=== PATIENT | male | born 1960 | race Caucasian/White ===

== ENCOUNTER 2018-07-30 19:05 | Inpatient (IN) | payer MEDICAID ==
[2018-07-30] MEDS ORDERED: Sodium Chloride 0.9% 1,000 ML IV ONE ×3 (19:24→22:32)
[2018-07-30 19:49] LABS: URINE SOURCE CATH
[2018-07-30 19:51] LABS: URINE BILIRUBIN NEGATIVE (NEGATIVE); URINE BLOOD LARGE (NEGATIVE); URINE GLUCOSE (UA) NEGATIVE (NEGATIVE); URINE KETONE NEGATIVE (NEGATIVE); URINE LEUKOCYTE ESTERASE LARGE (NEGATIVE); URINE MICROSCOPIC INDICATED? YES; URINE NITRATE POSITIVE (NEGATIVE); URINE PROTEIN 30 mg/dL (NEGATIVE); URINE UROBILINOGEN 0.2 E.U./dL (0.2 - 1.0)
--- NOTE | 2018-07-30 19:55 | ED Physician Chart ---
ED Chief Complaint/HPI - Patient Information Date Seen:: 07/30/18 Time Seen:: 19:49 Chief Complaint:: fever r/o sepsis History of Present Illness:: 58 yr old male with hx SAH SPONTANEOUS WITH DYSPHAGIA RESP DISTRESS WITH TRACH HERE FOR ELEVATED TEMP UP TO 103 AND R/O SEPSIS Allergies:: Allergies Allergy/AdvReac Type Severity Reaction Status Date / Time No Known Allergies Allergy Verified 07/30/18 19:06 Vitals:: Vital Signs - 8 hr 07/30/18 07/30/18 19:11 19:17 Temp 103.7 F HR 127 123 RR 26 BP 121/75 O2 Sat % 100 100 ED Review of Systems - Review of Systems General/Constitutional: Fever Skin: Skin lesions Neck: No swelling Cardio Vascular: No edema Pulmonary: No wheezing GI: No vomiting Psychiatric: No prior psych history Neurological: Weakness ED Past Medical History - Past Medical History Past Medical History: Seizures (ANEMIA RESP FAILURE SAH TRACH GTUBE BENZ VENT DEPENDENT DNR), Other Family Medical History - Family Member Mother History Unknown: Yes ED Physical Exam - Physical Examination Other Gen/Cons comments:: NOT AWAKE MOVES LIPS SPONT NO RESPONSE TO STERNAL RUB EYES CLOSED Other Head comments:: HAS LARGE RT CRANIAL DEFECT WITH DEFORMITY CALVARIUM Other Eyes comments:: PUPILS SMALL SLIGHTLY REACTIVE AND NO DOLLS EYES AND POSITIVE BABINSKI Other Skin comments:: DRY SKIN SMALL COCCYGEAL DECUB AND LARGE LISA SKULL DEFECT RT TEMPORAL AREA Other Respiratory comments:: TRACH VENT Cardio Vascular: RRR Other GI comments:: GTUBE IN PLACE Extremities: No edema Other Neuro/Psych comments:: PT NON RESPONSIVE NON VERBAL ED Septic Shock - . Is Septic Shock (SBP<90, OR Lactate>4 mmol\L) present?: No - <6hrs of presentation: Vital Signs: Vital Signs - 8 hr 07/30/18 07/30/18 19:11 19:17 Temp 103.7 F HR 127 123 RR 26 BP 121/75 O2 Sat % 100 100 ED Reassessment (Disposition) - Reassessment Reassessment:: FEVER TRACH GTUBE SAH DNR R/O SEPSIS - Diagnosis Diagnosis:: ABOVE - Patient Disposition Discharge/Transfer:: Acute Care w/in this hosp Admitted to:: ICU Condition at Disposition:: Unchanged
[2018-07-30 19:58] LABS: MEAN CORPUSCULAR HEMOGLOBIN 29.4 pg (26.0-30.0); MEAN PLATELET VOLUME 8.1 fl; PLATELET COUNT 308 Th/cmm (150-400)
[2018-07-30 19:58] LABS: URINE CLARITY HAZY (CLEAR); URINE COLOR YELLOW
[2018-07-30 20:01] LABS: HEMATOCRIT 33.8 % (41.0-60); HEMOGLOBIN 11.3 gm/dL (12-16); MEAN CELL VOLUME 87.9 fl (80-99); MEAN CORPUSCULAR HGB CONC 33.4 pg (28.0-36.0); RED BLOOD COUNT 3.84 Mil/cmm (4.30-5.70); RED CELL DISTRIBUTION WIDTH 14.1 % (11.5-20.0)
[2018-07-30 20:06] LABS: ALB/GLOB RATIO 0.9 (1.0-1.8); ALBUMIN 3.4 gm/dL (4.2-5.5); ALKALINE PHOSPHATASE 64 U/L (34-104); ANION GAP 13.8 (7.0-16.0); BILIRUBIN,TOTAL 0.6 mg/dL (0.3-1.0); BUN - UREA NITROGEN 23 mg/dL (7-25); CALCIUM SERUM 8.7 mg/dL (8.6-10.3); CARBON DIOXIDE 23.9 mEq/L (21.0-31.0); CHLORIDE 96 mEq/L (98-107); CREATININE - SERUM 0.7 mg/dL (0.7-1.3); GFR AFRICAN-AMERICAN > 60.0 ml/min (>90); GFR NON AFRICAN-AMERICAN > 60.0 ml/min; GLUCOSE 97 mg/dL (70-105); POTASSIUM SERUM 3.7 mEq/L (3.5-5.1); SGOT 26 U/L (13-39); SGPT/ALT 43 U/L (7-52); SODIUM SERUM 130 mEq/L (136-145); TOTAL PROTEIN,SERUM 7.4 gm/dL (6.0-8.3)
[2018-07-30] MEDS ORDERED: cefTRIAXone 2 GM in Sodium Chloride 0.9% 100 ML IV ONE (20:10)
[2018-07-30 20:17] LABS: WHITE BLOOD COUNT 27.1 Th/cmm (4.8-10.8)
[2018-07-30 20:21] LABS: URINE BACTERIA 4+ /hpf (NONE SEEN); URINE EPITHELIAL CELLS FEW /lpf (FEW); URINE WBC 25-50 /hpf (0-5)
[2018-07-30 20:31] LABS: BAND NEUTROPHILE 8 % (0-10); LYMPHOCYTE 5 % (20-50); MONOCYTE 5 % (2-10); NEUTROPHILS 82 % (40-80)
[2018-07-30] MEDS: Chlorhexidine Gluconate 0.12% 15mL Mouthwash MM SCH (21:30)
[2018-07-30] MEDS ORDERED: Piperacillin Sodium/Tazobact 3.375 gm Vial IV ONE (22:44)
[2018-07-31] MEDS ORDERED: Albumin 25% 25gm/100mL 25 GM/100 ML BTL IV ONE ×2 (00:17→04:05)
[2018-07-31] MEDS ORDERED: Albumin 25% 25gm/100mL 50 GM/200 ML BTL IV ONE (00:39)
[2018-07-31 04:55] LABS: HEMATOCRIT 28.1 % (41.0-60); HEMOGLOBIN 9.3 gm/dL (12-16); MEAN CORPUSCULAR HEMOGLOBIN 29.1 pg (26.0-30.0); MEAN CORPUSCULAR HGB CONC 33.1 pg (28.0-36.0); MEAN PLATELET VOLUME 8.1 fl; PLATELET COUNT 275 Th/cmm (150-400); RED BLOOD COUNT 3.19 Mil/cmm (4.30-5.70); RED CELL DISTRIBUTION WIDTH 14.3 % (11.5-20.0)
[2018-07-31 05:38] LABS: ALB/GLOB RATIO 1.1 (1.0-1.8); ALBUMIN 3.7 gm/dL (4.2-5.5); ALKALINE PHOSPHATASE 53 U/L (34-104); ANION GAP 15.3 (7.0-16.0); BILIRUBIN,TOTAL 0.7 mg/dL (0.3-1.0); BUN - UREA NITROGEN 16 mg/dL (7-25); CALCIUM SERUM 8.9 mg/dL (8.6-10.3); CARBON DIOXIDE 22.2 mEq/L (21.0-31.0); CHLORIDE 101 mEq/L (98-107); CREATININE - SERUM 0.7 mg/dL (0.7-1.3); GFR AFRICAN-AMERICAN > 60.0 ml/min (>90); GFR NON AFRICAN-AMERICAN > 60.0 ml/min; GLUCOSE 90 mg/dL (70-105); POTASSIUM SERUM 3.5 mEq/L (3.5-5.1); SGOT 21 U/L (13-39); SGPT/ALT 33 U/L (7-52); SODIUM SERUM 135 mEq/L (136-145); TOTAL PROTEIN,SERUM 7.2 gm/dL (6.0-8.3)
[2018-07-31 05:40] LABS: WHITE BLOOD COUNT 30.2 Th/cmm (4.8-10.8)
[2018-07-31 06:40] LABS: LYMPHOCYTE 6 % (20-50); NEUTROPHILS 89 % (40-80)
[2018-07-31 06:41] LABS: MONOCYTE 5 % (2-10); PLATELET ESTIMATE ADEQUATE (NORMAL)
[2018-07-31 07:18] VITALS: BP 125/77
--- NOTE | 2018-07-31 07:46 | Diagnostic Imaging Report ---
Portable chest x-ray History: Cough Allowing for portable technique the heart size is normal. No focal pulmonary parenchymal processes. No hilar or mediastinal abnormalities. Right-sided vascular tip is in the region of the superior vena cava. Tracheostomy noted. Impression: No acute pulmonary processes
[2018-07-31] MEDS: Chlorhexidine Gluconate 0.12% 15mL Mouthwash MM SCH ×2 (08:46→20:35)
[2018-07-31] MEDS ORDERED: Magnesium Hydroxide (MOM) 30 mL UDC GT PRN (17:50)
--- NOTE | 2018-07-31 19:22 | History & Physical ---
ADMIT DATE: 07/31/2018 CHIEF COMPLAINT: Fever. HISTORY OF PRESENT ILLNESS: This is a 58-year-old male who is a resident of [facility], admitted to the ICU unit due to an episode of a fever of 103 at the subacute unit. When the patient arrived in the ER, the patient was noted with a WBC of 27.1. Sepsis protocol was initiated. PAST MEDICAL HISTORY: Chronic respiratory failure, seizures, ventilator dependent and anemia. PAST SURGICAL HISTORY: Tracheostomy, gastrostomy and craniotomy. ALLERGIES: No drug allergies. HOME MEDICATIONS: See medication list. FAMILY HISTORY: Noncontributory. SOCIAL HISTORY: The patient is a [facility] resident. REVIEW OF SYSTEMS: Unable to obtain, the patient is nonverbal. PHYSICAL EXAMINATION: GENERAL: The patient is well developed, well nourished and appears acutely ill. VITAL SIGNS: Temperature 99.2, heart rate of 100, blood pressure 111/69, respirations of 17 and O2 100%. NECK: Tracheostomy site in place. CARDIOVASCULAR: Regular rate and rhythm. No murmurs or gallops. LUNGS: Rhonchi bilaterally upon auscultation. ABDOMEN: Soft, nontender and nondistended. PEG tube in place. EXTREMITIES: No edema noted. LABORATORY DATA: WBC 30.2, H and H 9.3 and 28.1 and platelet of 275. Sodium 135, potassium 3.5, chloride 101, BUN 16 and creatinine 0.7. The patient had a urinalysis done, positive for UTI. DIAGNOSTIC DATA: The patient had a chest x-ray done. Impression is no acute pulmonary processes. ASSESSMENT: Urosepsis, acute on chronic respiratory failure, VDRF, seizures, anemia, gastrostomy and tracheostomy status and moderate protein-calorie malnutrition. PLAN: The patient to be admitted to the ICU unit. We will give the patient IV antibiotics of vancomycin and Zosyn. We will also get Infectious Disease on the case. We will get Pulmonology on the case. We will get followup labs for tomorrow morning. We will get wound care consult. We will continue to monitor this patient. JOB# [id number]
[2018-07-31] MEDS: Cefepime 1 GM in Sodium Chloride 0.9% 50 ML IV SCH (20:29)
[2018-08-01 05:14] LABS: HEMATOCRIT 24.6 % (41.0-60); HEMOGLOBIN 8.2 gm/dL (12-16); MEAN CELL VOLUME 88.6 fl (80-99); MEAN CORPUSCULAR HEMOGLOBIN 29.7 pg (26.0-30.0); MEAN CORPUSCULAR HGB CONC 33.5 pg (28.0-36.0); MEAN PLATELET VOLUME 8.7 fl; PLATELET COUNT 191 Th/cmm (150-400); RED BLOOD COUNT 2.78 Mil/cmm (4.30-5.70); RED CELL DISTRIBUTION WIDTH 14.3 % (11.5-20.0)
[2018-08-01 05:43] LABS: WHITE BLOOD COUNT 18.8 Th/cmm (4.8-10.8)
[2018-08-01 05:52] LABS: ANION GAP 10.9 (7.0-16.0); BUN - UREA NITROGEN 15 mg/dL (7-25); CALCIUM SERUM 8.3 mg/dL (8.6-10.3); CARBON DIOXIDE 22.7 mEq/L (21.0-31.0); CHLORIDE 103 mEq/L (98-107); CREATININE - SERUM 0.5 mg/dL (0.7-1.3); GFR AFRICAN-AMERICAN > 60.0 ml/min (>90); GFR NON AFRICAN-AMERICAN > 60.0 ml/min; GLUCOSE 153 mg/dL (70-105); SODIUM SERUM 134 mEq/L (136-145)
[2018-08-01 06:11] LABS: POTASSIUM SERUM 2.6 mEq/L (3.5-5.1)
[2018-08-01 06:28] LABS: LYMPHOCYTE 4 % (20-50); MONOCYTE 4 % (2-10); NEUTROPHILS 92 % (40-80); PLATELET ESTIMATE ADEQUATE (NORMAL)
[2018-08-01] MEDS: Levetiracetam 500 mg/5mL 5mL UDSyr *for ORAL USE ONLY GT SCH ×2 (08:22→18:18)
[2018-08-01] MEDS: Multivitamin Tab GT SCH ×2 (08:23→18:18)
[2018-08-01] MEDS: Chlorhexidine Gluconate 0.12% 15mL Mouthwash MM SCH ×2 (08:24→20:28)
[2018-08-01] MEDS: Cefepime 1 GM in Sodium Chloride 0.9% 50 ML IV SCH ×2 (08:59→20:00)
[2018-08-01] MEDS ORDERED: Non-Formulary Item 1 EA (Cran/Vitc/Mannose/Fos/Bromeln [Uti-Stat Liquid] 3,875 MG) PO SCH (09:00)
[2018-08-01] MEDS ORDERED: Probiotic Screen MC PRN (09:03)
[2018-08-01] MEDS: KCL 20mEq/100mL Premix 20 MEQ/100 ML PIGGYBACK IV SCH ×2 (10:19→12:22)
[2018-08-01] MEDS: Lactobacillus Rhamnosus GG 15 Billion CFU CAP.SPRINK PO SCH (12:24)
[2018-08-01] MEDS ORDERED: Potassium Chloride Elixir 20 mEq /15 mL UDC GT ONE (12:57)
[2018-08-01] MEDS ORDERED: Silver Nitrate 1 Swab TP ONE (13:50)
[2018-08-01] MEDS ORDERED: BUPIVACAINE 0.25% INJ ONE (13:50)
[2018-08-01] MEDS ORDERED: EPI INJ ONE (13:50)
--- NOTE | 2018-08-01 14:23 | Operative Report ---
Post Operative Report - POST-OPERATIVE NOTE Preoperative diagnosis:: actively bleeding R pre-auricular open wound/laceration Postoperative diagnosis:: same Operation performed:: suture repair R preauricular bleeding wound/laceration Specimen:: none Anesthesia:: Local Anesthesiologist:: Tanner Cespedes Blood Loss (fluid management):: 5ml Surgeon:: Tanner Cespedes Hotel Guest Service Agent:: none Findings:: R preauricular open wound, dehisced incision Complications:: none
[2018-08-01] MEDS: Morphine Sulfate 2 mg/mL 1mL Syr IVP PRN ×2 (14:50→19:52)
--- NOTE | 2018-08-01 15:42 | Internal Medicine Prog Note ---
Internal Medicine Subjective - Subjective Service Date: 08/01/18 Patient seen and examined:: with staff Patient is:: awake Patient Complaints of:: other (resp. failure on vent.) Per staff patient has:: no adverse event, no episodes of fall Internal Medicine Objective - Results Result Diagrams: 08/01/18 05:00 08/01/18 05:00 Recent Labs: Laboratory Last Values WBC 18.8 Th/cmm (4.8-10.8) H 08/01/18 05:00 RBC 2.78 Mil/cmm (4.30-5.70) L 08/01/18 05:00 Hgb 8.2 gm/dL (12-16) L 08/01/18 05:00 Hct 24.6 % (41.0-60) L 08/01/18 05:00 MCV 88.6 fl (80-99) 08/01/18 05:00 MCH 29.7 pg (26.0-30.0) 08/01/18 05:00 MCHC Differential 33.5 pg (28.0-36.0) 08/01/18 05:00 RDW 14.3 % (11.5-20.0) 08/01/18 05:00 Plt Count 191 Th/cmm (150-400) 08/01/18 05:00 MPV 8.7 fl 08/01/18 05:00 Add Manual Diff YES 08/01/18 05:00 Band Neutrophils % 8 % (0-10) 07/30/18 19:44 Neutrophils (Manual) 92 % (40-80) H 08/01/18 05:00 Lymphocytes 4 % (20-50) L 08/01/18 05:00 Monocytes 4 % (2-10) 08/01/18 05:00 Platelet Estimate ADEQUATE (NORMAL) 08/01/18 05:00 Sodium 134 mEq/L (136-145) L 08/01/18 05:00 Potassium 2.6 mEq/L (3.5-5.1) L* 08/01/18 05:00 Chloride 103 mEq/L (98-107) 08/01/18 05:00 Carbon Dioxide 22.7 mEq/L (21.0-31.0) 08/01/18 05:00 Anion Gap 10.9 (7.0-16.0) 08/01/18 05:00 BUN 15 mg/dL (7-25) 08/01/18 05:00 Creatinine 0.5 mg/dL (0.7-1.3) L 08/01/18 05:00 Est GFR ( Amer) > 60.0 ml/min (>90) 08/01/18 05:00 Est GFR (Non-Af Amer) > 60.0 ml/min 08/01/18 05:00 BUN/Creatinine Ratio 30.0 08/01/18 05:00 Glucose 153 mg/dL (70-105) H 08/01/18 05:00 Whole Bld Lactic Acid 1.47 mmol/L (0.60-1.99) 07/31/18 07:40 Calcium 8.3 mg/dL (8.6-10.3) L 08/01/18 05:00 Total Bilirubin 0.7 mg/dL (0.3-1.0) 07/31/18 04:35 AST 21 U/L (13-39) 07/31/18 04:35 ALT 33 U/L (7-52) 07/31/18 04:35 Alkaline Phosphatase 53 U/L (34-104) 07/31/18 04:35 Total Protein 7.2 gm/dL (6.0-8.3) 07/31/18 04:35 Albumin 3.7 gm/dL (4.2-5.5) L 07/31/18 04:35 Globulin 3.5 gm/dL 07/31/18 04:35 Albumin/Globulin Ratio 1.1 (1.0-1.8) 07/31/18 04:35 Urine Source CATH 07/30/18 19:20 Urine Color YELLOW 07/30/18 19:20 Urine Clarity HAZY (CLEAR) 07/30/18 19:20 Urine pH 7.0 (4.6 - 8.0) 07/30/18 19:20 Ur Specific [place] 1.010 (1.005-1.030) 07/30/18 19:20 Urine Protein 30 mg/dL (NEGATIVE) H 07/30/18 19:20 Urine Glucose (UA) NEGATIVE mg/dL (NEGATIVE) 07/30/18 19:20 Urine Ketones NEGATIVE mg/dL (NEGATIVE) 07/30/18 19:20 Urine Blood LARGE (NEGATIVE) H 07/30/18 19:20 Urine Nitrate POSITIVE (NEGATIVE) H 07/30/18 19:20 Urine Bilirubin NEGATIVE (NEGATIVE) 07/30/18 19:20 Urine Urobilinogen 0.2 E.U./dL (0.2 - 1.0) 07/30/18 19:20 Ur Leukocyte Esterase LARGE (NEGATIVE) H 07/30/18 19:20 Urine RBC 5-10 /hpf (0-5) H 07/30/18 19:20 Urine WBC 25-50 /hpf (0-5) H 07/30/18 19:20 Ur Epithelial Cells FEW /lpf (FEW) 07/30/18 19:20 Urine Bacteria 4+ /hpf (NONE SEEN) H 07/30/18 19:20 - Physical Exam Vitals and I&O: Vital Signs Temp 99.2 F 08/01/18 11:00 Pulse 98 08/01/18 13:20 Resp 15 08/01/18 11:00 BP 126/77 08/01/18 10:00 Pulse Ox 100 08/01/18 13:20 Intake & Output 07/31/18 08/01/18 08/01/18 18:59 06:59 18:59 Intake Total 1180 1270 550 Output Total 2075 750 100 Balance -895 520 450 Weight (lbs) 55.338 kg 55.338 kg 55.338 kg Intake: Intake, IV Amount 250 300 400 Cefepime 1 gm In Sodium 50 50 Chloride 0.9% 50 ml @ 100 mls/hr IV Q12HR [facility] Rx#: [id number] KCL 20mEq/100mL Premix 20 100 meq In 100 ml @ 50 mls/ hr IV Q2H [facility] Rx#: [id number] Vancomycin HCl 1 gm In 250 250 250 Sodium Chloride 0.9% 250 ml @ 165 mls/hr IV Q12H [facility] Rx#:[id number] Tube Feeding 630 770 Other 300 200 150 Output: Urine 2075 750 100 Other: # Bowel Movements 2 1 Stool Characteristics Soft Brown Weight Source Bedscale Bedscale Bedscale Active Medications: Current Medications Acetaminophen (Tylenol) 650 mg GT Q4H PRN PRN Reason: Fever > 101 Stop: 09/29/18 06:32 Last Admin: 08/01/18 08:23 Dose: 650 mg Acetaminophen (Tylenol) 650 mg GT Q4HR PRN PRN Reason: Pain or Fever >101 Stop: 09/29/18 15:21 Ascorbic Acid (Vitamin C) 500 mg GT DAILY [facility] Stop: 09/30/18 08:59 Last Admin: 08/01/18 08:24 Dose: 500 mg Bisacodyl (Dulcolax 10 Mg Supp) 10 mg RC DAILY PRN PRN Reason: Constipation Stop: 09/29/18 15:21 Chlorhexidine Gluconate (Peridex) 15 ml MM 0800,2000 [facility] Stop: 09/28/18 19:59 Last Admin: 08/01/18 08:24 Dose: 15 ml Famotidine (Pepcid) 20 mg PO BID [facility] Stop: 09/29/18 20:59 Last Admin: 08/01/18 08:23 Dose: 20 mg Norepinephrine Bitartrate 4 mg (/ Dextrose) 254 mls @ 0 mls/hr IV TITR PRN; Protocol PRN Reason: BP MAINTENANCE (PER PROTOCOL) Stop: 09/29/18 00:37 Vancomycin HCl 1 gm/ Sodium (Chloride) 250 mls @ 165 mls/hr IV Q12H [facility] Stop: 09/29/18 09:59 Last Infusion: 08/01/18 11:35 Dose: Infused Cefepime HCl 1 gm/ Sodium (Chloride) 50 mls @ 100 mls/hr IV Q12HR [facility] Stop: 09/29/18 20:59 Last Infusion: 08/01/18 09:30 Dose: Infused Lactobacillus Rhamnosus (Culturelle 15b) 1 each PO DAILY [facility] Stop: 09/30/18 11:59 Last Admin: 08/01/18 12:24 Dose: 1 each Levetiracetam (Keppra) 500 mg GT BID [facility] Stop: 09/30/18 08:59 Last Admin: 08/01/18 08:22 Dose: 500 mg Magnesium Hydroxide (Milk Of Magnesia) 30 ml GT HS PRN PRN Reason: Constipation Stop: 09/29/18 17:49 Miscellaneous (Vancomycin Iv Per Pharmacy) 1 ea MC DAILY [facility] Stop: 09/29/18 08:59 Miscellaneous (Probiotic Screen) 1 ea MC PRN PRN PRN Reason: PROTOCOL Stop: 09/30/18 09:02 Morphine Sulfate (Morphine) 1 mg IVP Q4HR PRN PRN Reason: Pain (Mild) Stop: 09/30/18 14:04 Last Admin: 08/01/18 14:50 Dose: 1 mg Multivitamins/Vitamin C (Theragran) 1 tab GT BID [facility] Stop: 09/30/18 08:59 Last Admin: 08/01/18 08:23 Dose: 1 tab Thiamine HCl (Vitamin B1) 100 mg GT DAILY [facility] Stop: 09/30/18 08:59 Last Admin: 08/01/18 08:23 Dose: 100 mg Wound Care/Dressing Products (Therahoney) 1 appl TP DAILY [facility] Stop: 09/30/18 08:59 Zinc Sulfate (Zinc Sulfate) 220 mg GT DAILY [facility] Stop: 09/30/18 08:59 Last Admin: 08/01/18 08:22 Dose: 220 mg Physical Exam: 58 y/o mle patient has hx of resp. failure on Ventilator support. General: weak HEENT: NC/AT, PERRLA Neck: Supple, No JVD Lungs: wheezing, ronchi Cardiovascular: RRR, Normal S1 Abdomen: non-tender Extremities: clear Neurological: no change - Procedures Procedures: Procedures Procedure Code Date RESPIRATORY VENTILATION, 24-96 CONSECUTIVE HOURS 6V1502H 07/30/18 Nutritional Asmnt/Malnutr-PDOC - Dietary Evaluation Malnutrition Findings (Please click <Entered> for more info): Nutritional Asmnt/Malnutrition Start: 07/31/18 14: 50 Text: Status: Complete Freq: Protocol: Document 07/31/18 14:50 LCHENG (Rec: 07/31/18 15:09 LCHENG [email or web address]) Nutritional Asmnt/Malnutrition Patient General Information Nutritional Screening High Risk Diagnosis urosepis Pertinent Medical Hx/Surgical Hx seizures, anemia, resp failure , SAH, trach, Gtube, foleu, vent depression Subjective Information Pt seen resting in bed, trach to vent. Visiablly verified TF was running at goal rate of 70ml/hr at this time. Current Diet Order/ Nutrition Support Jevity 1.2 at 70ml/hr x 20hr. Pertinent Medications nacl 0.9%, vancomycin Pertinent Labs 5/2 Na 135, alb 3.7 Nutritional Hx/Data Height 1.73 m Height (Calculated Centimeters) 172.7 Current Weight (lbs) 55.338 kg Weight (Calculated Kilograms) 55.3 Weight (Calculated Grams) 06383.3 [place] Body Weight 154 Body Mass Index (BMI) 18.5 Weight Status Approriate GI Symptoms GI Symptoms None Last BM 5/2 Difficult in: None Skin Integrity/Comment: scar to head and right anterior ear, abrasion to left ankle, rash to left posterior and right axilla, decubitus ulcer to sacrum. Sal 12. Estimated Nutritional Goals Calories/Kcals/Kg 23-27 based on IBW 70kg Kcals Calculated 7837-7130 Protein g/k-1.2 Protein Calculated 70-84 Fluid: ml 1610-1890ml (1ml/kcal) Nutritional Problem No current Nutrition Prob Problem N/A Malnutrition Alert Is there a minimum of two criteria No selected? Query Text:Check all the applicable criteria. A minimum of two criteria are recommended for diagnosis of either severe or non-severe malnutrition. Malnutrition Related to Morbid Obesity Malnutrition related to morbid obesity No Intervention/Recommendation Comments 1. Continue with current TF regimen Jevity 1.2 at 70ml/hr x 20hr. It provides 1680kcal, 78g protein, 1130ml free water , meeting 100% of nutritional needs 2. Monitor TF rate, tolerance, wt, skin integrity and labs 3. F/U as moderate risk Expected Outcomes/Goals Expected Outcomes/Goals 1. Pt to meet at least 90% of nutritional needs via nutrition support with tolerance 2. Wt stability, skin to remain intact, labs to approach WNL.
[2018-08-01 16:06] LABS: HEMATOCRIT 27.9 % (41.0-60); HEMOGLOBIN 9.4 gm/dL (12-16)
[2018-08-01] MEDS: Therahoney Gel 42.5gm Tube TP SCH (18:19)
--- NOTE | 2018-08-01 18:21 | Operative Report ---
DATE OF SURGERY: 08/01/2018 PREOPERATIVE DIAGNOSIS: Actively bleeding right preauricular open wound laceration. POSTOPERATIVE DIAGNOSIS: Actively bleeding right preauricular open wound laceration. OPERATION PERFORMED: Suture repair of a right preauricular bleeding wound/laceration or incision. SPECIMENS: None. ANESTHESIA: Local. ANESTHESIOLOGIST: ESTIMATED BLOOD LOSS: 5 mL. SURGEON: Tanner Cespedes M.D. FIRE SPRINKLER INSTALLER: None. FINDINGS: Right preauricular about 2 cm open dehisced wound/incision. COMPLICATIONS: None. DESCRIPTION OF PROCEDURE: After confirming the patient's identification and procedure to be done, the patient was placed in supine position. The patient was evaluated. The patient has a scalp incision, which extends to the right preauricular area. There was a 2 cm area of open wound laceration dehiscence with clotted blood at that site. There was arterial pulsation in this area. Pressure was applied. I then prepped the area with Betadine and then suture closed the incision approximating the skin edges with 3-0 nylon interrupted sutures. The patient tolerated the procedure well. Local anesthesia had been given preprocedure and afterwards as well. Pressure was applied with Surgicel and instructed to wrap the head around with Ac wrap for pressure dressing. The patient tolerated the procedure well. JOB# [id number]
--- NOTE | 2018-08-02 03:42 | Consultation ---
DATE OF CONSULTATION: 08/01/2018 INFECTIOUS DISEASE CONSULTATION REFERRING PHYSICIAN: Dr. Pedro. REASON FOR CONSULTATION: Sepsis. HISTORY OF PRESENT ILLNESS: The patient is a 58-year-old male with a past medical history of right-sided craniotomy with dehiscence of wound by self-inflicted injury treated at [facility]. He was brought to the ER for fever of 103 degrees Fahrenheit. On initial evaluation, the patient's temperature was 103.7 degrees Fahrenheit and WBC count was 27,100, it went over 30,200 yesterday. The patient was started on vancomycin and cefepime and ID consult was called for the antibiotic management. Meanwhile, the patient's temperature curve is improving. His WBC count is also improving. Urinalysis showed pyuria and bacteria. PAST MEDICAL HISTORY: Includes: 1. Protein-calorie malnutrition. 2. Subarachnoid hemorrhage. 3. Craniotomy on the right side. 4. Wound dehiscence, which has healed now. 5. Dysphagia. 6. G-tube placement. 7. Ventilator-dependent respiratory failure. 8. Seizure disorder. MEDICATIONS: As per medication reconciliation sheet. Antibiotic bass, the patient on vancomycin and cefepime. ALLERGIES: NKDA. SOCIAL HISTORY: The patient lives in a nursing facility. No history of smoking, alcohol or drug use recently. FAMILY HISTORY: Not available. REVIEW OF SYSTEMS: The patient unable to give any history, but the patient had a fever. The patient on vent-dependent. PHYSICAL EXAMINATION: CURRENT VITAL SIGNS: Shows temperature is 99.2 degrees Fahrenheit, T-max is 102.7 degrees Fahrenheit, pulse is 98, respirations 15, blood pressure 126/77. GENERAL: The patient is comfortable, lying in the bed, cachectic, not in acute distress, on the ventilator, status post tracheostomy. HEENT: Head has right-sided craniotomy with no scalp wound. The oral cavity moist, pink tongue. Eyes: Pallor is present, no icterus. Pupils PERRLA, EOMI. NECK: Supple. No JVD. Trach site is clear. CHEST: Bilateral vesicular sounds. No crackles or wheezing. HEART: S1, S2 within normal limits. Regular rhythm. No murmur or gallop. ABDOMEN: Soft, nontender, nondistended. Bowel sounds present. PEG site is clear. EXTREMITIES: No cyanosis, no clubbing, no edema. NEUROLOGIC: Alert and awake. LABORATORY DATA: Current lab shows WBC count 18,800, hemoglobin 8.2, hematocrit 24.6, platelets are 191,000. Neutrophil 92%. Sodium 134, potassium 2.6, chloride 103, bicarbonate 22.7, BUN is 15, creatinine is 0.5, glucose 153. Lactic acid 1.47. Urinalysis showed large blood, positive nitrite, large leukocyte esterase, WBC 25-50 and 4+ bacteria. Blood culture 4 sets are negative. Chest x-ray shows no acute pulmonary process. IMPRESSION: 1. Sepsis. 2. Urinary tract infection and pyelonephritis. 3. Vent-dependent respiratory failure. 4. History of subarachnoid hemorrhage. 5. Status post craniotomy on the right side. 6. Hypokalemia. RECOMMENDATIONS: We will supplement potassium. We will continue vancomycin and cefepime. Depending on the culture report, we will define final antibiotic therapy. Meanwhile, follow up the sepsis workup. Check renal ultrasound. Thank you, Dr. Pedro for involving me in taking care of this patient. JOB# [id number]
[2018-08-02 05:05] LABS: EOSINOPHILE ABSOLUTE 0.1 Th/cmm (0.1-0.4); HEMATOCRIT 31.2 % (41.0-60); HEMOGLOBIN 10.3 gm/dL (12-16); LYMPHOCYTE ABSOLUTE 0.3 Th/cmm (1.5-3.0); MEAN CORPUSCULAR HEMOGLOBIN 29.4 pg (26.0-30.0); MEAN CORPUSCULAR HGB CONC 33.1 pg (28.0-36.0); MEAN PLATELET VOLUME 9.1 fl; MONOCYTE ABSOLUTE 0.2 Th/cmm (0.3-1.0); NEUTROPHILE ABSOLUTE 8.3 Th/cmm (1.8-8.0); PLATELET COUNT 152 Th/cmm (150-400); RED BLOOD COUNT 3.51 Mil/cmm (4.30-5.70); RED CELL DISTRIBUTION WIDTH 14.4 % (11.5-20.0); WHITE BLOOD COUNT 8.9 Th/cmm (4.8-10.8)
[2018-08-02 05:18] LABS: ALKALINE PHOSPHATASE 84 U/L (34-104); ANION GAP 14.1 (7.0-16.0); BILIRUBIN,TOTAL 0.4 mg/dL (0.3-1.0); BUN - UREA NITROGEN 12 mg/dL (7-25); CALCIUM SERUM 8.7 mg/dL (8.6-10.3); CARBON DIOXIDE 24.1 mEq/L (21.0-31.0); CHLORIDE 99 mEq/L (98-107); CREATININE - SERUM 0.4 mg/dL (0.7-1.3); GFR AFRICAN-AMERICAN > 60.0 ml/min (>90); GFR NON AFRICAN-AMERICAN > 60.0 ml/min; GLUCOSE 106 mg/dL (70-105); POTASSIUM SERUM 3.2 mEq/L (3.5-5.1); SGOT 27 U/L (13-39); SGPT/ALT 24 U/L (7-52); SODIUM SERUM 134 mEq/L (136-145); TOTAL PROTEIN,SERUM 6.1 gm/dL (6.0-8.3)
[2018-08-02 06:21] LABS: NEUTROPHILS 92 % (40-80)
[2018-08-02 06:22] LABS: BAND NEUTROPHILE 0 % (0-10); BASOPHIL 0 % (0-3); EOSINOPHIL 0 % (0-5); LYMPHOCYTE 4 % (20-50); MONOCYTE 4 % (2-10)
[2018-08-02] MEDS: KCL 20mEq/100mL Premix 20 MEQ/100 ML PIGGYBACK IV SCH ×2 (07:51→11:35)
[2018-08-02] MEDS: Chlorhexidine Gluconate 0.12% 15mL Mouthwash MM SCH ×2 (08:11→20:25)
[2018-08-02] MEDS: Levetiracetam 500 mg/5mL 5mL UDSyr *for ORAL USE ONLY GT SCH ×2 (08:12→17:20)
[2018-08-02] MEDS: Multivitamin Tab GT SCH ×2 (08:12→17:20)
[2018-08-02] MEDS: Lactobacillus Rhamnosus GG 15 Billion CFU CAP.SPRINK PO SCH (08:12)
[2018-08-02] MEDS: Therahoney Gel 42.5gm Tube TP SCH (08:12)
[2018-08-02] MEDS: Morphine Sulfate 2 mg/mL 1mL Syr IVP PRN (08:34)
[2018-08-02] MEDS: Cefepime 1 GM in Sodium Chloride 0.9% 50 ML IV SCH ×2 (09:38→20:24)
--- NOTE | 2018-08-02 10:11 | Diagnostic Imaging Report ---
Renal ultrasound HISTORY: Hydronephrosis, pyelonephritis. COMPARISON: None Technique: Sonography of the kidneys and urinary bladder was performed in multiple planes. FINDINGS: The right kidney measures 10.8 x 5 cm demonstrating a mildly heterogeneous echotexture. No evidence of hydronephrosis. No focal lesions. The Left kidney measures 11.1 x 6 cm demonstrating a superior pole cyst measuring 1.6 cm. No hydronephrosis. Mildly heterogeneous echotexture is noted. The urinary bladder is underdistended containing a Hernandez catheter, limiting its evaluation. Echogenic foci are seen along the superior aspect of the urinary bladder. IMPRESSION: No evidence of hydronephrosis. Mildly heterogeneous renal parenchyma, inflammatory process cannot be excluded, please correlate clinically. 1.6 cm left renal cyst. Hernandez catheter within underdistended urinary bladder limiting its evaluation. Echogenic areas are seen along this superior urinary bladder nonspecific and may represent urinary bladder wall calcifications are may be due to technical factors. Urinary bladder stones cannot be completely excluded. Please correlate with clinical findings.
--- NOTE | 2018-08-02 10:49 | Consultation ---
DATE OF CONSULTATION: 08/01/2018 SURGICAL CONSULTATION TIME: 2:00 p.m. HISTORY OF PRESENT ILLNESS: The patient is a 58-year-old male with a history of subarachnoid hemorrhage, spontaneous with dysphagia, respiratory distress, trach, here for elevated temperature, fever of 103 and rule out sepsis. The patient has right craniotomy and reported bleeding from the preauricular area of the wound, reportedly active bleeding at the time when they called me. I have shown up here, pressure was applied and the bleeding has somewhat subsided. The patient admitted yesterday. Dr. Pedro has asked me to evaluate the patient. He is a resident of [facility], admitted to the ICU with episode of fever with WBC of 27.1. He has a history of chronic respiratory failure, seizures, vent dependent and anemia. PAST SURGICAL HISTORY: Trach, gastrostomy and craniotomy. ALLERGIES: No known drug allergies. REVIEW OF SYSTEMS: Unable to obtain. PHYSICAL EXAMINATION: VITAL SIGNS: The patient is 55 kilograms, BMI of 18.5. He has T-max of 99.4. Vital signs otherwise stable. GENERAL: Encephalopathic, does not follow commands. Craniotomy, incision craniectomy defect. HEENT: There is a preauricular open wound, which has some packing is in. The trachea is intact with no bleeding. CHEST: Clear to auscultation bilaterally. CARDIOVASCULAR: Regular rate. ABDOMEN: Soft, nontender, nondistended. G-tube is in place. He has a right arm PICC line. Hernandez catheter. NEUROVASCULAR AND EXTREMITIES: Otherwise normal. The patient is on cefepime, Levophed. White blood cell count 30.2 yesterday, today 18.8, H and H is 8 and 24; platelet count 191. Sodium is 134, potassium 2.6, creatinine 0.5, 4+ urine bacteria, 25-50 urine white blood cell count, leukocyte esterase large, large amount of blood in the urine as well too. IMAGING TESTS: The chest x-ray revealed no acute pulmonary process. IMPRESSION/PLAN: Status post right craniotomy, craniectomy defect. There is a well-healed scalp incision except for the preauricular area. There is an open wound with some packing in it. There was earlier some brisk bleeding from that site. Pressure was applied and hemostasis established at this time. We will evaluate the wound, may need to repack the wound or pack the wound or place a suture. The family understands that surgical evaluation will be made and control of bleeding will be probably was suture material and possibly cautery. JOB# [id number]
--- NOTE | 2018-08-02 11:24 | Progress Notes ---
DATE: 08/01/2018 PULMONARY PROGRESS NOTE SUBJECTIVE: The patient appears to be doing okay, no distress. SUBJECTIVE: VITAL SIGNS: Temperature 99.2, pulse 90, respiration is 15, blood pressure 126/77, saturation 100%. CHEST: Good breath sounds. No wheezing. Few rhonchi. HEART: Regular rate and rhythm. ABDOMEN: Soft. EXTREMITIES: No edema. LABORATORY DATA: WBC is 13.8, hemoglobin 8.2, hematocrit 24.6, platelets are 191. Sodium 134, potassium 2.6, BUN 15, creatinine 0.5. IMPRESSION: 1. Respiratory failure. 2. Urinary tract infection. 3. Sepsis. 4. History of craniotomy. PLAN: 1. Continue ventilator support. 2. Antibiotics. 3. Follow up CBC and cultures. JOB# [id number]
--- NOTE | 2018-08-03 01:19 | Progress Notes ---
DATE: 08/02/2018 The patient was seen. The patient is resting in bed comfortably in the ICU setting. Right craniectomy site, right preauricular wound suture closure site is clean and dry. There is Ac wrap around the site for pressure dressing. There is no bleeding from the site. Dressings are dry and clean. PHYSICAL EXAMINATION: CHEST: Clear to auscultation bilaterally. CARDIAC: Regular rate. ABDOMEN: Otherwise soft, nontender, nondistended. LABORATORY DATA: White blood cell count 8.9, H and H is 10 and 31, platelet count is 152. Sodium is 134, potassium 3.2, creatinine 0.4. The patient on cefepime, Keppra, vancomycin. No recent imaging tests. IMPRESSION AND PLAN: Stable after suture repair, closure of right preauricular bleeding wound. No further bleeding after suture repair and pressure dressing with Ac wrap. We will continue to follow dressing changes as usual per protocol. We will follow intermittently. [facility]# [id number]
[2018-08-03 05:21] LABS: HEMATOCRIT 26.5 % (41.0-60); HEMOGLOBIN 8.9 gm/dL (12-16); MEAN CELL VOLUME 87.7 fl (80-99); MEAN CORPUSCULAR HEMOGLOBIN 29.5 pg (26.0-30.0); MEAN CORPUSCULAR HGB CONC 33.7 pg (28.0-36.0); MEAN PLATELET VOLUME 9.3 fl; PLATELET COUNT 194 Th/cmm (150-400); RED BLOOD COUNT 3.02 Mil/cmm (4.30-5.70); RED CELL DISTRIBUTION WIDTH 14.8 % (11.5-20.0); WHITE BLOOD COUNT 10.2 Th/cmm (4.8-10.8)
[2018-08-03 05:38] LABS: ALB/GLOB RATIO 0.9 (1.0-1.8); ALBUMIN 3.1 gm/dL (4.2-5.5); ALKALINE PHOSPHATASE 105 U/L (34-104); ANION GAP 12.4 (7.0-16.0); BILIRUBIN,TOTAL 0.3 mg/dL (0.3-1.0); BUN - UREA NITROGEN 13 mg/dL (7-25); CALCIUM SERUM 8.7 mg/dL (8.6-10.3); CARBON DIOXIDE 26.3 mEq/L (21.0-31.0); CHLORIDE 97 mEq/L (98-107); CREATININE - SERUM 0.3 mg/dL (0.7-1.3); GFR AFRICAN-AMERICAN > 60.0 ml/min (>90); GFR NON AFRICAN-AMERICAN > 60.0 ml/min; GLUCOSE 114 mg/dL (70-105); POTASSIUM SERUM 3.7 mEq/L (3.5-5.1); SGOT 34 U/L (13-39); SGPT/ALT 27 U/L (7-52); SODIUM SERUM 132 mEq/L (136-145); TOTAL PROTEIN,SERUM 6.5 gm/dL (6.0-8.3)
[2018-08-03 05:52] LABS: BAND NEUTROPHILE 0 % (0-10); BASOPHIL 0 % (0-3); EOSINOPHIL 1 % (0-5); LYMPHOCYTE 7 % (20-50); MONOCYTE 8 % (2-10); NEUTROPHILS 84 % (40-80)
[2018-08-03] MEDS: Chlorhexidine Gluconate 0.12% 15mL Mouthwash MM SCH ×2 (08:37→20:15)
[2018-08-03] MEDS: Levetiracetam 500 mg/5mL 5mL UDSyr *for ORAL USE ONLY GT SCH ×2 (08:37→16:45)
[2018-08-03] MEDS: Cefepime 1 GM in Sodium Chloride 0.9% 50 ML IV SCH (08:37)
[2018-08-03] MEDS: Multivitamin Tab GT SCH ×2 (08:38→16:45)
[2018-08-03] MEDS: Lactobacillus Rhamnosus GG 15 Billion CFU CAP.SPRINK PO SCH (08:42)
[2018-08-03] MEDS: Therahoney Gel 42.5gm Tube TP SCH (08:42)
[2018-08-03] MEDS: Sodium Chloride 0.9% 1,000 ML IV SCH (12:03)
--- NOTE | 2018-08-03 12:11 | Internal Medicine Prog Note ---
Internal Medicine Subjective - Subjective Patient seen and examined:: chart reviewed Patient is:: awake, other (dressing dry and clean ) Patient Complaints of:: other (resp. failure on vent.) Per staff patient has:: no adverse event, no episodes of fall Internal Medicine Objective - Results Result Diagrams: 08/03/18 04:55 08/03/18 04:55 Recent Labs: Laboratory Last Values WBC 10.2 Th/cmm (4.8-10.8) 08/03/18 04:55 RBC 3.02 Mil/cmm (4.30-5.70) L 08/03/18 04:55 Hgb 8.9 gm/dL (12-16) L 08/03/18 04:55 Hct 26.5 % (41.0-60) L 08/03/18 04:55 MCV 87.7 fl (80-99) 08/03/18 04:55 MCH 29.5 pg (26.0-30.0) 08/03/18 04:55 MCHC Differential 33.7 pg (28.0-36.0) 08/03/18 04:55 RDW 14.8 % (11.5-20.0) 08/03/18 04:55 Plt Count 194 Th/cmm (150-400) 08/03/18 04:55 MPV 9.3 fl 08/03/18 04:55 Add Manual Diff YES 08/03/18 04:55 Band Neutrophils % 0 % (0-10) 08/03/18 04:55 Neutrophils (Manual) 84 % (40-80) H 08/03/18 04:55 Lymphocytes 7 % (20-50) L 08/03/18 04:55 Monocytes 8 % (2-10) 08/03/18 04:55 Eosinophils 1 % (0-5) 08/03/18 04:55 Basophils 0 % (0-3) 08/03/18 04:55 Platelet Estimate ADEQUATE (NORMAL) 08/01/18 05:00 Sodium 132 mEq/L (136-145) L 08/03/18 04:55 Potassium 3.7 mEq/L (3.5-5.1) 08/03/18 04:55 Chloride 97 mEq/L (98-107) L 08/03/18 04:55 Carbon Dioxide 26.3 mEq/L (21.0-31.0) 08/03/18 04:55 Anion Gap 12.4 (7.0-16.0) 08/03/18 04:55 BUN 13 mg/dL (7-25) 08/03/18 04:55 Creatinine 0.3 mg/dL (0.7-1.3) L 08/03/18 04:55 Est GFR ( Amer) > 60.0 ml/min (>90) 08/03/18 04:55 Est GFR (Non-Af Amer) > 60.0 ml/min 08/03/18 04:55 BUN/Creatinine Ratio 43.3 08/03/18 04:55 Glucose 114 mg/dL (70-105) H 08/03/18 04:55 Whole Bld Lactic Acid 1.47 mmol/L (0.60-1.99) 07/31/18 07:40 Calcium 8.7 mg/dL (8.6-10.3) 08/03/18 04:55 Total Bilirubin 0.3 mg/dL (0.3-1.0) 08/03/18 04:55 AST 34 U/L (13-39) 08/03/18 04:55 ALT 27 U/L (7-52) 08/03/18 04:55 Alkaline Phosphatase 105 U/L (34-104) H 08/03/18 04:55 Total Protein 6.5 gm/dL (6.0-8.3) 08/03/18 04:55 Albumin 3.1 gm/dL (4.2-5.5) L 08/03/18 04:55 Globulin 3.4 gm/dL 08/03/18 04:55 Albumin/Globulin Ratio 0.9 (1.0-1.8) L 08/03/18 04:55 Urine Source CATH 07/30/18 19:20 Urine Color YELLOW 07/30/18 19:20 Urine Clarity HAZY (CLEAR) 07/30/18 19:20 Urine pH 7.0 (4.6 - 8.0) 07/30/18 19:20 Ur Specific [place] 1.010 (1.005-1.030) 07/30/18 19:20 Urine Protein 30 mg/dL (NEGATIVE) H 07/30/18 19:20 Urine Glucose (UA) NEGATIVE mg/dL (NEGATIVE) 07/30/18 19:20 Urine Ketones NEGATIVE mg/dL (NEGATIVE) 07/30/18 19:20 Urine Blood LARGE (NEGATIVE) H 07/30/18 19:20 Urine Nitrate POSITIVE (NEGATIVE) H 07/30/18 19:20 Urine Bilirubin NEGATIVE (NEGATIVE) 07/30/18 19:20 Urine Urobilinogen 0.2 E.U./dL (0.2 - 1.0) 07/30/18 19:20 Ur Leukocyte Esterase LARGE (NEGATIVE) H 07/30/18 19:20 Urine RBC 5-10 /hpf (0-5) H 07/30/18 19:20 Urine WBC 25-50 /hpf (0-5) H 07/30/18 19:20 Ur Epithelial Cells FEW /lpf (FEW) 07/30/18 19:20 Urine Bacteria 4+ /hpf (NONE SEEN) H 07/30/18 19:20 Vancomycin Trough 21.3 ug/mL (5-10) H 08/01/18 21:26 - Physical Exam Vitals and I&O: Vital Signs Temp 99.2 F 08/03/18 11:00 Pulse 116 08/03/18 11:00 Resp 12 08/03/18 11:00 BP 140/77 08/03/18 11:00 Pulse Ox 100 08/03/18 11:00 Intake & Output 08/02/18 08/03/18 08/03/18 18:59 06:59 18:59 Intake Total 500 1500 50 Output Total 950 Balance 500 550 50 Weight (lbs) 55.792 kg Intake: Intake, IV Amount 500 300 50 Cefepime 1 gm In Sodium 50 50 50 Chloride 0.9% 50 ml @ 100 mls/hr IV Q12HR [facility] Rx#: [id number] KCL 20mEq/100mL Premix 20 100 meq In 100 ml @ 50 mls/ hr IV Q2H [facility] Rx#: [id number] Vancomycin HCl 0.75 gm In 250 250 Sodium Chloride 0.9% 250 ml @ 165 mls/hr IV Q12HR [facility] Rx#:[id number] Tube Feeding 800 Other 400 Output: Urine 950 Other: # Bowel Movements 1 Weight Source Bedscale Active Medications: Current Medications Acetaminophen (Tylenol) 650 mg GT Q4H PRN PRN Reason: Fever > 101 Stop: 09/29/18 06:32 Last Admin: 08/02/18 18:45 Dose: 650 mg Ascorbic Acid (Vitamin C) 500 mg GT DAILY [facility] Stop: 09/30/18 08:59 Last Admin: 08/03/18 08:38 Dose: 500 mg Bisacodyl (Dulcolax 10 Mg Supp) 10 mg RC DAILY PRN PRN Reason: Constipation Stop: 09/29/18 15:21 Chlorhexidine Gluconate (Peridex) 15 ml MM 0800,2000 [facility] Stop: 09/28/18 19:59 Last Admin: 08/03/18 08:37 Dose: 15 ml Famotidine (Pepcid) 20 mg PO BID [facility] Stop: 09/29/18 20:59 Last Admin: 08/03/18 08:38 Dose: 20 mg Norepinephrine Bitartrate 4 mg (/ Dextrose) 254 mls @ 0 mls/hr IV TITR PRN; Protocol PRN Reason: BP MAINTENANCE (PER PROTOCOL) Stop: 09/29/18 00:37 Cefepime HCl 1 gm/ Sodium (Chloride) 50 mls @ 100 mls/hr IV Q12HR [facility] Stop: 09/29/18 20:59 Last Infusion: 08/03/18 09:10 Dose: Infused Vancomycin HCl 0.75 gm/ Sodium (Chloride) 250 mls @ 165 mls/hr IV Q12HR [facility] Stop: 10/01/18 08:59 Last Admin: 08/03/18 09:43 Dose: 165 mls/hr Sodium Chloride (Nacl 0.9%) 1,000 mls @ 50 mls/hr IV .Q20H [facility] Stop: 10/02/18 11:59 Last Admin: 08/03/18 12:03 Dose: 50 mls/hr Lactobacillus Rhamnosus (Culturelle 15b) 1 each PO DAILY [facility] Stop: 09/30/18 11:59 Last Admin: 08/03/18 08:42 Dose: 1 each Levetiracetam (Keppra) 500 mg GT BID [facility] Stop: 09/30/18 08:59 Last Admin: 08/03/18 08:37 Dose: 500 mg Lorazepam (Ativan) 1 mg IVP Q4HR PRN; Protocol PRN Reason: Seizure Stop: 10/01/18 11:24 Last Admin: 08/03/18 01:38 Dose: 1 mg Magnesium Hydroxide (Milk Of Magnesia) 30 ml GT HS PRN PRN Reason: Constipation Stop: 09/29/18 17:49 Miscellaneous (Vancomycin Iv Per Pharmacy) 1 ea MC DAILY [facility] Stop: 09/29/18 08:59 Miscellaneous (Probiotic Screen) 1 ea MC PRN PRN PRN Reason: PROTOCOL Stop: 09/30/18 09:02 Morphine Sulfate (Morphine) 1 mg IVP Q4HR PRN PRN Reason: Pain (Mild) Stop: 09/30/18 14:04 Last Admin: 08/02/18 08:34 Dose: 1 mg Multivitamins/Vitamin C (Theragran) 1 tab GT BID [facility] Stop: 09/30/18 08:59 Last Admin: 08/03/18 08:38 Dose: 1 tab Thiamine HCl (Vitamin B1) 100 mg GT DAILY [facility] Stop: 09/30/18 08:59 Last Admin: 08/03/18 08:42 Dose: 100 mg Wound Care/Dressing Products (Therahoney) 1 appl TP DAILY [facility] Stop: 09/30/18 08:59 Last Admin: 08/03/18 08:42 Dose: 1 appl Zinc Sulfate (Zinc Sulfate) 220 mg GT DAILY [facility] Stop: 09/30/18 08:59 Last Admin: 08/03/18 08:38 Dose: 220 mg Physical Exam: 58 y/o mle patient has hx of resp. failure on Ventilator support. General: weak HEENT: NC/AT, PERRLA Neck: Supple, No JVD Lungs: wheezing, ronchi Cardiovascular: RRR, Normal S1 Abdomen: non-tender Extremities: clear Neurological: no change - Procedures Procedures: Procedures Procedure Code Date RESPIRATORY VENTILATION, 24-96 CONSECUTIVE HOURS 8C9115T 07/30/18 Nutritional Asmnt/Malnutr-PDOC - Dietary Evaluation Malnutrition Findings (Please click <Entered> for more info): Nutritional Asmnt/Malnutrition Start: 07/31/18 14: 50 Text: Status: Complete Freq: Protocol: Document 07/31/18 14:50 CHAPIN (Rec: 07/31/18 15:09 CHAPIN [email or web address]) Nutritional Asmnt/Malnutrition Patient General Information Nutritional Screening High Risk Diagnosis urosepis Pertinent Medical Hx/Surgical Hx seizures, anemia, resp failure , SAH, trach, Gtube, foleu, vent depression Subjective Information Pt seen resting in bed, trach to vent. Visiablly verified TF was running at goal rate of 70ml/hr at this time. Current Diet Order/ Nutrition Support Jevity 1.2 at 70ml/hr x 20hr. Pertinent Medications nacl 0.9%, vancomycin Pertinent Labs 5/2 Na 135, alb 3.7 Nutritional Hx/Data Height 1.73 m Height (Calculated Centimeters) 172.7 Current Weight (lbs) 55.338 kg Weight (Calculated Kilograms) 55.3 Weight (Calculated Grams) 81595.3 [place] Body Weight 154 Body Mass Index (BMI) 18.5 Weight Status Approriate GI Symptoms GI Symptoms None Last BM 5/2 Difficult in: None Skin Integrity/Comment: scar to head and right anterior ear, abrasion to left ankle, rash to left posterior and right axilla, decubitus ulcer to sacrum. Sal 12. Estimated Nutritional Goals Calories/Kcals/Kg 23-27 based on IBW 70kg Kcals Calculated 3968-1835 Protein g/k-1.2 Protein Calculated 70-84 Fluid: ml 1610-1890ml (1ml/kcal) Nutritional Problem No current Nutrition Prob Problem N/A Malnutrition Alert Is there a minimum of two criteria No selected? Query Text:Check all the applicable criteria. A minimum of two criteria are recommended for diagnosis of either severe or non-severe malnutrition. Malnutrition Related to Morbid Obesity Malnutrition related to morbid obesity No Intervention/Recommendation Comments 1. Continue with current TF regimen Jevity 1.2 at 70ml/hr x 20hr. It provides 1680kcal, 78g protein, 1130ml free water , meeting 100% of nutritional needs 2. Monitor TF rate, tolerance, wt, skin integrity and labs 3. F/U as moderate risk Expected Outcomes/Goals Expected Outcomes/Goals 1. Pt to meet at least 90% of nutritional needs via nutrition support with tolerance 2. Wt stability, skin to remain intact, labs to approach WNL.
--- NOTE | 2018-08-04 02:30 | Infectious Disease Prog Note ---
Infectious Disease Subjective - Review of Systems Service Date: 08/03/18 Subjective: Remained febrile. urine blood cultures grew Pseudomonas aeruginosa. Antibiotics are changed to Amikacin. Infectious Disease Objective - Results Result Diagrams: 08/03/18 04:55 08/03/18 04:55 Recent Labs: Laboratory Last Values WBC 10.2 Th/cmm (4.8-10.8) 08/03/18 04:55 RBC 3.02 Mil/cmm (4.30-5.70) L 08/03/18 04:55 Hgb 8.9 gm/dL (12-16) L 08/03/18 04:55 Hct 26.5 % (41.0-60) L 08/03/18 04:55 MCV 87.7 fl (80-99) 08/03/18 04:55 MCH 29.5 pg (26.0-30.0) 08/03/18 04:55 MCHC Differential 33.7 pg (28.0-36.0) 08/03/18 04:55 RDW 14.8 % (11.5-20.0) 08/03/18 04:55 Plt Count 194 Th/cmm (150-400) 08/03/18 04:55 MPV 9.3 fl 08/03/18 04:55 Add Manual Diff YES 08/03/18 04:55 Band Neutrophils % 0 % (0-10) 08/03/18 04:55 Neutrophils (Manual) 84 % (40-80) H 08/03/18 04:55 Lymphocytes 7 % (20-50) L 08/03/18 04:55 Monocytes 8 % (2-10) 08/03/18 04:55 Eosinophils 1 % (0-5) 08/03/18 04:55 Basophils 0 % (0-3) 08/03/18 04:55 Platelet Estimate ADEQUATE (NORMAL) 08/01/18 05:00 Sodium 132 mEq/L (136-145) L 08/03/18 04:55 Potassium 3.7 mEq/L (3.5-5.1) 08/03/18 04:55 Chloride 97 mEq/L (98-107) L 08/03/18 04:55 Carbon Dioxide 26.3 mEq/L (21.0-31.0) 08/03/18 04:55 Anion Gap 12.4 (7.0-16.0) 08/03/18 04:55 BUN 13 mg/dL (7-25) 08/03/18 04:55 Creatinine 0.3 mg/dL (0.7-1.3) L 08/03/18 04:55 Est GFR ( Amer) > 60.0 ml/min (>90) 08/03/18 04:55 Est GFR (Non-Af Amer) > 60.0 ml/min 08/03/18 04:55 BUN/Creatinine Ratio 43.3 08/03/18 04:55 Glucose 114 mg/dL (70-105) H 08/03/18 04:55 Whole Bld Lactic Acid 1.47 mmol/L (0.60-1.99) 07/31/18 07:40 Calcium 8.7 mg/dL (8.6-10.3) 08/03/18 04:55 Total Bilirubin 0.3 mg/dL (0.3-1.0) 08/03/18 04:55 AST 34 U/L (13-39) 08/03/18 04:55 ALT 27 U/L (7-52) 08/03/18 04:55 Alkaline Phosphatase 105 U/L (34-104) H 08/03/18 04:55 Total Protein 6.5 gm/dL (6.0-8.3) 08/03/18 04:55 Albumin 3.1 gm/dL (4.2-5.5) L 08/03/18 04:55 Globulin 3.4 gm/dL 08/03/18 04:55 Albumin/Globulin Ratio 0.9 (1.0-1.8) L 08/03/18 04:55 Urine Source CATH 07/30/18 19:20 Urine Color YELLOW 07/30/18 19:20 Urine Clarity HAZY (CLEAR) 07/30/18 19:20 Urine pH 7.0 (4.6 - 8.0) 07/30/18 19:20 Ur Specific [place] 1.010 (1.005-1.030) 07/30/18 19:20 Urine Protein 30 mg/dL (NEGATIVE) H 07/30/18 19:20 Urine Glucose (UA) NEGATIVE mg/dL (NEGATIVE) 07/30/18 19:20 Urine Ketones NEGATIVE mg/dL (NEGATIVE) 07/30/18 19:20 Urine Blood LARGE (NEGATIVE) H 07/30/18 19:20 Urine Nitrate POSITIVE (NEGATIVE) H 07/30/18 19:20 Urine Bilirubin NEGATIVE (NEGATIVE) 07/30/18 19:20 Urine Urobilinogen 0.2 E.U./dL (0.2 - 1.0) 07/30/18 19:20 Ur Leukocyte Esterase LARGE (NEGATIVE) H 07/30/18 19:20 Urine RBC 5-10 /hpf (0-5) H 07/30/18 19:20 Urine WBC 25-50 /hpf (0-5) H 07/30/18 19:20 Ur Epithelial Cells FEW /lpf (FEW) 07/30/18 19:20 Urine Bacteria 4+ /hpf (NONE SEEN) H 07/30/18 19:20 Vancomycin Trough 21.3 ug/mL (5-10) H 08/01/18 21:26 - Physical Exam Vitals and I&O: Vital Signs Temp 98.6 F 08/04/18 02:00 Pulse 111 08/04/18 02:00 Resp 20 08/04/18 02:00 BP 95/61 08/04/18 02:00 Pulse Ox 100 08/04/18 02:00 Intake & Output 08/03/18 08/03/18 08/04/18 06:59 18:59 06:59 Intake Total 1500 50 Output Total 950 1250 Balance 550 -1200 Weight (lbs) 55.792 kg 55.792 kg Intake: Intake, IV Amount 300 50 Cefepime 1 gm In Sodium 50 50 Chloride 0.9% 50 ml @ 100 mls/hr IV Q12HR [facility] Rx#: [id number] Vancomycin HCl 0.75 gm In 250 Sodium Chloride 0.9% 250 ml @ 165 mls/hr IV Q12HR [facility] Rx#:[id number] Tube Feeding 800 Other 400 Output: Urine 950 1250 Other: # Bowel Movements 1 0 Weight Source Bedscale Bedscale Active Medications: Current Medications Acetaminophen (Tylenol) 650 mg GT Q4H PRN PRN Reason: Fever > 101 Stop: 09/29/18 06:32 Last Admin: 08/03/18 18:49 Dose: 650 mg Ascorbic Acid (Vitamin C) 500 mg GT DAILY [facility] Stop: 09/30/18 08:59 Last Admin: 08/03/18 08:38 Dose: 500 mg Bisacodyl (Dulcolax 10 Mg Supp) 10 mg RC DAILY PRN PRN Reason: Constipation Stop: 09/29/18 15:21 Chlorhexidine Gluconate (Peridex) 15 ml MM 0800,2000 [facility] Stop: 09/28/18 19:59 Last Admin: 08/03/18 20:15 Dose: 15 ml Famotidine (Pepcid) 20 mg PO BID [facility] Stop: 09/29/18 20:59 Last Admin: 08/03/18 16:45 Dose: 20 mg Norepinephrine Bitartrate 4 mg (/ Dextrose) 254 mls @ 0 mls/hr IV TITR PRN; Protocol PRN Reason: BP MAINTENANCE (PER PROTOCOL) Stop: 09/29/18 00:37 Sodium Chloride (Nacl 0.9%) 1,000 mls @ 50 mls/hr IV .Q20H [facility] Stop: 10/02/18 11:59 Last Admin: 08/03/18 12:03 Dose: 50 mls/hr Amikacin Sulfate 875 mg/ (Dextrose) 103.5 mls @ 100 mls/hr IV Q24HR@1400 [facility] Stop: 10/02/18 13:59 Last Admin: 08/03/18 13:58 Dose: 100 mls/hr Lactobacillus Rhamnosus (Culturelle 15b) 1 each PO DAILY [facility] Stop: 09/30/18 11:59 Last Admin: 08/03/18 08:42 Dose: 1 each Levetiracetam (Keppra) 500 mg GT BID [facility] Stop: 09/30/18 08:59 Last Admin: 08/03/18 16:45 Dose: 500 mg Lorazepam (Ativan) 1 mg IVP Q4HR PRN; Protocol PRN Reason: Seizure Stop: 10/01/18 11:24 Last Admin: 08/03/18 20:35 Dose: 1 mg Magnesium Hydroxide (Milk Of Magnesia) 30 ml GT HS PRN PRN Reason: Constipation Stop: 09/29/18 17:49 Miscellaneous (Probiotic Screen) 1 ea MC PRN PRN PRN Reason: PROTOCOL Stop: 09/30/18 09:02 Miscellaneous (Amikacin Iv Per Pharmacy) 1 ea MC PRN PRN PRN Reason: PROTOCOL Stop: 10/02/18 13:27 Morphine Sulfate (Morphine) 1 mg IVP Q4HR PRN PRN Reason: Pain (Mild) Stop: 09/30/18 14:04 Last Admin: 08/02/18 08:34 Dose: 1 mg Multivitamins/Vitamin C (Theragran) 1 tab GT BID [facility] Stop: 09/30/18 08:59 Last Admin: 08/03/18 16:45 Dose: 1 tab Thiamine HCl (Vitamin B1) 100 mg GT DAILY [facility] Stop: 09/30/18 08:59 Last Admin: 08/03/18 08:42 Dose: 100 mg Wound Care/Dressing Products (Therahoney) 1 appl TP DAILY [facility] Stop: 09/30/18 08:59 Last Admin: 08/03/18 08:42 Dose: 1 appl Zinc Sulfate (Zinc Sulfate) 220 mg GT DAILY [facility] Stop: 09/30/18 08:59 Last Admin: 08/03/18 08:38 Dose: 220 mg General: no acute distress, cachectic HEENT: PERRLA, other (right sided scalp bone absent.) Neck: supple, tracheostomy Cardiovascular: S1S2, regular Lungs: clear to auscultation bilaterally, clear to percussion Abdomen: soft, no tender, no distended, no rebound Extremities: no cyanosis, no clubbing, no edema Neurological: awake, alert Skin: intact - Procedures Procedures: Procedures Procedure Code Date RESPIRATORY VENTILATION, 24-96 CONSECUTIVE HOURS [id number] 07/30/18 Infectious Disease Assmt/Plan - Assessment Assessment: 1. Sepsis. Pseudomonas aeruginosa. 2. Urinary tract infection and pyelonephritis. 3. Vent-dependent respiratory failure. 4. History of subarachnoid hemorrhage. 5. Status post craniotomy on the right side. 6. Hypokalemia. - Plan Plan: Changed antibiotics to Amikacin. Nutritional Asmnt/Malnutr-PDOC - Dietary Evaluation Malnutrition Findings (Please click <Entered> for more info): Nutritional Asmnt/Malnutrition Start: 07/31/18 14: 50 Text: Status: Complete Freq: Protocol: Document 07/31/18 14:50 CHAPIN (Rec: 07/31/18 15:09 CHAPIN [email or web address]) Nutritional Asmnt/Malnutrition Patient General Information Nutritional Screening High Risk Diagnosis urosepis Pertinent Medical Hx/Surgical Hx seizures, anemia, resp failure , SAH, trach, Gtube, foleu, vent depression Subjective Information Pt seen resting in bed, trach to vent. Visiablly verified TF was running at goal rate of 70ml/hr at this time. Current Diet Order/ Nutrition Support Jevity 1.2 at 70ml/hr x 20hr. Pertinent Medications nacl 0.9%, vancomycin Pertinent Labs 5/2 Na 135, alb 3.7 Nutritional Hx/Data Height 1.73 m Height (Calculated Centimeters) 172.7 Current Weight (lbs) 55.338 kg Weight (Calculated Kilograms) 55.3 Weight (Calculated Grams) 92640.3 [place] Body Weight 154 Body Mass Index (BMI) 18.5 Weight Status Approriate GI Symptoms GI Symptoms None Last BM 5/2 Difficult in: None Skin Integrity/Comment: scar to head and right anterior ear, abrasion to left ankle, rash to left posterior and right axilla, decubitus ulcer to sacrum. Sal 12. Estimated Nutritional Goals Calories/Kcals/Kg 23-27 based on IBW 70kg Kcals Calculated 6914-4209 Protein g/k-1.2 Protein Calculated 70-84 Fluid: ml 1610-1890ml (1ml/kcal) Nutritional Problem No current Nutrition Prob Problem N/A Malnutrition Alert Is there a minimum of two criteria No selected? Query Text:Check all the applicable criteria. A minimum of two criteria are recommended for diagnosis of either severe or non-severe malnutrition. Malnutrition Related to Morbid Obesity Malnutrition related to morbid obesity No Intervention/Recommendation Comments 1. Continue with current TF regimen Jevity 1.2 at 70ml/hr x 20hr. It provides 1680kcal, 78g protein, 1130ml free water , meeting 100% of nutritional needs 2. Monitor TF rate, tolerance, wt, skin integrity and labs 3. F/U as moderate risk Expected Outcomes/Goals Expected Outcomes/Goals 1. Pt to meet at least 90% of nutritional needs via nutrition support with tolerance 2. Wt stability, skin to remain intact, labs to approach WNL.
[2018-08-04 04:29] LABS: % BASOPHILS 0.3 % (0.0-2.0); % LYMPHOCYTES 12.2 % (20.0-50.0); % MONOCYTES 12.1 % (2.0-10.0); % NEUTROPHILS 73.4 % (40.0-80.0); EOSINOPHILE ABSOLUTE 0.2 Th/cmm (0.1-0.4); HEMOGLOBIN 8.4 gm/dL (12-16); LYMPHOCYTE ABSOLUTE 1.2 Th/cmm (1.5-3.0); MEAN CELL VOLUME 88.2 fl (80-99); MEAN CORPUSCULAR HEMOGLOBIN 28.6 pg (26.0-30.0); MEAN CORPUSCULAR HGB CONC 32.4 pg (28.0-36.0); MEAN PLATELET VOLUME 8.7 fl; MONOCYTE ABSOLUTE 1.2 Th/cmm (0.3-1.0); NEUTROPHILE ABSOLUTE 7.1 Th/cmm (1.8-8.0); PLATELET COUNT 225 Th/cmm (150-400); RED BLOOD COUNT 2.94 Mil/cmm (4.30-5.70); RED CELL DISTRIBUTION WIDTH 14.8 % (11.5-20.0); WHITE BLOOD COUNT 9.7 Th/cmm (4.8-10.8)
[2018-08-04 05:07] LABS: ANION GAP 12.2 (7.0-16.0); BUN - UREA NITROGEN 12 mg/dL (7-25); CALCIUM SERUM 8.7 mg/dL (8.6-10.3); CARBON DIOXIDE 28.4 mEq/L (21.0-31.0); CHLORIDE 97 mEq/L (98-107); CREATININE - SERUM 0.4 mg/dL (0.7-1.3); GFR AFRICAN-AMERICAN > 60.0 ml/min (>90); GFR NON AFRICAN-AMERICAN > 60.0 ml/min; GLUCOSE 103 mg/dL (70-105); POTASSIUM SERUM 3.6 mEq/L (3.5-5.1); SODIUM SERUM 134 mEq/L (136-145)
[2018-08-04] MEDS: Chlorhexidine Gluconate 0.12% 15mL Mouthwash MM SCH ×2 (08:00→20:11)
--- NOTE | 2018-08-04 08:42 | Progress Notes ---
DATE: 08/03/2018 PULMONARY PROGRESS NOTE SUBJECTIVE: The patient appears to be doing okay, comfortable, in no distress. OBJECTIVE: VITAL SIGNS: Temperature 99.1, pulse was 70, respirations 13, blood pressure of 122/76, saturation 100%. CHEST: Good breath sounds. No wheezing. No crackles. HEART: Regular rate and rhythm. ABDOMEN: Soft. No tenderness. EXTREMITIES: No edema. LABORATORY DATA: WBC is 10.2, hemoglobin 8.9, hematocrit 26.5, platelets of 194. Sodium 132, potassium 3.7, BUN 13, creatinine 0.3. IMPRESSION: 1. Respiratory failure. 2. Urinary tract infection. 3. Sepsis. 4. History of cerebrovascular accident. PLAN: 1. Continue ventilator support. 2. Antibiotics. 3. Supportive care. 4. Ventilatory support. 5. Pulmonary toilet. JOB# [id number]
[2018-08-04] MEDS: Levetiracetam 500 mg/5mL 5mL UDSyr *for ORAL USE ONLY GT SCH ×2 (09:01→16:52)
[2018-08-04] MEDS: Sodium Chloride 0.9% 1,000 ML IV SCH (09:02)
[2018-08-04] MEDS: Multivitamin Tab GT SCH ×2 (09:02→16:52)
[2018-08-04] MEDS: Therahoney Gel 42.5gm Tube TP SCH (09:03)
[2018-08-04] MEDS: Lactobacillus Rhamnosus GG 15 Billion CFU CAP.SPRINK PO SCH (09:05)
--- NOTE | 2018-08-04 11:08 | Consultation ---
DATE OF CONSULTATION: PULMONARY CONSULTATION REFERRING PHYSICIAN: Dr. Pedro. Thank you very much for your consultation. HISTORY OF PRESENT ILLNESS: This is a 58-year-old male with history of chronic respiratory failure, ____, CVA, status post craniotomy, presented with fever, was found to have UTI and urosepsis, admitted for treatment and management. The patient appears to be doing okay. Awake, some congestion, but no distress, is not on pressors. Blood pressure is maintained adequately. The patient upon my examination complains of some chills. PHYSICAL EXAMINATION: VITAL SIGNS: Temperature 99.2, T-max 101.5, ____, pulse is 109, respiration 17, blood pressure is 137/71, saturation 99%. HEENT: Atraumatic, normocephalic. Pupils react to light and accommodation. Ears, nose and throat normal. NECK: Supple. No JVD. CHEST: There are good breath sounds. Few rhonchi. HEART: Regular rate and rhythm. ABDOMEN: Soft, no tenderness. EXTREMITIES: No edema. LABORATORY DATA: WBC 13.2, hemoglobin 9.3, hematocrit 28.1, platelets 275. Sodium 135, potassium 3.5, BUN 16, creatinine 0.7. UA shows positive nitrite, leukocyte esterase and wbc's. Chest x-ray clear. IMPRESSION: This 58-year-old male with: 1. Chronic respiratory failure, status post cerebrovascular accident. 2. Urinary tract infection with severe infection. 3. Sepsis. 4. Significant leukocytosis. 5. Dysphagia. PLAN: 1. Continue ventilator support. 2. Add nebulizer. 3. Antibiotics, need broad-spectrum gram-negative coverage at this time. We will follow the patient with you. JOB# [id number]
--- NOTE | 2018-08-04 14:01 | Internal Medicine Prog Note ---
Internal Medicine Subjective - Subjective Service Date: 08/04/18 Patient seen and examined:: with staff Patient is:: awake, other (dressing dry and clean ) Patient Complaints of:: other (resp. failure on vent.) Per staff patient has:: no adverse event, no episodes of fall Internal Medicine Objective - Results Result Diagrams: 08/04/18 04:10 08/04/18 04:10 Recent Labs: Laboratory Last Values WBC 9.7 Th/cmm (4.8-10.8) 08/04/18 04:10 RBC 2.94 Mil/cmm (4.30-5.70) L 08/04/18 04:10 Hgb 8.4 gm/dL (12-16) L 08/04/18 04:10 Hct 26.0 % (41.0-60) L 08/04/18 04:10 MCV 88.2 fl (80-99) 08/04/18 04:10 MCH 28.6 pg (26.0-30.0) 08/04/18 04:10 MCHC Differential 32.4 pg (28.0-36.0) 08/04/18 04:10 RDW 14.8 % (11.5-20.0) 08/04/18 04:10 Plt Count 225 Th/cmm (150-400) 08/04/18 04:10 MPV 8.7 fl 08/04/18 04:10 Add Manual Diff YES 08/03/18 04:55 Neutrophils % 73.4 % (40.0-80.0) 08/04/18 04:10 Band Neutrophils % 0 % (0-10) 08/03/18 04:55 Lymphocytes % 12.2 % (20.0-50.0) L 08/04/18 04:10 Monocytes % 12.1 % (2.0-10.0) H 08/04/18 04:10 Eosinophils % 2.0 % (0.0-5.0) 08/04/18 04:10 Basophils % 0.3 % (0.0-2.0) 08/04/18 04:10 Neutrophils (Manual) 84 % (40-80) H 08/03/18 04:55 Lymphocytes 7 % (20-50) L 08/03/18 04:55 Monocytes 8 % (2-10) 08/03/18 04:55 Eosinophils 1 % (0-5) 08/03/18 04:55 Basophils 0 % (0-3) 08/03/18 04:55 Platelet Estimate ADEQUATE (NORMAL) 08/01/18 05:00 Sodium 134 mEq/L (136-145) L 08/04/18 04:10 Potassium 3.6 mEq/L (3.5-5.1) 08/04/18 04:10 Chloride 97 mEq/L (98-107) L 08/04/18 04:10 Carbon Dioxide 28.4 mEq/L (21.0-31.0) 08/04/18 04:10 Anion Gap 12.2 (7.0-16.0) 08/04/18 04:10 BUN 12 mg/dL (7-25) 08/04/18 04:10 Creatinine 0.4 mg/dL (0.7-1.3) L 08/04/18 04:10 Est GFR ( Amer) > 60.0 ml/min (>90) 08/04/18 04:10 Est GFR (Non-Af Amer) > 60.0 ml/min 08/04/18 04:10 BUN/Creatinine Ratio 30.0 08/04/18 04:10 Glucose 103 mg/dL (70-105) 08/04/18 04:10 Whole Bld Lactic Acid 1.47 mmol/L (0.60-1.99) 07/31/18 07:40 Calcium 8.7 mg/dL (8.6-10.3) 08/04/18 04:10 Total Bilirubin 0.3 mg/dL (0.3-1.0) 08/03/18 04:55 AST 34 U/L (13-39) 08/03/18 04:55 ALT 27 U/L (7-52) 08/03/18 04:55 Alkaline Phosphatase 105 U/L (34-104) H 08/03/18 04:55 Total Protein 6.5 gm/dL (6.0-8.3) 08/03/18 04:55 Albumin 3.1 gm/dL (4.2-5.5) L 08/03/18 04:55 Globulin 3.4 gm/dL 08/03/18 04:55 Albumin/Globulin Ratio 0.9 (1.0-1.8) L 08/03/18 04:55 Urine Source CATH 07/30/18 19:20 Urine Color YELLOW 07/30/18 19:20 Urine Clarity HAZY (CLEAR) 07/30/18 19:20 Urine pH 7.0 (4.6 - 8.0) 07/30/18 19:20 Ur Specific [place] 1.010 (1.005-1.030) 07/30/18 19:20 Urine Protein 30 mg/dL (NEGATIVE) H 07/30/18 19:20 Urine Glucose (UA) NEGATIVE mg/dL (NEGATIVE) 07/30/18 19:20 Urine Ketones NEGATIVE mg/dL (NEGATIVE) 07/30/18 19:20 Urine Blood LARGE (NEGATIVE) H 07/30/18 19:20 Urine Nitrate POSITIVE (NEGATIVE) H 07/30/18 19:20 Urine Bilirubin NEGATIVE (NEGATIVE) 07/30/18 19:20 Urine Urobilinogen 0.2 E.U./dL (0.2 - 1.0) 07/30/18 19:20 Ur Leukocyte Esterase LARGE (NEGATIVE) H 07/30/18 19:20 Urine RBC 5-10 /hpf (0-5) H 07/30/18 19:20 Urine WBC 25-50 /hpf (0-5) H 07/30/18 19:20 Ur Epithelial Cells FEW /lpf (FEW) 07/30/18 19:20 Urine Bacteria 4+ /hpf (NONE SEEN) H 07/30/18 19:20 Vancomycin Trough 21.3 ug/mL (5-10) H 08/01/18 21:26 - Physical Exam Vitals and I&O: Vital Signs Temp 97.4 F 08/04/18 08:00 Pulse 101 08/04/18 13:06 Resp 35 08/04/18 12:00 BP 110/66 08/04/18 12:00 Pulse Ox 100 08/04/18 13:06 Intake & Output 08/03/18 08/04/18 08/04/18 18:59 06:59 18:59 Intake Total 50 1200 1000 Output Total 1250 1600 Balance -1200 -400 1000 Weight (lbs) 55.792 kg 55.792 kg Intake: Intake, IV Amount 50 1000 Cefepime 1 gm In Sodium 50 Chloride 0.9% 50 ml @ 100 mls/hr IV Q12HR [facility] Rx#: [id number] Sodium Chloride 0.9% 1, 1000 000 ml @ 50 mls/hr IV . Q20H [facility] Rx#:[id number] Tube Feeding 800 Other 400 Output: Urine 1250 1600 Other: # Bowel Movements 0 0 Weight Source Bedscale Bedscale Active Medications: Current Medications Acetaminophen (Tylenol) 650 mg GT Q4H PRN PRN Reason: Fever > 101 Stop: 09/29/18 06:32 Last Admin: 08/03/18 18:49 Dose: 650 mg Ascorbic Acid (Vitamin C) 500 mg GT DAILY [facility] Stop: 09/30/18 08:59 Last Admin: 08/04/18 09:02 Dose: 500 mg Bisacodyl (Dulcolax 10 Mg Supp) 10 mg RC DAILY PRN PRN Reason: Constipation Stop: 09/29/18 15:21 Chlorhexidine Gluconate (Peridex) 15 ml MM 0800,1999 [facility] Stop: 09/28/18 19:59 Last Admin: 08/04/18 08:00 Dose: 15 ml Famotidine (Pepcid) 20 mg PO BID [facility] Stop: 09/29/18 20:59 Last Admin: 08/04/18 09:01 Dose: 20 mg Norepinephrine Bitartrate 4 mg (/ Dextrose) 254 mls @ 0 mls/hr IV TITR PRN; Protocol PRN Reason: BP MAINTENANCE (PER PROTOCOL) Stop: 09/29/18 00:37 Sodium Chloride (Nacl 0.9%) 1,000 mls @ 50 mls/hr IV .Q20H [facility] Stop: 10/02/18 11:59 Last Admin: 08/04/18 09:02 Dose: 50 mls/hr Amikacin Sulfate 500 mg/ (Dextrose) 102 mls @ 100 mls/hr IV Q12H [facility] Stop: 10/03/18 13:59 Lactobacillus Rhamnosus (Culturelle 15b) 1 each PO DAILY [facility] Stop: 09/30/18 11:59 Last Admin: 08/04/18 09:05 Dose: 1 each Levetiracetam (Keppra) 500 mg GT BID [facility] Stop: 09/30/18 08:59 Last Admin: 08/04/18 09:01 Dose: 500 mg Lorazepam (Ativan) 1 mg IVP Q4HR PRN; Protocol PRN Reason: Seizure Stop: 10/01/18 11:24 Last Admin: 08/04/18 12:04 Dose: 1 mg Magnesium Hydroxide (Milk Of Magnesia) 30 ml GT HS PRN PRN Reason: Constipation Stop: 09/29/18 17:49 Miscellaneous (Probiotic Screen) 1 ea MC PRN PRN PRN Reason: PROTOCOL Stop: 09/30/18 09:02 Miscellaneous (Amikacin Iv Per Pharmacy) 1 ea MC PRN PRN PRN Reason: PROTOCOL Stop: 10/02/18 13:27 Morphine Sulfate (Morphine) 1 mg IVP Q4HR PRN PRN Reason: Pain (Mild) Stop: 09/30/18 14:04 Last Admin: 08/02/18 08:34 Dose: 1 mg Multivitamins/Vitamin C (Theragran) 1 tab GT BID [facility] Stop: 09/30/18 08:59 Last Admin: 08/04/18 09:02 Dose: 1 tab Thiamine HCl (Vitamin B1) 100 mg GT DAILY [facility] Stop: 09/30/18 08:59 Last Admin: 08/04/18 09:01 Dose: 100 mg Wound Care/Dressing Products (Therahoney) 1 appl TP DAILY [facility] Stop: 09/30/18 08:59 Last Admin: 08/04/18 09:03 Dose: 1 appl Zinc Sulfate (Zinc Sulfate) 220 mg GT DAILY [facility] Stop: 09/30/18 08:59 Last Admin: 08/04/18 09:01 Dose: 220 mg Physical Exam: 58 y/o male patient has hx of resp. failure on Ventilator support, doing well today. General: weak HEENT: NC/AT, PERRLA Neck: Supple, No JVD Lungs: wheezing, ronchi Cardiovascular: RRR, Normal S1 Abdomen: non-tender Extremities: clear Neurological: no change - Procedures Procedures: Procedures Procedure Code Date RESPIRATORY VENTILATION, GREATER THAN 96 CONSECUTIVE HOURS [id number] 07/30/18 Internal Medicine Assmt/Plan - Assessment Assessment: Respiratory failure. UTI. Sepsis. Hx of Cerebrovascular Disease. - Plan Plan: Continuation of care. Monitor Vitals and Labs. Continue present meds as directed. Monitor Diet/Nutritional support. Respiratory treatments and Pulmonary support. Supplemental Oxygen. Aspiration precaution. Deep suctioning prn. Monitor Diet/Nutritional support. Pain Management. Safety precaution. Supportive care. Fall precaution. Will Monitor patient and continue current treatment plan as ordered. Nutritional Asmnt/Malnutr-PDOC - Dietary Evaluation Malnutrition Findings (Please click <Entered> for more info): Nutritional Asmnt/Malnutrition Start: 07/31/18 14: 50 Text: Status: Complete Freq: Protocol: Document 07/31/18 14:50 RASG (Rec: 07/31/18 15:09 [email or web address]) Nutritional Asmnt/Malnutrition Patient General Information Nutritional Screening High Risk Diagnosis urosepis Pertinent Medical Hx/Surgical Hx seizures, anemia, resp failure , SAH, trach, Gtube, foleu, vent depression Subjective Information Pt seen resting in bed, trach to vent. Visiablly verified TF was running at goal rate of 70ml/hr at this time. Current Diet Order/ Nutrition Support Jevity 1.2 at 70ml/hr x 20hr. Pertinent Medications nacl 0.9%, vancomycin Pertinent Labs 5/2 Na 135, alb 3.7 Nutritional Hx/Data Height 1.73 m Height (Calculated Centimeters) 172.7 Current Weight (lbs) 55.338 kg Weight (Calculated Kilograms) 55.3 Weight (Calculated Grams) 73050.3 [place] Body Weight 154 Body Mass Index (BMI) 18.5 Weight Status Approriate GI Symptoms GI Symptoms None Last BM 5/2 Difficult in: None Skin Integrity/Comment: scar to head and right anterior ear, abrasion to left ankle, rash to left posterior and right axilla, decubitus ulcer to sacrum. Sal 12. Estimated Nutritional Goals Calories/Kcals/Kg 23-27 based on IBW 70kg Kcals Calculated 2451-1053 Protein g/k-1.2 Protein Calculated 70-84 Fluid: ml 1610-1890ml (1ml/kcal) Nutritional Problem No current Nutrition Prob Problem N/A Malnutrition Alert Is there a minimum of two criteria No selected? Query Text:Check all the applicable criteria. A minimum of two criteria are recommended for diagnosis of either severe or non-severe malnutrition. Malnutrition Related to Morbid Obesity Malnutrition related to morbid obesity No Intervention/Recommendation Comments 1. Continue with current TF regimen Jevity 1.2 at 70ml/hr x 20hr. It provides 1680kcal, 78g protein, 1130ml free water , meeting 100% of nutritional needs 2. Monitor TF rate, tolerance, wt, skin integrity and labs 3. F/U as moderate risk Expected Outcomes/Goals Expected Outcomes/Goals 1. Pt to meet at least 90% of nutritional needs via nutrition support with tolerance 2. Wt stability, skin to remain intact, labs to approach WNL.
--- NOTE | 2018-08-04 14:55 | Infectious Disease Prog Note ---
Infectious Disease Subjective - Review of Systems Service Date: 08/04/18 Subjective: Remained febrile. urine blood cultures grew Pseudomonas aeruginosa. Antibiotics are changed to Amikacin. Infectious Disease Objective - Results Result Diagrams: 08/04/18 04:10 08/04/18 04:10 Recent Labs: Laboratory Last Values WBC 9.7 Th/cmm (4.8-10.8) 08/04/18 04:10 RBC 2.94 Mil/cmm (4.30-5.70) L 08/04/18 04:10 Hgb 8.4 gm/dL (12-16) L 08/04/18 04:10 Hct 26.0 % (41.0-60) L 08/04/18 04:10 MCV 88.2 fl (80-99) 08/04/18 04:10 MCH 28.6 pg (26.0-30.0) 08/04/18 04:10 MCHC Differential 32.4 pg (28.0-36.0) 08/04/18 04:10 RDW 14.8 % (11.5-20.0) 08/04/18 04:10 Plt Count 225 Th/cmm (150-400) 08/04/18 04:10 MPV 8.7 fl 08/04/18 04:10 Add Manual Diff YES 08/03/18 04:55 Neutrophils % 73.4 % (40.0-80.0) 08/04/18 04:10 Band Neutrophils % 0 % (0-10) 08/03/18 04:55 Lymphocytes % 12.2 % (20.0-50.0) L 08/04/18 04:10 Monocytes % 12.1 % (2.0-10.0) H 08/04/18 04:10 Eosinophils % 2.0 % (0.0-5.0) 08/04/18 04:10 Basophils % 0.3 % (0.0-2.0) 08/04/18 04:10 Neutrophils (Manual) 84 % (40-80) H 08/03/18 04:55 Lymphocytes 7 % (20-50) L 08/03/18 04:55 Monocytes 8 % (2-10) 08/03/18 04:55 Eosinophils 1 % (0-5) 08/03/18 04:55 Basophils 0 % (0-3) 08/03/18 04:55 Platelet Estimate ADEQUATE (NORMAL) 08/01/18 05:00 Sodium 134 mEq/L (136-145) L 08/04/18 04:10 Potassium 3.6 mEq/L (3.5-5.1) 08/04/18 04:10 Chloride 97 mEq/L (98-107) L 08/04/18 04:10 Carbon Dioxide 28.4 mEq/L (21.0-31.0) 08/04/18 04:10 Anion Gap 12.2 (7.0-16.0) 08/04/18 04:10 BUN 12 mg/dL (7-25) 08/04/18 04:10 Creatinine 0.4 mg/dL (0.7-1.3) L 08/04/18 04:10 Est GFR ( Amer) > 60.0 ml/min (>90) 08/04/18 04:10 Est GFR (Non-Af Amer) > 60.0 ml/min 08/04/18 04:10 BUN/Creatinine Ratio 30.0 08/04/18 04:10 Glucose 103 mg/dL (70-105) 08/04/18 04:10 Whole Bld Lactic Acid 1.47 mmol/L (0.60-1.99) 07/31/18 07:40 Calcium 8.7 mg/dL (8.6-10.3) 08/04/18 04:10 Total Bilirubin 0.3 mg/dL (0.3-1.0) 08/03/18 04:55 AST 34 U/L (13-39) 08/03/18 04:55 ALT 27 U/L (7-52) 08/03/18 04:55 Alkaline Phosphatase 105 U/L (34-104) H 08/03/18 04:55 Total Protein 6.5 gm/dL (6.0-8.3) 08/03/18 04:55 Albumin 3.1 gm/dL (4.2-5.5) L 08/03/18 04:55 Globulin 3.4 gm/dL 08/03/18 04:55 Albumin/Globulin Ratio 0.9 (1.0-1.8) L 08/03/18 04:55 Urine Source CATH 07/30/18 19:20 Urine Color YELLOW 07/30/18 19:20 Urine Clarity HAZY (CLEAR) 07/30/18 19:20 Urine pH 7.0 (4.6 - 8.0) 07/30/18 19:20 Ur Specific [place] 1.010 (1.005-1.030) 07/30/18 19:20 Urine Protein 30 mg/dL (NEGATIVE) H 07/30/18 19:20 Urine Glucose (UA) NEGATIVE mg/dL (NEGATIVE) 07/30/18 19:20 Urine Ketones NEGATIVE mg/dL (NEGATIVE) 07/30/18 19:20 Urine Blood LARGE (NEGATIVE) H 07/30/18 19:20 Urine Nitrate POSITIVE (NEGATIVE) H 07/30/18 19:20 Urine Bilirubin NEGATIVE (NEGATIVE) 07/30/18 19:20 Urine Urobilinogen 0.2 E.U./dL (0.2 - 1.0) 07/30/18 19:20 Ur Leukocyte Esterase LARGE (NEGATIVE) H 07/30/18 19:20 Urine RBC 5-10 /hpf (0-5) H 07/30/18 19:20 Urine WBC 25-50 /hpf (0-5) H 07/30/18 19:20 Ur Epithelial Cells FEW /lpf (FEW) 07/30/18 19:20 Urine Bacteria 4+ /hpf (NONE SEEN) H 07/30/18 19:20 Vancomycin Trough 21.3 ug/mL (5-10) H 08/01/18 21:26 - Physical Exam Vitals and I&O: Vital Signs Temp 97.4 F 08/04/18 08:00 Pulse 101 08/04/18 13:06 Resp 35 08/04/18 12:00 BP 110/66 08/04/18 12:00 Pulse Ox 100 08/04/18 13:06 Intake & Output 08/03/18 08/04/18 08/04/18 18:59 06:59 18:59 Intake Total 50 1200 1000 Output Total 1250 1600 Balance -1200 -400 1000 Weight (lbs) 55.792 kg 55.792 kg Intake: Intake, IV Amount 50 1000 Cefepime 1 gm In Sodium 50 Chloride 0.9% 50 ml @ 100 mls/hr IV Q12HR [facility] Rx#: [id number] Sodium Chloride 0.9% 1, 1000 000 ml @ 50 mls/hr IV . Q20H [facility] Rx#:[id number] Tube Feeding 800 Other 400 Output: Urine 1250 1600 Other: # Bowel Movements 0 0 Weight Source Bedscale Bedscale Active Medications: Current Medications Acetaminophen (Tylenol) 650 mg GT Q4H PRN PRN Reason: Fever > 101 Stop: 09/29/18 06:32 Last Admin: 08/03/18 18:49 Dose: 650 mg Ascorbic Acid (Vitamin C) 500 mg GT DAILY [facility] Stop: 09/30/18 08:59 Last Admin: 08/04/18 09:02 Dose: 500 mg Bisacodyl (Dulcolax 10 Mg Supp) 10 mg RC DAILY PRN PRN Reason: Constipation Stop: 09/29/18 15:21 Chlorhexidine Gluconate (Peridex) 15 ml MM 08,1999 [facility] Stop: 09/28/18 19:59 Last Admin: 08/04/18 08:00 Dose: 15 ml Famotidine (Pepcid) 20 mg PO BID [facility] Stop: 09/29/18 20:59 Last Admin: 08/04/18 09:01 Dose: 20 mg Norepinephrine Bitartrate 4 mg (/ Dextrose) 254 mls @ 0 mls/hr IV TITR PRN; Protocol PRN Reason: BP MAINTENANCE (PER PROTOCOL) Stop: 09/29/18 00:37 Sodium Chloride (Nacl 0.9%) 1,000 mls @ 50 mls/hr IV .Q20H [facility] Stop: 10/02/18 11:59 Last Admin: 08/04/18 09:02 Dose: 50 mls/hr Amikacin Sulfate 500 mg/ (Dextrose) 102 mls @ 100 mls/hr IV Q12H [facility] Stop: 10/03/18 13:59 Last Admin: 08/04/18 14:00 Dose: 100 mls/hr Lactobacillus Rhamnosus (Culturelle 15b) 1 each PO DAILY [facility] Stop: 09/30/18 11:59 Last Admin: 08/04/18 09:05 Dose: 1 each Levetiracetam (Keppra) 500 mg GT BID [facility] Stop: 09/30/18 08:59 Last Admin: 08/04/18 09:01 Dose: 500 mg Lorazepam (Ativan) 1 mg IVP Q4HR PRN; Protocol PRN Reason: Seizure Stop: 10/01/18 11:24 Last Admin: 08/04/18 12:04 Dose: 1 mg Magnesium Hydroxide (Milk Of Magnesia) 30 ml GT HS PRN PRN Reason: Constipation Stop: 09/29/18 17:49 Miscellaneous (Probiotic Screen) 1 ea MC PRN PRN PRN Reason: PROTOCOL Stop: 09/30/18 09:02 Miscellaneous (Amikacin Iv Per Pharmacy) 1 ea MC PRN PRN PRN Reason: PROTOCOL Stop: 10/02/18 13:27 Morphine Sulfate (Morphine) 1 mg IVP Q4HR PRN PRN Reason: Pain (Mild) Stop: 09/30/18 14:04 Last Admin: 08/02/18 08:34 Dose: 1 mg Multivitamins/Vitamin C (Theragran) 1 tab GT BID [facility] Stop: 09/30/18 08:59 Last Admin: 08/04/18 09:02 Dose: 1 tab Thiamine HCl (Vitamin B1) 100 mg GT DAILY [facility] Stop: 09/30/18 08:59 Last Admin: 08/04/18 09:01 Dose: 100 mg Wound Care/Dressing Products (Therahoney) 1 appl TP DAILY [facility] Stop: 09/30/18 08:59 Last Admin: 08/04/18 09:03 Dose: 1 appl Zinc Sulfate (Zinc Sulfate) 220 mg GT DAILY [facility] Stop: 09/30/18 08:59 Last Admin: 08/04/18 09:01 Dose: 220 mg General: no acute distress, cachectic, other (on the ventilator.) HEENT: atraumatic, normocephalic, PERRLA, EOMI, moist mucous membrane Neck: supple, tracheostomy, no thyromegaly Cardiovascular: S1S2, regular Lungs: clear to auscultation bilaterally, clear to percussion, crackles Abdomen: soft, no tender, no distended, no mass Extremities: no cyanosis, no clubbing, no edema Neurological: awake, alert - Procedures Procedures: Procedures Procedure Code Date RESPIRATORY VENTILATION, GREATER THAN 96 CONSECUTIVE HOURS [id number] 07/30/18 Infectious Disease Assmt/Plan - Assessment Assessment: 1. Sepsis. Pseudomonas aeruginosa. 2. Urinary tract infection and pyelonephritis. 3. Vent-dependent respiratory failure. 4. History of subarachnoid hemorrhage. 5. Status post craniotomy on the right side. 6. Hypokalemia. - Plan Plan: Continue Amikacin. Nutritional Asmnt/Malnutr-PDOC - Dietary Evaluation Malnutrition Findings (Please click <Entered> for more info): Nutritional Asmnt/Malnutrition Start: 07/31/18 14: 50 Text: Status: Complete Freq: Protocol: Document 07/31/18 14:50 LCRASG (Rec: 07/31/18 15:09 [email or web address]) Nutritional Asmnt/Malnutrition Patient General Information Nutritional Screening High Risk Diagnosis urosepis Pertinent Medical Hx/Surgical Hx seizures, anemia, resp failure , SAH, trach, Gtube, foleu, vent depression Subjective Information Pt seen resting in bed, trach to vent. Visiablly verified TF was running at goal rate of 70ml/hr at this time. Current Diet Order/ Nutrition Support Jevity 1.2 at 70ml/hr x 20hr. Pertinent Medications nacl 0.9%, vancomycin Pertinent Labs 5/2 Na 135, alb 3.7 Nutritional Hx/Data Height 1.73 m Height (Calculated Centimeters) 172.7 Current Weight (lbs) 55.338 kg Weight (Calculated Kilograms) 55.3 Weight (Calculated Grams) 33538.3 [place] Body Weight 154 Body Mass Index (BMI) 18.5 Weight Status Approriate GI Symptoms GI Symptoms None Last BM 5/2 Difficult in: None Skin Integrity/Comment: scar to head and right anterior ear, abrasion to left ankle, rash to left posterior and right axilla, decubitus ulcer to sacrum. Sal 12. Estimated Nutritional Goals Calories/Kcals/Kg 23-27 based on IBW 70kg Kcals Calculated 5516-4724 Protein g/k-1.2 Protein Calculated 70-84 Fluid: ml 1610-1890ml (1ml/kcal) Nutritional Problem No current Nutrition Prob Problem N/A Malnutrition Alert Is there a minimum of two criteria No selected? Query Text:Check all the applicable criteria. A minimum of two criteria are recommended for diagnosis of either severe or non-severe malnutrition. Malnutrition Related to Morbid Obesity Malnutrition related to morbid obesity No Intervention/Recommendation Comments 1. Continue with current TF regimen Jevity 1.2 at 70ml/hr x 20hr. It provides 1680kcal, 78g protein, 1130ml free water , meeting 100% of nutritional needs 2. Monitor TF rate, tolerance, wt, skin integrity and labs 3. F/U as moderate risk Expected Outcomes/Goals Expected Outcomes/Goals 1. Pt to meet at least 90% of nutritional needs via nutrition support with tolerance 2. Wt stability, skin to remain intact, labs to approach WNL.
[2018-08-04] MEDS ORDERED: Norepinephrine 4 mg/4mL Vial IV ONE (19:05)
[2018-08-05 04:28] LABS: RED BLOOD COUNT 2.65 Mil/cmm (4.30-5.70)
[2018-08-05 04:37] LABS: MEAN CELL VOLUME 86.5 fl (80-99); MEAN CORPUSCULAR HEMOGLOBIN 28.9 pg (26.0-30.0); MEAN CORPUSCULAR HGB CONC 33.4 pg (28.0-36.0); PLATELET COUNT 225 Th/cmm (150-400); WHITE BLOOD COUNT 7.4 Th/cmm (4.8-10.8)
[2018-08-05 04:44] LABS: HEMOGLOBIN 7.7 gm/dL (12-16)
[2018-08-05 04:45] LABS: HEMATOCRIT 22.9 % (41.0-60)
[2018-08-05 05:08] LABS: ANION GAP 11.9 (7.0-16.0); BUN - UREA NITROGEN 9 mg/dL (7-25); CALCIUM SERUM 8.6 mg/dL (8.6-10.3); CARBON DIOXIDE 29.2 mEq/L (21.0-31.0); CHLORIDE 99 mEq/L (98-107); CREATININE - SERUM 0.4 mg/dL (0.7-1.3); GFR AFRICAN-AMERICAN > 60.0 ml/min (>90); GFR NON AFRICAN-AMERICAN > 60.0 ml/min; GLUCOSE 137 mg/dL (70-105); POTASSIUM SERUM 3.1 mEq/L (3.5-5.1); SODIUM SERUM 137 mEq/L (136-145)
[2018-08-05] MEDS: Sodium Chloride 0.9% 1,000 ML IV SCH (05:21)
[2018-08-05 08:02] LABS: BAND NEUTROPHILE 0 % (0-10); BASOPHIL 0 % (0-3); EOSINOPHIL 4 % (0-5); LYMPHOCYTE 14 % (20-50); MONOCYTE 10 % (2-10); NEUTROPHILS 72 % (40-80)
[2018-08-05] MEDS: Multivitamin Tab GT SCH ×2 (08:26→16:47)
[2018-08-05] MEDS: Lactobacillus Rhamnosus GG 15 Billion CFU CAP.SPRINK PO SCH (08:26)
[2018-08-05] MEDS: Chlorhexidine Gluconate 0.12% 15mL Mouthwash MM SCH ×2 (08:27→20:12)
[2018-08-05] MEDS: Levetiracetam 500 mg/5mL 5mL UDSyr *for ORAL USE ONLY GT SCH ×2 (08:27→16:47)
[2018-08-05] MEDS: Therahoney Gel 42.5gm Tube TP SCH (08:27)
[2018-08-05] MEDS: Potassium Chloride Elixir 20 mEq /15 mL UDC GT SCH (09:53)
[2018-08-05 11:59] LABS: % BASOPHILS 0.4 % (0.0-2.0); LYMPHOCYTE ABSOLUTE 0.9 Th/cmm (1.5-3.0)
[2018-08-05 12:16] LABS: RED BLOOD COUNT 2.66 Mil/cmm (4.30-5.70); WHITE BLOOD COUNT 5.3 Th/cmm (4.8-10.8)
[2018-08-05 12:17] LABS: HEMOGLOBIN 7.7 gm/dL (12-16)
[2018-08-05 12:18] LABS: % LYMPHOCYTES 17.6 % (20.0-50.0); % MONOCYTES 11.9 % (2.0-10.0); % NEUTROPHILS 67.2 % (40.0-80.0); HEMATOCRIT 23.5 % (41.0-60); MEAN CELL VOLUME 88.5 fl (80-99); MEAN CORPUSCULAR HEMOGLOBIN 29.1 pg (26.0-30.0); MEAN CORPUSCULAR HGB CONC 32.8 pg (28.0-36.0); PLATELET COUNT 240 Th/cmm (150-400); RED CELL DISTRIBUTION WIDTH 14.8 % (11.5-20.0)
[2018-08-05 12:19] LABS: % EOSINOPHILS 2.9 % (0.0-5.0); EOSINOPHILE ABSOLUTE 0.2 Th/cmm (0.1-0.4); MONOCYTE ABSOLUTE 0.6 Th/cmm (0.3-1.0); NEUTROPHILE ABSOLUTE 3.6 Th/cmm (1.8-8.0)
--- NOTE | 2018-08-05 14:39 | Internal Medicine Prog Note ---
Internal Medicine Subjective - Subjective Service Date: 08/05/18 Patient is:: awake, non-verbal Per staff patient has:: no adverse event, no episodes of fall Internal Medicine Objective - Results Result Diagrams: 08/05/18 11:50 08/05/18 04:05 Recent Labs: Laboratory Last Values WBC 5.3 Th/cmm (4.8-10.8) 08/05/18 11:50 RBC 2.66 Mil/cmm (4.30-5.70) L 08/05/18 11:50 Hgb 7.7 gm/dL (12-16) L* 08/05/18 11:50 Hct 23.5 % (41.0-60) L 08/05/18 11:50 MCV 88.5 fl (80-99) 08/05/18 11:50 MCH 29.1 pg (26.0-30.0) 08/05/18 11:50 MCHC Differential 32.8 pg (28.0-36.0) 08/05/18 11:50 RDW 14.8 % (11.5-20.0) 08/05/18 11:50 Plt Count 240 Th/cmm (150-400) 08/05/18 11:50 MPV 8.0 fl 08/05/18 11:50 Add Manual Diff YES 08/05/18 04:05 Neutrophils % 67.2 % (40.0-80.0) 08/05/18 11:50 Band Neutrophils % 0 % (0-10) 08/05/18 04:05 Lymphocytes % 17.6 % (20.0-50.0) L 08/05/18 11:50 Monocytes % 11.9 % (2.0-10.0) H 08/05/18 11:50 Eosinophils % 2.9 % (0.0-5.0) 08/05/18 11:50 Basophils % 0.4 % (0.0-2.0) 08/05/18 11:50 Neutrophils (Manual) 72 % (40-80) 08/05/18 04:05 Lymphocytes 14 % (20-50) L 08/05/18 04:05 Monocytes 10 % (2-10) 08/05/18 04:05 Eosinophils 4 % (0-5) 08/05/18 04:05 Basophils 0 % (0-3) 08/05/18 04:05 Platelet Estimate ADEQUATE (NORMAL) 08/01/18 05:00 Sodium 137 mEq/L (136-145) 08/05/18 04:05 Potassium 3.1 mEq/L (3.5-5.1) L 08/05/18 04:05 Chloride 99 mEq/L (98-107) 08/05/18 04:05 Carbon Dioxide 29.2 mEq/L (21.0-31.0) 08/05/18 04:05 Anion Gap 11.9 (7.0-16.0) 08/05/18 04:05 BUN 9 mg/dL (7-25) 08/05/18 04:05 Creatinine 0.4 mg/dL (0.7-1.3) L 08/05/18 04:05 Est GFR ( Amer) > 60.0 ml/min (>90) 08/05/18 04:05 Est GFR (Non-Af Amer) > 60.0 ml/min 08/05/18 04:05 BUN/Creatinine Ratio 22.5 08/05/18 04:05 Glucose 137 mg/dL (70-105) H 08/05/18 04:05 Whole Bld Lactic Acid 1.47 mmol/L (0.60-1.99) 07/31/18 07:40 Calcium 8.6 mg/dL (8.6-10.3) 08/05/18 04:05 Total Bilirubin 0.3 mg/dL (0.3-1.0) 08/03/18 04:55 AST 34 U/L (13-39) 08/03/18 04:55 ALT 27 U/L (7-52) 08/03/18 04:55 Alkaline Phosphatase 105 U/L (34-104) H 08/03/18 04:55 Total Protein 6.5 gm/dL (6.0-8.3) 08/03/18 04:55 Albumin 3.1 gm/dL (4.2-5.5) L 08/03/18 04:55 Globulin 3.4 gm/dL 08/03/18 04:55 Albumin/Globulin Ratio 0.9 (1.0-1.8) L 08/03/18 04:55 Urine Source CATH 07/30/18 19:20 Urine Color YELLOW 07/30/18 19:20 Urine Clarity HAZY (CLEAR) 07/30/18 19:20 Urine pH 7.0 (4.6 - 8.0) 07/30/18 19:20 Ur Specific [place] 1.010 (1.005-1.030) 07/30/18 19:20 Urine Protein 30 mg/dL (NEGATIVE) H 07/30/18 19:20 Urine Glucose (UA) NEGATIVE mg/dL (NEGATIVE) 07/30/18 19:20 Urine Ketones NEGATIVE mg/dL (NEGATIVE) 07/30/18 19:20 Urine Blood LARGE (NEGATIVE) H 07/30/18 19:20 Urine Nitrate POSITIVE (NEGATIVE) H 07/30/18 19:20 Urine Bilirubin NEGATIVE (NEGATIVE) 07/30/18 19:20 Urine Urobilinogen 0.2 E.U./dL (0.2 - 1.0) 07/30/18 19:20 Ur Leukocyte Esterase LARGE (NEGATIVE) H 07/30/18 19:20 Urine RBC 5-10 /hpf (0-5) H 07/30/18 19:20 Urine WBC 25-50 /hpf (0-5) H 07/30/18 19:20 Ur Epithelial Cells FEW /lpf (FEW) 07/30/18 19:20 Urine Bacteria 4+ /hpf (NONE SEEN) H 07/30/18 19:20 Random Amikacin 0.8 ug/ml (1.0-30.0) L 08/04/18 12:00 Vancomycin Trough 21.3 ug/mL (5-10) H 08/01/18 21:26 - Physical Exam Vitals and I&O: Vital Signs Temp 98.3 F 08/05/18 12:00 Pulse 90 08/05/18 13:40 Resp 15 08/05/18 12:00 BP 122/72 08/05/18 12:00 Pulse Ox 100 08/05/18 13:40 Intake & Output 08/04/18 08/05/18 08/05/18 18:59 06:59 18:59 Intake Total 1102 2227.407 Output Total 1900 Balance 1102 327.407 Weight (lbs) 123 lb Intake: Intake, IV Amount 1102 1187.407 Amikacin 500 mg In 102 102 Dextrose 5% 100 ml @ 100 mls/hr IV Q12H [facility] Rx#: [id number] Norepinephrine 4 mg In 85.407 Dextrose 5% 250 ml @ Per Protocol IV TITR PRN Rx#: [id number] Sodium Chloride 0.9% 1, 1000 1000 000 ml @ 50 mls/hr IV . Q20H [facility] Rx#:[id number] Tube Feeding 840 Other 200 Output: Urine 1900 Other: Weight Source Bedscale Active Medications: Current Medications Acetaminophen (Tylenol) 650 mg GT Q4H PRN PRN Reason: Fever > 101 Stop: 09/29/18 06:32 Last Admin: 08/04/18 17:36 Dose: 650 mg Ascorbic Acid (Vitamin C) 500 mg GT DAILY [facility] Stop: 09/30/18 08:59 Last Admin: 08/05/18 08:26 Dose: 500 mg Bisacodyl (Dulcolax 10 Mg Supp) 10 mg RC DAILY PRN PRN Reason: Constipation Stop: 09/29/18 15:21 Chlorhexidine Gluconate (Peridex) 15 ml MM 0800,2000 [facility] Stop: 09/28/18 19:59 Last Admin: 08/05/18 08:27 Dose: 15 ml Famotidine (Pepcid) 20 mg PO BID [facility] Stop: 09/29/18 20:59 Last Admin: 08/05/18 08:26 Dose: 20 mg Norepinephrine Bitartrate 4 mg (/ Dextrose) 254 mls @ 0 mls/hr IV TITR PRN; Protocol PRN Reason: BP MAINTENANCE (PER PROTOCOL) Stop: 09/29/18 00:37 Last Titration: 08/05/18 00:15 Dose: 0 mcg/min, 0 mls/hr Sodium Chloride (Nacl 0.9%) 1,000 mls @ 50 mls/hr IV .Q20H [facility] Stop: 10/02/18 11:59 Last Admin: 08/05/18 05:21 Dose: 50 mls/hr Amikacin Sulfate 500 mg/ (Dextrose) 102 mls @ 100 mls/hr IV Q12H [facility] Stop: 10/03/18 13:59 Last Admin: 08/05/18 13:18 Dose: 100 mls/hr Lactobacillus Rhamnosus (Culturelle 15b) 1 each PO DAILY [facility] Stop: 09/30/18 11:59 Last Admin: 08/05/18 08:26 Dose: 1 each Levetiracetam (Keppra) 500 mg GT BID [facility] Stop: 09/30/18 08:59 Last Admin: 08/05/18 08:27 Dose: 500 mg Lorazepam (Ativan) 1 mg IVP Q4HR PRN; Protocol PRN Reason: Seizure Stop: 10/01/18 11:24 Last Admin: 08/04/18 12:04 Dose: 1 mg Magnesium Hydroxide (Milk Of Magnesia) 30 ml GT HS PRN PRN Reason: Constipation Stop: 09/29/18 17:49 Miscellaneous (Probiotic Screen) 1 ea MC PRN PRN PRN Reason: PROTOCOL Stop: 09/30/18 09:02 Miscellaneous (Amikacin Iv Per Pharmacy) 1 ea MC PRN PRN PRN Reason: PROTOCOL Stop: 10/02/18 13:27 Morphine Sulfate (Morphine) 1 mg IVP Q4HR PRN PRN Reason: Pain (Mild) Stop: 09/30/18 14:04 Last Admin: 08/02/18 08:34 Dose: 1 mg Multivitamins/Vitamin C (Theragran) 1 tab GT BID [facility] Stop: 09/30/18 08:59 Last Admin: 08/05/18 08:26 Dose: 1 tab Potassium Chloride (Potassium Chloride Elixir) 40 meq GT DAILY [facility] Stop: 10/04/18 08:59 Last Admin: 08/05/18 09:53 Dose: 40 meq Thiamine HCl (Vitamin B1) 100 mg GT DAILY [facility] Stop: 09/30/18 08:59 Last Admin: 08/05/18 08:26 Dose: 100 mg Wound Care/Dressing Products (Therahoney) 1 appl TP DAILY [facility] Stop: 09/30/18 08:59 Last Admin: 08/05/18 08:27 Dose: 1 appl Zinc Sulfate (Zinc Sulfate) 220 mg GT DAILY [facility] Stop: 09/30/18 08:59 Last Admin: 08/05/18 08:25 Dose: 220 mg General: weak HEENT: NC/AT, PERRLA Neck: Supple, No JVD Lungs: wheezing, ronchi Cardiovascular: RRR, Normal S1 Abdomen: non-tender Extremities: clear Neurological: no change - Procedures Procedures: Procedures Procedure Code Date RESPIRATORY VENTILATION, GREATER THAN 96 CONSECUTIVE HOURS [id number] 07/30/18 Internal Medicine Assmt/Plan - Assessment Assessment: Pseumonas pneumonia ACUTE UTI VDRF HX subarachnoid hemorrhage. S/P RIGHT SIDE craniotomy on the right side. - Plan Plan: continue ivabx as per id continue vent support am labs continue current plan of care Nutritional Asmnt/Malnutr-PDOC - Dietary Evaluation Malnutrition Findings (Please click <Entered> for more info): Nutritional Asmnt/Malnutrition Start: 07/31/18 14: 50 Text: Status: Complete Freq: Protocol: Document 07/31/18 14:50 CHAPIN (Rec: 07/31/18 15:09 [email or web address]) Nutritional Asmnt/Malnutrition Patient General Information Nutritional Screening High Risk Diagnosis urosepis Pertinent Medical Hx/Surgical Hx seizures, anemia, resp failure , SAH, trach, Gtube, foleu, vent depression Subjective Information Pt seen resting in bed, trach to vent. Visiablly verified TF was running at goal rate of 70ml/hr at this time. Current Diet Order/ Nutrition Support Jevity 1.2 at 70ml/hr x 20hr. Pertinent Medications nacl 0.9%, vancomycin Pertinent Labs 5/2 Na 135, alb 3.7 Nutritional Hx/Data Height 5 ft 8 in Height (Calculated Centimeters) 172.7 Current Weight (lbs) 122 lb Weight (Calculated Kilograms) 55.3 Weight (Calculated Grams) 17018.3 [place] Body Weight 154 Body Mass Index (BMI) 18.5 Weight Status Approriate GI Symptoms GI Symptoms None Last BM 5/2 Difficult in: None Skin Integrity/Comment: scar to head and right anterior ear, abrasion to left ankle, rash to left posterior and right axilla, decubitus ulcer to sacrum. Sal 12. Estimated Nutritional Goals Calories/Kcals/Kg 23-27 based on IBW 70kg Kcals Calculated 3546-5137 Protein g/k-1.2 Protein Calculated 70-84 Fluid: ml 1610-1890ml (1ml/kcal) Nutritional Problem No current Nutrition Prob Problem N/A Malnutrition Alert Is there a minimum of two criteria No selected? Query Text:Check all the applicable criteria. A minimum of two criteria are recommended for diagnosis of either severe or non-severe malnutrition. Malnutrition Related to Morbid Obesity Malnutrition related to morbid obesity No Intervention/Recommendation Comments 1. Continue with current TF regimen Jevity 1.2 at 70ml/hr x 20hr. It provides 1680kcal, 78g protein, 1130ml free water , meeting 100% of nutritional needs 2. Monitor TF rate, tolerance, wt, skin integrity and labs 3. F/U as moderate risk Expected Outcomes/Goals Expected Outcomes/Goals 1. Pt to meet at least 90% of nutritional needs via nutrition support with tolerance 2. Wt stability, skin to remain intact, labs to approach WNL.
--- NOTE | 2018-08-05 17:02 | Progress Notes ---
DATE: 08/04/2018 SUBJECTIVE: The patient appears to be doing okay, on Levophed for hypotension. OBJECTIVE: VITAL SIGNS: Temperature is 97.4, pulse 78, respirations are 21, blood pressure 104/65, saturation 100%. CHEST: Good breath sounds. No wheezing. Few rhonchi. HEART: Regular rate and rhythm. ABDOMEN: Soft and nondistended. EXTREMITIES: No edema. LABORATORY DATA: WBC 9.7, hemoglobin 8.4. Sodium 134, potassium 3.6, BUN is 12, creatinine 0.4. IMPRESSION: 1. Respiratory failure. 2. Urinary tract infection. 3. Sepsis. 4. Weakness. 5. Dysphagia. 6. Intracranial hemorrhage status post craniotomy. PLAN: 1. Continue ventilatory support. 2. Antibiotics. 3. Supportive care. Titrate pressors, IV fluids. JOB# [id number]
[2018-08-06] MEDS ORDERED: Amikacin 250 mg/mL 2mL Vial IV ONE (02:00)
[2018-08-06] MEDS: Sodium Chloride 0.9% 1,000 ML IV SCH ×2 (02:08→20:17)
--- NOTE | 2018-08-06 02:16 | Progress Notes ---
DATE: 08/05/2018 SURGICAL CONSULTATION TIME: 4:04 p.m. OBJECTIVE: VITAL SIGNS: The patient is afebrile. Vital signs are otherwise stable. GENERAL: She is resting in bed comfortably, in no acute distress. HEENT: The Ac wrap bandage dressing over the right preauricular area is clean and dry with no significant bleeding. Trach on vent. CHEST: Clear to auscultation bilaterally. CARDIAC: Regular rate. ABDOMEN: Soft, nontender and nondistended. G-tube is in place. NEUROVASCULAR AND EXTREMITIES: Otherwise normal. LABORATORY DATA: His white blood cell count 5.3, H and H is 7.7 and 23.5 and platelet count 240. Potassium 3.1. Chem-7 is otherwise unremarkable. The patient is not on any significant anticoagulation at this time. IMPRESSION AND PLAN: Stable right preauricular area with no subsequent bleeding after suture closure repair of the wound. There is a pulsatileness of this area, but so far healing well. We will follow intermittently. JOB# [id number]
[2018-08-06 04:59] LABS: % BASOPHILS 0.3 % (0.0-2.0); % EOSINOPHILS 4.7 % (0.0-5.0); % LYMPHOCYTES 20.7 % (20.0-50.0); % MONOCYTES 13.2 % (2.0-10.0); % NEUTROPHILS 61.1 % (40.0-80.0); EOSINOPHILE ABSOLUTE 0.3 Th/cmm (0.1-0.4); HEMATOCRIT 24.5 % (41.0-60); HEMOGLOBIN 8.1 gm/dL (12-16); LYMPHOCYTE ABSOLUTE 1.3 Th/cmm (1.5-3.0); MEAN CELL VOLUME 86.8 fl (80-99); MEAN CORPUSCULAR HEMOGLOBIN 28.6 pg (26.0-30.0); MEAN CORPUSCULAR HGB CONC 32.9 pg (28.0-36.0); MEAN PLATELET VOLUME 7.9 fl; MONOCYTE ABSOLUTE 0.8 Th/cmm (0.3-1.0); RED BLOOD COUNT 2.82 Mil/cmm (4.30-5.70); RED CELL DISTRIBUTION WIDTH 14.6 % (11.5-20.0); WHITE BLOOD COUNT 6.4 Th/cmm (4.8-10.8)
[2018-08-06 05:41] LABS: PLATELET COUNT 324 Th/cmm (150-400)
[2018-08-06 05:44] LABS: ANION GAP 13.2 (7.0-16.0); BUN - UREA NITROGEN 11 mg/dL (7-25); CALCIUM SERUM 9.2 mg/dL (8.6-10.3); CARBON DIOXIDE 26.2 mEq/L (21.0-31.0); CHLORIDE 101 mEq/L (98-107); CREATININE - SERUM 0.4 mg/dL (0.7-1.3); GFR AFRICAN-AMERICAN > 60.0 ml/min (>90); GFR NON AFRICAN-AMERICAN > 60.0 ml/min; GLUCOSE 110 mg/dL (70-105); POTASSIUM SERUM 3.4 mEq/L (3.5-5.1); SODIUM SERUM 137 mEq/L (136-145)
[2018-08-06] MEDS: Chlorhexidine Gluconate 0.12% 15mL Mouthwash MM SCH ×2 (08:00→20:17)
[2018-08-06] MEDS: Therahoney Gel 42.5gm Tube TP SCH (09:37)
[2018-08-06] MEDS: Levetiracetam 500 mg/5mL 5mL UDSyr *for ORAL USE ONLY GT SCH ×2 (09:38→17:05)
[2018-08-06] MEDS: Potassium Chloride Elixir 20 mEq /15 mL UDC GT SCH (09:38)
[2018-08-06] MEDS: Lactobacillus Rhamnosus GG 15 Billion CFU CAP.SPRINK PO SCH (09:38)
[2018-08-06] MEDS: Multivitamin Tab GT SCH ×2 (09:39→17:05)
--- NOTE | 2018-08-06 13:15 | Infectious Disease Prog Note ---
Infectious Disease Subjective - Review of Systems Service Date: 08/06/18 Subjective: Afebrile. Infectious Disease Objective - Results Result Diagrams: 08/06/18 04:40 08/06/18 04:40 Recent Labs: Laboratory Last Values WBC 6.4 Th/cmm (4.8-10.8) 08/06/18 04:40 RBC 2.82 Mil/cmm (4.30-5.70) L 08/06/18 04:40 Hgb 8.1 gm/dL (12-16) L 08/06/18 04:40 Hct 24.5 % (41.0-60) L 08/06/18 04:40 MCV 86.8 fl (80-99) 08/06/18 04:40 MCH 28.6 pg (26.0-30.0) 08/06/18 04:40 MCHC Differential 32.9 pg (28.0-36.0) 08/06/18 04:40 RDW 14.6 % (11.5-20.0) 08/06/18 04:40 Plt Count 324 Th/cmm (150-400) D 08/06/18 04:40 MPV 7.9 fl 08/06/18 04:40 Add Manual Diff YES 08/05/18 04:05 Neutrophils % 61.1 % (40.0-80.0) 08/06/18 04:40 Band Neutrophils % 0 % (0-10) 08/05/18 04:05 Lymphocytes % 20.7 % (20.0-50.0) 08/06/18 04:40 Monocytes % 13.2 % (2.0-10.0) H 08/06/18 04:40 Eosinophils % 4.7 % (0.0-5.0) 08/06/18 04:40 Basophils % 0.3 % (0.0-2.0) 08/06/18 04:40 Neutrophils (Manual) 72 % (40-80) 08/05/18 04:05 Lymphocytes 14 % (20-50) L 08/05/18 04:05 Monocytes 10 % (2-10) 08/05/18 04:05 Eosinophils 4 % (0-5) 08/05/18 04:05 Basophils 0 % (0-3) 08/05/18 04:05 Platelet Estimate ADEQUATE (NORMAL) 08/01/18 05:00 Sodium 137 mEq/L (136-145) 08/06/18 04:40 Potassium 3.4 mEq/L (3.5-5.1) L 08/06/18 04:40 Chloride 101 mEq/L (98-107) 08/06/18 04:40 Carbon Dioxide 26.2 mEq/L (21.0-31.0) 08/06/18 04:40 Anion Gap 13.2 (7.0-16.0) 08/06/18 04:40 BUN 11 mg/dL (7-25) 08/06/18 04:40 Creatinine 0.4 mg/dL (0.7-1.3) L 08/06/18 04:40 Est GFR ( Amer) > 60.0 ml/min (>90) 08/06/18 04:40 Est GFR (Non-Af Amer) > 60.0 ml/min 08/06/18 04:40 BUN/Creatinine Ratio 27.5 08/06/18 04:40 Glucose 110 mg/dL (70-105) H 08/06/18 04:40 Whole Bld Lactic Acid 1.47 mmol/L (0.60-1.99) 07/31/18 07:40 Calcium 9.2 mg/dL (8.6-10.3) 08/06/18 04:40 Total Bilirubin 0.3 mg/dL (0.3-1.0) 08/03/18 04:55 AST 34 U/L (13-39) 08/03/18 04:55 ALT 27 U/L (7-52) 08/03/18 04:55 Alkaline Phosphatase 105 U/L (34-104) H 08/03/18 04:55 Total Protein 6.5 gm/dL (6.0-8.3) 08/03/18 04:55 Albumin 3.1 gm/dL (4.2-5.5) L 08/03/18 04:55 Globulin 3.4 gm/dL 08/03/18 04:55 Albumin/Globulin Ratio 0.9 (1.0-1.8) L 08/03/18 04:55 Urine Source CATH 07/30/18 19:20 Urine Color YELLOW 07/30/18 19:20 Urine Clarity HAZY (CLEAR) 07/30/18 19:20 Urine pH 7.0 (4.6 - 8.0) 07/30/18 19:20 Ur Specific [place] 1.010 (1.005-1.030) 07/30/18 19:20 Urine Protein 30 mg/dL (NEGATIVE) H 07/30/18 19:20 Urine Glucose (UA) NEGATIVE mg/dL (NEGATIVE) 07/30/18 19:20 Urine Ketones NEGATIVE mg/dL (NEGATIVE) 07/30/18 19:20 Urine Blood LARGE (NEGATIVE) H 07/30/18 19:20 Urine Nitrate POSITIVE (NEGATIVE) H 07/30/18 19:20 Urine Bilirubin NEGATIVE (NEGATIVE) 07/30/18 19:20 Urine Urobilinogen 0.2 E.U./dL (0.2 - 1.0) 07/30/18 19:20 Ur Leukocyte Esterase LARGE (NEGATIVE) H 07/30/18 19:20 Urine RBC 5-10 /hpf (0-5) H 07/30/18 19:20 Urine WBC 25-50 /hpf (0-5) H 07/30/18 19:20 Ur Epithelial Cells FEW /lpf (FEW) 07/30/18 19:20 Urine Bacteria 4+ /hpf (NONE SEEN) H 07/30/18 19:20 Amikacin Peak 17.8 ug/mL (20.0-30.0) L 08/05/18 15:30 Amikacin Trough 2.0 ug/mL (1.0-8.0) 08/05/18 13:30 Random Amikacin 0.8 ug/ml (1.0-30.0) L 08/04/18 12:00 Vancomycin Trough 21.3 ug/mL (5-10) H 08/01/18 21:26 - Physical Exam Vitals and I&O: Vital Signs Temp 98.6 F 08/06/18 12:00 Pulse 94 08/06/18 13:06 Resp 18 08/06/18 12:00 BP 133/88 08/06/18 12:00 Pulse Ox 97 08/06/18 13:06 Intake & Output 08/05/18 08/06/18 08/06/18 18:59 06:59 18:59 Intake Total 962 2142 Output Total 1400 1500 Balance -438 642 Weight (lbs) 55.792 kg 55.792 kg Intake: Intake, IV Amount 102 1102 Amikacin 500 mg In 102 102 Dextrose 5% 100 ml @ 100 mls/hr IV Q12H [facility] Rx#: [id number] Sodium Chloride 0.9% 1, 1000 000 ml @ 50 mls/hr IV . Q20H [facility] Rx#:[id number] Tube Feeding 560 840 Other 300 200 Output: Urine 1400 1500 Other: # Bowel Movements 1 1 Stool Characteristics Liquid Brown Weight Source Bedscale Bedscale Active Medications: Current Medications Acetaminophen (Tylenol) 650 mg GT Q4H PRN PRN Reason: Fever > 101 Stop: 09/29/18 06:32 Last Admin: 08/05/18 17:45 Dose: 650 mg Ascorbic Acid (Vitamin C) 500 mg GT DAILY [facility] Stop: 09/30/18 08:59 Last Admin: 08/06/18 09:38 Dose: 500 mg Bisacodyl (Dulcolax 10 Mg Supp) 10 mg RC DAILY PRN PRN Reason: Constipation Stop: 09/29/18 15:21 Chlorhexidine Gluconate (Peridex) 15 ml MM 799,1999 [facility] Stop: 09/28/18 19:59 Last Admin: 08/06/18 08:00 Dose: 15 ml Famotidine (Pepcid) 20 mg PO BID [facility] Stop: 09/29/18 20:59 Last Admin: 08/06/18 09:38 Dose: 20 mg Norepinephrine Bitartrate 4 mg (/ Dextrose) 254 mls @ 0 mls/hr IV TITR PRN; Protocol PRN Reason: BP MAINTENANCE (PER PROTOCOL) Stop: 09/29/18 00:37 Last Titration: 08/05/18 00:15 Dose: 0 mcg/min, 0 mls/hr Sodium Chloride (Nacl 0.9%) 1,000 mls @ 50 mls/hr IV .Q20H [facility] Stop: 10/02/18 11:59 Last Admin: 08/06/18 02:08 Dose: 50 mls/hr Amikacin Sulfate 500 mg/ (Dextrose) 102 mls @ 100 mls/hr IV Q12H [facility] Stop: 10/03/18 13:59 Last Infusion: 08/06/18 03:06 Dose: Infused Lactobacillus Rhamnosus (Culturelle 15b) 1 each PO DAILY [facility] Stop: 09/30/18 11:59 Last Admin: 08/06/18 09:38 Dose: 1 each Levetiracetam (Keppra) 500 mg GT BID [facility] Stop: 09/30/18 08:59 Last Admin: 08/06/18 09:38 Dose: 500 mg Lorazepam (Ativan) 1 mg IVP Q4HR PRN; Protocol PRN Reason: Seizure Stop: 10/01/18 11:24 Last Admin: 08/04/18 12:04 Dose: 1 mg Magnesium Hydroxide (Milk Of Magnesia) 30 ml GT HS PRN PRN Reason: Constipation Stop: 09/29/18 17:49 Miscellaneous (Probiotic Screen) 1 ea MC PRN PRN PRN Reason: PROTOCOL Stop: 09/30/18 09:02 Miscellaneous (Amikacin Iv Per Pharmacy) 1 ea MC PRN PRN PRN Reason: PROTOCOL Stop: 10/02/18 13:27 Morphine Sulfate (Morphine) 1 mg IVP Q4HR PRN PRN Reason: Pain (Mild) Stop: 09/30/18 14:04 Last Admin: 08/02/18 08:34 Dose: 1 mg Multivitamins/Vitamin C (Theragran) 1 tab GT BID [facility] Stop: 09/30/18 08:59 Last Admin: 08/06/18 09:39 Dose: 1 tab Potassium Chloride (Potassium Chloride Elixir) 40 meq GT DAILY [facility] Stop: 10/04/18 08:59 Last Admin: 08/06/18 09:38 Dose: 40 meq Thiamine HCl (Vitamin B1) 100 mg GT DAILY [facility] Stop: 09/30/18 08:59 Last Admin: 08/06/18 09:39 Dose: 100 mg Wound Care/Dressing Products (Therahoney) 1 appl TP DAILY [facility] Stop: 09/30/18 08:59 Last Admin: 08/06/18 09:37 Dose: 1 appl Zinc Sulfate (Zinc Sulfate) 220 mg GT DAILY [facility] Stop: 09/30/18 08:59 Last Admin: 08/06/18 09:39 Dose: 220 mg General: no acute distress, cachectic HEENT: PERRLA, EOMI, other (right sided scalp bone absent) Neck: supple, no thyromegaly Cardiovascular: S1S2, regular Lungs: clear to auscultation bilaterally, clear to percussion Abdomen: soft, no tender, no distended, no mass Extremities: no cyanosis, no clubbing, no edema Neurological: awake, alert - Procedures Procedures: Procedures Procedure Code Date RESPIRATORY VENTILATION, GREATER THAN 96 CONSECUTIVE HOURS [id number] 07/30/18 Infectious Disease Assmt/Plan - Assessment Assessment: 1. Sepsis. Pseudomonas aeruginosa. 2. Urinary tract infection and pyelonephritis. 3. Vent-dependent respiratory failure. 4. History of subarachnoid hemorrhage. 5. Status post craniotomy on the right side. 6. Hypokalemia. - Plan Plan: Continue Amikacin. Nutritional Asmnt/Malnutr-PDOC - Dietary Evaluation Malnutrition Findings (Please click <Entered> for more info): Nutritional Asmnt/Malnutrition Start: 07/31/18 14: 50 Text: Status: Complete Freq: Protocol: Document 07/31/18 14:50 CHAPIN (Rec: 07/31/18 15:09 CHAPIN [email or web address]) Nutritional Asmnt/Malnutrition Patient General Information Nutritional Screening High Risk Diagnosis urosepis Pertinent Medical Hx/Surgical Hx seizures, anemia, resp failure , SAH, trach, Gtube, foleu, vent depression Subjective Information Pt seen resting in bed, trach to vent. Visiablly verified TF was running at goal rate of 70ml/hr at this time. Current Diet Order/ Nutrition Support Jevity 1.2 at 70ml/hr x 20hr. Pertinent Medications nacl 0.9%, vancomycin Pertinent Labs 5/2 Na 135, alb 3.7 Nutritional Hx/Data Height 1.73 m Height (Calculated Centimeters) 172.7 Current Weight (lbs) 55.338 kg Weight (Calculated Kilograms) 55.3 Weight (Calculated Grams) 62251.3 [place] Body Weight 154 Body Mass Index (BMI) 18.5 Weight Status Approriate GI Symptoms GI Symptoms None Last BM 5/2 Difficult in: None Skin Integrity/Comment: scar to head and right anterior ear, abrasion to left ankle, rash to left posterior and right axilla, decubitus ulcer to sacrum. Sal 12. Estimated Nutritional Goals Calories/Kcals/Kg 23-27 based on IBW 70kg Kcals Calculated 3531-8200 Protein g/k-1.2 Protein Calculated 70-84 Fluid: ml 1610-1890ml (1ml/kcal) Nutritional Problem No current Nutrition Prob Problem N/A Malnutrition Alert Is there a minimum of two criteria No selected? Query Text:Check all the applicable criteria. A minimum of two criteria are recommended for diagnosis of either severe or non-severe malnutrition. Malnutrition Related to Morbid Obesity Malnutrition related to morbid obesity No Intervention/Recommendation Comments 1. Continue with current TF regimen Jevity 1.2 at 70ml/hr x 20hr. It provides 1680kcal, 78g protein, 1130ml free water , meeting 100% of nutritional needs 2. Monitor TF rate, tolerance, wt, skin integrity and labs 3. F/U as moderate risk Expected Outcomes/Goals Expected Outcomes/Goals 1. Pt to meet at least 90% of nutritional needs via nutrition support with tolerance 2. Wt stability, skin to remain intact, labs to approach WNL.
--- NOTE | 2018-08-06 13:38 | Internal Medicine Prog Note ---
Internal Medicine Subjective - Subjective Service Date: 08/06/18 Patient seen and examined:: with staff Patient is:: awake, non-verbal Patient Complaints of:: other (resp. failure on vent.) Per staff patient has:: no adverse event, no episodes of fall Internal Medicine Objective - Results Result Diagrams: 08/06/18 04:40 08/06/18 04:40 Recent Labs: Laboratory Last Values WBC 6.4 Th/cmm (4.8-10.8) 08/06/18 04:40 RBC 2.82 Mil/cmm (4.30-5.70) L 08/06/18 04:40 Hgb 8.1 gm/dL (12-16) L 08/06/18 04:40 Hct 24.5 % (41.0-60) L 08/06/18 04:40 MCV 86.8 fl (80-99) 08/06/18 04:40 MCH 28.6 pg (26.0-30.0) 08/06/18 04:40 MCHC Differential 32.9 pg (28.0-36.0) 08/06/18 04:40 RDW 14.6 % (11.5-20.0) 08/06/18 04:40 Plt Count 324 Th/cmm (150-400) D 08/06/18 04:40 MPV 7.9 fl 08/06/18 04:40 Add Manual Diff YES 08/05/18 04:05 Neutrophils % 61.1 % (40.0-80.0) 08/06/18 04:40 Band Neutrophils % 0 % (0-10) 08/05/18 04:05 Lymphocytes % 20.7 % (20.0-50.0) 08/06/18 04:40 Monocytes % 13.2 % (2.0-10.0) H 08/06/18 04:40 Eosinophils % 4.7 % (0.0-5.0) 08/06/18 04:40 Basophils % 0.3 % (0.0-2.0) 08/06/18 04:40 Neutrophils (Manual) 72 % (40-80) 08/05/18 04:05 Lymphocytes 14 % (20-50) L 08/05/18 04:05 Monocytes 10 % (2-10) 08/05/18 04:05 Eosinophils 4 % (0-5) 08/05/18 04:05 Basophils 0 % (0-3) 08/05/18 04:05 Platelet Estimate ADEQUATE (NORMAL) 08/01/18 05:00 Sodium 137 mEq/L (136-145) 08/06/18 04:40 Potassium 3.4 mEq/L (3.5-5.1) L 08/06/18 04:40 Chloride 101 mEq/L (98-107) 08/06/18 04:40 Carbon Dioxide 26.2 mEq/L (21.0-31.0) 08/06/18 04:40 Anion Gap 13.2 (7.0-16.0) 08/06/18 04:40 BUN 11 mg/dL (7-25) 08/06/18 04:40 Creatinine 0.4 mg/dL (0.7-1.3) L 08/06/18 04:40 Est GFR ( Amer) > 60.0 ml/min (>90) 08/06/18 04:40 Est GFR (Non-Af Amer) > 60.0 ml/min 08/06/18 04:40 BUN/Creatinine Ratio 27.5 08/06/18 04:40 Glucose 110 mg/dL (70-105) H 08/06/18 04:40 Whole Bld Lactic Acid 1.47 mmol/L (0.60-1.99) 07/31/18 07:40 Calcium 9.2 mg/dL (8.6-10.3) 08/06/18 04:40 Total Bilirubin 0.3 mg/dL (0.3-1.0) 08/03/18 04:55 AST 34 U/L (13-39) 08/03/18 04:55 ALT 27 U/L (7-52) 08/03/18 04:55 Alkaline Phosphatase 105 U/L (34-104) H 08/03/18 04:55 Total Protein 6.5 gm/dL (6.0-8.3) 08/03/18 04:55 Albumin 3.1 gm/dL (4.2-5.5) L 08/03/18 04:55 Globulin 3.4 gm/dL 08/03/18 04:55 Albumin/Globulin Ratio 0.9 (1.0-1.8) L 08/03/18 04:55 Urine Source CATH 05/01/19 19:20 Urine Color YELLOW 07/30/18 19:20 Urine Clarity HAZY (CLEAR) 07/30/18 19:20 Urine pH 7.0 (4.6 - 8.0) 07/30/18 19:20 Ur Specific [place] 1.010 (1.005-1.030) 07/30/18 19:20 Urine Protein 30 mg/dL (NEGATIVE) H 07/30/18 19:20 Urine Glucose (UA) NEGATIVE mg/dL (NEGATIVE) 07/30/18 19:20 Urine Ketones NEGATIVE mg/dL (NEGATIVE) 07/30/18 19:20 Urine Blood LARGE (NEGATIVE) H 07/30/18 19:20 Urine Nitrate POSITIVE (NEGATIVE) H 07/30/18 19: Urine Bilirubin NEGATIVE (NEGATIVE) 07/30/18 19:20 Urine Urobilinogen 0.2 E.U./dL (0.2 - 1.0) 07/30/18 19:20 Ur Leukocyte Esterase LARGE (NEGATIVE) H 07/30/18 19:20 Urine RBC 5-10 /hpf (0-5) H 07/30/18 19:20 Urine WBC 25-50 /hpf (0-5) H 07/30/18 19:20 Ur Epithelial Cells FEW /lpf (FEW) 07/30/18 19:20 Urine Bacteria 4+ /hpf (NONE SEEN) H 07/30/18 19:20 Amikacin Peak 17.8 ug/mL (20.0-30.0) L 08/05/18 15:30 Amikacin Trough 2.0 ug/mL (1.0-8.0) 08/05/18 13:30 Random Amikacin 0.8 ug/ml (1.0-30.0) L 08/04/18 12:00 Vancomycin Trough 21.3 ug/mL (5-10) H 08/01/18 21:26 - Physical Exam Vitals and I&O: Vital Signs Temp 98.6 F 08/06/18 12:00 Pulse 94 08/06/18 13:06 Resp 18 08/06/18 12:00 BP 133/88 08/06/18 12:00 Pulse Ox 97 08/06/18 13:06 Intake & Output 08/05/18 08/06/18 08/06/18 18:59 06:59 18:59 Intake Total 962 2142 Output Total 1400 1500 Balance -438 642 Weight (lbs) 55.792 kg 55.792 kg Intake: Intake, IV Amount 102 1102 Amikacin 500 mg In 102 102 Dextrose 5% 100 ml @ 100 mls/hr IV Q12H [facility] Rx#: [id number] Sodium Chloride 0.9% 1, 1000 000 ml @ 50 mls/hr IV . Q20H [facility] Rx#:[id number] Tube Feeding 560 840 Other 300 200 Output: Urine 1400 1500 Other: # Bowel Movements 1 1 Stool Characteristics Liquid Brown Weight Source Bedscale Bedscale Active Medications: Current Medications Acetaminophen (Tylenol) 650 mg GT Q4H PRN PRN Reason: Fever > 101 Stop: 09/29/18 06:32 Last Admin: 08/05/18 17:45 Dose: 650 mg Ascorbic Acid (Vitamin C) 500 mg GT DAILY [facility] Stop: 09/30/18 08:59 Last Admin: 08/06/18 09:38 Dose: 500 mg Bisacodyl (Dulcolax 10 Mg Supp) 10 mg RC DAILY PRN PRN Reason: Constipation Stop: 09/29/18 15:21 Chlorhexidine Gluconate (Peridex) 15 ml MM 0800,1999 [facility] Stop: 09/28/18 19:59 Last Admin: 08/06/18 08:00 Dose: 15 ml Famotidine (Pepcid) 20 mg PO BID [facility] Stop: 09/29/18 20:59 Last Admin: 08/06/18 09:38 Dose: 20 mg Norepinephrine Bitartrate 4 mg (/ Dextrose) 254 mls @ 0 mls/hr IV TITR PRN; Protocol PRN Reason: BP MAINTENANCE (PER PROTOCOL) Stop: 09/29/18 00:37 Last Titration: 08/05/18 00:15 Dose: 0 mcg/min, 0 mls/hr Sodium Chloride (Nacl 0.9%) 1,000 mls @ 50 mls/hr IV .Q20H [facility] Stop: 10/02/18 11:59 Last Admin: 08/06/18 02:08 Dose: 50 mls/hr Amikacin Sulfate 500 mg/ (Dextrose) 102 mls @ 100 mls/hr IV Q12H [facility] Stop: 10/03/18 13:59 Last Infusion: 08/06/18 03:06 Dose: Infused Lactobacillus Rhamnosus (Culturelle 15b) 1 each PO DAILY [facility] Stop: 09/30/18 11:59 Last Admin: 08/06/18 09:38 Dose: 1 each Levetiracetam (Keppra) 500 mg GT BID [facility] Stop: 09/30/18 08:59 Last Admin: 08/06/18 09:38 Dose: 500 mg Lorazepam (Ativan) 1 mg IVP Q4HR PRN; Protocol PRN Reason: Seizure Stop: 10/01/18 11:24 Last Admin: 08/04/18 12:04 Dose: 1 mg Magnesium Hydroxide (Milk Of Magnesia) 30 ml GT HS PRN PRN Reason: Constipation Stop: 09/29/18 17:49 Miscellaneous (Probiotic Screen) 1 ea PRN PRN PRN Reason: PROTOCOL Stop: 09/30/18 09:02 Miscellaneous (Amikacin Iv Per Pharmacy) 1 ea PRN PRN PRN Reason: PROTOCOL Stop: 10/02/18 13:27 Morphine Sulfate (Morphine) 1 mg IVP Q4HR PRN PRN Reason: Pain (Mild) Stop: 09/30/18 14:04 Last Admin: 08/02/18 08:34 Dose: 1 mg Multivitamins/Vitamin C (Theragran) 1 tab GT BID [facility] Stop: 09/30/18 08:59 Last Admin: 08/06/18 09:39 Dose: 1 tab Potassium Chloride (Potassium Chloride Elixir) 40 meq GT DAILY [facility] Stop: 10/04/18 08:59 Last Admin: 08/06/18 09:38 Dose: 40 meq Thiamine HCl (Vitamin B1) 100 mg GT DAILY [facility] Stop: 09/30/18 08:59 Last Admin: 08/06/18 09:39 Dose: 100 mg Wound Care/Dressing Products (Therahoney) 1 appl TP DAILY [facility] Stop: 09/30/18 08:59 Last Admin: 08/06/18 09:37 Dose: 1 appl Zinc Sulfate (Zinc Sulfate) 220 mg GT DAILY [facility] Stop: 09/30/18 08:59 Last Admin: 08/06/18 09:39 Dose: 220 mg Physical Exam: 58 y/o male patient has hx of resp. failure on Ventilator support, no new events reported. General: weak HEENT: NC/AT, PERRLA Neck: Supple, No JVD Lungs: wheezing, ronchi Cardiovascular: RRR, Normal S1 Abdomen: non-tender Extremities: clear Neurological: no change - Procedures Procedures: Procedures Procedure Code Date RESPIRATORY VENTILATION, GREATER THAN 96 CONSECUTIVE HOURS [id number] 07/30/18 Internal Medicine Assmt/Plan - Assessment Assessment: Respiratory failure. UTI. Sepsis. Hx of Cerebrovascular Disease. - Plan Plan: Continuation of care. Monitor Vitals and Labs. Continue present meds as directed. Monitor Diet/Nutritional support. Respiratory treatments and Pulmonary support. Supplemental Oxygen. Aspiration precaution. Deep suctioning prn. Monitor Diet/Nutritional support. Pain Management. Safety precaution. Supportive care. Fall precaution. Will Monitor patient and continue current treatment plan as ordered. Nutritional Asmnt/Malnutr-PDOC - Dietary Evaluation Malnutrition Findings (Please click <Entered> for more info): Nutritional Asmnt/Malnutrition Start: 07/31/18 14: 50 Text: Status: Complete Freq: Protocol: Document 07/31/18 14:50 CHAPIN (Rec: 07/31/18 15:09 [email or web address] [email or web address]) Nutritional Asmnt/Malnutrition Patient General Information Nutritional Screening High Risk Diagnosis urosepis Pertinent Medical Hx/Surgical Hx seizures, anemia, resp failure , SAH, trach, Gtube, foleu, vent depression Subjective Information Pt seen resting in bed, trach to vent. Visiablly verified TF was running at goal rate of 70ml/hr at this time. Current Diet Order/ Nutrition Support Jevity 1.2 at 70ml/hr x 20hr. Pertinent Medications nacl 0.9%, vancomycin Pertinent Labs 5/2 Na 135, alb 3.7 Nutritional Hx/Data Height 1.73 m Height (Calculated Centimeters) 172.7 Current Weight (lbs) 55.338 kg Weight (Calculated Kilograms) 55.3 Weight (Calculated Grams) 78160.3 [place] Body Weight 154 Body Mass Index (BMI) 18.5 Weight Status Approriate GI Symptoms GI Symptoms None Last BM 5/2 Difficult in: None Skin Integrity/Comment: scar to head and right anterior ear, abrasion to left ankle, rash to left posterior and right axilla, decubitus ulcer to sacrum. Sal 12. Estimated Nutritional Goals Calories/Kcals/Kg 23-27 based on IBW 70kg Kcals Calculated 6778-6980 Protein g/k-1.2 Protein Calculated 70-84 Fluid: ml 1610-1890ml (1ml/kcal) Nutritional Problem No current Nutrition Prob Problem N/A Malnutrition Alert Is there a minimum of two criteria No selected? Query Text:Check all the applicable criteria. A minimum of two criteria are recommended for diagnosis of either severe or non-severe malnutrition. Malnutrition Related to Morbid Obesity Malnutrition related to morbid obesity No Intervention/Recommendation Comments 1. Continue with current TF regimen Jevity 1.2 at 70ml/hr x 20hr. It provides 1680kcal, 78g protein, 1130ml free water , meeting 100% of nutritional needs 2. Monitor TF rate, tolerance, wt, skin integrity and labs 3. F/U as moderate risk Expected Outcomes/Goals Expected Outcomes/Goals 1. Pt to meet at least 90% of nutritional needs via nutrition support with tolerance 2. Wt stability, skin to remain intact, labs to approach WNL.
--- NOTE | 2018-08-06 15:11 | Progress Notes ---
DATE: 08/05/2018 PULMONARY PROGRESS NOTE SUBJECTIVE: The patient appears to be doing okay, no distress. OBJECTIVE: VITAL SIGNS: Temperature 99.7, pulse is 90, respiration of 17, blood pressure 137//85, saturation 100%. CHEST: Good breath sounds. No wheezing. Few rhonchi. HEART: Regular rate and rhythm. ABDOMEN: Soft and nontender. EXTREMITIES: No edema. LABORATORY DATA: WBC is 5.3, hemoglobin 7.7, hematocrit 23.5 and platelets 240. Sodium 137, potassium 3.5, BUN is 9 and creatinine 0.4. IMPRESSION: 1. Respiratory failure. 2. Sepsis. 3. Weakness. 4. Anemia. 5. Urinary tract infection. PLAN: 1. Continue ventilator support. 2. The patient is off pressors already. 3. Nebulizer. 4. IV fluids. JOB# [id number]
[2018-08-06] MEDS ORDERED: Amikacin 500 mg in D5W 100mL (Q24HR) IV ONE (23:00)
--- NOTE | 2018-08-07 02:14 | Progress Notes ---
DATE: 08/06/2018 SURGICAL PROGRESS NOTE TIME: 11:47 a.m. OBJECTIVE: VITAL SIGNS: Afebrile. Vital signs are otherwise stable. Encephalopathic, trach, right craniectomy and right preauricular incisional wound is clean and dry. Dressings removed. No bleeding or hematoma or signs of infection. CHEST: Clear to auscultation bilaterally. CARDIAC: Regular rate. ABDOMEN: Otherwise soft, nontender and nondistended. LABORATORY DATA: White blood cell count 6.4, H and H is 8 and 24.5 and platelet count 324. Potassium is 3.4. IMPRESSION/PLAN: Stable after suture repair, closure of the right preauricular wound. No further bleeding and no hematoma. The patient is otherwise stable. Dressings were removed today and left open to air. We will monitor for bleeding. Surgical followup as needed on p.r.n. basis. [facility]# [id number]
[2018-08-07 04:52] LABS: % EOSINOPHILS 4.4 % (0.0-5.0); % LYMPHOCYTES 22.6 % (20.0-50.0); % MONOCYTES 8.6 % (2.0-10.0); % NEUTROPHILS 64.4 % (40.0-80.0); EOSINOPHILE ABSOLUTE 0.3 Th/cmm (0.1-0.4); HEMOGLOBIN 8.5 gm/dL (12-16); LYMPHOCYTE ABSOLUTE 1.5 Th/cmm (1.5-3.0); MEAN CELL VOLUME 87.7 fl (80-99); MEAN CORPUSCULAR HEMOGLOBIN 28.6 pg (26.0-30.0); MEAN CORPUSCULAR HGB CONC 32.6 pg (28.0-36.0); MEAN PLATELET VOLUME 7.6 fl; MONOCYTE ABSOLUTE 0.6 Th/cmm (0.3-1.0); NEUTROPHILE ABSOLUTE 4.4 Th/cmm (1.8-8.0); PLATELET COUNT 378 Th/cmm (150-400); RED BLOOD COUNT 2.97 Mil/cmm (4.30-5.70); RED CELL DISTRIBUTION WIDTH 14.3 % (11.5-20.0); WHITE BLOOD COUNT 6.8 Th/cmm (4.8-10.8)
--- NOTE | 2018-08-07 04:58 | Progress Notes ---
DATE: 08/06/2018 SUBJECTIVE: The patient appears to be doing okay, in no distress. OBJECTIVE: VITAL SIGNS: Temperature 98.6, pulse 84, respiration 18, blood pressure 133/80, saturation 99%. CHEST: Clear breath sounds. No wheezing, no crackles. Few rhonchi. HEART: Regular rate and rhythm. ABDOMEN: Soft. EXTREMITIES: No edema. LABORATORY DATA: WBC 6.8, hemoglobin 8.1, hematocrit 24.5, platelets 324. Sodium is 137, potassium 3.4, BUN 11, creatinine 0.4. IMPRESSION: 1. Respiratory failure. 2. Pneumonia. 3. Dysphagia. 4. Weakness. 5. Intracranial hemorrhage status post craniotomy. PLAN: 1. Continue ventilatory support. 2. Antibiotics. 3. Follow up chest x-ray. JOB# [id number]
[2018-08-07 05:08] LABS: ALB/GLOB RATIO 0.9 (1.0-1.8); ALKALINE PHOSPHATASE 72 U/L (34-104); ANION GAP 12.9 (7.0-16.0); BILIRUBIN,TOTAL 0.2 mg/dL (0.3-1.0); BUN - UREA NITROGEN 8 mg/dL (7-25); CALCIUM SERUM 9.2 mg/dL (8.6-10.3); CARBON DIOXIDE 26.8 mEq/L (21.0-31.0); CHLORIDE 101 mEq/L (98-107); CREATININE - SERUM 0.5 mg/dL (0.7-1.3); GFR AFRICAN-AMERICAN > 60.0 ml/min (>90); GFR NON AFRICAN-AMERICAN > 60.0 ml/min; GLUCOSE 112 mg/dL (70-105); POTASSIUM SERUM 3.7 mEq/L (3.5-5.1); SGOT 24 U/L (13-39); SGPT/ALT 25 U/L (7-52); SODIUM SERUM 137 mEq/L (136-145); TOTAL PROTEIN,SERUM 6.5 gm/dL (6.0-8.3)
[2018-08-07] MEDS: Potassium Chloride Elixir 20 mEq /15 mL UDC GT SCH (08:40)
[2018-08-07] MEDS: Levetiracetam 500 mg/5mL 5mL UDSyr *for ORAL USE ONLY GT SCH ×2 (08:40→16:24)
[2018-08-07] MEDS: Multivitamin Tab GT SCH ×2 (08:40→16:24)
[2018-08-07] MEDS: Lactobacillus Rhamnosus GG 15 Billion CFU CAP.SPRINK PO SCH (08:40)
[2018-08-07] MEDS: Therahoney Gel 42.5gm Tube TP SCH (08:41)
[2018-08-07] MEDS: Chlorhexidine Gluconate 0.12% 15mL Mouthwash MM SCH ×2 (08:41→20:05)
--- NOTE | 2018-08-07 08:43 | Diagnostic Imaging Report ---
CHEST X-RAY: AP view INDICATION: Shortness of breath COMPARISON: 07/30/2018 FINDINGS: Support devices are stable. No focal consolidation or effusion. Heart size is normal. IMPRESSION: No focal airspace consolidation identified.
[2018-08-07] MEDS: Sodium Chloride 0.9% 1,000 ML IV SCH (16:25)
[2018-08-07] MEDS: Morphine Sulfate 2 mg/mL 1mL Syr IVP PRN (22:56)
[2018-08-08 04:50] LABS: % EOSINOPHILS 2.5 % (0.0-5.0); % LYMPHOCYTES 18.3 % (20.0-50.0); % MONOCYTES 3.5 % (2.0-10.0); % NEUTROPHILS 75.7 % (40.0-80.0); EOSINOPHILE ABSOLUTE 0.3 Th/cmm (0.1-0.4); HEMATOCRIT 27.2 % (41.0-60); HEMOGLOBIN 9.1 gm/dL (12-16); LYMPHOCYTE ABSOLUTE 2.3 Th/cmm (1.5-3.0); MEAN CELL VOLUME 86.4 fl (80-99); MEAN CORPUSCULAR HEMOGLOBIN 28.8 pg (26.0-30.0); MEAN CORPUSCULAR HGB CONC 33.3 pg (28.0-36.0); MEAN PLATELET VOLUME 7.8 fl; MONOCYTE ABSOLUTE 0.4 Th/cmm (0.3-1.0); NEUTROPHILE ABSOLUTE 9.8 Th/cmm (1.8-8.0); PLATELET COUNT 495 Th/cmm (150-400); RED BLOOD COUNT 3.15 Mil/cmm (4.30-5.70); RED CELL DISTRIBUTION WIDTH 14.8 % (11.5-20.0); WHITE BLOOD COUNT 12.8 Th/cmm (4.8-10.8)
[2018-08-08 05:29] LABS: ALB/GLOB RATIO 0.9 (1.0-1.8); ALBUMIN 3.3 gm/dL (4.2-5.5); ALKALINE PHOSPHATASE 70 U/L (34-104); ANION GAP 11.9 (7.0-16.0); BILIRUBIN,TOTAL 0.2 mg/dL (0.3-1.0); BUN - UREA NITROGEN 8 mg/dL (7-25); CALCIUM SERUM 9.3 mg/dL (8.6-10.3); CHLORIDE 100 mEq/L (98-107); CREATININE - SERUM 0.5 mg/dL (0.7-1.3); GFR AFRICAN-AMERICAN > 60.0 ml/min (>90); GFR NON AFRICAN-AMERICAN > 60.0 ml/min; GLUCOSE 110 mg/dL (70-105); POTASSIUM SERUM 3.9 mEq/L (3.5-5.1); SGOT 20 U/L (13-39); SGPT/ALT 24 U/L (7-52); SODIUM SERUM 139 mEq/L (136-145); TOTAL PROTEIN,SERUM 6.8 gm/dL (6.0-8.3)
[2018-08-08] MEDS: Chlorhexidine Gluconate 0.12% 15mL Mouthwash MM SCH ×2 (08:03→20:00)
[2018-08-08] MEDS: Potassium Chloride Elixir 20 mEq /15 mL UDC GT SCH (08:20)
[2018-08-08] MEDS: Lactobacillus Rhamnosus GG 15 Billion CFU CAP.SPRINK PO SCH (08:22)
[2018-08-08] MEDS: Levetiracetam 500 mg/5mL 5mL UDSyr *for ORAL USE ONLY GT SCH ×2 (08:22→17:27)
[2018-08-08] MEDS: Multivitamin Tab GT SCH ×2 (08:23→17:27)
[2018-08-08] MEDS: Therahoney Gel 42.5gm Tube TP SCH (08:25)
--- NOTE | 2018-08-08 14:13 | Internal Medicine Prog Note ---
Internal Medicine Subjective - Subjective Service Date: 08/08/18 Patient seen and examined:: with staff Patient is:: awake, non-verbal Patient Complaints of:: other (resp. failure on vent.) Per staff patient has:: no adverse event, no episodes of fall Internal Medicine Objective - Results Result Diagrams: 08/08/18 04:33 08/08/18 04:33 Recent Labs: Laboratory Last Values WBC 12.8 Th/cmm (4.8-10.8) H 08/08/18 04:33 RBC 3.15 Mil/cmm (4.30-5.70) L 08/08/18 04:33 Hgb 9.1 gm/dL (12-16) L 08/08/18 04:33 Hct 27.2 % (41.0-60) L 08/08/18 04:33 MCV 86.4 fl (80-99) 08/08/18 04:33 MCH 28.8 pg (26.0-30.0) 08/08/18 04:33 MCHC Differential 33.3 pg (28.0-36.0) 08/08/18 04:33 RDW 14.8 % (11.5-20.0) 08/08/18 04:33 Plt Count 495 Th/cmm (150-400) H 08/08/18 04:33 MPV 7.8 fl 08/08/18 04:33 Add Manual Diff YES 08/05/18 04:05 Neutrophils % 75.7 % (40.0-80.0) 08/08/18 04:33 Band Neutrophils % 0 % (0-10) 08/05/18 04:05 Lymphocytes % 18.3 % (20.0-50.0) L 08/08/18 04:33 Monocytes % 3.5 % (2.0-10.0) 08/08/18 04:33 Eosinophils % 2.5 % (0.0-5.0) 08/08/18 04:33 Basophils % 0.0 % (0.0-2.0) 08/08/18 04:33 Neutrophils (Manual) 72 % (40-80) 08/05/18 04:05 Lymphocytes 14 % (20-50) L 08/05/18 04:05 Monocytes 10 % (2-10) 08/05/18 04:05 Eosinophils 4 % (0-5) 08/05/18 04:05 Basophils 0 % (0-3) 08/05/18 04:05 Platelet Estimate ADEQUATE (NORMAL) 08/01/18 05:00 Sodium 139 mEq/L (136-145) 08/08/18 04:33 Potassium 3.9 mEq/L (3.5-5.1) 08/08/18 04:33 Chloride 100 mEq/L (98-107) 08/08/18 04:33 Carbon Dioxide 31.0 mEq/L (21.0-31.0) 08/08/18 04:33 Anion Gap 11.9 (7.0-16.0) 08/08/18 04:33 BUN 8 mg/dL (7-25) 08/08/18 04:33 Creatinine 0.5 mg/dL (0.7-1.3) L 08/08/18 04:33 Est GFR ( Amer) > 60.0 ml/min (>90) 08/08/18 04:33 Est GFR (Non-Af Amer) > 60.0 ml/min 08/08/18 04:33 BUN/Creatinine Ratio 16.0 08/08/18 04:33 Glucose 110 mg/dL (70-105) H 08/08/18 04:33 Whole Bld Lactic Acid 1.47 mmol/L (0.60-1.99) 07/31/18 07:40 Calcium 9.3 mg/dL (8.6-10.3) 08/08/18 04:33 Total Bilirubin 0.2 mg/dL (0.3-1.0) L 08/08/18 04:33 AST 20 U/L (13-39) 08/08/18 04:33 ALT 24 U/L (7-52) 08/08/18 04:33 Alkaline Phosphatase 70 U/L (34-104) 08/08/18 04:33 Total Protein 6.8 gm/dL (6.0-8.3) 08/08/18 04:33 Albumin 3.3 gm/dL (4.2-5.5) L 08/08/18 04:33 Globulin 3.5 gm/dL 08/08/18 04:33 Albumin/Globulin Ratio 0.9 (1.0-1.8) L 08/08/18 04:33 Urine Source CATH 05/01/19 19:20 Urine Color YELLOW 07/30/18 19:20 Urine Clarity HAZY (CLEAR) 07/30/18 19:20 Urine pH 7.0 (4.6 - 8.0) 07/30/18 19:20 Ur Specific [place] 1.010 (1.005-1.030) 07/30/18 19:20 Urine Protein 30 mg/dL (NEGATIVE) H 07/30/18 19:20 Urine Glucose (UA) NEGATIVE mg/dL (NEGATIVE) 07/30/18 19:20 Urine Ketones NEGATIVE mg/dL (NEGATIVE) 07/30/18 19:20 Urine Blood LARGE (NEGATIVE) H 07/30/18 19:20 Urine Nitrate POSITIVE (NEGATIVE) H 07/30/18 19: Urine Bilirubin NEGATIVE (NEGATIVE) 07/30/18 19:20 Urine Urobilinogen 0.2 E.U./dL (0.2 - 1.0) 07/30/18 19:20 Ur Leukocyte Esterase LARGE (NEGATIVE) H 07/30/18 19:20 Urine RBC 5-10 /hpf (0-5) H 07/30/18 19:20 Urine WBC 25-50 /hpf (0-5) H 07/30/18 19:20 Ur Epithelial Cells FEW /lpf (FEW) 07/30/18 19:20 Urine Bacteria 4+ /hpf (NONE SEEN) H 07/30/18 19:20 Amikacin Peak 25.8 ug/mL (20.0-30.0) 08/07/18 18:18 Amikacin Trough 9.7 ug/mL (1.0-8.0) H 08/07/18 15:00 Random Amikacin 0.8 ug/ml (1.0-30.0) L 08/04/18 12:00 Vancomycin Trough 21.3 ug/mL (5-10) H 08/01/18 21:26 - Physical Exam Vitals and I&O: Vital Signs Temp 97.9 F 08/08/18 12:00 Pulse 75 08/08/18 12:00 Resp 12 08/08/18 12:00 BP 106/66 08/08/18 12:00 Pulse Ox 100 08/08/18 12:15 Intake & Output 08/07/18 08/08/18 08/08/18 18:59 06:59 18:59 Intake Total 1204 2002 Output Total 2850 Balance 1204 -848 Weight (lbs) 56.302 kg Intake: Intake, IV Amount 1204 102 Amikacin 500 mg In 204 102 Dextrose 5% 100 ml @ 100 mls/hr IV Q8HR@0000,0800, 1600 [facility] Rx#:[id number] Sodium Chloride 0.9% 1, 1000 000 ml @ 50 mls/hr IV . Q20H [facility] Rx#:[id number] Tube Feeding 1400 Other 500 Output: Urine 2850 Other: # Bowel Movements 0 Weight Source Bedscale Active Medications: Current Medications Acetaminophen (Tylenol) 650 mg GT Q4H PRN PRN Reason: Fever > 101 Stop: 09/29/18 06:32 Last Admin: 08/06/18 17:05 Dose: 650 mg Ascorbic Acid (Vitamin C) 500 mg GT DAILY [facility] Stop: 09/30/18 08:59 Last Admin: 08/08/18 08:22 Dose: 500 mg Bisacodyl (Dulcolax 10 Mg Supp) 10 mg RC DAILY PRN PRN Reason: Constipation Stop: 09/29/18 15:21 Chlorhexidine Gluconate (Peridex) 15 ml MM 0800,2000 [facility] Stop: 09/28/18 19:59 Last Admin: 08/08/18 08:03 Dose: 15 ml Famotidine (Pepcid) 20 mg PO BID [facility] Stop: 09/29/18 20:59 Last Admin: 08/08/18 08:22 Dose: 20 mg Norepinephrine Bitartrate 4 mg (/ Dextrose) 254 mls @ 0 mls/hr IV TITR PRN; Protocol PRN Reason: BP MAINTENANCE (PER PROTOCOL) Stop: 09/29/18 00:37 Last Titration: 08/05/18 00:15 Dose: 0 mcg/min, 0 mls/hr Sodium Chloride (Nacl 0.9%) 1,000 mls @ 50 mls/hr IV .Q20H [facility] Stop: 10/02/18 11:59 Last Admin: 08/07/18 16:25 Dose: 50 mls/hr Amikacin Sulfate 850 mg/ (Dextrose) 103.4 mls @ 100 mls/hr IV Q24H [facility] Stop: 10/08/18 07:59 Lactobacillus Rhamnosus (Culturelle 15b) 1 each PO DAILY [facility] Stop: 09/30/18 11:59 Last Admin: 08/08/18 08:22 Dose: 1 each Levetiracetam (Keppra) 500 mg GT BID [facility] Stop: 09/30/18 08:59 Last Admin: 08/08/18 08:22 Dose: 500 mg Lorazepam (Ativan) 1 mg IVP Q4HR PRN; Protocol PRN Reason: Seizure Stop: 10/01/18 11:24 Last Admin: 08/07/18 12:12 Dose: 1 mg Magnesium Hydroxide (Milk Of Magnesia) 30 ml GT HS PRN PRN Reason: Constipation Stop: 09/29/18 17:49 Miscellaneous (Probiotic Screen) 1 ea MC PRN PRN PRN Reason: PROTOCOL Stop: 09/30/18 09:02 Miscellaneous (Amikacin Iv Per Pharmacy) 1 ea MC PRN PRN PRN Reason: PROTOCOL Stop: 10/02/18 13:27 Morphine Sulfate (Morphine) 1 mg IVP Q4HR PRN PRN Reason: Pain (Mild) Stop: 09/30/18 14:04 Last Admin: 08/07/18 22:56 Dose: 1 mg Multivitamins/Vitamin C (Theragran) 1 tab GT BID [facility] Stop: 09/30/18 08:59 Last Admin: 08/08/18 08:23 Dose: 1 tab Potassium Chloride (Potassium Chloride Elixir) 40 meq GT DAILY [facility] Stop: 10/04/18 08:59 Last Admin: 08/08/18 08:20 Dose: 40 meq Thiamine HCl (Vitamin B1) 100 mg GT DAILY [facility] Stop: 09/30/18 08:59 Last Admin: 08/08/18 08:22 Dose: 100 mg Wound Care/Dressing Products (Therahoney) 1 appl TP DAILY [facility] Stop: 09/30/18 08:59 Last Admin: 08/08/18 08:25 Dose: 1 appl Zinc Sulfate (Zinc Sulfate) 220 mg GT DAILY [facility] Stop: 09/30/18 08:59 Last Admin: 08/08/18 08:22 Dose: 220 mg Physical Exam: 58 y/o male patient has hx of resp. failure on Ventilator support, no new complaints at this time. General: weak HEENT: NC/AT, PERRLA Neck: Supple, No JVD Lungs: wheezing, ronchi Cardiovascular: RRR, Normal S1 Abdomen: non-tender Extremities: clear Neurological: no change - Procedures Procedures: Procedures Procedure Code Date REPAIR HEAD, EXTERNAL APPROACH [id number] 07/30/18 RESPIRATORY VENTILATION, GREATER THAN 96 CONSECUTIVE HOURS [id number] 07/30/18 Internal Medicine Assmt/Plan - Assessment Assessment: Dysphagia. Weakness. Intracranial Hemmorhage s/p craniotomy. Respiratory failure. UTI. Sepsis. Hx of Cerebrovascular Disease. - Plan Plan: Continuation of care. Monitor Vitals and Labs. Continue present meds as directed. Monitor Diet/Nutritional support. Respiratory treatments and Pulmonary support. Supplemental Oxygen. Aspiration precaution. Deep suctioning prn. Monitor Diet/Nutritional support. Pain Management. Safety precaution. Supportive care. Fall precaution. Will Monitor patient and continue current treatment plan as ordered. Nutritional Asmnt/Malnutr-PDOC - Dietary Evaluation Malnutrition Findings (Please click <Entered> for more info): Nutritional Asmnt/Malnutrition Start: 07/31/18 14: 50 Text: Status: Complete Freq: Protocol: Document 07/31/18 14:50 RAS (Rec: 07/31/18 15:09 LCHEN [email or web address]) Nutritional Asmnt/Malnutrition Patient General Information Nutritional Screening High Risk Diagnosis urosepis Pertinent Medical Hx/Surgical Hx seizures, anemia, resp failure , SAH, trach, Gtube, foleu, vent depression Subjective Information Pt seen resting in bed, trach to vent. Visiablly verified TF was running at goal rate of 70ml/hr at this time. Current Diet Order/ Nutrition Support Jevity 1.2 at 70ml/hr x 20hr. Pertinent Medications nacl 0.9%, vancomycin Pertinent Labs 5/2 Na 135, alb 3.7 Nutritional Hx/Data Height 1.73 m Height (Calculated Centimeters) 172.7 Current Weight (lbs) 55.338 kg Weight (Calculated Kilograms) 55.3 Weight (Calculated Grams) 85159.3 [place] Body Weight 154 Body Mass Index (BMI) 18.5 Weight Status Approriate GI Symptoms GI Symptoms None Last BM 5/2 Difficult in: None Skin Integrity/Comment: scar to head and right anterior ear, abrasion to left ankle, rash to left posterior and right axilla, decubitus ulcer to sacrum. Sal 12. Estimated Nutritional Goals Calories/Kcals/Kg 23-27 based on IBW 70kg Kcals Calculated 2078-3529 Protein g/k-1.2 Protein Calculated 70-84 Fluid: ml 1610-1890ml (1ml/kcal) Nutritional Problem No current Nutrition Prob Problem N/A Malnutrition Alert Is there a minimum of two criteria No selected? Query Text:Check all the applicable criteria. A minimum of two criteria are recommended for diagnosis of either severe or non-severe malnutrition. Malnutrition Related to Morbid Obesity Malnutrition related to morbid obesity No Intervention/Recommendation Comments 1. Continue with current TF regimen Jevity 1.2 at 70ml/hr x 20hr. It provides 1680kcal, 78g protein, 1130ml free water , meeting 100% of nutritional needs 2. Monitor TF rate, tolerance, wt, skin integrity and labs 3. F/U as moderate risk Expected Outcomes/Goals Expected Outcomes/Goals 1. Pt to meet at least 90% of nutritional needs via nutrition support with tolerance 2. Wt stability, skin to remain intact, labs to approach WNL.
--- NOTE | 2018-08-08 14:59 | Progress Notes ---
DATE: 08/07/2018 PULMONARY PROGRESS NOTE SUBJECTIVE: The patient is doing okay. OBJECTIVE: GENERAL: In no distress. VITAL SIGNS: Temperature 98.1, pulse 90, respirations 20, blood pressure ____, and saturation 100%. CHEST: Good breath sounds. No wheezing or rhonchi. HEART: Regular rate and rhythm. ABDOMEN: Soft. EXTREMITIES: No edema. LABORATORY DATA: WBC 6.8, hemoglobin 8.5, hematocrit 26.0, and platelets 378. Sodium is 137, potassium 3.7, BUN is 8, and creatinine 0.5. IMPRESSION: 1. Respiratory failure. 2. Dysphagia. 3. Weakness. 4. Urinary tract infection. PLAN: Continue lisinopril, antibiotics, pulmonary toilet, supportive care. Discharge planning. Last chest x-ray was clear. JOB# [id number]
[2018-08-08] MEDS: Sodium Chloride 0.9% 1,000 ML IV SCH (17:27)
--- NOTE | 2018-08-09 02:50 | Infectious Disease Prog Note ---
Infectious Disease Subjective - Review of Systems Service Date: 08/08/18 Subjective: Afebrile. on the ventilator support. Infectious Disease Objective - Results Result Diagrams: 08/11/18 04:15 08/11/18 04:15 Recent Labs: Laboratory Last Values WBC 12.8 Th/cmm (4.8-10.8) H 08/08/18 04:33 RBC 3.15 Mil/cmm (4.30-5.70) L 08/08/18 04:33 Hgb 9.1 gm/dL (12-16) L 08/08/18 04:33 Hct 27.2 % (41.0-60) L 08/08/18 04:33 MCV 86.4 fl (80-99) 08/08/18 04:33 MCH 28.8 pg (26.0-30.0) 08/08/18 04:33 MCHC Differential 33.3 pg (28.0-36.0) 08/08/18 04:33 RDW 14.8 % (11.5-20.0) 08/08/18 04:33 Plt Count 495 Th/cmm (150-400) H 08/08/18 04:33 MPV 7.8 fl 08/08/18 04:33 Add Manual Diff YES 08/05/18 04:05 Neutrophils % 75.7 % (40.0-80.0) 08/08/18 04:33 Band Neutrophils % 0 % (0-10) 08/05/18 04:05 Lymphocytes % 18.3 % (20.0-50.0) L 08/08/18 04:33 Monocytes % 3.5 % (2.0-10.0) 08/08/18 04:33 Eosinophils % 2.5 % (0.0-5.0) 08/08/18 04:33 Basophils % 0.0 % (0.0-2.0) 08/08/18 04:33 Neutrophils (Manual) 72 % (40-80) 08/05/18 04:05 Lymphocytes 14 % (20-50) L 08/05/18 04:05 Monocytes 10 % (2-10) 08/05/18 04:05 Eosinophils 4 % (0-5) 08/05/18 04:05 Basophils 0 % (0-3) 08/05/18 04:05 Platelet Estimate ADEQUATE (NORMAL) 08/01/18 05:00 Sodium 139 mEq/L (136-145) 08/08/18 04:33 Potassium 3.9 mEq/L (3.5-5.1) 08/08/18 04:33 Chloride 100 mEq/L (98-107) 08/08/18 04:33 Carbon Dioxide 31.0 mEq/L (21.0-31.0) 08/08/18 04:33 Anion Gap 11.9 (7.0-16.0) 08/08/18 04:33 BUN 8 mg/dL (7-25) 08/08/18 04:33 Creatinine 0.5 mg/dL (0.7-1.3) L 08/08/18 04:33 Est GFR ( Amer) > 60.0 ml/min (>90) 08/08/18 04:33 Est GFR (Non-Af Amer) > 60.0 ml/min 08/08/18 04:33 BUN/Creatinine Ratio 16.0 08/08/18 04:33 Glucose 110 mg/dL (70-105) H 08/08/18 04:33 Whole Bld Lactic Acid 1.47 mmol/L (0.60-1.99) 07/31/18 07:40 Calcium 9.3 mg/dL (8.6-10.3) 08/08/18 04:33 Total Bilirubin 0.2 mg/dL (0.3-1.0) L 08/08/18 04:33 AST 20 U/L (13-39) 08/08/18 04:33 ALT 24 U/L (7-52) 08/08/18 04:33 Alkaline Phosphatase 70 U/L (34-104) 08/08/18 04:33 Total Protein 6.8 gm/dL (6.0-8.3) 08/08/18 04:33 Albumin 3.3 gm/dL (4.2-5.5) L 08/08/18 04:33 Globulin 3.5 gm/dL 08/08/18 04:33 Albumin/Globulin Ratio 0.9 (1.0-1.8) L 08/08/18 04:33 Urine Source CATH 07/30/18 19:20 Urine Color YELLOW 07/30/18 19:20 Urine Clarity HAZY (CLEAR) 07/30/18 19:20 Urine pH 7.0 (4.6 - 8.0) 07/30/18 19:20 Ur Specific [place] 1.010 (1.005-1.030) 07/30/18 19:20 Urine Protein 30 mg/dL (NEGATIVE) H 07/30/18 19:20 Urine Glucose (UA) NEGATIVE mg/dL (NEGATIVE) 07/30/18 19:20 Urine Ketones NEGATIVE mg/dL (NEGATIVE) 07/30/18 19:20 Urine Blood LARGE (NEGATIVE) H 07/30/18 19:20 Urine Nitrate POSITIVE (NEGATIVE) H 07/30/18 19:20 Urine Bilirubin NEGATIVE (NEGATIVE) 07/30/18 19:20 Urine Urobilinogen 0.2 E.U./dL (0.2 - 1.0) 07/30/18 19:20 Ur Leukocyte Esterase LARGE (NEGATIVE) H 07/30/18 19:20 Urine RBC 5-10 /hpf (0-5) H 07/30/18 19:20 Urine WBC 25-50 /hpf (0-5) H 07/30/18 19:20 Ur Epithelial Cells FEW /lpf (FEW) 07/30/18 19:20 Urine Bacteria 4+ /hpf (NONE SEEN) H 07/30/18 19:20 Amikacin Peak 25.8 ug/mL (20.0-30.0) 08/07/18 18:18 Amikacin Trough 9.7 ug/mL (1.0-8.0) H 08/07/18 15:00 Random Amikacin 0.8 ug/ml (1.0-30.0) L 08/04/18 12:00 Vancomycin Trough 21.3 ug/mL (5-10) H 08/01/18 21:26 - Physical Exam Vitals and I&O: Vital Signs Temp 99.2 F 08/09/18 00:00 Pulse 83 08/09/18 01:10 Resp 16 08/09/18 01:00 BP 114/68 08/09/18 01:00 Pulse Ox 100 08/09/18 01:10 Intake & Output 08/08/18 08/08/18 08/09/18 06:59 18:59 06:59 Intake Total 2001 1000 Output Total 2850 Balance -848 1000 Weight (lbs) 56.302 kg Intake: Intake, IV Amount 102 1000 Amikacin 500 mg In 102 Dextrose 5% 100 ml @ 100 mls/hr IV Q8HR@0000,0800, 1600 [facility] Rx#:[id number] Sodium Chloride 0.9% 1, 1000 000 ml @ 50 mls/hr IV . Q20H [facility] Rx#:[id number] Tube Feeding 1400 Other 500 Output: Urine 2850 Other: # Bowel Movements 0 Stool Characteristics Soft Soft Weight Source Bedscale Active Medications: Current Medications Acetaminophen (Tylenol) 650 mg GT Q4H PRN PRN Reason: Fever > 101 Stop: 09/29/18 06:32 Last Admin: 08/06/18 17:05 Dose: 650 mg Ascorbic Acid (Vitamin C) 500 mg GT DAILY [facility] Stop: 09/30/18 08:59 Last Admin: 08/08/18 08:22 Dose: 500 mg Bisacodyl (Dulcolax 10 Mg Supp) 10 mg RC DAILY PRN PRN Reason: Constipation Stop: 09/29/18 15:21 Chlorhexidine Gluconate (Peridex) 15 ml MM 0800,1999 [facility] Stop: 09/28/18 19:59 Last Admin: 08/08/18 20:00 Dose: 15 ml Famotidine (Pepcid) 20 mg PO BID [facility] Stop: 09/29/18 20:59 Last Admin: 08/08/18 17:27 Dose: 20 mg Norepinephrine Bitartrate 4 mg (/ Dextrose) 254 mls @ 0 mls/hr IV TITR PRN; Protocol PRN Reason: BP MAINTENANCE (PER PROTOCOL) Stop: 09/29/18 00:37 Last Titration: 08/05/18 00:15 Dose: 0 mcg/min, 0 mls/hr Sodium Chloride (Nacl 0.9%) 1,000 mls @ 50 mls/hr IV .Q20H [facility] Stop: 10/02/18 11:59 Last Admin: 08/08/18 17:27 Dose: 50 mls/hr Amikacin Sulfate 850 mg/ (Dextrose) 103.4 mls @ 100 mls/hr IV Q24H [facility] Stop: 10/08/18 07:59 Lactobacillus Rhamnosus (Culturelle 15b) 1 each PO DAILY [facility] Stop: 09/30/18 11:59 Last Admin: 08/08/18 08:22 Dose: 1 each Levetiracetam (Keppra) 500 mg GT BID [facility] Stop: 09/30/18 08:59 Last Admin: 08/08/18 17:27 Dose: 500 mg Lorazepam (Ativan) 1 mg IVP Q4HR PRN; Protocol PRN Reason: Seizure Stop: 10/01/18 11:24 Last Admin: 08/07/18 12:12 Dose: 1 mg Magnesium Hydroxide (Milk Of Magnesia) 30 ml GT HS PRN PRN Reason: Constipation Stop: 09/29/18 17:49 Miscellaneous (Probiotic Screen) 1 ea PRN PRN PRN Reason: PROTOCOL Stop: 09/30/18 09:02 Miscellaneous (Amikacin Iv Per Pharmacy) 1 ea PRN PRN PRN Reason: PROTOCOL Stop: 10/02/18 13:27 Morphine Sulfate (Morphine) 1 mg IVP Q4HR PRN PRN Reason: Pain (Mild) Stop: 09/30/18 14:04 Last Admin: 08/07/18 22:56 Dose: 1 mg Multivitamins/Vitamin C (Theragran) 1 tab GT BID [facility] Stop: 09/30/18 08:59 Last Admin: 08/08/18 17:27 Dose: 1 tab Potassium Chloride (Potassium Chloride Elixir) 40 meq GT DAILY [facility] Stop: 10/04/18 08:59 Last Admin: 08/08/18 08:20 Dose: 40 meq Thiamine HCl (Vitamin B1) 100 mg GT DAILY [facility] Stop: 09/30/18 08:59 Last Admin: 08/08/18 08:22 Dose: 100 mg Wound Care/Dressing Products (Therahoney) 1 appl TP DAILY [facility] Stop: 09/30/18 08:59 Last Admin: 08/08/18 08:25 Dose: 1 appl Zinc Sulfate (Zinc Sulfate) 220 mg GT DAILY [facility] Stop: 09/30/18 08:59 Last Admin: 08/08/18 08:22 Dose: 220 mg General: no acute distress, cachectic HEENT: PERRLA, EOMI, moist mucous membrane, other (right sided scalp absent./ depressed skull.) Neck: supple, tracheostomy, no thyromegaly Cardiovascular: S1S2, regular Lungs: clear to auscultation bilaterally, clear to percussion Abdomen: soft, other (G tube ok), no tender, no distended, no mass Extremities: no cyanosis, no clubbing, no edema Neurological: awake, alert - Procedures Procedures: Procedures Procedure Code Date REPAIR HEAD, EXTERNAL APPROACH [id number] 07/30/18 RESPIRATORY VENTILATION, GREATER THAN 96 CONSECUTIVE HOURS [id number] 07/30/18 Infectious Disease Assmt/Plan - Assessment Assessment: 1. Sepsis. Pseudomonas aeruginosa. persistent infection. blood culture is still growing bacteria. 2. Urinary tract infection and pyelonephritis. 3. Vent-dependent respiratory failure. 4. History of subarachnoid hemorrhage. 5. Status post craniotomy on the right side. 6. Hypokalemia. - Plan Plan: Change amikacin to gentamicin.. Nutritional Asmnt/Malnutr-PDOC - Dietary Evaluation Malnutrition Findings (Please click <Entered> for more info): Nutritional Asmnt/Malnutrition Start: 07/31/18 14: 50 Text: Status: Complete Freq: Protocol: Document 07/31/18 14:50 RAS (Rec: 07/31/18 15:09 RAS [email or web address]) Nutritional Asmnt/Malnutrition Patient General Information Nutritional Screening High Risk Diagnosis urosepis Pertinent Medical Hx/Surgical Hx seizures, anemia, resp failure , SAH, trach, Gtube, foleu, vent depression Subjective Information Pt seen resting in bed, trach to vent. Visiablly verified TF was running at goal rate of 70ml/hr at this time. Current Diet Order/ Nutrition Support Jevity 1.2 at 70ml/hr x 20hr. Pertinent Medications nacl 0.9%, vancomycin Pertinent Labs 5/2 Na 135, alb 3.7 Nutritional Hx/Data Height 1.73 m Height (Calculated Centimeters) 172.7 Current Weight (lbs) 55.338 kg Weight (Calculated Kilograms) 55.3 Weight (Calculated Grams) 45976.3 [place] Body Weight 154 Body Mass Index (BMI) 18.5 Weight Status Approriate GI Symptoms GI Symptoms None Last BM 5/2 Difficult in: None Skin Integrity/Comment: scar to head and right anterior ear, abrasion to left ankle, rash to left posterior and right axilla, decubitus ulcer to sacrum. Sal 12. Estimated Nutritional Goals Calories/Kcals/Kg 23-27 based on IBW 70kg Kcals Calculated 6387-1941 Protein g/k-1.2 Protein Calculated 70-84 Fluid: ml 1610-1890ml (1ml/kcal) Nutritional Problem No current Nutrition Prob Problem N/A Malnutrition Alert Is there a minimum of two criteria No selected? Query Text:Check all the applicable criteria. A minimum of two criteria are recommended for diagnosis of either severe or non-severe malnutrition. Malnutrition Related to Morbid Obesity Malnutrition related to morbid obesity No Intervention/Recommendation Comments 1. Continue with current TF regimen Jevity 1.2 at 70ml/hr x 20hr. It provides 1680kcal, 78g protein, 1130ml free water , meeting 100% of nutritional needs 2. Monitor TF rate, tolerance, wt, skin integrity and labs 3. F/U as moderate risk Expected Outcomes/Goals Expected Outcomes/Goals 1. Pt to meet at least 90% of nutritional needs via nutrition support with tolerance 2. Wt stability, skin to remain intact, labs to approach WNL.
[2018-08-09] MEDS ORDERED: Gentamicin 160 MG in Sodium Chloride 0.9% 100 ML IV ONE (04:30)
[2018-08-09 05:27] LABS: ALB/GLOB RATIO 0.9 (1.0-1.8); ALBUMIN 3.1 gm/dL (4.2-5.5); ALKALINE PHOSPHATASE 64 U/L (34-104); ANION GAP 10.6 (7.0-16.0); BILIRUBIN,TOTAL 0.3 mg/dL (0.3-1.0); BUN - UREA NITROGEN 9 mg/dL (7-25); CALCIUM SERUM 9.3 mg/dL (8.6-10.3); CARBON DIOXIDE 29.2 mEq/L (21.0-31.0); CHLORIDE 97 mEq/L (98-107); CREATININE - SERUM 0.6 mg/dL (0.7-1.3); GFR AFRICAN-AMERICAN > 60.0 ml/min (>90); GFR NON AFRICAN-AMERICAN > 60.0 ml/min; GLUCOSE 101 mg/dL (70-105); POTASSIUM SERUM 3.8 mEq/L (3.5-5.1); SGOT 21 U/L (13-39); SGPT/ALT 21 U/L (7-52); SODIUM SERUM 133 mEq/L (136-145); TOTAL PROTEIN,SERUM 6.6 gm/dL (6.0-8.3)
[2018-08-09] MEDS ORDERED: Gentamicin 80 mg/2mL Vial ONE (05:44)
[2018-08-09 06:24] LABS: % BASOPHILS 0.2 % (0.0-2.0); % EOSINOPHILS 2.9 % (0.0-5.0); % LYMPHOCYTES 16.7 % (20.0-50.0); % MONOCYTES 6.8 % (2.0-10.0); % NEUTROPHILS 73.4 % (40.0-80.0); EOSINOPHILE ABSOLUTE 0.3 Th/cmm (0.1-0.4); HEMATOCRIT 24.6 % (41.0-60); HEMOGLOBIN 8.2 gm/dL (12-16); LYMPHOCYTE ABSOLUTE 1.7 Th/cmm (1.5-3.0); MEAN CELL VOLUME 87.3 fl (80-99); MEAN CORPUSCULAR HEMOGLOBIN 29.2 pg (26.0-30.0); MEAN CORPUSCULAR HGB CONC 33.5 pg (28.0-36.0); MEAN PLATELET VOLUME 6.9 fl; MONOCYTE ABSOLUTE 0.7 Th/cmm (0.3-1.0); NEUTROPHILE ABSOLUTE 7.2 Th/cmm (1.8-8.0); PLATELET COUNT 481 Th/cmm (150-400); RED BLOOD COUNT 2.81 Mil/cmm (4.30-5.70); RED CELL DISTRIBUTION WIDTH 15.3 % (11.5-20.0); WHITE BLOOD COUNT 9.9 Th/cmm (4.8-10.8)
[2018-08-09] MEDS: Lactobacillus Rhamnosus GG 15 Billion CFU CAP.SPRINK PO SCH (08:59)
[2018-08-09] MEDS: Multivitamin Tab GT SCH ×2 (08:59→16:53)
[2018-08-09] MEDS: Potassium Chloride Elixir 20 mEq /15 mL UDC GT SCH (08:59)
[2018-08-09] MEDS: Levetiracetam 500 mg/5mL 5mL UDSyr *for ORAL USE ONLY GT SCH ×2 (08:59→16:53)
[2018-08-09] MEDS: Chlorhexidine Gluconate 0.12% 15mL Mouthwash MM SCH ×2 (09:00→20:51)
[2018-08-09] MEDS: Therahoney Gel 42.5gm Tube TP SCH (16:00)
[2018-08-09] MEDS: Gentamicin 240 MG in Sodium Chloride 0.9% 100 ML IV SCH (20:51)
--- NOTE | 2018-08-09 22:31 | Progress Notes ---
DATE: 08/08/2018 PULMONARY PROGRESS NOTE SUBJECTIVE: The patient appears to be doing okay, comfortable, in no distress. OBJECTIVE: VITAL SIGNS: Temperature 97.9, pulse 83, respirations 20, blood pressure is 106/60, saturation 100%. CHEST: Good breath sounds. No wheezing, no crackles. HEART: Regular rate and rhythm. ABDOMEN: Soft. EXTREMITIES: No edema. LABORATORY DATA: WBC is 12.8, hemoglobin is 9.1, hematocrit 27.1, platelets is 498. Sodium is 139, potassium 3.9, BUN is 8, creatinine 0.5. IMPRESSION: 1. Respiratory failure. 2. Sepsis. 3. Urinary tract infection. Discharge planning in progress. JOB# [id number]
--- NOTE | 2018-08-09 23:01 | Progress Notes ---
DATE: 08/09/2018 PULMONARY PROGRESS NOTE SUBJECTIVE: The patient appears to be doing okay, comfortable, in no distress. OBJECTIVE: VITAL SIGNS: Temperature is 98.0, pulse is 84, respirations 18, blood pressure 101/58, saturation 100%. CHEST: Good breath sounds. No wheezing or crackles. HEART: Regular rate and rhythm. ABDOMEN: Soft. EXTREMITIES: No edema. LABORATORY DATA: WBC 9.9, hemoglobin 8.2, platelets 481. Sodium 133, potassium 3.8, BUN 9, creatinine 0.6. IMPRESSION: 1. Respiratory failure. 2. Dysphagia. 3. Sepsis. 4. Urinary tract infection. 5. Intracranial hemorrhage, status post craniotomy. PLAN: 1. Continue nebulizer. 2. Antibiotics. 3. Pulmonary toilet. 4. Ventilatory support. 5. Discharge planning. JOB# [id number]
[2018-08-10 04:54] LABS: % BASOPHILS 0.4 % (0.0-2.0); % EOSINOPHILS 2.8 % (0.0-5.0); % LYMPHOCYTES 22.3 % (20.0-50.0); % MONOCYTES 6.2 % (2.0-10.0); % NEUTROPHILS 68.3 % (40.0-80.0); EOSINOPHILE ABSOLUTE 0.3 Th/cmm (0.1-0.4); HEMATOCRIT 25.8 % (41.0-60); HEMOGLOBIN 8.5 gm/dL (12-16); LYMPHOCYTE ABSOLUTE 2.6 Th/cmm (1.5-3.0); MEAN CELL VOLUME 88.6 fl (80-99); MEAN CORPUSCULAR HEMOGLOBIN 29.1 pg (26.0-30.0); MEAN CORPUSCULAR HGB CONC 32.8 pg (28.0-36.0); MONOCYTE ABSOLUTE 0.7 Th/cmm (0.3-1.0); NEUTROPHILE ABSOLUTE 8.2 Th/cmm (1.8-8.0); PLATELET COUNT 557 Th/cmm (150-400); RED BLOOD COUNT 2.91 Mil/cmm (4.30-5.70); RED CELL DISTRIBUTION WIDTH 14.9 % (11.5-20.0); WHITE BLOOD COUNT 11.8 Th/cmm (4.8-10.8)
[2018-08-10 05:18] LABS: ANION GAP 11.5 (7.0-16.0); BUN - UREA NITROGEN 10 mg/dL (7-25); CALCIUM SERUM 9.6 mg/dL (8.6-10.3); CARBON DIOXIDE 29.7 mEq/L (21.0-31.0); CHLORIDE 98 mEq/L (98-107); CREATININE - SERUM 0.7 mg/dL (0.7-1.3); GFR AFRICAN-AMERICAN > 60.0 ml/min (>90); GFR NON AFRICAN-AMERICAN > 60.0 ml/min; GLUCOSE 116 mg/dL (70-105); POTASSIUM SERUM 4.2 mEq/L (3.5-5.1); SODIUM SERUM 135 mEq/L (136-145)
[2018-08-10] MEDS: Lactobacillus Rhamnosus GG 15 Billion CFU CAP.SPRINK PO SCH (08:30)
[2018-08-10] MEDS: Potassium Chloride Elixir 20 mEq /15 mL UDC GT SCH (08:30)
[2018-08-10] MEDS: Multivitamin Tab GT SCH ×2 (08:30→16:58)
[2018-08-10] MEDS: Chlorhexidine Gluconate 0.12% 15mL Mouthwash MM SCH ×2 (08:30→20:16)
[2018-08-10] MEDS: Levetiracetam 500 mg/5mL 5mL UDSyr *for ORAL USE ONLY GT SCH ×2 (08:30→16:58)
--- NOTE | 2018-08-10 10:03 | Internal Medicine Prog Note ---
Internal Medicine Subjective - Subjective Patient seen and examined:: chart reviewed Patient is:: awake, non-verbal, other (pt in no distress ) Patient Complaints of:: other (resp. failure on vent.) Per staff patient has:: no adverse event, no episodes of fall Internal Medicine Objective - Results Result Diagrams: 08/10/18 04:25 08/10/18 04:25 Recent Labs: Laboratory Last Values WBC 11.8 Th/cmm (4.8-10.8) H 08/10/18 04:25 RBC 2.91 Mil/cmm (4.30-5.70) L 08/10/18 04:25 Hgb 8.5 gm/dL (12-16) L 08/10/18 04:25 Hct 25.8 % (41.0-60) L 08/10/18 04:25 MCV 88.6 fl (80-99) 08/10/18 04:25 MCH 29.1 pg (26.0-30.0) 08/10/18 04:25 MCHC Differential 32.8 pg (28.0-36.0) 08/10/18 04:25 RDW 14.9 % (11.5-20.0) 08/10/18 04:25 Plt Count 557 Th/cmm (150-400) H 08/10/18 04:25 MPV 7.0 fl 08/10/18 04:25 Add Manual Diff YES 08/05/18 04:05 Neutrophils % 68.3 % (40.0-80.0) 08/10/18 04:25 Band Neutrophils % 0 % (0-10) 08/05/18 04:05 Lymphocytes % 22.3 % (20.0-50.0) 08/10/18 04:25 Monocytes % 6.2 % (2.0-10.0) 08/10/18 04:25 Eosinophils % 2.8 % (0.0-5.0) 08/10/18 04:25 Basophils % 0.4 % (0.0-2.0) 08/10/18 04:25 Neutrophils (Manual) 72 % (40-80) 08/05/18 04:05 Lymphocytes 14 % (20-50) L 08/05/18 04:05 Monocytes 10 % (2-10) 08/05/18 04:05 Eosinophils 4 % (0-5) 08/05/18 04:05 Basophils 0 % (0-3) 08/05/18 04:05 Platelet Estimate ADEQUATE (NORMAL) 08/01/18 05:00 Sodium 135 mEq/L (136-145) L 08/10/18 04:25 Potassium 4.2 mEq/L (3.5-5.1) 08/10/18 04:25 Chloride 98 mEq/L (98-107) 08/10/18 04:25 Carbon Dioxide 29.7 mEq/L (21.0-31.0) 08/10/18 04:25 Anion Gap 11.5 (7.0-16.0) 08/10/18 04:25 BUN 10 mg/dL (7-25) 08/10/18 04:25 Creatinine 0.7 mg/dL (0.7-1.3) 08/10/18 04:25 Est GFR ( Amer) > 60.0 ml/min (>90) 08/10/18 04:25 Est GFR (Non-Af Amer) > 60.0 ml/min 08/10/18 04:25 BUN/Creatinine Ratio 14.3 08/10/18 04:25 Glucose 116 mg/dL (70-105) H 08/10/18 04:25 Whole Bld Lactic Acid 1.47 mmol/L (0.60-1.99) 07/31/18 07:40 Calcium 9.6 mg/dL (8.6-10.3) 08/10/18 04:25 Total Bilirubin 0.3 mg/dL (0.3-1.0) 08/09/18 06:15 AST 21 U/L (13-39) 08/09/18 06:15 ALT 21 U/L (7-52) 08/09/18 06:15 Alkaline Phosphatase 64 U/L (34-104) 08/09/18 06:15 Total Protein 6.6 gm/dL (6.0-8.3) 08/09/18 06:15 Albumin 3.1 gm/dL (4.2-5.5) L 08/09/18 06:15 Globulin 3.5 gm/dL 08/09/18 06:15 Albumin/Globulin Ratio 0.9 (1.0-1.8) L 08/09/18 06:15 Urine Source CATH 07/30/18 19:20 Urine Color YELLOW 07/30/18 19:20 Urine Clarity HAZY (CLEAR) 07/30/18 19:20 Urine pH 7.0 (4.6 - 8.0) 07/30/18 19:20 Ur Specific [place] 1.010 (1.005-1.030) 07/30/18 19:20 Urine Protein 30 mg/dL (NEGATIVE) H 07/30/18 19:20 Urine Glucose (UA) NEGATIVE mg/dL (NEGATIVE) 07/30/18 19:20 Urine Ketones NEGATIVE mg/dL (NEGATIVE) 07/30/18 19:20 Urine Blood LARGE (NEGATIVE) H 07/30/18 19:20 Urine Nitrate POSITIVE (NEGATIVE) H 07/30/18 19: Urine Bilirubin NEGATIVE (NEGATIVE) 07/30/18 19:20 Urine Urobilinogen 0.2 E.U./dL (0.2 - 1.0) 07/30/18 19:20 Ur Leukocyte Esterase LARGE (NEGATIVE) H 07/30/18 19:20 Urine RBC 5-10 /hpf (0-5) H 07/30/18 19:20 Urine WBC 25-50 /hpf (0-5) H 07/30/18 19:20 Ur Epithelial Cells FEW /lpf (FEW) 07/30/18 19:20 Urine Bacteria 4+ /hpf (NONE SEEN) H 07/30/18 19:20 Amikacin Peak 25.8 ug/mL (20.0-30.0) 08/07/18 18:18 Amikacin Trough 0.8 ug/mL (1.0-8.0) L 08/09/18 18:00 Random Amikacin 0.8 ug/ml (1.0-30.0) L 08/04/18 12:00 Vancomycin Trough 21.3 ug/mL (5-10) H 08/01/18 21:26 - Physical Exam Vitals and I&O: Vital Signs Temp 98.6 F 08/10/18 04:00 Pulse 87 08/10/18 09:17 Resp 12 08/10/18 06:00 BP 91/50 08/10/18 06:00 Pulse Ox 98 08/10/18 09:17 Intake & Output 08/09/18 08/10/18 08/10/18 18:59 06:59 18:59 Intake Total 2096 Output Total 1000 Balance 1096 Weight (lbs) 56.79 kg Intake: Intake, IV Amount 106 Gentamicin 240 mg In 106 Sodium Chloride 0.9% 100 ml @ 100 mls/hr IV Q24H [facility] Rx#:[id number] Tube Feeding 1390 Other 600 Output: Urine 1000 Other: # Bowel Movements 0 Weight Source Bedscale Active Medications: Current Medications Acetaminophen (Tylenol) 650 mg GT Q4H PRN PRN Reason: Fever > 101 Stop: 09/29/18 06:32 Last Admin: 08/06/18 17:05 Dose: 650 mg Ascorbic Acid (Vitamin C) 500 mg GT DAILY [facility] Stop: 09/30/18 08:59 Last Admin: 08/10/18 08:30 Dose: 500 mg Bisacodyl (Dulcolax 10 Mg Supp) 10 mg RC DAILY PRN PRN Reason: Constipation Stop: 09/29/18 15:21 Chlorhexidine Gluconate (Peridex) 15 ml MM 08,1999 [facility] Stop: 09/28/18 19:59 Last Admin: 08/10/18 08:30 Dose: 15 ml Famotidine (Pepcid) 20 mg PO BID [facility] Stop: 09/29/18 20:59 Last Admin: 08/10/18 08:30 Dose: 20 mg Norepinephrine Bitartrate 4 mg (/ Dextrose) 254 mls @ 0 mls/hr IV TITR PRN; Protocol PRN Reason: BP MAINTENANCE (PER PROTOCOL) Stop: 09/29/18 00:37 Last Titration: 08/05/18 00:15 Dose: 0 mcg/min, 0 mls/hr Sodium Chloride (Nacl 0.9%) 1,000 mls @ 50 mls/hr IV .Q20H [facility] Stop: 10/02/18 11:59 Last Admin: 08/08/18 17:27 Dose: 50 mls/hr Gentamicin Sulfate 240 mg/ (Sodium Chloride) 106 mls @ 100 mls/hr IV Q24H [facility] Stop: 10/08/18 19:59 Last Infusion: 08/09/18 22:00 Dose: Infused Lactobacillus Rhamnosus (Culturelle 15b) 1 each PO DAILY [facility] Stop: 09/30/18 11:59 Last Admin: 08/10/18 08:30 Dose: 1 each Levetiracetam (Keppra) 500 mg GT BID [facility] Stop: 09/30/18 08:59 Last Admin: 08/10/18 08:30 Dose: 500 mg Lorazepam (Ativan) 1 mg IVP Q4HR PRN; Protocol PRN Reason: Seizure Stop: 10/01/18 11:24 Last Admin: 08/09/18 12:30 Dose: 1 mg Magnesium Hydroxide (Milk Of Magnesia) 30 ml GT HS PRN PRN Reason: Constipation Stop: 09/29/18 17:49 Miscellaneous (Probiotic Screen) 1 ea MC PRN PRN PRN Reason: PROTOCOL Stop: 09/30/18 09:02 Miscellaneous (Gentamicin Iv Per Pharmacy) 1 ea PRN PRN PRN Reason: PROTOCOL Stop: 10/08/18 02:47 Morphine Sulfate (Morphine) 1 mg IVP Q4HR PRN PRN Reason: Pain (Mild) Stop: 09/30/18 14:04 Last Admin: 08/07/18 22:56 Dose: 1 mg Multivitamins/Vitamin C (Theragran) 1 tab GT BID [facility] Stop: 09/30/18 08:59 Last Admin: 08/10/18 08:30 Dose: 1 tab Potassium Chloride (Potassium Chloride Elixir) 40 meq GT DAILY [facility] Stop: 10/04/18 08:59 Last Admin: 08/10/18 08:30 Dose: 40 meq Thiamine HCl (Vitamin B1) 100 mg GT DAILY [facility] Stop: 09/30/18 08:59 Last Admin: 08/10/18 08:30 Dose: 100 mg Wound Care/Dressing Products (Therahoney) 1 appl TP DAILY [facility] Stop: 09/30/18 08:59 Last Admin: 08/09/18 16:00 Dose: 1 appl Zinc Sulfate (Zinc Sulfate) 220 mg GT DAILY [facility] Stop: 09/30/18 08:59 Last Admin: 08/10/18 08:30 Dose: 220 mg Physical Exam: 58 y/o male patient has hx of resp. failure on Ventilator support, no new complaints at this time. General: weak HEENT: NC/AT, PERRLA Neck: Supple, No JVD Lungs: wheezing, ronchi Cardiovascular: RRR, Normal S1 Abdomen: non-tender Extremities: clear Neurological: no change - Procedures Procedures: Procedures Procedure Code Date REPAIR HEAD, EXTERNAL APPROACH [id number] 07/30/18 RESPIRATORY VENTILATION, GREATER THAN 96 CONSECUTIVE HOURS [id number] 07/30/18 Internal Medicine Assmt/Plan - Assessment Assessment: Dysphagia. Weakness. Intracranial Hemmorhage s/p craniotomy. Respiratory failure. UTI. Sepsis. Hx of Cerebrovascular Disease. - Plan Plan: Continuation of care. Monitor Vitals and Labs. Continue present meds as directed. Monitor Diet/Nutritional support. Respiratory treatments and Pulmonary support. Supplemental Oxygen. Aspiration precaution. Deep suctioning prn. Monitor Diet/Nutritional support. Pain Management. Safety precaution. Supportive care. Fall precaution. Will Monitor patient and continue current treatment plan as ordered. Nutritional Asmnt/Malnutr-PDOC - Dietary Evaluation Malnutrition Findings (Please click <Entered> for more info): Nutritional Asmnt/Malnutrition Start: 07/31/18 14: 50 Text: Status: Complete Freq: Protocol: Document 07/31/18 14:50 RASG (Rec: 07/31/18 15:09 RAS [email or web address]) Nutritional Asmnt/Malnutrition Patient General Information Nutritional Screening High Risk Diagnosis urosepis Pertinent Medical Hx/Surgical Hx seizures, anemia, resp failure , SAH, trach, Gtube, foleu, vent depression Subjective Information Pt seen resting in bed, trach to vent. Visiablly verified TF was running at goal rate of 70ml/hr at this time. Current Diet Order/ Nutrition Support Jevity 1.2 at 70ml/hr x 20hr. Pertinent Medications nacl 0.9%, vancomycin Pertinent Labs 5/2 Na 135, alb 3.7 Nutritional Hx/Data Height 1.73 m Height (Calculated Centimeters) 172.7 Current Weight (lbs) 55.338 kg Weight (Calculated Kilograms) 55.3 Weight (Calculated Grams) 82013.3 [place] Body Weight 154 Body Mass Index (BMI) 18.5 Weight Status Approriate GI Symptoms GI Symptoms None Last BM 5/2 Difficult in: None Skin Integrity/Comment: scar to head and right anterior ear, abrasion to left ankle, rash to left posterior and right axilla, decubitus ulcer to sacrum. Sal 12. Estimated Nutritional Goals Calories/Kcals/Kg 23-27 based on IBW 70kg Kcals Calculated 0074-8121 Protein g/k-1.2 Protein Calculated 70-84 Fluid: ml 1610-1890ml (1ml/kcal) Nutritional Problem No current Nutrition Prob Problem N/A Malnutrition Alert Is there a minimum of two criteria No selected? Query Text:Check all the applicable criteria. A minimum of two criteria are recommended for diagnosis of either severe or non-severe malnutrition. Malnutrition Related to Morbid Obesity Malnutrition related to morbid obesity No Intervention/Recommendation Comments 1. Continue with current TF regimen Jevity 1.2 at 70ml/hr x 20hr. It provides 1680kcal, 78g protein, 1130ml free water , meeting 100% of nutritional needs 2. Monitor TF rate, tolerance, wt, skin integrity and labs 3. F/U as moderate risk Expected Outcomes/Goals Expected Outcomes/Goals 1. Pt to meet at least 90% of nutritional needs via nutrition support with tolerance 2. Wt stability, skin to remain intact, labs to approach WNL.
[2018-08-10] MEDS: Therahoney Gel 42.5gm Tube TP SCH (16:59)
[2018-08-10] MEDS: Gentamicin 240 MG in Sodium Chloride 0.9% 100 ML IV SCH (20:16)
--- NOTE | 2018-08-11 04:14 | Progress Notes ---
DATE: 08/10/2018 SUBJECTIVE: The patient appears to be doing okay, in no distress. OBJECTIVE: VITAL SIGNS: Temperature 99.0, pulse is 84, respiration 18, blood pressure 194/50, saturation is 99%. CHEST: Good breath sound. No wheezing or crackles. HEART: Regular rate and rhythm. ABDOMEN: Soft. EXTREMITIES: No edema. LABORATORY DATA: WBC is 11.8, hemoglobin 8.5, hematocrit 25.8, platelets 557. Sodium 135, potassium 4.2, BUN 10, creatinine 0.7. IMPRESSION: 1. Respiratory failure. 2. Dysphagia. 3. Weakness. 4. Urinary tract infection. 5. Intracranial hemorrhage, status post craniotomy. PLAN: Continue nebulizers and antibiotics. Monitor with supportive care and ventilator support. JOB# [id number]
[2018-08-11 04:35] LABS: % BASOPHILS 1.2 % (0.0-2.0); % EOSINOPHILS 3.2 % (0.0-5.0); % LYMPHOCYTES 20.9 % (20.0-50.0); % NEUTROPHILS 67.7 % (40.0-80.0); BASOPHILE ABSOLUTE 0.1 Th/cumm (0-0.2); EOSINOPHILE ABSOLUTE 0.3 Th/cmm (0.1-0.4); HEMATOCRIT 26.3 % (41.0-60); HEMOGLOBIN 8.7 gm/dL (12-16); MEAN CELL VOLUME 87.8 fl (80-99); MEAN CORPUSCULAR HEMOGLOBIN 29.1 pg (26.0-30.0); MEAN CORPUSCULAR HGB CONC 33.1 pg (28.0-36.0); MEAN PLATELET VOLUME 7.3 fl; MONOCYTE ABSOLUTE 0.7 Th/cmm (0.3-1.0); NEUTROPHILE ABSOLUTE 6.3 Th/cmm (1.8-8.0); PLATELET COUNT 565 Th/cmm (150-400); RED CELL DISTRIBUTION WIDTH 14.8 % (11.5-20.0); WHITE BLOOD COUNT 9.4 Th/cmm (4.8-10.8)
[2018-08-11 05:15] LABS: ANION GAP 13.6 (7.0-16.0); BUN - UREA NITROGEN 11 mg/dL (7-25); CALCIUM SERUM 9.6 mg/dL (8.6-10.3); CARBON DIOXIDE 28.4 mEq/L (21.0-31.0); CHLORIDE 98 mEq/L (98-107); CREATININE - SERUM 0.7 mg/dL (0.7-1.3); GFR AFRICAN-AMERICAN > 60.0 ml/min (>90); GFR NON AFRICAN-AMERICAN > 60.0 ml/min; GLUCOSE 107 mg/dL (70-105); SODIUM SERUM 136 mEq/L (136-145)
[2018-08-11] MEDS: Potassium Chloride Elixir 20 mEq /15 mL UDC GT SCH (08:38)
[2018-08-11] MEDS: Lactobacillus Rhamnosus GG 15 Billion CFU CAP.SPRINK PO SCH (08:39)
[2018-08-11] MEDS: Multivitamin Tab GT SCH ×2 (08:39→17:06)
[2018-08-11] MEDS: Levetiracetam 500 mg/5mL 5mL UDSyr *for ORAL USE ONLY GT SCH ×2 (08:39→17:06)
[2018-08-11] MEDS: Chlorhexidine Gluconate 0.12% 15mL Mouthwash MM SCH ×2 (08:39→19:53)
--- NOTE | 2018-08-11 12:01 | Internal Medicine Prog Note ---
Internal Medicine Subjective - Subjective Service Date: 08/11/18 Patient seen and examined:: with staff Patient is:: awake, non-verbal, other (pt in no distress.) Patient Complaints of:: other (resp. failure on vent.) Per staff patient has:: no adverse event, no episodes of fall Internal Medicine Objective - Results Result Diagrams: 08/11/18 04:15 08/11/18 04:15 Recent Labs: Laboratory Last Values WBC 9.4 Th/cmm (4.8-10.8) 08/11/18 04:15 RBC 3.00 Mil/cmm (4.30-5.70) L 08/11/18 04:15 Hgb 8.7 gm/dL (12-16) L 08/11/18 04:15 Hct 26.3 % (41.0-60) L 08/11/18 04:15 MCV 87.8 fl (80-99) 08/11/18 04:15 MCH 29.1 pg (26.0-30.0) 08/11/18 04:15 MCHC Differential 33.1 pg (28.0-36.0) 08/11/18 04:15 RDW 14.8 % (11.5-20.0) 08/11/18 04:15 Plt Count 565 Th/cmm (150-400) H 08/11/18 04:15 MPV 7.3 fl 08/11/18 04:15 Add Manual Diff YES 08/05/18 04:05 Neutrophils % 67.7 % (40.0-80.0) 08/11/18 04:15 Band Neutrophils % 0 % (0-10) 08/05/18 04:05 Lymphocytes % 20.9 % (20.0-50.0) 08/11/18 04:15 Monocytes % 7.0 % (2.0-10.0) 08/11/18 04:15 Eosinophils % 3.2 % (0.0-5.0) 08/11/18 04:15 Basophils % 1.2 % (0.0-2.0) 08/11/18 04:15 Neutrophils (Manual) 72 % (40-80) 08/05/18 04:05 Lymphocytes 14 % (20-50) L 08/05/18 04:05 Monocytes 10 % (2-10) 08/05/18 04:05 Eosinophils 4 % (0-5) 08/05/18 04:05 Basophils 0 % (0-3) 08/05/18 04:05 Platelet Estimate ADEQUATE (NORMAL) 08/01/18 05:00 Sodium 136 mEq/L (136-145) 08/11/18 04:15 Potassium 4.0 mEq/L (3.5-5.1) 08/11/18 04:15 Chloride 98 mEq/L (98-107) 08/11/18 04:15 Carbon Dioxide 28.4 mEq/L (21.0-31.0) 08/11/18 04:15 Anion Gap 13.6 (7.0-16.0) 08/11/18 04:15 BUN 11 mg/dL (7-25) 08/11/18 04:15 Creatinine 0.7 mg/dL (0.7-1.3) 08/11/18 04:15 Est GFR ( Amer) > 60.0 ml/min (>90) 08/11/18 04:15 Est GFR (Non-Af Amer) > 60.0 ml/min 08/11/18 04:15 BUN/Creatinine Ratio 15.7 08/11/18 04:15 Glucose 107 mg/dL (70-105) H 08/11/18 04:15 Whole Bld Lactic Acid 1.47 mmol/L (0.60-1.99) 07/31/18 07:40 Calcium 9.6 mg/dL (8.6-10.3) 08/11/18 04:15 Total Bilirubin 0.3 mg/dL (0.3-1.0) 08/09/18 06:15 AST 21 U/L (13-39) 08/09/18 06:15 ALT 21 U/L (7-52) 08/09/18 06:15 Alkaline Phosphatase 64 U/L (34-104) 08/09/18 06:15 Total Protein 6.6 gm/dL (6.0-8.3) 08/09/18 06:15 Albumin 3.1 gm/dL (4.2-5.5) L 08/09/18 06:15 Globulin 3.5 gm/dL 08/09/18 06:15 Albumin/Globulin Ratio 0.9 (1.0-1.8) L 08/09/18 06:15 Urine Source CATH 07/30/18 19:20 Urine Color YELLOW 07/30/18 19:20 Urine Clarity HAZY (CLEAR) 07/30/18 19:20 Urine pH 7.0 (4.6 - 8.0) 07/30/18 19:20 Ur Specific [place] 1.010 (1.005-1.030) 07/30/18 19:20 Urine Protein 30 mg/dL (NEGATIVE) H 07/30/18 19:20 Urine Glucose (UA) NEGATIVE mg/dL (NEGATIVE) 07/30/18 19:20 Urine Ketones NEGATIVE mg/dL (NEGATIVE) 07/30/18 19:20 Urine Blood LARGE (NEGATIVE) H 07/30/18 19:20 Urine Nitrate POSITIVE (NEGATIVE) H 07/30/18 19:20 Urine Bilirubin NEGATIVE (NEGATIVE) 07/30/18 19:20 Urine Urobilinogen 0.2 E.U./dL (0.2 - 1.0) 07/30/18 19:20 Ur Leukocyte Esterase LARGE (NEGATIVE) H 07/30/18 19:20 Urine RBC 5-10 /hpf (0-5) H 07/30/18 19:20 Urine WBC 25-50 /hpf (0-5) H 07/30/18 19:20 Ur Epithelial Cells FEW /lpf (FEW) 07/30/18 19:20 Urine Bacteria 4+ /hpf (NONE SEEN) H 07/30/18 19:20 Amikacin Peak 25.8 ug/mL (20.0-30.0) 08/07/18 18:18 Amikacin Trough 0.8 ug/mL (1.0-8.0) L 08/09/18 18:00 Random Amikacin 0.8 ug/ml (1.0-30.0) L 08/04/18 12:00 Vancomycin Trough 21.3 ug/mL (5-10) H 08/01/18 21:26 - Physical Exam Vitals and I&O: Vital Signs Temp 98.1 F 08/11/18 08:00 Pulse 80 08/11/18 11:11 Resp 20 08/11/18 09:00 BP 121/78 08/11/18 09:00 Pulse Ox 100 08/11/18 11:11 Intake & Output 08/10/18 08/11/1808/11/19 18:59 06:59 18:59 Intake Total 1090 106 850 Output Total 1150 1050 Balance -60 106 -200 Weight (lbs) 54.119 kg 55.066 kg Intake: Intake, IV Amount 106 Gentamicin 240 mg In 106 Sodium Chloride 0.9% 100 ml @ 100 mls/hr IV Q24H [facility] Rx#:[id number] Tube Feeding 840 550 Other 250 300 Output: Urine 1150 1050 Other: # Bowel Movements 2 0 Weight Source Bedscale Bedscale Active Medications: Current Medications Acetaminophen (Tylenol) 650 mg GT Q4H PRN PRN Reason: Fever > 101 Stop: 09/29/18 06:32 Last Admin: 08/06/18 17:05 Dose: 650 mg Ascorbic Acid (Vitamin C) 500 mg GT DAILY [facility] Stop: 09/30/18 08:59 Last Admin: 08/11/18 08:39 Dose: 500 mg Bisacodyl (Dulcolax 10 Mg Supp) 10 mg RC DAILY PRN PRN Reason: Constipation Stop: 09/29/18 15:21 Chlorhexidine Gluconate (Peridex) 15 ml MM 08,1999 [facility] Stop: 09/28/18 19:59 Last Admin: 08/11/18 08:39 Dose: 15 ml Famotidine (Pepcid) 20 mg PO BID [facility] Stop: 09/29/18 20:59 Last Admin: 08/11/18 08:39 Dose: 20 mg Norepinephrine Bitartrate 4 mg (/ Dextrose) 254 mls @ 0 mls/hr IV TITR PRN; Protocol PRN Reason: BP MAINTENANCE (PER PROTOCOL) Stop: 09/29/18 00:37 Last Titration: 08/05/18 00:15 Dose: 0 mcg/min, 0 mls/hr Sodium Chloride (Nacl 0.9%) 1,000 mls @ 50 mls/hr IV .Q20H [facility] Stop: 10/02/18 11:59 Last Admin: 08/08/18 17:27 Dose: 50 mls/hr Gentamicin Sulfate 240 mg/ (Sodium Chloride) 106 mls @ 100 mls/hr IV Q24H [facility] Stop: 10/08/18 19:59 Last Infusion: 08/10/18 21:20 Dose: Infused Lactobacillus Rhamnosus (Culturelle 15b) 1 each PO DAILY [facility] Stop: 09/30/18 11:59 Last Admin: 08/11/18 08:39 Dose: 1 each Levetiracetam (Keppra) 500 mg GT BID [facility] Stop: 09/30/18 08:59 Last Admin: 08/11/18 08:39 Dose: 500 mg Lorazepam (Ativan) 1 mg IVP Q4HR PRN; Protocol PRN Reason: Seizure Stop: 10/01/18 11:24 Last Admin: 08/09/18 12:30 Dose: 1 mg Magnesium Hydroxide (Milk Of Magnesia) 30 ml GT HS PRN PRN Reason: Constipation Stop: 09/29/18 17:49 Miscellaneous (Probiotic Screen) 1 ea PRN PRN PRN Reason: PROTOCOL Stop: 09/30/18 09:02 Miscellaneous (Gentamicin Iv Per Pharmacy) 1 ea PRN PRN PRN Reason: PROTOCOL Stop: 10/08/18 02:47 Morphine Sulfate (Morphine) 1 mg IVP Q4HR PRN PRN Reason: Pain (Mild) Stop: 09/30/18 14:04 Last Admin: 08/07/18 22:56 Dose: 1 mg Multivitamins/Vitamin C (Theragran) 1 tab GT BID [facility] Stop: 09/30/18 08:59 Last Admin: 08/11/18 08:39 Dose: 1 tab Potassium Chloride (Potassium Chloride Elixir) 40 meq GT DAILY [facility] Stop: 10/04/18 08:59 Last Admin: 08/11/18 08:38 Dose: 40 meq Thiamine HCl (Vitamin B1) 100 mg GT DAILY [facility] Stop: 09/30/18 08:59 Last Admin: 08/11/18 08:39 Dose: 100 mg Wound Care/Dressing Products (Therahoney) 1 appl TP DAILY [facility] Stop: 09/30/18 08:59 Last Admin: 08/10/18 16:59 Dose: 1 appl Zinc Sulfate (Zinc Sulfate) 220 mg GT DAILY [facility] Stop: 09/30/18 08:59 Last Admin: 08/11/18 08:39 Dose: 220 mg Physical Exam: 58 y/o male patient has hx of resp. failure on Ventilator support, no new events reported. General: weak HEENT: NC/AT, PERRLA Neck: Supple, No JVD Lungs: wheezing, ronchi Cardiovascular: RRR, Normal S1 Abdomen: non-tender Extremities: clear Neurological: no change - Procedures Procedures: Procedures Procedure Code Date REPAIR HEAD, EXTERNAL APPROACH [id number] 07/30/18 RESPIRATORY VENTILATION, GREATER THAN 96 CONSECUTIVE HOURS [id number] 07/30/18 Internal Medicine Assmt/Plan - Assessment Assessment: Dysphagia. Weakness. Intracranial Hemmorhage s/p craniotomy. Respiratory failure, On ventilator support. UTI. Sepsis. Hx of Cerebrovascular Disease. - Plan Plan: Continuation of care. Monitor Vitals and Labs. Continue present meds as directed. Monitor Diet/Nutritional support. Respiratory treatments and Pulmonary support. Supplemental Oxygen. Aspiration precaution. Deep suctioning prn. Monitor Diet/Nutritional support. Pain Management. Safety precaution. Supportive care. Fall precaution. Will Monitor patient and continue current treatment plan as ordered. Nutritional Asmnt/Malnutr-PDOC - Dietary Evaluation Malnutrition Findings (Please click <Entered> for more info): Nutritional Asmnt/Malnutrition Start: 07/31/18 14: 50 Text: Status: Complete Freq: Protocol: Document 07/31/18 14:50 RAS (Rec: 07/31/18 15:09 RAS [email or web address]) Nutritional Asmnt/Malnutrition Patient General Information Nutritional Screening High Risk Diagnosis urosepis Pertinent Medical Hx/Surgical Hx seizures, anemia, resp failure , SAH, trach, Gtube, foleu, vent depression Subjective Information Pt seen resting in bed, trach to vent. Visiablly verified TF was running at goal rate of 70ml/hr at this time. Current Diet Order/ Nutrition Support Jevity 1.2 at 70ml/hr x 20hr. Pertinent Medications nacl 0.9%, vancomycin Pertinent Labs 5/2 Na 135, alb 3.7 Nutritional Hx/Data Height 1.73 m Height (Calculated Centimeters) 172.7 Current Weight (lbs) 55.338 kg Weight (Calculated Kilograms) 55.3 Weight (Calculated Grams) 13009.3 [place] Body Weight 154 Body Mass Index (BMI) 18.5 Weight Status Approriate GI Symptoms GI Symptoms None Last BM 5/2 Difficult in: None Skin Integrity/Comment: scar to head and right anterior ear, abrasion to left ankle, rash to left posterior and right axilla, decubitus ulcer to sacrum. Sal 12. Estimated Nutritional Goals Calories/Kcals/Kg 23-27 based on IBW 70kg Kcals Calculated 0824-0041 Protein g/k-1.2 Protein Calculated 70-84 Fluid: ml 1610-1890ml (1ml/kcal) Nutritional Problem No current Nutrition Prob Problem N/A Malnutrition Alert Is there a minimum of two criteria No selected? Query Text:Check all the applicable criteria. A minimum of two criteria are recommended for diagnosis of either severe or non-severe malnutrition. Malnutrition Related to Morbid Obesity Malnutrition related to morbid obesity No Intervention/Recommendation Comments 1. Continue with current TF regimen Jevity 1.2 at 70ml/hr x 20hr. It provides 1680kcal, 78g protein, 1130ml free water , meeting 100% of nutritional needs 2. Monitor TF rate, tolerance, wt, skin integrity and labs 3. F/U as moderate risk Expected Outcomes/Goals Expected Outcomes/Goals 1. Pt to meet at least 90% of nutritional needs via nutrition support with tolerance 2. Wt stability, skin to remain intact, labs to approach WNL.
--- NOTE | 2018-08-11 13:56 | Infectious Disease Prog Note ---
Infectious Disease Subjective - Review of Systems Service Date: 08/11/18 Subjective: Afebrile. on the ventilator support. Infectious Disease Objective - Results Result Diagrams: 08/11/18 04:15 08/11/18 04:15 Recent Labs: Laboratory Last Values WBC 9.4 Th/cmm (4.8-10.8) 08/11/18 04:15 RBC 3.00 Mil/cmm (4.30-5.70) L 08/11/18 04:15 Hgb 8.7 gm/dL (12-16) L 08/11/18 04:15 Hct 26.3 % (41.0-60) L 08/11/18 04:15 MCV 87.8 fl (80-99) 08/11/18 04:15 MCH 29.1 pg (26.0-30.0) 08/11/18 04:15 MCHC Differential 33.1 pg (28.0-36.0) 08/11/18 04:15 RDW 14.8 % (11.5-20.0) 08/11/18 04:15 Plt Count 565 Th/cmm (150-400) H 08/11/18 04:15 MPV 7.3 fl 08/11/18 04:15 Add Manual Diff YES 08/05/18 04:05 Neutrophils % 67.7 % (40.0-80.0) 08/11/18 04:15 Band Neutrophils % 0 % (0-10) 08/05/18 04:05 Lymphocytes % 20.9 % (20.0-50.0) 08/11/18 04:15 Monocytes % 7.0 % (2.0-10.0) 08/11/18 04:15 Eosinophils % 3.2 % (0.0-5.0) 08/11/18 04:15 Basophils % 1.2 % (0.0-2.0) 08/11/18 04:15 Neutrophils (Manual) 72 % (40-80) 08/05/18 04:05 Lymphocytes 14 % (20-50) L 08/05/18 04:05 Monocytes 10 % (2-10) 08/05/18 04:05 Eosinophils 4 % (0-5) 08/05/18 04:05 Basophils 0 % (0-3) 08/05/18 04:05 Platelet Estimate ADEQUATE (NORMAL) 08/01/18 05:00 Sodium 136 mEq/L (136-145) 08/11/18 04:15 Potassium 4.0 mEq/L (3.5-5.1) 08/11/18 04:15 Chloride 98 mEq/L (98-107) 08/11/18 04:15 Carbon Dioxide 28.4 mEq/L (21.0-31.0) 08/11/18 04:15 Anion Gap 13.6 (7.0-16.0) 08/11/18 04:15 BUN 11 mg/dL (7-25) 08/11/18 04:15 Creatinine 0.7 mg/dL (0.7-1.3) 08/11/18 04:15 Est GFR ( Amer) > 60.0 ml/min (>90) 08/11/18 04:15 Est GFR (Non-Af Amer) > 60.0 ml/min 08/11/18 04:15 BUN/Creatinine Ratio 15.7 08/11/18 04:15 Glucose 107 mg/dL (70-105) H 08/11/18 04:15 Whole Bld Lactic Acid 1.47 mmol/L (0.60-1.99) 07/31/18 07:40 Calcium 9.6 mg/dL (8.6-10.3) 08/11/18 04:15 Total Bilirubin 0.3 mg/dL (0.3-1.0) 08/09/18 06:15 AST 21 U/L (13-39) 08/09/18 06:15 ALT 21 U/L (7-52) 08/09/18 06:15 Alkaline Phosphatase 64 U/L (34-104) 08/09/18 06:15 Total Protein 6.6 gm/dL (6.0-8.3) 08/09/18 06:15 Albumin 3.1 gm/dL (4.2-5.5) L 08/09/18 06:15 Globulin 3.5 gm/dL 08/09/18 06:15 Albumin/Globulin Ratio 0.9 (1.0-1.8) L 08/09/18 06:15 Urine Source CATH 07/30/18 19:20 Urine Color YELLOW 07/30/18 19:20 Urine Clarity HAZY (CLEAR) 07/30/18 19:20 Urine pH 7.0 (4.6 - 8.0) 07/30/18 19:20 Ur Specific [place] 1.010 (1.005-1.030) 07/30/18 19:20 Urine Protein 30 mg/dL (NEGATIVE) H 07/30/18 19:20 Urine Glucose (UA) NEGATIVE mg/dL (NEGATIVE) 07/30/18 19:20 Urine Ketones NEGATIVE mg/dL (NEGATIVE) 07/30/18 19:20 Urine Blood LARGE (NEGATIVE) H 07/30/18 19:20 Urine Nitrate POSITIVE (NEGATIVE) H 07/30/18 19:20 Urine Bilirubin NEGATIVE (NEGATIVE) 07/30/18 19:20 Urine Urobilinogen 0.2 E.U./dL (0.2 - 1.0) 07/30/18 19:20 Ur Leukocyte Esterase LARGE (NEGATIVE) H 07/30/18 19:20 Urine RBC 5-10 /hpf (0-5) H 07/30/18 19:20 Urine WBC 25-50 /hpf (0-5) H 07/30/18 19:20 Ur Epithelial Cells FEW /lpf (FEW) 07/30/18 19:20 Urine Bacteria 4+ /hpf (NONE SEEN) H 07/30/18 19:20 Amikacin Peak 25.8 ug/mL (20.0-30.0) 08/07/18 18:18 Amikacin Trough 0.8 ug/mL (1.0-8.0) L 08/09/18 18:00 Random Amikacin 0.8 ug/ml (1.0-30.0) L 08/04/18 12:00 Vancomycin Trough 21.3 ug/mL (5-10) H 08/01/18 21:26 - Physical Exam Vitals and I&O: Vital Signs Temp 98.1 F 08/11/18 08:00 Pulse 80 08/11/18 11:11 Resp 20 08/11/18 09:00 BP 121/78 08/11/18 09:00 Pulse Ox 100 08/11/18 12:00 Intake & Output 08/10/18 08/11/18 08/11/18 18:59 06:59 18:59 Intake Total 1090 106 850 Output Total 1150 1050 Balance -60 106 -200 Weight (lbs) 54.119 kg 55.066 kg Intake: Intake, IV Amount 106 Gentamicin 240 mg In 106 Sodium Chloride 0.9% 100 ml @ 100 mls/hr IV Q24H [facility] Rx#:[id number] Tube Feeding 840 550 Other 250 300 Output: Urine 1150 1050 Other: # Bowel Movements 2 0 Weight Source Bedscale Bedscale Active Medications: Current Medications Acetaminophen (Tylenol) 650 mg GT Q4H PRN PRN Reason: Fever > 101 Stop: 09/29/18 06:32 Last Admin: 08/06/18 17:05 Dose: 650 mg Ascorbic Acid (Vitamin C) 500 mg GT DAILY [facility] Stop: 09/30/18 08:59 Last Admin: 08/11/18 08:39 Dose: 500 mg Bisacodyl (Dulcolax 10 Mg Supp) 10 mg RC DAILY PRN PRN Reason: Constipation Stop: 09/29/18 15:21 Chlorhexidine Gluconate (Peridex) 15 ml MM 0800,1999 [facility] Stop: 09/28/18 19:59 Last Admin: 08/11/18 08:39 Dose: 15 ml Famotidine (Pepcid) 20 mg PO BID [facility] Stop: 09/29/18 20:59 Last Admin: 08/11/18 08:39 Dose: 20 mg Norepinephrine Bitartrate 4 mg (/ Dextrose) 254 mls @ 0 mls/hr IV TITR PRN; Protocol PRN Reason: BP MAINTENANCE (PER PROTOCOL) Stop: 09/29/18 00:37 Last Titration: 08/05/18 00:15 Dose: 0 mcg/min, 0 mls/hr Sodium Chloride (Nacl 0.9%) 1,000 mls @ 50 mls/hr IV .Q20H [facility] Stop: 10/02/18 11:59 Last Admin: 08/08/18 17:27 Dose: 50 mls/hr Gentamicin Sulfate 240 mg/ (Sodium Chloride) 106 mls @ 100 mls/hr IV Q24H [facility] Stop: 10/08/18 19:59 Last Infusion: 08/10/18 21:20 Dose: Infused Lactobacillus Rhamnosus (Culturelle 15b) 1 each PO DAILY [facility] Stop: 09/30/18 11:59 Last Admin: 08/11/18 08:39 Dose: 1 each Levetiracetam (Keppra) 500 mg GT BID [facility] Stop: 09/30/18 08:59 Last Admin: 08/11/18 08:39 Dose: 500 mg Lorazepam (Ativan) 1 mg IVP Q4HR PRN; Protocol PRN Reason: Seizure Stop: 10/01/18 11:24 Last Admin: 08/09/18 12:30 Dose: 1 mg Magnesium Hydroxide (Milk Of Magnesia) 30 ml GT HS PRN PRN Reason: Constipation Stop: 09/29/18 17:49 Miscellaneous (Probiotic Screen) 1 ea PRN PRN PRN Reason: PROTOCOL Stop: 09/30/18 09:02 Miscellaneous (Gentamicin Iv Per Pharmacy) 1 ea PRN PRN PRN Reason: PROTOCOL Stop: 10/08/18 02:47 Morphine Sulfate (Morphine) 1 mg IVP Q4HR PRN PRN Reason: Pain (Mild) Stop: 09/30/18 14:04 Last Admin: 08/07/18 22:56 Dose: 1 mg Multivitamins/Vitamin C (Theragran) 1 tab GT BID [facility] Stop: 09/30/18 08:59 Last Admin: 08/11/18 08:39 Dose: 1 tab Potassium Chloride (Potassium Chloride Elixir) 40 meq GT DAILY [facility] Stop: 10/04/18 08:59 Last Admin: 08/11/18 08:38 Dose: 40 meq Thiamine HCl (Vitamin B1) 100 mg GT DAILY [facility] Stop: 09/30/18 08:59 Last Admin: 08/11/18 08:39 Dose: 100 mg Wound Care/Dressing Products (Therahoney) 1 appl TP DAILY [facility] Stop: 09/30/18 08:59 Last Admin: 08/10/18 16:59 Dose: 1 appl Zinc Sulfate (Zinc Sulfate) 220 mg GT DAILY [facility] Stop: 09/30/18 08:59 Last Admin: 08/11/18 08:39 Dose: 220 mg General: cachectic HEENT: PERRLA, EOMI, other (absent right sided scalp bone) Neck: supple, no thyromegaly Cardiovascular: S1S2, regular Lungs: clear to auscultation bilaterally Abdomen: soft, no tender Extremities: no cyanosis, no clubbing, no edema Neurological: awake, alert Skin: intact - Procedures Procedures: Procedures Procedure Code Date REPAIR HEAD, EXTERNAL APPROACH [id number] 07/30/18 RESPIRATORY VENTILATION, GREATER THAN 96 CONSECUTIVE HOURS [id number] 07/30/18 Infectious Disease Assmt/Plan - Assessment Assessment: 1. Sepsis. Pseudomonas aeruginosa. persistent infection. blood culture is still growing bacteria. 2. Urinary tract infection and pyelonephritis. 3. Vent-dependent respiratory failure. 4. History of subarachnoid hemorrhage. 5. Status post craniotomy on the right side. 6. Hypokalemia. - Plan Plan: Continue gentamicin. Nutritional Asmnt/Malnutr-PDOC - Dietary Evaluation Malnutrition Findings (Please click <Entered> for more info): Nutritional Asmnt/Malnutrition Start: 07/31/18 14: 50 Text: Status: Complete Freq: Protocol: Document 07/31/18 14:50 CHAPIN (Rec: 07/31/18 15:09 CHAPIN [email or web address]) Nutritional Asmnt/Malnutrition Patient General Information Nutritional Screening High Risk Diagnosis urosepis Pertinent Medical Hx/Surgical Hx seizures, anemia, resp failure , SAH, trach, Gtube, foleu, vent depression Subjective Information Pt seen resting in bed, trach to vent. Visiablly verified TF was running at goal rate of 70ml/hr at this time. Current Diet Order/ Nutrition Support Jevity 1.2 at 70ml/hr x 20hr. Pertinent Medications nacl 0.9%, vancomycin Pertinent Labs 5/2 Na 135, alb 3.7 Nutritional Hx/Data Height 1.73 m Height (Calculated Centimeters) 172.7 Current Weight (lbs) 55.338 kg Weight (Calculated Kilograms) 55.3 Weight (Calculated Grams) 35576.3 [place] Body Weight 154 Body Mass Index (BMI) 18.5 Weight Status Approriate GI Symptoms GI Symptoms None Last BM 5/2 Difficult in: None Skin Integrity/Comment: scar to head and right anterior ear, abrasion to left ankle, rash to left posterior and right axilla, decubitus ulcer to sacrum. Sal 12. Estimated Nutritional Goals Calories/Kcals/Kg 23-27 based on IBW 70kg Kcals Calculated 3793-5669 Protein g/k-1.2 Protein Calculated 70-84 Fluid: ml 1610-1890ml (1ml/kcal) Nutritional Problem No current Nutrition Prob Problem N/A Malnutrition Alert Is there a minimum of two criteria No selected? Query Text:Check all the applicable criteria. A minimum of two criteria are recommended for diagnosis of either severe or non-severe malnutrition. Malnutrition Related to Morbid Obesity Malnutrition related to morbid obesity No Intervention/Recommendation Comments 1. Continue with current TF regimen Jevity 1.2 at 70ml/hr x 20hr. It provides 1680kcal, 78g protein, 1130ml free water , meeting 100% of nutritional needs 2. Monitor TF rate, tolerance, wt, skin integrity and labs 3. F/U as moderate risk Expected Outcomes/Goals Expected Outcomes/Goals 1. Pt to meet at least 90% of nutritional needs via nutrition support with tolerance 2. Wt stability, skin to remain intact, labs to approach WNL.
[2018-08-11] MEDS: Therahoney Gel 42.5gm Tube TP SCH (17:06)
[2018-08-11] MEDS: Gentamicin 240 MG in Sodium Chloride 0.9% 100 ML IV SCH (19:58)
[2018-08-11] MEDS: Sodium Chloride 0.9% 1,000 ML IV SCH (20:22)
[2018-08-12] MEDS: Morphine Sulfate 2 mg/mL 1mL Syr IVP PRN ×2 (00:59→20:15)
--- NOTE | 2018-08-12 04:15 | Progress Notes ---
DATE: 08/11/2018 PULMONARY PROGRESS NOTE SUBJECTIVE: The patient appears to be doing okay, no distress. OBJECTIVE: VITAL SIGNS: Temperature is 98.5, pulse 83, respirations 18, blood pressure 112/69, and saturation 100%. CHEST: Good breath sounds. No wheezing. Few rhonchi. HEART: Regular rate and rhythm. No murmurs. ABDOMEN: Soft. EXTREMITIES: No edema. LABORATORY DATA: WBC is 9.4, hemoglobin 8.7, hematocrit 26.3, and platelets 565. Sodium 136, potassium 4.0, BUN 11, and creatinine 0.7. IMPRESSION: 1. Respiratory failure. 2. Pneumonia. 3. Urinary tract infection. 4. Sepsis. 5. Intracranial hemorrhage, status post craniotomy. PLAN: 1. Continue supportive care. 2. Ventilator support. 3. Antibiotics. 4. Discharge planning. JOB# [id number]
[2018-08-12] MEDS ORDERED: Gentamicin 240 MG in Sodium Chloride 0.9% 100 ML IV SCH (08:00)
[2018-08-12] MEDS: Levetiracetam 500 mg/5mL 5mL UDSyr *for ORAL USE ONLY GT SCH ×2 (08:30→16:27)
[2018-08-12] MEDS: Lactobacillus Rhamnosus GG 15 Billion CFU CAP.SPRINK PO SCH (08:30)
[2018-08-12] MEDS: Multivitamin Tab GT SCH ×2 (08:30→16:27)
[2018-08-12] MEDS: Chlorhexidine Gluconate 0.12% 15mL Mouthwash MM SCH ×2 (08:30→20:58)
[2018-08-12] MEDS: Potassium Chloride Elixir 20 mEq /15 mL UDC GT SCH (08:30)
[2018-08-12] MEDS: Therahoney Gel 42.5gm Tube TP SCH (08:31)
[2018-08-12] MEDS: Sodium Chloride 0.9% 1,000 ML IV SCH (16:28)
--- NOTE | 2018-08-12 23:12 | Internal Medicine Prog Note ---
Internal Medicine Subjective - Subjective Patient is:: awake, non-verbal, other (pt in no distress.) Patient Complaints of:: other (resp. failure on vent.) Per staff patient has:: no adverse event, no episodes of fall Internal Medicine Objective - Results Result Diagrams: 08/11/18 04:15 08/11/18 04:15 Recent Labs: Laboratory Last Values WBC 9.4 Th/cmm (4.8-10.8) 08/11/18 04:15 RBC 3.00 Mil/cmm (4.30-5.70) L 08/11/18 04:15 Hgb 8.7 gm/dL (12-16) L 08/11/18 04:15 Hct 26.3 % (41.0-60) L 08/11/18 04:15 MCV 87.8 fl (80-99) 08/11/18 04:15 MCH 29.1 pg (26.0-30.0) 08/11/18 04:15 MCHC Differential 33.1 pg (28.0-36.0) 08/11/18 04:15 RDW 14.8 % (11.5-20.0) 08/11/18 04:15 Plt Count 565 Th/cmm (150-400) H 08/11/18 04:15 MPV 7.3 fl 08/11/18 04:15 Add Manual Diff YES 08/05/18 04:05 Neutrophils % 67.7 % (40.0-80.0) 08/11/18 04:15 Band Neutrophils % 0 % (0-10) 08/05/18 04:05 Lymphocytes % 20.9 % (20.0-50.0) 08/11/18 04:15 Monocytes % 7.0 % (2.0-10.0) 08/11/18 04:15 Eosinophils % 3.2 % (0.0-5.0) 08/11/18 04:15 Basophils % 1.2 % (0.0-2.0) 08/11/18 04:15 Neutrophils (Manual) 72 % (40-80) 08/05/18 04:05 Lymphocytes 14 % (20-50) L 08/05/18 04:05 Monocytes 10 % (2-10) 08/05/18 04:05 Eosinophils 4 % (0-5) 08/05/18 04:05 Basophils 0 % (0-3) 08/05/18 04:05 Platelet Estimate ADEQUATE (NORMAL) 08/01/18 05:00 Sodium 136 mEq/L (136-145) 08/11/18 04:15 Potassium 4.0 mEq/L (3.5-5.1) 08/11/18 04:15 Chloride 98 mEq/L (98-107) 08/11/18 04:15 Carbon Dioxide 28.4 mEq/L (21.0-31.0) 08/11/18 04:15 Anion Gap 13.6 (7.0-16.0) 08/11/18 04:15 BUN 11 mg/dL (7-25) 08/11/18 04:15 Creatinine 0.7 mg/dL (0.7-1.3) 08/11/18 04:15 Est GFR ( Amer) > 60.0 ml/min (>90) 08/11/18 04:15 Est GFR (Non-Af Amer) > 60.0 ml/min 08/11/18 04:15 BUN/Creatinine Ratio 15.7 08/11/18 04:15 Glucose 107 mg/dL (70-105) H 08/11/18 04:15 Whole Bld Lactic Acid 1.47 mmol/L (0.60-1.99) 07/31/18 07:40 Calcium 9.6 mg/dL (8.6-10.3) 08/11/18 04:15 Total Bilirubin 0.3 mg/dL (0.3-1.0) 08/09/18 06:15 AST 21 U/L (13-39) 08/09/18 06:15 ALT 21 U/L (7-52) 08/09/18 06:15 Alkaline Phosphatase 64 U/L (34-104) 08/09/18 06:15 Total Protein 6.6 gm/dL (6.0-8.3) 08/09/18 06:15 Albumin 3.1 gm/dL (4.2-5.5) L 08/09/18 06:15 Globulin 3.5 gm/dL 08/09/18 06:15 Albumin/Globulin Ratio 0.9 (1.0-1.8) L 08/09/18 06:15 Urine Source CATH 07/30/18 19:20 Urine Color YELLOW 07/30/18 19:20 Urine Clarity HAZY (CLEAR) 07/30/18 19:20 Urine pH 7.0 (4.6 - 8.0) 07/30/18 19:20 Ur Specific [place] 1.010 (1.005-1.030) 07/30/18 19:20 Urine Protein 30 mg/dL (NEGATIVE) H 07/30/18 19:20 Urine Glucose (UA) NEGATIVE mg/dL (NEGATIVE) 07/30/18 19:20 Urine Ketones NEGATIVE mg/dL (NEGATIVE) 07/30/18 19:20 Urine Blood LARGE (NEGATIVE) H 07/30/18 19:20 Urine Nitrate POSITIVE (NEGATIVE) H 07/30/18 19:20 Urine Bilirubin NEGATIVE (NEGATIVE) 07/30/18 19:20 Urine Urobilinogen 0.2 E.U./dL (0.2 - 1.0) 07/30/18 19:20 Ur Leukocyte Esterase LARGE (NEGATIVE) H 07/30/18 19:20 Urine RBC 5-10 /hpf (0-5) H 07/30/18 19:20 Urine WBC 25-50 /hpf (0-5) H 07/30/18 19:20 Ur Epithelial Cells FEW /lpf (FEW) 07/30/18 19:20 Urine Bacteria 4+ /hpf (NONE SEEN) H 07/30/18 19:20 Amikacin Peak 25.8 ug/mL (20.0-30.0) 08/07/18 18:18 Amikacin Trough 0.8 ug/mL (1.0-8.0) L 08/09/18 18:00 Random Amikacin 0.8 ug/ml (1.0-30.0) L 08/04/18 12:00 Gentamicin Trough 4.3 ug/ml (0.2-2.0) H 08/11/18 04:15 Vancomycin Trough 21.3 ug/mL (5-10) H 08/01/18 21:26 - Physical Exam Vitals and I&O: Vital Signs Temp 99.3 F 08/12/18 22:00 Pulse 69 08/12/18 22:00 Resp 12 08/12/18 22:00 BP 107/73 08/12/18 22:00 Pulse Ox 99 08/12/18 22:00 Intake & Output 08/12/18 08/12/18 08/13/18 06:59 18:59 06:59 Intake Total 5556.792 8962.333 Output Total 600 1350 Balance 747.667 -86.667 Weight (lbs) 56.416 kg 56.245 kg Intake: Intake, IV Amount 587.667 518.333 Gentamicin 240 mg In 106 Sodium Chloride 0.9% 100 ml @ 100 mls/hr IV Q24H [facility] Rx#:[id number] Sodium Chloride 0.9% 1, 481.667 518.333 000 ml @ 50 mls/hr IV . Q20H [facility] Rx#:[id number] Tube Feeding 560 745 Other 200 Output: Urine 600 1350 Other: # Bowel Movements 0 Weight Source Bedscale Bedscale Active Medications: Current Medications Acetaminophen (Tylenol) 650 mg GT Q4H PRN PRN Reason: Fever > 101 Stop: 09/29/18 06:32 Last Admin: 08/12/18 20:57 Dose: 650 mg Ascorbic Acid (Vitamin C) 500 mg GT DAILY [facility] Stop: 09/30/18 08:59 Last Admin: 08/12/18 08:30 Dose: 500 mg Bisacodyl (Dulcolax 10 Mg Supp) 10 mg RC DAILY PRN PRN Reason: Constipation Stop: 09/29/18 15:21 Chlorhexidine Gluconate (Peridex) 15 ml MM 0800,1999 [facility] Stop: 09/28/18 19:59 Last Admin: 08/12/18 20:58 Dose: 15 ml Famotidine (Pepcid) 20 mg PO BID [facility] Stop: 09/29/18 20:59 Last Admin: 08/12/18 16:27 Dose: 20 mg Norepinephrine Bitartrate 4 mg (/ Dextrose) 254 mls @ 0 mls/hr IV TITR PRN; Protocol PRN Reason: BP MAINTENANCE (PER PROTOCOL) Stop: 09/29/18 00:37 Last Titration: 08/05/18 00:15 Dose: 0 mcg/min, 0 mls/hr Sodium Chloride (Nacl 0.9%) 1,000 mls @ 50 mls/hr IV .Q20H [facility] Stop: 10/02/18 11:59 Last Admin: 08/12/18 16:28 Dose: 50 mls/hr Gentamicin Sulfate 240 mg/ (Sodium Chloride) 106 mls @ 100 mls/hr IV Q36H [facility] Stop: 10/12/18 07:59 Lactobacillus Rhamnosus (Culturelle 15b) 1 each PO DAILY [facility] Stop: 09/30/18 11:59 Last Admin: 08/12/18 08:30 Dose: 1 each Levetiracetam (Keppra) 500 mg GT BID [facility] Stop: 09/30/18 08:59 Last Admin: 08/12/18 16:27 Dose: 500 mg Lorazepam (Ativan) 1 mg IVP Q4HR PRN; Protocol PRN Reason: Seizure Stop: 10/01/18 11:24 Last Admin: 08/09/18 12:30 Dose: 1 mg Magnesium Hydroxide (Milk Of Magnesia) 30 ml GT HS PRN PRN Reason: Constipation Stop: 09/29/18 17:49 Miscellaneous (Probiotic Screen) 1 [facility] PRN PRN PRN Reason: PROTOCOL Stop: 09/30/18 09:02 Miscellaneous (Gentamicin Iv Per Pharmacy) 1 [facility] PRN PRN PRN Reason: PROTOCOL Stop: 10/08/18 02:47 Morphine Sulfate (Morphine) 1 mg IVP Q4HR PRN PRN Reason: Pain (Mild) Stop: 09/30/18 14:04 Last Admin: 08/12/18 20:15 Dose: 1 mg Multivitamins/Vitamin C (Theragran) 1 tab GT BID [facility] Stop: 09/30/18 08:59 Last Admin: 08/12/18 16:27 Dose: 1 tab Potassium Chloride (Potassium Chloride Elixir) 40 meq GT DAILY [facility] Stop: 10/04/18 08:59 Last Admin: 08/12/18 08:30 Dose: 40 meq Thiamine HCl (Vitamin B1) 100 mg GT DAILY [facility] Stop: 09/30/18 08:59 Last Admin: 08/12/18 08:30 Dose: 100 mg Wound Care/Dressing Products (Therahoney) 1 appl TP DAILY [facility] Stop: 09/30/18 08:59 Last Admin: 08/12/18 08:31 Dose: 1 appl Zinc Sulfate (Zinc Sulfate) 220 mg GT DAILY [facility] Stop: 09/30/18 08:59 Last Admin: 08/12/18 08:30 Dose: 220 mg Physical Exam: 58 y/o male patient has hx of resp. failure on Ventilator support, no new events reported. General: weak HEENT: NC/AT, PERRLA Neck: Supple, No JVD Lungs: wheezing, ronchi Cardiovascular: RRR, Normal S1 Abdomen: non-tender Extremities: clear Neurological: no change - Procedures Procedures: Procedures Procedure Code Date REPAIR HEAD, EXTERNAL APPROACH [id number] 07/30/18 RESPIRATORY VENTILATION, GREATER THAN 96 CONSECUTIVE HOURS [id number] 07/30/18 Internal Medicine Assmt/Plan - Assessment Assessment: Dysphagia. Weakness. Intracranial Hemmorhage s/p craniotomy. Respiratory failure, On ventilator support. UTI. Sepsis. Hx of Cerebrovascular Disease. - Plan Plan: Continuation of care. Monitor Vitals and Labs. Continue present meds as directed. Monitor Diet/Nutritional support. Respiratory treatments and Pulmonary support. Supplemental Oxygen. Aspiration precaution. Deep suctioning prn. Monitor Diet/Nutritional support. Pain Management. Safety precaution. Supportive care. Fall precaution. Will Monitor patient and continue current treatment plan as ordered. Nutritional Asmnt/Malnutr-PDOC - Dietary Evaluation Malnutrition Findings (Please click <Entered> for more info): Nutritional Asmnt/Malnutrition Start: 07/31/18 14: 50 Text: Status: Complete Freq: Protocol: Document 07/31/18 14:50 LCRASG (Rec: 07/31/18 15:09 [email or web address]) Nutritional Asmnt/Malnutrition Patient General Information Nutritional Screening High Risk Diagnosis urosepis Pertinent Medical Hx/Surgical Hx seizures, anemia, resp failure , SAH, trach, Gtube, foleu, vent depression Subjective Information Pt seen resting in bed, trach to vent. Visiablly verified TF was running at goal rate of 70ml/hr at this time. Current Diet Order/ Nutrition Support Jevity 1.2 at 70ml/hr x 20hr. Pertinent Medications nacl 0.9%, vancomycin Pertinent Labs 5/2 Na 135, alb 3.7 Nutritional Hx/Data Height 1.73 m Height (Calculated Centimeters) 172.7 Current Weight (lbs) 55.338 kg Weight (Calculated Kilograms) 55.3 Weight (Calculated Grams) 24909.3 [place] Body Weight 154 Body Mass Index (BMI) 18.5 Weight Status Approriate GI Symptoms GI Symptoms None Last BM 5/2 Difficult in: None Skin Integrity/Comment: scar to head and right anterior ear, abrasion to left ankle, rash to left posterior and right axilla, decubitus ulcer to sacrum. Sal 12. Estimated Nutritional Goals Calories/Kcals/Kg 23-27 based on IBW 70kg Kcals Calculated 3492-4762 Protein g/k-1.2 Protein Calculated 70-84 Fluid: ml 1610-1890ml (1ml/kcal) Nutritional Problem No current Nutrition Prob Problem N/A Malnutrition Alert Is there a minimum of two criteria No selected? Query Text:Check all the applicable criteria. A minimum of two criteria are recommended for diagnosis of either severe or non-severe malnutrition. Malnutrition Related to Morbid Obesity Malnutrition related to morbid obesity No Intervention/Recommendation Comments 1. Continue with current TF regimen Jevity 1.2 at 70ml/hr x 20hr. It provides 1680kcal, 78g protein, 1130ml free water , meeting 100% of nutritional needs 2. Monitor TF rate, tolerance, wt, skin integrity and labs 3. F/U as moderate risk Expected Outcomes/Goals Expected Outcomes/Goals 1. Pt to meet at least 90% of nutritional needs via nutrition support with tolerance 2. Wt stability, skin to remain intact, labs to approach WNL.
--- NOTE | 2018-08-13 03:00 | Infectious Disease Prog Note ---
Infectious Disease Subjective - Review of Systems Service Date: 08/12/18 Subjective: Afebrile. on the ventilator support. Infectious Disease Objective - Results Result Diagrams: 08/11/18 04:15 08/11/18 04:15 Recent Labs: Laboratory Last Values WBC 9.4 Th/cmm (4.8-10.8) 08/11/18 04:15 RBC 3.00 Mil/cmm (4.30-5.70) L 08/11/18 04:15 Hgb 8.7 gm/dL (12-16) L 08/11/18 04:15 Hct 26.3 % (41.0-60) L 08/11/18 04:15 MCV 87.8 fl (80-99) 08/11/18 04:15 MCH 29.1 pg (26.0-30.0) 08/11/18 04:15 MCHC Differential 33.1 pg (28.0-36.0) 08/11/18 04:15 RDW 14.8 % (11.5-20.0) 08/11/18 04:15 Plt Count 565 Th/cmm (150-400) H 08/11/18 04:15 MPV 7.3 fl 08/11/18 04:15 Add Manual Diff YES 08/05/18 04:05 Neutrophils % 67.7 % (40.0-80.0) 08/11/18 04:15 Band Neutrophils % 0 % (0-10) 08/05/18 04:05 Lymphocytes % 20.9 % (20.0-50.0) 08/11/18 04:15 Monocytes % 7.0 % (2.0-10.0) 08/11/18 04:15 Eosinophils % 3.2 % (0.0-5.0) 08/11/18 04:15 Basophils % 1.2 % (0.0-2.0) 08/11/18 04:15 Neutrophils (Manual) 72 % (40-80) 08/05/18 04:05 Lymphocytes 14 % (20-50) L 08/05/18 04:05 Monocytes 10 % (2-10) 08/05/18 04:05 Eosinophils 4 % (0-5) 08/05/18 04:05 Basophils 0 % (0-3) 08/05/18 04:05 Platelet Estimate ADEQUATE (NORMAL) 08/01/18 05:00 Sodium 136 mEq/L (136-145) 08/11/18 04:15 Potassium 4.0 mEq/L (3.5-5.1) 08/11/18 04:15 Chloride 98 mEq/L (98-107) 08/11/18 04:15 Carbon Dioxide 28.4 mEq/L (21.0-31.0) 08/11/18 04:15 Anion Gap 13.6 (7.0-16.0) 08/11/18 04:15 BUN 11 mg/dL (7-25) 08/11/18 04:15 Creatinine 0.7 mg/dL (0.7-1.3) 08/11/18 04:15 Est GFR ( Amer) > 60.0 ml/min (>90) 08/11/18 04:15 Est GFR (Non-Af Amer) > 60.0 ml/min 08/11/18 04:15 BUN/Creatinine Ratio 15.7 08/11/18 04:15 Glucose 107 mg/dL (70-105) H 08/11/18 04:15 Whole Bld Lactic Acid 1.47 mmol/L (0.60-1.99) 07/31/18 07:40 Calcium 9.6 mg/dL (8.6-10.3) 08/11/18 04:15 Total Bilirubin 0.3 mg/dL (0.3-1.0) 08/09/18 06:15 AST 21 U/L (13-39) 08/09/18 06:15 ALT 21 U/L (7-52) 08/09/18 06:15 Alkaline Phosphatase 64 U/L (34-104) 08/09/18 06:15 Total Protein 6.6 gm/dL (6.0-8.3) 08/09/18 06:15 Albumin 3.1 gm/dL (4.2-5.5) L 08/09/18 06:15 Globulin 3.5 gm/dL 08/09/18 06:15 Albumin/Globulin Ratio 0.9 (1.0-1.8) L 08/09/18 06:15 Urine Source CATH 07/30/18 19:20 Urine Color YELLOW 07/30/18 19:20 Urine Clarity HAZY (CLEAR) 07/30/18 19:20 Urine pH 7.0 (4.6 - 8.0) 07/30/18 19:20 Ur Specific [place] 1.010 (1.005-1.030) 07/30/18 19:20 Urine Protein 30 mg/dL (NEGATIVE) H 07/30/18 19:20 Urine Glucose (UA) NEGATIVE mg/dL (NEGATIVE) 07/30/18 19:20 Urine Ketones NEGATIVE mg/dL (NEGATIVE) 07/30/18 19:20 Urine Blood LARGE (NEGATIVE) H 07/30/18 19:20 Urine Nitrate POSITIVE (NEGATIVE) H 07/30/18 19:20 Urine Bilirubin NEGATIVE (NEGATIVE) 07/30/18 19:20 Urine Urobilinogen 0.2 E.U./dL (0.2 - 1.0) 07/30/18 19:20 Ur Leukocyte Esterase LARGE (NEGATIVE) H 07/30/18 19:20 Urine RBC 5-10 /hpf (0-5) H 07/30/18 19:20 Urine WBC 25-50 /hpf (0-5) H 07/30/18 19:20 Ur Epithelial Cells FEW /lpf (FEW) 07/30/18 19:20 Urine Bacteria 4+ /hpf (NONE SEEN) H 07/30/18 19:20 Amikacin Peak 25.8 ug/mL (20.0-30.0) 08/07/18 18:18 Amikacin Trough 0.8 ug/mL (1.0-8.0) L 08/09/18 18:00 Random Amikacin 0.8 ug/ml (1.0-30.0) L 08/04/18 12:00 Gentamicin Trough 4.3 ug/ml (0.2-2.0) H 08/11/18 04:15 Vancomycin Trough 21.3 ug/mL (5-10) H 08/01/18 21:26 - Physical Exam Vitals and I&O: Vital Signs Temp 97.1 F 08/13/18 02:00 Pulse 71 08/13/18 02:00 Resp 13 08/13/18 02:00 BP 125/77 08/13/18 02:00 Pulse Ox 100 08/13/18 02:00 Intake & Output 08/12/18 08/12/18 08/13/18 06:59 18:59 06:59 Intake Total 6817.633 4321.333 Output Total 600 1350 Balance 747.667 -86.667 Weight (lbs) 56.416 kg 56.245 kg Intake: Intake, IV Amount 587.667 518.333 Gentamicin 240 mg In 106 Sodium Chloride 0.9% 100 ml @ 100 mls/hr IV Q24H [facility] Rx#:[id number] Sodium Chloride 0.9% 1, 481.667 518.333 000 ml @ 50 mls/hr IV . Q20H [facility] Rx#:[id number] Tube Feeding 560 745 Other 200 Output: Urine 600 1350 Other: # Bowel Movements 0 Weight Source Bedscale Bedscale Active Medications: Current Medications Acetaminophen (Tylenol) 650 mg GT Q4H PRN PRN Reason: Fever > 101 Stop: 09/29/18 06:32 Last Admin: 08/12/18 20:57 Dose: 650 mg Ascorbic Acid (Vitamin C) 500 mg GT DAILY [facility] Stop: 09/30/18 08:59 Last Admin: 08/12/18 08:30 Dose: 500 mg Bisacodyl (Dulcolax 10 Mg Supp) 10 mg RC DAILY PRN PRN Reason: Constipation Stop: 09/29/18 15:21 Chlorhexidine Gluconate (Peridex) 15 ml MM 0800,1999 [facility] [place] Stop: 09/28/18 19:59 Last Admin: 08/12/18 20:58 Dose: 15 ml Famotidine (Pepcid) 20 mg PO BID [facility] [place] Stop: 09/29/18 20:59 Last Admin: 08/12/18 16:27 Dose: 20 mg Norepinephrine Bitartrate 4 mg (/ Dextrose) 254 mls @ 0 mls/hr IV TITR PRN; Protocol PRN Reason: BP MAINTENANCE (PER PROTOCOL) Stop: 09/29/18 00:37 Last Titration: 08/05/18 00:15 Dose: 0 mcg/min, 0 mls/hr Sodium Chloride (Nacl 0.9%) 1,000 mls @ 50 mls/hr IV .Q20H [facility] [place] Stop: 10/02/18 11:59 Last Admin: 08/12/18 16:28 Dose: 50 mls/hr Gentamicin Sulfate 240 mg/ (Sodium Chloride) 106 mls @ 100 mls/hr IV Q36H [facility] [place] Stop: 10/12/18 07:59 Lactobacillus Rhamnosus (Culturelle 15b) 1 each PO DAILY [facility] Stop: 09/30/18 11:59 Last Admin: 08/12/18 08:30 Dose: 1 each Levetiracetam (Keppra) 500 mg GT BID [facility] Stop: 09/30/18 08:59 Last Admin: 08/12/18 16:27 Dose: 500 mg Lorazepam (Ativan) 1 mg IVP Q4HR PRN; Protocol PRN Reason: Seizure Stop: 10/01/18 11:24 Last Admin: 08/09/18 12:30 Dose: 1 mg Magnesium Hydroxide (Milk Of Magnesia) 30 ml GT HS PRN PRN Reason: Constipation Stop: 09/29/18 17:49 Miscellaneous (Probiotic Screen) 1 [facility] PRN PRN PRN Reason: PROTOCOL Stop: 09/30/18 09:02 Miscellaneous (Gentamicin Iv Per Pharmacy) 1 [facility] PRN PRN PRN Reason: PROTOCOL Stop: 10/08/18 02:47 Morphine Sulfate (Morphine) 1 mg IVP Q4HR PRN PRN Reason: Pain (Mild) Stop: 09/30/18 14:04 Last Admin: 08/12/18 20:15 Dose: 1 mg Multivitamins/Vitamin C (Theragran) 1 tab GT BID [facility] Stop: 09/30/18 08:59 Last Admin: 08/12/18 16:27 Dose: 1 tab Potassium Chloride (Potassium Chloride Elixir) 40 meq GT DAILY [facility] Stop: 10/04/18 08:59 Last Admin: 08/12/18 08:30 Dose: 40 meq Thiamine HCl (Vitamin B1) 100 mg GT DAILY [facility] Stop: 09/30/18 08:59 Last Admin: 08/12/18 08:30 Dose: 100 mg Wound Care/Dressing Products (Therahoney) 1 appl TP DAILY [facility] Stop: 09/30/18 08:59 Last Admin: 08/12/18 08:31 Dose: 1 appl Zinc Sulfate (Zinc Sulfate) 220 mg GT DAILY [facility] Stop: 09/30/18 08:59 Last Admin: 08/12/18 08:30 Dose: 220 mg General: no acute distress, cachectic HEENT: EOMI, other (right side scalp bone abesnt) Neck: supple, tracheostomy, no thyromegaly Cardiovascular: S1S2, regular Lungs: clear to auscultation bilaterally, clear to percussion Abdomen: soft, no tender, no distended, no mass Extremities: no cyanosis, no clubbing, no edema Neurological: awake, alert - Procedures Procedures: Procedures Procedure Code Date REPAIR HEAD, EXTERNAL APPROACH [id number] 07/30/18 RESPIRATORY VENTILATION, GREATER THAN 96 CONSECUTIVE HOURS [id number] 07/30/18 Infectious Disease Assmt/Plan - Assessment Assessment: 1. Sepsis. Pseudomonas aeruginosa. persistent infection. blood culture is still growing bacteria. 2. Urinary tract infection and pyelonephritis. 3. Vent-dependent respiratory failure. 4. History of subarachnoid hemorrhage. 5. Status post craniotomy on the right side. 6. Hypokalemia. - Plan Plan: Continue gentamicin till 08/18/2018. Nutritional Asmnt/Malnutr-PDOC - Dietary Evaluation Malnutrition Findings (Please click <Entered> for more info): Nutritional Asmnt/Malnutrition Start: 07/31/18 14: 50 Text: Status: Complete Freq: Protocol: Document 07/31/18 14:50 RAS (Rec: 07/31/18 15:09 HEN [email or web address]) Nutritional Asmnt/Malnutrition Patient General Information Nutritional Screening High Risk Diagnosis urosepis Pertinent Medical Hx/Surgical Hx seizures, anemia, resp failure , SAH, trach, Gtube, foleu, vent depression Subjective Information Pt seen resting in bed, trach to vent. Visiablly verified TF was running at goal rate of 70ml/hr at this time. Current Diet Order/ Nutrition Support Jevity 1.2 at 70ml/hr x 20hr. Pertinent Medications nacl 0.9%, vancomycin Pertinent Labs 5/2 Na 135, alb 3.7 Nutritional Hx/Data Height 1.73 m Height (Calculated Centimeters) 172.7 Current Weight (lbs) 55.338 kg Weight (Calculated Kilograms) 55.3 Weight (Calculated Grams) 55440.3 [place] Body Weight 154 Body Mass Index (BMI) 18.5 Weight Status Approriate GI Symptoms GI Symptoms None Last BM 5/2 Difficult in: None Skin Integrity/Comment: scar to head and right anterior ear, abrasion to left ankle, rash to left posterior and right axilla, decubitus ulcer to sacrum. Sal 12. Estimated Nutritional Goals Calories/Kcals/Kg 23-27 based on IBW 70kg Kcals Calculated 4033-2036 Protein g/k-1.2 Protein Calculated 70-84 Fluid: ml 1610-1890ml (1ml/kcal) Nutritional Problem No current Nutrition Prob Problem N/A Malnutrition Alert Is there a minimum of two criteria No selected? Query Text:Check all the applicable criteria. A minimum of two criteria are recommended for diagnosis of either severe or non-severe malnutrition. Malnutrition Related to Morbid Obesity Malnutrition related to morbid obesity No Intervention/Recommendation Comments 1. Continue with current TF regimen Jevity 1.2 at 70ml/hr x 20hr. It provides 1680kcal, 78g protein, 1130ml free water , meeting 100% of nutritional needs 2. Monitor TF rate, tolerance, wt, skin integrity and labs 3. F/U as moderate risk Expected Outcomes/Goals Expected Outcomes/Goals 1. Pt to meet at least 90% of nutritional needs via nutrition support with tolerance 2. Wt stability, skin to remain intact, labs to approach WNL.
--- NOTE | 2018-08-13 04:16 | Progress Notes ---
DATE: 08/12/2018 SUBJECTIVE: The patient appears to be doing okay, comfortable. OBJECTIVE: GENERAL: In no distress. VITAL SIGNS: Temperature 98.2, pulse 70, respiration 16, blood pressure 130/72, saturation 99%. CHEST: Good breath sounds, no wheezing, no crackles. HEART: Regular rate and rhythm. No murmur. ABDOMEN: Soft, no tenderness. EXTREMITIES: No edema. LABORATORY DATA: No new labs today. IMPRESSION: 1. Respiratory failure. 2. Urinary tract infection. 3. Sepsis. 4. Intracranial hemorrhage, status post craniotomy. PLAN: 1. Continue ventilatory support. 2. Antibiotics, supportive care. 3. Discharge planning. JOB# [id number]
[2018-08-13] MEDS: Morphine Sulfate 2 mg/mL 1mL Syr IVP PRN (04:51)
[2018-08-13 05:15] LABS: % BASOPHILS 0.2 % (0.0-2.0); % EOSINOPHILS 4.5 % (0.0-5.0); % LYMPHOCYTES 25.8 % (20.0-50.0); % MONOCYTES 6.3 % (2.0-10.0); % NEUTROPHILS 63.2 % (40.0-80.0); EOSINOPHILE ABSOLUTE 0.3 Th/cmm (0.1-0.4); HEMATOCRIT 26.3 % (41.0-60); HEMOGLOBIN 8.6 gm/dL (12-16); LYMPHOCYTE ABSOLUTE 1.8 Th/cmm (1.5-3.0); MEAN CELL VOLUME 87.3 fl (80-99); MEAN CORPUSCULAR HEMOGLOBIN 28.7 pg (26.0-30.0); MEAN CORPUSCULAR HGB CONC 32.9 pg (28.0-36.0); MEAN PLATELET VOLUME 7.4 fl; MONOCYTE ABSOLUTE 0.4 Th/cmm (0.3-1.0); NEUTROPHILE ABSOLUTE 4.5 Th/cmm (1.8-8.0); PLATELET COUNT 540 Th/cmm (150-400); RED BLOOD COUNT 3.01 Mil/cmm (4.30-5.70); RED CELL DISTRIBUTION WIDTH 14.9 % (11.5-20.0)
[2018-08-13 05:51] LABS: ALB/GLOB RATIO 0.9 (1.0-1.8); ALBUMIN 3.4 gm/dL (4.2-5.5); ALKALINE PHOSPHATASE 57 U/L (34-104); ANION GAP 12.6 (7.0-16.0); BILIRUBIN,TOTAL 0.3 mg/dL (0.3-1.0); BUN - UREA NITROGEN 14 mg/dL (7-25); CALCIUM SERUM 9.5 mg/dL (8.6-10.3); CARBON DIOXIDE 29.3 mEq/L (21.0-31.0); CHLORIDE 99 mEq/L (98-107); CREATININE - SERUM 0.7 mg/dL (0.7-1.3); GFR AFRICAN-AMERICAN > 60.0 ml/min (>90); GFR NON AFRICAN-AMERICAN > 60.0 ml/min; GLUCOSE 121 mg/dL (70-105); POTASSIUM SERUM 3.9 mEq/L (3.5-5.1); SGOT 16 U/L (13-39); SGPT/ALT 16 U/L (7-52); SODIUM SERUM 137 mEq/L (136-145); TOTAL PROTEIN,SERUM 7.1 gm/dL (6.0-8.3)
[2018-08-13] MEDS: Gentamicin 240 MG in Sodium Chloride 0.9% 100 ML IV SCH (08:13)
[2018-08-13] MEDS: Chlorhexidine Gluconate 0.12% 15mL Mouthwash MM SCH ×2 (08:13→20:19)
[2018-08-13] MEDS: Potassium Chloride Elixir 20 mEq /15 mL UDC GT SCH (08:18)
[2018-08-13] MEDS: Levetiracetam 500 mg/5mL 5mL UDSyr *for ORAL USE ONLY GT SCH ×2 (08:18→18:17)
[2018-08-13] MEDS: Lactobacillus Rhamnosus GG 15 Billion CFU CAP.SPRINK PO SCH (08:19)
[2018-08-13] MEDS: Therahoney Gel 42.5gm Tube TP SCH (08:19)
[2018-08-13] MEDS: Multivitamin Tab GT SCH ×2 (08:19→18:17)
[2018-08-13] MEDS: Sodium Chloride 0.9% 1,000 ML IV SCH (14:45)
--- NOTE | 2018-08-13 20:33 | Internal Medicine Prog Note ---
Internal Medicine Subjective - Subjective Service Date: 08/13/18 Patient seen and examined:: with staff, chart reviewed Patient is:: awake, non-verbal, other (pt in no distress.) Patient Complaints of:: other (resp. failure on vent.) Per staff patient has:: no adverse event, no episodes of fall Internal Medicine Objective - Results Result Diagrams: 08/13/18 04:50 08/13/18 04:50 Recent Labs: Laboratory Last Values WBC 7.0 Th/cmm (4.8-10.8) 08/13/18 04:50 RBC 3.01 Mil/cmm (4.30-5.70) L 08/13/18 04:50 Hgb 8.6 gm/dL (12-16) L 08/13/18 04:50 Hct 26.3 % (41.0-60) L 08/13/18 04:50 MCV 87.3 fl (80-99) 08/13/18 04:50 MCH 28.7 pg (26.0-30.0) 08/13/18 04:50 MCHC Differential 32.9 pg (28.0-36.0) 08/13/18 04:50 RDW 14.9 % (11.5-20.0) 08/13/18 04:50 Plt Count 540 Th/cmm (150-400) H 08/13/18 04:50 MPV 7.4 fl 08/13/18 04:50 Add Manual Diff YES 08/05/18 04:05 Neutrophils % 63.2 % (40.0-80.0) 08/13/18 04:50 Band Neutrophils % 0 % (0-10) 08/05/18 04:05 Lymphocytes % 25.8 % (20.0-50.0) 08/13/18 04:50 Monocytes % 6.3 % (2.0-10.0) 08/13/18 04:50 Eosinophils % 4.5 % (0.0-5.0) 08/13/18 04:50 Basophils % 0.2 % (0.0-2.0) 08/13/18 04:50 Neutrophils (Manual) 72 % (40-80) 08/05/18 04:05 Lymphocytes 14 % (20-50) L 08/05/18 04:05 Monocytes 10 % (2-10) 08/05/18 04:05 Eosinophils 4 % (0-5) 08/05/18 04:05 Basophils 0 % (0-3) 08/05/18 04:05 Platelet Estimate ADEQUATE (NORMAL) 08/01/18 05:00 Sodium 137 mEq/L (136-145) 08/13/18 04:50 Potassium 3.9 mEq/L (3.5-5.1) 08/13/18 04:50 Chloride 99 mEq/L (98-107) 08/13/18 04:50 Carbon Dioxide 29.3 mEq/L (21.0-31.0) 08/13/18 04:50 Anion Gap 12.6 (7.0-16.0) 08/13/18 04:50 BUN 14 mg/dL (7-25) 08/13/18 04:50 Creatinine 0.7 mg/dL (0.7-1.3) 08/13/18 04:50 Est GFR ( Amer) > 60.0 ml/min (>90) 08/13/18 04:50 Est GFR (Non-Af Amer) > 60.0 ml/min 08/13/18 04:50 BUN/Creatinine Ratio 20.0 08/13/18 04:50 Glucose 121 mg/dL (70-105) H 08/13/18 04:50 Whole Bld Lactic Acid 1.47 mmol/L (0.60-1.99) 07/31/18 07:40 Calcium 9.5 mg/dL (8.6-10.3) 08/13/18 04:50 Total Bilirubin 0.3 mg/dL (0.3-1.0) 08/13/18 04:50 AST 16 U/L (13-39) 08/13/18 04:50 ALT 16 U/L (7-52) 08/13/18 04:50 Alkaline Phosphatase 57 U/L (34-104) 08/13/18 04:50 Total Protein 7.1 gm/dL (6.0-8.3) 08/13/18 04:50 Albumin 3.4 gm/dL (4.2-5.5) L 08/13/18 04:50 Globulin 3.7 gm/dL 08/13/18 04:50 Albumin/Globulin Ratio 0.9 (1.0-1.8) L 08/13/18 04:50 Urine Source CATH 07/30/18 19:20 Urine Color YELLOW 07/30/18 19:20 Urine Clarity HAZY (CLEAR) 07/30/18 19:20 Urine pH 7.0 (4.6 - 8.0) 07/30/18 19:20 Ur Specific [place] 1.010 (1.005-1.030) 07/30/18 19:20 Urine Protein 30 mg/dL (NEGATIVE) H 07/30/18 19:20 Urine Glucose (UA) NEGATIVE mg/dL (NEGATIVE) 07/30/18 19:20 Urine Ketones NEGATIVE mg/dL (NEGATIVE) 07/30/18 19:20 Urine Blood LARGE (NEGATIVE) H 07/30/18 19:20 Urine Nitrate POSITIVE (NEGATIVE) H 07/30/18 19:20 Urine Bilirubin NEGATIVE (NEGATIVE) 07/30/18 19:20 Urine Urobilinogen 0.2 E.U./dL (0.2 - 1.0) 07/30/18 19:20 Ur Leukocyte Esterase LARGE (NEGATIVE) H 07/30/18 19:20 Urine RBC 5-10 /hpf (0-5) H 07/30/18 19:20 Urine WBC 25-50 /hpf (0-5) H 07/30/18 19:20 Ur Epithelial Cells FEW /lpf (FEW) 07/30/18 19:20 Urine Bacteria 4+ /hpf (NONE SEEN) H 07/30/18 19:20 Amikacin Peak 25.8 ug/mL (20.0-30.0) 08/07/18 18:18 Amikacin Trough 0.8 ug/mL (1.0-8.0) L 08/09/18 18:00 Random Amikacin 0.8 ug/ml (1.0-30.0) L 08/04/18 12:00 Gentamicin 4.1 ug/mL (0.5-10.0) 08/13/18 16:15 Gentamicin Trough 4.3 ug/ml (0.2-2.0) H 08/11/18 04:15 Vancomycin Trough 21.3 ug/mL (5-10) H 08/01/18 21:26 - Physical Exam Vitals and I&O: Vital Signs Temp 98.4 F 08/13/18 18:00 Pulse 81 08/13/18 20:09 Resp 13 08/13/18 18:00 BP 116/76 08/13/18 18:00 Pulse Ox 100 08/13/18 20:09 Intake & Output 08/13/18 08/13/18 08/14/18 06:59 18:59 06:59 Intake Total 1000 1000 Output Total 1350 Balance -350 1000 Weight (lbs) 56.869 kg Intake: Intake, IV Amount 1000 Sodium Chloride 0.9% 1, 1000 000 ml @ 50 mls/hr IV . Q20H [facility] Rx#:[id number] Tube Feeding 800 Other 200 Output: Urine 1350 Other: # Bowel Movements 0 Weight Source Bedscale Active Medications: Current Medications Acetaminophen (Tylenol) 650 mg GT Q4H PRN PRN Reason: Fever > 101 Stop: 09/29/18 06:32 Last Admin: 08/13/18 20:19 Dose: 650 mg Ascorbic Acid (Vitamin C) 500 mg GT DAILY [facility] Stop: 09/30/18 08:59 Last Admin: 08/13/18 08:19 Dose: 500 mg Bisacodyl (Dulcolax 10 Mg Supp) 10 mg RC DAILY PRN PRN Reason: Constipation Stop: 09/29/18 15:21 Chlorhexidine Gluconate (Peridex) 15 ml MM 0800,2000 [facility] Stop: 09/28/18 19:59 Last Admin: 08/13/18 20:19 Dose: 15 ml Famotidine (Pepcid) 20 mg PO BID [facility] Stop: 09/29/18 20:59 Last Admin: 08/13/18 18:17 Dose: 20 mg Norepinephrine Bitartrate 4 mg (/ Dextrose) 254 mls @ 0 mls/hr IV TITR PRN; Protocol PRN Reason: BP MAINTENANCE (PER PROTOCOL) Stop: 09/29/18 00:37 Last Titration: 08/05/18 00:15 Dose: 0 mcg/min, 0 mls/hr Sodium Chloride (Nacl 0.9%) 1,000 mls @ 50 mls/hr IV .Q20H [facility] Stop: 10/02/18 11:59 Last Admin: 08/13/18 14:45 Dose: 50 mls/hr Gentamicin Sulfate 240 mg/ (Sodium Chloride) 106 mls @ 100 mls/hr IV Q36H [facility] Stop: 10/12/18 07:59 Last Admin: 08/13/18 08:13 Dose: 100 mls/hr Lactobacillus Rhamnosus (Culturelle 15b) 1 each PO DAILY [facility] Stop: 09/30/18 11:59 Last Admin: 08/13/18 08:19 Dose: 1 each Levetiracetam (Keppra) 500 mg GT BID [facility] Stop: 09/30/18 08:59 Last Admin: 08/13/18 18:17 Dose: 500 mg Lorazepam (Ativan) 1 mg IVP Q4HR PRN; Protocol PRN Reason: Seizure Stop: 10/01/18 11:24 Last Admin: 08/09/18 12:30 Dose: 1 mg Magnesium Hydroxide (Milk Of Magnesia) 30 ml GT HS PRN PRN Reason: Constipation Stop: 09/29/18 17:49 Miscellaneous (Probiotic Screen) 1 ea PRN PRN PRN Reason: PROTOCOL Stop: 09/30/18 09:02 Miscellaneous (Gentamicin Iv Per Pharmacy) 1 ea PRN PRN PRN Reason: PROTOCOL Stop: 10/08/18 02:47 Morphine Sulfate (Morphine) 1 mg IVP Q4HR PRN PRN Reason: Pain (Mild) Stop: 09/30/18 14:04 Last Admin: 08/13/18 04:51 Dose: 1 mg Multivitamins/Vitamin C (Theragran) 1 tab GT BID [facility] Stop: 09/30/18 08:59 Last Admin: 08/13/18 18:17 Dose: 1 tab Potassium Chloride (Potassium Chloride Elixir) 40 meq GT DAILY [facility] Stop: 10/04/18 08:59 Last Admin: 08/13/18 08:18 Dose: 40 meq Thiamine HCl (Vitamin B1) 100 mg GT DAILY [facility] Stop: 09/30/18 08:59 Last Admin: 08/13/18 08:19 Dose: 100 mg Wound Care/Dressing Products (Therahoney) 1 appl TP DAILY [facility] Stop: 09/30/18 08:59 Last Admin: 08/13/18 08:19 Dose: 1 appl Zinc Sulfate (Zinc Sulfate) 220 mg GT DAILY [facility] Stop: 09/30/18 08:59 Last Admin: 08/13/18 08:19 Dose: 220 mg Physical Exam: 58 y/o male patient has hx of resp. failure on Ventilator support, doing well, discharge planning. General: weak HEENT: NC/AT, PERRLA Neck: Supple, No JVD Lungs: wheezing, ronchi Cardiovascular: RRR, Normal S1 Abdomen: non-tender Extremities: clear Neurological: no change - Procedures Procedures: Procedures Procedure Code Date REPAIR HEAD, EXTERNAL APPROACH [id number] 07/30/18 RESPIRATORY VENTILATION, GREATER THAN 96 CONSECUTIVE HOURS [id number] 07/30/18 Internal Medicine Assmt/Plan - Assessment Assessment: Dysphagia. Weakness. Intracranial Hemmorhage s/p craniotomy. Respiratory failure, On ventilator support. UTI. Sepsis. Hx of Cerebrovascular Disease. - Plan Plan: Continuation of care. Monitor Vitals and Labs. Continue present meds as directed. Monitor Diet/Nutritional support. Respiratory treatments and Pulmonary support. Supplemental Oxygen. Aspiration precaution. Deep suctioning prn. Monitor Diet/Nutritional support. Pain Management. Safety precaution. Supportive care. Fall precaution. Discharge planning. Will Monitor patient and continue current treatment plan as ordered. Nutritional Asmnt/Malnutr-PDOC - Dietary Evaluation Malnutrition Findings (Please click <Entered> for more info): Nutritional Asmnt/Malnutrition Start: 07/31/18 14: 50 Text: Status: Complete Freq: Protocol: Document 07/31/18 14:50 LCHENG (Rec: 07/31/18 15:09 LCHENG [email or web address]) Nutritional Asmnt/Malnutrition Patient General Information Nutritional Screening High Risk Diagnosis urosepis Pertinent Medical Hx/Surgical Hx seizures, anemia, resp failure , SAH, trach, Gtube, foleu, vent depression Subjective Information Pt seen resting in bed, trach to vent. Visiablly verified TF was running at goal rate of 70ml/hr at this time. Current Diet Order/ Nutrition Support Jevity 1.2 at 70ml/hr x 20hr. Pertinent Medications nacl 0.9%, vancomycin Pertinent Labs 5/2 Na 135, alb 3.7 Nutritional Hx/Data Height 1.73 m Height (Calculated Centimeters) 172.7 Current Weight (lbs) 55.338 kg Weight (Calculated Kilograms) 55.3 Weight (Calculated Grams) 34106.3 [place] Body Weight 154 Body Mass Index (BMI) 18.5 Weight Status Approriate GI Symptoms GI Symptoms None Last BM 5/2 Difficult in: None Skin Integrity/Comment: scar to head and right anterior ear, abrasion to left ankle, rash to left posterior and right axilla, decubitus ulcer to sacrum. Sal 12. Estimated Nutritional Goals Calories/Kcals/Kg 23-27 based on IBW 70kg Kcals Calculated 3065-0129 Protein g/k-1.2 Protein Calculated 70-84 Fluid: ml 1610-1890ml (1ml/kcal) Nutritional Problem No current Nutrition Prob Problem N/A Malnutrition Alert Is there a minimum of two criteria No selected? Query Text:Check all the applicable criteria. A minimum of two criteria are recommended for diagnosis of either severe or non-severe malnutrition. Malnutrition Related to Morbid Obesity Malnutrition related to morbid obesity No Intervention/Recommendation Comments 1. Continue with current TF regimen Jevity 1.2 at 70ml/hr x 20hr. It provides 1680kcal, 78g protein, 1130ml free water , meeting 100% of nutritional needs 2. Monitor TF rate, tolerance, wt, skin integrity and labs 3. F/U as moderate risk Expected Outcomes/Goals Expected Outcomes/Goals 1. Pt to meet at least 90% of nutritional needs via nutrition support with tolerance 2. Wt stability, skin to remain intact, labs to approach WNL.
--- NOTE | 2018-08-13 22:03 | Progress Notes ---
DATE: 08/13/2018 PULMONARY PROGRESS NOTE SUBJECTIVE: The patient appears to be doing okay, in no distress. OBJECTIVE: VITAL SIGNS: Temperature 98.2, pulse 81, respiration 16, blood pressure ____/85 saturation 100%. CHEST: Good breath sounds. No wheezing or crackles. HEART: Regular rate and rhythm. ABDOMEN: Soft. EXTREMITIES: No edema. LABORATORY DATA: WBC 7.0, hemoglobin 8.6, hematocrit 26.3, platelets 540. Sodium is 137, potassium 3.9, BUN 14, creatinine 0.7. IMPRESSION: 1. Respiratory failure. 2. Pneumonia. 3. Dysphagia. 4. Urinary tract infection. 5. Intracranial cerebrovascular accident, status post craniotomy. PLAN: Continue ventilatory support and antibiotics, supportive care and discharge planning. JOB# [id number]
[2018-08-14 05:07] LABS: % EOSINOPHILS 3.3 % (0.0-5.0); % LYMPHOCYTES 20.4 % (20.0-50.0); % MONOCYTES 4.6 % (2.0-10.0); % NEUTROPHILS 71.7 % (40.0-80.0); EOSINOPHILE ABSOLUTE 0.3 Th/cmm (0.1-0.4); HEMATOCRIT 27.2 % (41.0-60); HEMOGLOBIN 8.9 gm/dL (12-16); LYMPHOCYTE ABSOLUTE 1.6 Th/cmm (1.5-3.0); MEAN CORPUSCULAR HEMOGLOBIN 28.4 pg (26.0-30.0); MEAN CORPUSCULAR HGB CONC 32.7 pg (28.0-36.0); MEAN PLATELET VOLUME 7.5 fl; MONOCYTE ABSOLUTE 0.4 Th/cmm (0.3-1.0); NEUTROPHILE ABSOLUTE 5.7 Th/cmm (1.8-8.0); PLATELET COUNT 531 Th/cmm (150-400); RED BLOOD COUNT 3.13 Mil/cmm (4.30-5.70); RED CELL DISTRIBUTION WIDTH 14.7 % (11.5-20.0)
[2018-08-14 05:53] LABS: ALBUMIN 3.5 gm/dL (4.2-5.5); ALKALINE PHOSPHATASE 65 U/L (34-104); ANION GAP 12.8 (7.0-16.0); BILIRUBIN,TOTAL 0.3 mg/dL (0.3-1.0); BUN - UREA NITROGEN 15 mg/dL (7-25); CALCIUM SERUM 9.6 mg/dL (8.6-10.3); CARBON DIOXIDE 28.1 mEq/L (21.0-31.0); CHLORIDE 99 mEq/L (98-107); CREATININE - SERUM 0.6 mg/dL (0.7-1.3); GFR AFRICAN-AMERICAN > 60.0 ml/min (>90); GFR NON AFRICAN-AMERICAN > 60.0 ml/min; GLUCOSE 102 mg/dL (70-105); POTASSIUM SERUM 3.9 mEq/L (3.5-5.1); SGOT 15 U/L (13-39); SGPT/ALT 16 U/L (7-52); SODIUM SERUM 136 mEq/L (136-145); TOTAL PROTEIN,SERUM 7.2 gm/dL (6.0-8.3)
[2018-08-14 07:34] LABS: % BASOPHILS 0.9 % (0.0-2.0); % EOSINOPHILS 2.4 % (0.0-5.0); % LYMPHOCYTES 24.5 % (20.0-50.0); % MONOCYTES 7.4 % (2.0-10.0); % NEUTROPHILS 64.8 % (40.0-80.0); BASOPHILE ABSOLUTE 0.1 Th/cumm (0-0.2); EOSINOPHILE ABSOLUTE 0.3 Th/cmm (0.1-0.4); HEMATOCRIT 27.1 % (41.0-60); LYMPHOCYTE ABSOLUTE 2.7 Th/cmm (1.5-3.0); MEAN CELL VOLUME 87.3 fl (80-99); MEAN CORPUSCULAR HEMOGLOBIN 29.2 pg (26.0-30.0); MEAN CORPUSCULAR HGB CONC 33.4 pg (28.0-36.0); MEAN PLATELET VOLUME 7.3 fl; MONOCYTE ABSOLUTE 0.8 Th/cmm (0.3-1.0); NEUTROPHILE ABSOLUTE 7.2 Th/cmm (1.8-8.0); PLATELET COUNT 633 Th/cmm (150-400); RED CELL DISTRIBUTION WIDTH 14.8 % (11.5-20.0); WHITE BLOOD COUNT 11.1 Th/cmm (4.8-10.8)
--- NOTE | 2018-08-14 07:36 | General Progress Note ---
Subjective - Review of Systems Service Date: 08/14/18 Subjective: Patient had active bleeding site right evangelical. 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 Nurses applying direct pressure but bleeding continued. Skin cleansed with betadine solution. 1% xylocaine for local anaesthesia. Bleeding sites over-sutured with 5.0 chromic running sutures. Bleeding continued. Whenever bleeding site was sutured another site would start bleeding. Bleeding sites then over-sutured with 2.0 vicryl running sutures. Bleeding stopped. Pressure dressing applied with 4 x 4x and 4 inch siddharth wraparound head. Objective - Results Result Diagrams: 08/14/18 04:45 08/14/18 04:45 Recent Labs: Laboratory Last Values WBC 8.0 Th/cmm (4.8-10.8) 08/14/18 04:45 RBC 3.13 Mil/cmm (4.30-5.70) L 08/14/18 04:45 Hgb 8.9 gm/dL (12-16) L 08/14/18 04:45 Hct 27.2 % (41.0-60) L 08/14/18 04:45 MCV 87.0 fl (80-99) 08/14/18 04:45 MCH 28.4 pg (26.0-30.0) 08/14/18 04:45 MCHC Differential 32.7 pg (28.0-36.0) 08/14/18 04:45 RDW 14.7 % (11.5-20.0) 08/14/18 04:45 Plt Count 531 Th/cmm (150-400) H 08/14/18 04:45 MPV 7.5 fl 08/14/18 04:45 Add Manual Diff YES 08/05/18 04:05 Neutrophils % 71.7 % (40.0-80.0) 08/14/18 04:45 Band Neutrophils % 0 % (0-10) 08/05/18 04:05 Lymphocytes % 20.4 % (20.0-50.0) 08/14/18 04:45 Monocytes % 4.6 % (2.0-10.0) 08/14/18 04:45 Eosinophils % 3.3 % (0.0-5.0) 08/14/18 04:45 Basophils % 0.0 % (0.0-2.0) 08/14/18 04:45 Neutrophils (Manual) 72 % (40-80) 08/05/18 04:05 Lymphocytes 14 % (20-50) L 08/05/18 04:05 Monocytes 10 % (2-10) 08/05/18 04:05 Eosinophils 4 % (0-5) 08/05/18 04:05 Basophils 0 % (0-3) 08/05/18 04:05 Platelet Estimate ADEQUATE (NORMAL) 08/01/18 05:00 Sodium 136 mEq/L (136-145) 08/14/18 04:45 Potassium 3.9 mEq/L (3.5-5.1) 08/14/18 04:45 Chloride 99 mEq/L (98-107) 08/14/18 04:45 Carbon Dioxide 28.1 mEq/L (21.0-31.0) 08/14/18 04:45 Anion Gap 12.8 (7.0-16.0) 08/14/18 04:45 BUN 15 mg/dL (7-25) 08/14/18 04:45 Creatinine 0.6 mg/dL (0.7-1.3) L 08/14/18 04:45 Est GFR ( Amer) > 60.0 ml/min (>90) 08/14/18 04:45 Est GFR (Non-Af Amer) > 60.0 ml/min 08/14/18 04:45 BUN/Creatinine Ratio 25.0 08/14/18 04:45 Glucose 102 mg/dL (70-105) 08/14/18 04:45 Whole Bld Lactic Acid 1.47 mmol/L (0.60-1.99) 07/31/18 07:40 Calcium 9.6 mg/dL (8.6-10.3) 08/14/18 04:45 Total Bilirubin 0.3 mg/dL (0.3-1.0) 08/14/18 04:45 AST 15 U/L (13-39) 08/14/18 04:45 ALT 16 U/L (7-52) 08/14/18 04:45 Alkaline Phosphatase 65 U/L (34-104) 08/14/18 04:45 Total Protein 7.2 gm/dL (6.0-8.3) 08/14/18 04:45 Albumin 3.5 gm/dL (4.2-5.5) L 08/14/18 04:45 Globulin 3.7 gm/dL 08/14/18 04:45 Albumin/Globulin Ratio 1.0 (1.0-1.8) 08/14/18 04:45 Urine Source CATH 07/30/18 19:20 Urine Color YELLOW 07/30/18 19:20 Urine Clarity HAZY (CLEAR) 07/30/18 19:20 Urine pH 7.0 (4.6 - 8.0) 07/30/18 19:[address] 1.010 (1.005-1.030) 07/30/18 19:20 Urine Protein 30 mg/dL (NEGATIVE) H 07/30/18 19:20 Urine Glucose (UA) NEGATIVE mg/dL (NEGATIVE) 07/30/18 19: Urine Ketones NEGATIVE mg/dL (NEGATIVE) 07/30/18 19:20 Urine Blood LARGE (NEGATIVE) H 07/30/18 19:20 Urine Nitrate POSITIVE (NEGATIVE) H 07/30/18 19:20 Urine Bilirubin NEGATIVE (NEGATIVE) 07/30/18 19:20 Urine Urobilinogen 0.2 E.U./dL (0.2 - 1.0) 07/30/18 19:20 Ur Leukocyte Esterase LARGE (NEGATIVE) H 07/30/18 19:20 Urine RBC 5-10 /hpf (0-5) H 07/30/18 19:20 Urine WBC 25-50 /hpf (0-5) H 07/30/18 19:20 Ur Epithelial Cells FEW /lpf (FEW) 07/30/18 19:20 Urine Bacteria 4+ /hpf (NONE SEEN) H 07/30/18 19:20 Amikacin Peak 25.8 ug/mL (20.0-30.0) 08/07/18 18:18 Amikacin Trough 0.8 ug/mL (1.0-8.0) L 08/09/18 18:00 Random Amikacin 0.8 ug/ml (1.0-30.0) L 08/04/18 12:00 Gentamicin 4.1 ug/mL (0.5-10.0) 08/13/18 16:15 Gentamicin Trough 4.3 ug/ml (0.2-2.0) H 08/11/18 04:15 Vancomycin Trough 21.3 ug/mL (5-10) H 08/01/18 21:26 - Physical Exam Vitals and I&O: Vital Signs Temp 98.4 F 08/14/18 01:00 Pulse 118 08/14/18 06:43 Resp 12 08/14/18 01:00 BP 96/57 08/14/18 01:00 Pulse Ox 100 08/14/18 06:43 Active Medications: Current Medications Acetaminophen (Tylenol) 650 mg GT Q4H PRN PRN Reason: Fever > 101 Stop: 09/29/18 06:32 Last Admin: 08/13/18 20:19 Dose: 650 mg Ascorbic Acid (Vitamin C) 500 mg GT DAILY [facility] Stop: 09/30/18 08:59 Last Admin: 08/13/18 08:19 Dose: 500 mg Bisacodyl (Dulcolax 10 Mg Supp) 10 mg RC DAILY PRN PRN Reason: Constipation Stop: 09/29/18 15:21 Chlorhexidine Gluconate (Peridex) 15 ml MM 0800,1999 [facility] [place] Stop: 09/28/18 19:59 Last Admin: 08/13/18 20:19 Dose: 15 ml Famotidine (Pepcid) 20 mg PO BID [facility] [place] Stop: 09/29/18 20:59 Last Admin: 08/13/18 18:17 Dose: 20 mg Norepinephrine Bitartrate 4 mg (/ Dextrose) 254 mls @ 0 mls/hr IV TITR PRN; Protocol PRN Reason: BP MAINTENANCE (PER PROTOCOL) Stop: 09/29/18 00:37 Last Titration: 08/05/18 00:15 Dose: 0 mcg/min, 0 mls/hr Sodium Chloride (Nacl 0.9%) 1,000 mls @ 50 mls/hr IV .Q20H [facility] [place] Stop: 10/02/18 11:59 Last Admin: 08/13/18 14:45 Dose: 50 mls/hr Gentamicin Sulfate 240 mg/ (Sodium Chloride) 106 mls @ 100 mls/hr IV Q36H [facility] [place] Stop: 10/12/18 07:59 Last Admin: 08/13/18 08:13 Dose: 100 mls/hr Lactobacillus Rhamnosus (Culturelle 15b) 1 each PO DAILY [facility] [place] Stop: 09/30/18 11:59 Last Admin: 08/13/18 08:19 Dose: 1 each Levetiracetam (Keppra) 500 mg GT BID [facility] Stop: 09/30/18 08:59 Last Admin: 08/13/18 18:17 Dose: 500 mg Lorazepam (Ativan) 1 mg IVP Q4HR PRN; Protocol PRN Reason: Seizure Stop: 10/01/18 11:24 Last Admin: 08/09/18 12:30 Dose: 1 mg Magnesium Hydroxide (Milk Of Magnesia) 30 ml GT HS PRN PRN Reason: Constipation Stop: 09/29/18 17:49 Miscellaneous (Probiotic Screen) 1 ea MC PRN PRN PRN Reason: PROTOCOL Stop: 09/30/18 09:02 Miscellaneous (Gentamicin Iv Per Pharmacy) 1 ea MC PRN PRN PRN Reason: PROTOCOL Stop: 10/08/18 02:47 Morphine Sulfate (Morphine) 1 mg IVP Q4HR PRN PRN Reason: Pain (Mild) Stop: 09/30/18 14:04 Last Admin: 08/13/18 04:51 Dose: 1 mg Multivitamins/Vitamin C (Theragran) 1 tab GT BID [facility] Stop: 09/30/18 08:59 Last Admin: 08/13/18 18:17 Dose: 1 tab Potassium Chloride (Potassium Chloride Elixir) 40 meq GT DAILY [facility] Stop: 10/04/18 08:59 Last Admin: 08/13/18 08:18 Dose: 40 meq Thiamine HCl (Vitamin B1) 100 mg GT DAILY [facility] Stop: 09/30/18 08:59 Last Admin: 08/13/18 08:19 Dose: 100 mg Wound Care/Dressing Products (Therahoney) 1 appl TP DAILY [facility] Stop: 09/30/18 08:59 Last Admin: 08/13/18 08:19 Dose: 1 appl Zinc Sulfate (Zinc Sulfate) 220 mg GT DAILY [facility] Stop: 09/30/18 08:59 Last Admin: 08/13/18 08:19 Dose: 220 mg - Procedures Procedures: Procedures Procedure Code Date REPAIR HEAD, EXTERNAL APPROACH [id number] 07/30/18 RESPIRATORY VENTILATION, GREATER THAN 96 CONSECUTIVE HOURS [id number] 07/30/18
[2018-08-14 07:49] LABS: PROTHROMBIN TIME (TEST) 10.4 SECONDS (9.5-11.5)
[2018-08-14] MEDS: Potassium Chloride Elixir 20 mEq /15 mL UDC GT SCH (08:32)
[2018-08-14] MEDS: Lactobacillus Rhamnosus GG 15 Billion CFU CAP.SPRINK PO SCH (08:32)
[2018-08-14] MEDS: Levetiracetam 500 mg/5mL 5mL UDSyr *for ORAL USE ONLY GT SCH ×2 (08:32→16:25)
[2018-08-14] MEDS: Multivitamin Tab GT SCH ×2 (08:33→16:25)
[2018-08-14] MEDS: Therahoney Gel 42.5gm Tube TP SCH (08:33)
[2018-08-14] MEDS: Chlorhexidine Gluconate 0.12% 15mL Mouthwash MM SCH ×2 (08:33→20:39)
--- NOTE | 2018-08-14 18:57 | Internal Medicine Prog Note ---
Internal Medicine Subjective - Subjective Service Date: 08/14/18 (right side of mu-ism bleeding earlier this am, ER physician re-sutured site ) Patient is:: asleep, non-verbal, other (pt in no distress.) Patient Complaints of:: other (resp. failure on vent.) Per staff patient has:: no adverse event, no episodes of fall Internal Medicine Objective - Results Result Diagrams: 08/14/18 07:25 08/14/18 04:45 Recent Labs: Laboratory Last Values WBC 11.1 Th/cmm (4.8-10.8) H 08/14/18 07:25 RBC 3.10 Mil/cmm (4.30-5.70) L 08/14/18 07:25 Hgb 9.0 gm/dL (12-16) L 08/14/18 07:25 Hct 27.1 % (41.0-60) L 08/14/18 07:25 MCV 87.3 fl (80-99) 08/14/18 07:25 MCH 29.2 pg (26.0-30.0) 08/14/18 07:25 MCHC Differential 33.4 pg (28.0-36.0) 08/14/18 07:25 RDW 14.8 % (11.5-20.0) 08/14/18 07:25 Plt Count 633 Th/cmm (150-400) H 08/14/18 07:25 MPV 7.3 fl 08/14/18 07:25 Add Manual Diff YES 08/05/18 04:05 Neutrophils % 64.8 % (40.0-80.0) 08/14/18 07:25 Band Neutrophils % 0 % (0-10) 08/05/18 04:05 Lymphocytes % 24.5 % (20.0-50.0) 08/14/18 07:25 Monocytes % 7.4 % (2.0-10.0) 08/14/18 07:25 Eosinophils % 2.4 % (0.0-5.0) 08/14/18 07:25 Basophils % 0.9 % (0.0-2.0) 08/14/18 07:25 Neutrophils (Manual) 72 % (40-80) 08/05/18 04:05 Lymphocytes 14 % (20-50) L 08/05/18 04:05 Monocytes 10 % (2-10) 08/05/18 04:05 Eosinophils 4 % (0-5) 08/05/18 04:05 Basophils 0 % (0-3) 08/05/18 04:05 Platelet Estimate ADEQUATE (NORMAL) 08/01/18 05:00 PT 10.4 SECONDS (9.5-11.5) 08/14/18 07:25 INR 1.00 (0.5-1.4) 08/14/18 07:25 PTT (Actin FS) 24.2 SECONDS (26.0-38.0) L 08/14/18 07:25 Sodium 136 mEq/L (136-145) 08/14/18 04:45 Potassium 3.9 mEq/L (3.5-5.1) 08/14/18 04:45 Chloride 99 mEq/L (98-107) 08/14/18 04:45 Carbon Dioxide 28.1 mEq/L (21.0-31.0) 08/14/18 04:45 Anion Gap 12.8 (7.0-16.0) 08/14/18 04:45 BUN 15 mg/dL (7-25) 08/14/18 04:45 Creatinine 0.6 mg/dL (0.7-1.3) L 08/14/18 04:45 Est GFR ( Amer) > 60.0 ml/min (>90) 08/14/18 04:45 Est GFR (Non-Af Amer) > 60.0 ml/min 08/14/18 04:45 BUN/Creatinine Ratio 25.0 08/14/18 04:45 Glucose 102 mg/dL (70-105) 08/14/18 04:45 Whole Bld Lactic Acid 1.47 mmol/L (0.60-1.99) 07/31/18 07:40 Calcium 9.6 mg/dL (8.6-10.3) 08/14/18 04:45 Total Bilirubin 0.3 mg/dL (0.3-1.0) 08/14/18 04:45 AST 15 U/L (13-39) 08/14/18 04:45 ALT 16 U/L (7-52) 08/14/18 04:45 Alkaline Phosphatase 65 U/L (34-104) 08/14/18 04:45 Total Protein 7.2 gm/dL (6.0-8.3) 08/14/18 04:45 Albumin 3.5 gm/dL (4.2-5.5) L 08/14/18 04:45 Globulin 3.7 gm/dL 08/14/18 04:45 Albumin/Globulin Ratio 1.0 (1.0-1.8) 08/14/18 04:45 Urine Source CATH 07/30/18 19:20 Urine Color YELLOW 07/30/18 19:20 Urine Clarity HAZY (CLEAR) 07/30/18 19:20 Urine pH 7.0 (4.6 - 8.0) 07/30/18 19:20 Ur Specific [place] 1.010 (1.005-1.030) 07/30/18 19:20 Urine Protein 30 mg/dL (NEGATIVE) H 07/30/18 19:20 Urine Glucose (UA) NEGATIVE mg/dL (NEGATIVE) 07/30/18 19:20 Urine Ketones NEGATIVE mg/dL (NEGATIVE) 07/30/18 19:20 Urine Blood LARGE (NEGATIVE) H 07/30/18 19:20 Urine Nitrate POSITIVE (NEGATIVE) H 07/30/18 19:20 Urine Bilirubin NEGATIVE (NEGATIVE) 07/30/18 19:20 Urine Urobilinogen 0.2 E.U./dL (0.2 - 1.0) 07/30/18 19:20 Ur Leukocyte Esterase LARGE (NEGATIVE) H 07/30/18 19:20 Urine RBC 5-10 /hpf (0-5) H 07/30/18 19:20 Urine WBC 25-50 /hpf (0-5) H 07/30/18 19:20 Ur Epithelial Cells FEW /lpf (FEW) 07/30/18 19:20 Urine Bacteria 4+ /hpf (NONE SEEN) H 07/30/18 19:20 Amikacin Peak 25.8 ug/mL (20.0-30.0) 08/07/18 18:18 Amikacin Trough 0.8 ug/mL (1.0-8.0) L 08/09/18 18:00 Random Amikacin 0.8 ug/ml (1.0-30.0) L 08/04/18 12:00 Gentamicin 4.1 ug/mL (0.5-10.0) 08/13/18 16:15 Gentamicin Trough 4.3 ug/ml (0.2-2.0) H 08/11/18 04:15 Vancomycin Trough 21.3 ug/mL (5-10) H 08/01/18 21:26 - Physical Exam Vitals and I&O: Vital Signs Temp 99.6 F 08/14/18 18:00 Pulse 91 08/14/18 18:00 Resp 18 08/14/18 18:00 BP 123/80 08/14/18 18:00 Pulse Ox 100 08/14/18 18:00 Intake & Output 08/13/18 08/14/18 08/14/18 18:59 06:59 18:59 Intake Total 1000 2030 Output Total 1275 Balance 1000 755 Weight (lbs) 119 lb 11.2 oz Intake: Intake, IV Amount 1000 Sodium Chloride 0.9% 1, 1000 000 ml @ 50 mls/hr IV . Q20H [facility] Rx#:[id number] Oral 0 Tube Feeding 1310 Other 720 Output: Urine 1275 Other: # Bowel Movements 1 Stool Characteristics Soft Brown Weight Source Bedscale Active Medications: Current Medications Acetaminophen (Tylenol) 650 mg GT Q4H PRN PRN Reason: Fever > 101 Stop: 09/29/18 06:32 Last Admin: 08/14/18 16:25 Dose: 650 mg Ascorbic Acid (Vitamin C) 500 mg GT DAILY [facility] Stop: 09/30/18 08:59 Last Admin: 08/14/18 08:33 Dose: 500 mg Bisacodyl (Dulcolax 10 Mg Supp) 10 mg RC DAILY PRN PRN Reason: Constipation Stop: 09/29/18 15:21 Chlorhexidine Gluconate (Peridex) 15 ml MM 0800,1999 [facility] Stop: 09/28/18 19:59 Last Admin: 08/14/18 08:33 Dose: 15 ml Famotidine (Pepcid) 20 mg PO BID [facility] Stop: 09/29/18 20:59 Last Admin: 08/14/18 16:25 Dose: 20 mg Norepinephrine Bitartrate 4 mg (/ Dextrose) 254 mls @ 0 mls/hr IV TITR PRN; Protocol PRN Reason: BP MAINTENANCE (PER PROTOCOL) Stop: 09/29/18 00:37 Last Titration: 08/05/18 00:15 Dose: 0 mcg/min, 0 mls/hr Sodium Chloride (Nacl 0.9%) 1,000 mls @ 50 mls/hr IV .Q20H [facility] Stop: 10/02/18 11:59 Last Admin: 08/13/18 14:45 Dose: 50 mls/hr Gentamicin Sulfate 240 mg/ (Sodium Chloride) 106 mls @ 100 mls/hr IV Q36H [facility] Stop: 10/12/18 07:59 Last Admin: 08/13/18 08:13 Dose: 100 mls/hr Lactobacillus Rhamnosus (Culturelle 15b) 1 each PO DAILY [facility] Stop: 09/30/18 11:59 Last Admin: 08/14/18 08:32 Dose: 1 each Levetiracetam (Keppra) 500 mg GT BID [facility] Stop: 09/30/18 08:59 Last Admin: 08/14/18 16:25 Dose: 500 mg Lorazepam (Ativan) 1 mg IVP Q4HR PRN; Protocol PRN Reason: Seizure Stop: 10/01/18 11:24 Last Admin: 08/14/18 08:33 Dose: 1 mg Magnesium Hydroxide (Milk Of Magnesia) 30 ml GT HS PRN PRN Reason: Constipation Stop: 09/29/18 17:49 Miscellaneous (Probiotic Screen) 1 ea PRN PRN PRN Reason: PROTOCOL Stop: 09/30/18 09:02 Miscellaneous (Gentamicin Iv Per Pharmacy) 1 ea PRN PRN PRN Reason: PROTOCOL Stop: 10/08/18 02:47 Morphine Sulfate (Morphine) 1 mg IVP Q4HR PRN PRN Reason: Pain (Mild) Stop: 09/30/18 14:04 Last Admin: 08/13/18 04:51 Dose: 1 mg Multivitamins/Vitamin C (Theragran) 1 tab GT BID [facility] Stop: 09/30/18 08:59 Last Admin: 08/14/18 16:25 Dose: 1 tab Potassium Chloride (Potassium Chloride Elixir) 40 meq GT DAILY [facility] Stop: 10/04/18 08:59 Last Admin: 08/14/18 08:32 Dose: 40 meq Thiamine HCl (Vitamin B1) 100 mg GT DAILY [facility] Stop: 09/30/18 08:59 Last Admin: 08/14/18 08:33 Dose: 100 mg Wound Care/Dressing Products (Therahoney) 1 appl TP DAILY [facility] Stop: 09/30/18 08:59 Last Admin: 08/14/18 08:33 Dose: 1 appl Zinc Sulfate (Zinc Sulfate) 220 mg GT DAILY [facility] Stop: 09/30/18 08:59 Last Admin: 08/14/18 08:33 Dose: 220 mg General: weak HEENT: NC/AT, PERRLA Neck: Supple, No JVD Lungs: wheezing, ronchi Cardiovascular: RRR, Normal S1 Abdomen: non-tender Extremities: clear Neurological: no change - Procedures Procedures: Procedures Procedure Code Date REPAIR HEAD, EXTERNAL APPROACH [id number] 07/30/18 RESPIRATORY VENTILATION, GREATER THAN 96 CONSECUTIVE HOURS [id number] 07/30/18 Internal Medicine Assmt/Plan - Assessment Assessment: Pseumonas pneumonia ACUTE UTI VDRF HX subarachnoid hemorrhage. S/P RIGHT SIDE craniotomy on the right side. - Plan Plan: continue ivabx as per id continue vent support am labs continue current plan of care Nutritional Asmnt/Malnutr-PDOC - Dietary Evaluation Malnutrition Findings (Please click <Entered> for more info): Nutritional Asmnt/Malnutrition Start: 07/31/18 14: 50 Text: Status: Complete Freq: Protocol: Document 07/31/18 14:50 LCHENG (Rec: 07/31/18 15:09 LCHENG [email or web address]) Nutritional Asmnt/Malnutrition Patient General Information Nutritional Screening High Risk Diagnosis urosepis Pertinent Medical Hx/Surgical Hx seizures, anemia, resp failure , SAH, trach, Gtube, foleu, vent depression Subjective Information Pt seen resting in bed, trach to vent. Visiablly verified TF was running at goal rate of 70ml/hr at this time. Current Diet Order/ Nutrition Support Jevity 1.2 at 70ml/hr x 20hr. Pertinent Medications nacl 0.9%, vancomycin Pertinent Labs 5/2 Na 135, alb 3.7 Nutritional Hx/Data Height 5 ft 8 in Height (Calculated Centimeters) 172.7 Current Weight (lbs) 122 lb Weight (Calculated Kilograms) 55.3 Weight (Calculated Grams) 69728.3 [place] Body Weight 154 Body Mass Index (BMI) 18.5 Weight Status Approriate GI Symptoms GI Symptoms None Last BM 5/2 Difficult in: None Skin Integrity/Comment: scar to head and right anterior ear, abrasion to left ankle, rash to left posterior and right axilla, decubitus ulcer to sacrum. Sal 12. Estimated Nutritional Goals Calories/Kcals/Kg 23-27 based on IBW 70kg Kcals Calculated 2885-9726 Protein g/k-1.2 Protein Calculated 70-84 Fluid: ml 1610-1890ml (1ml/kcal) Nutritional Problem No current Nutrition Prob Problem N/A Malnutrition Alert Is there a minimum of two criteria No selected? Query Text:Check all the applicable criteria. A minimum of two criteria are recommended for diagnosis of either severe or non-severe malnutrition. Malnutrition Related to Morbid Obesity Malnutrition related to morbid obesity No Intervention/Recommendation Comments 1. Continue with current TF regimen Jevity 1.2 at 70ml/hr x 20hr. It provides 1680kcal, 78g protein, 1130ml free water , meeting 100% of nutritional needs 2. Monitor TF rate, tolerance, wt, skin integrity and labs 3. F/U as moderate risk Expected Outcomes/Goals Expected Outcomes/Goals 1. Pt to meet at least 90% of nutritional needs via nutrition support with tolerance 2. Wt stability, skin to remain intact, labs to approach WNL.
[2018-08-14] MEDS: Gentamicin 240 MG in Sodium Chloride 0.9% 100 ML IV SCH (20:38)
[2018-08-14] MEDS: Morphine Sulfate 2 mg/mL 1mL Syr IVP PRN (23:26)
--- NOTE | 2018-08-15 03:58 | Progress Notes ---
DATE: 08/14/2018 PULMONARY PROGRESS NOTE SUBJECTIVE: The patient appears to be doing okay. No distress. The patient had some oozing from the area of the craniotomy site and was sutured by the Emergency Room physician. OBJECTIVE: VITAL SIGNS: Temperature is 99.6, pulse 95, respirations 18, blood pressure 123/80, saturation 99%-100%. CHEST: Good breath sounds. No wheezing. Few rhonchi. HEART: Regular rhythm. ABDOMEN: Soft. EXTREMITIES: No edema. LABORATORY DATA: WBC is 9.1, hemoglobin 9.0, hematocrit 27.1. Sodium is 136, potassium 3.9, BUN 15, creatinine 0.6. IMPRESSION: 1. Respiratory failure. 2. Pneumonia. 3. Dysphagia. 4. Weakness. 5. Urinary tract infection. 6. Status post sepsis. 7. Intracranial hemorrhage, status post craniotomy. PLAN: Continue ventilatory support, supportive care. Still awaiting discharge planning in progress. [facility]# [id number]
[2018-08-15 05:18] LABS: % BASOPHILS 0.7 % (0.0-2.0); % EOSINOPHILS 1.9 % (0.0-5.0); % LYMPHOCYTES 22.6 % (20.0-50.0); % MONOCYTES 2.1 % (2.0-10.0); % NEUTROPHILS 72.7 % (40.0-80.0); BASOPHILE ABSOLUTE 0.1 Th/cumm (0-0.2); EOSINOPHILE ABSOLUTE 0.2 Th/cmm (0.1-0.4); HEMATOCRIT 24.3 % (41.0-60); LYMPHOCYTE ABSOLUTE 2.3 Th/cmm (1.5-3.0); MEAN CELL VOLUME 88.2 fl (80-99); MEAN CORPUSCULAR HEMOGLOBIN 28.9 pg (26.0-30.0); MEAN CORPUSCULAR HGB CONC 32.8 pg (28.0-36.0); MEAN PLATELET VOLUME 7.6 fl; MONOCYTE ABSOLUTE 0.2 Th/cmm (0.3-1.0); NEUTROPHILE ABSOLUTE 7.4 Th/cmm (1.8-8.0); RED BLOOD COUNT 2.75 Mil/cmm (4.30-5.70); RED CELL DISTRIBUTION WIDTH 14.7 % (11.5-20.0); WHITE BLOOD COUNT 10.2 Th/cmm (4.8-10.8)
[2018-08-15 05:31] LABS: PLATELET COUNT 504 Th/cmm (150-400)
[2018-08-15 06:09] LABS: ANION GAP 10.6 (7.0-16.0); BUN - UREA NITROGEN 13 mg/dL (7-25); CALCIUM SERUM 9.3 mg/dL (8.6-10.3); CARBON DIOXIDE 29.2 mEq/L (21.0-31.0); CHLORIDE 96 mEq/L (98-107); CREATININE - SERUM 0.6 mg/dL (0.7-1.3); GFR AFRICAN-AMERICAN > 60.0 ml/min (>90); GFR NON AFRICAN-AMERICAN > 60.0 ml/min; GLUCOSE 115 mg/dL (70-105); POTASSIUM SERUM 3.8 mEq/L (3.5-5.1); SODIUM SERUM 132 mEq/L (136-145)
[2018-08-15] MEDS ORDERED: Gentamicin 280 MG in Sodium Chloride 0.9% 100 ML IV SCH (08:39)
[2018-08-15] MEDS: Therahoney Gel 42.5gm Tube TP SCH (08:48)
[2018-08-15] MEDS: Menthol/Zinc Oxide Oint 113gm Tube TP PRN (08:48)
[2018-08-15] MEDS: NYSTATIN 100000 UNITS/GM POWD TP PRN (08:48)
[2018-08-15] MEDS: Chlorhexidine Gluconate 0.12% 15mL Mouthwash MM SCH ×2 (08:48→19:36)
[2018-08-15] MEDS: Lactobacillus Rhamnosus GG 15 Billion CFU CAP.SPRINK PO SCH (09:57)
[2018-08-15] MEDS: Multivitamin Tab GT SCH ×2 (09:57→17:52)
[2018-08-15] MEDS: Potassium Chloride Elixir 20 mEq /15 mL UDC GT SCH (09:57)
[2018-08-15] MEDS: Levetiracetam 500 mg/5mL 5mL UDSyr *for ORAL USE ONLY GT SCH ×2 (09:57→17:52)
--- NOTE | 2018-08-15 11:58 | Diagnostic Imaging Report ---
CT scan of the brain without intravenous contrast HISTORY: Stroke, CVA Total DLP equals 950 CTDI equals 49.3 Axial sections were obtained from the base of the skull to vertex Prior exams are not available for comparison. There are extensive surgical changes with a large surgical defect which extends throughout the right frontal, parietal, temporal regions. Removal of the overlying bone resulting in a large concave deformity of the skull and brain. Extra-axial membrane along with a small amount of heterogeneous extra-axial density noted along the surgical site. There is obscuration of the adjacent cerebral sulci. However, no definite acute mass effect. No acute intracerebral hemorrhage. There is generalized enlargement of the ventricular system and enlargement of the visualized cerebral sulci and subarachnoid cisterns reflecting atrophy. Evidence of fluid within the mastoid air cells consistent with inflammatory change. IMPRESSION: 1. 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 Extra-axial membrane and mild heterogeneous extra-axial density along the surgical site. 2. No acute intracerebral abnormalities 3. Cerebral atrophy and chronic changes 4. Evidence of fluid within the mastoid air cells consistent with inflammatory change. If possible, comparison prior CT scans would be most helpful.
--- NOTE | 2018-08-15 14:20 | Infectious Disease Prog Note ---
Infectious Disease Subjective - Review of Systems Service Date: 08/15/18 Subjective: Afebrile. on the ventilator support. Infectious Disease Objective - Results Result Diagrams: 08/16/18 04:35 08/16/18 04:35 Recent Labs: Laboratory Last Values WBC 10.2 Th/cmm (4.8-10.8) 08/15/18 04:40 RBC 2.75 Mil/cmm (4.30-5.70) L 08/15/18 04:40 Hgb 8.0 gm/dL (12-16) L 08/15/18 04:40 Hct 24.3 % (41.0-60) L 08/15/18 04:40 MCV 88.2 fl (80-99) 08/15/18 04:40 MCH 28.9 pg (26.0-30.0) 08/15/18 04:40 MCHC Differential 32.8 pg (28.0-36.0) 08/15/18 04:40 RDW 14.7 % (11.5-20.0) 08/15/18 04:40 Plt Count 504 Th/cmm (150-400) H D 08/15/18 04:40 MPV 7.6 fl 08/15/18 04:40 Add Manual Diff YES 08/05/18 04:05 Neutrophils % 72.7 % (40.0-80.0) 08/15/18 04:40 Band Neutrophils % 0 % (0-10) 08/05/18 04:05 Lymphocytes % 22.6 % (20.0-50.0) 08/15/18 04:40 Monocytes % 2.1 % (2.0-10.0) 08/15/18 04:40 Eosinophils % 1.9 % (0.0-5.0) 08/15/18 04:40 Basophils % 0.7 % (0.0-2.0) 08/15/18 04:40 Neutrophils (Manual) 72 % (40-80) 08/05/18 04:05 Lymphocytes 14 % (20-50) L 08/05/18 04:05 Monocytes 10 % (2-10) 08/05/18 04:05 Eosinophils 4 % (0-5) 08/05/18 04:05 Basophils 0 % (0-3) 08/05/18 04:05 Platelet Estimate ADEQUATE (NORMAL) 08/01/18 05:00 PT 10.4 SECONDS (9.5-11.5) 08/14/18 07:25 INR 1.00 (0.5-1.4) 08/14/18 07:25 PTT (Actin FS) 24.2 SECONDS (26.0-38.0) L 08/14/18 07:25 Sodium 132 mEq/L (136-145) L 08/15/18 04:40 Potassium 3.8 mEq/L (3.5-5.1) 08/15/18 04:40 Chloride 96 mEq/L (98-107) L 08/15/18 04:40 Carbon Dioxide 29.2 mEq/L (21.0-31.0) 08/15/18 04:40 Anion Gap 10.6 (7.0-16.0) 08/15/18 04:40 BUN 13 mg/dL (7-25) 08/15/18 04:40 Creatinine 0.6 mg/dL (0.7-1.3) L 08/15/18 04:40 Est GFR ( Amer) > 60.0 ml/min (>90) 08/15/18 04:40 Est GFR (Non-Af Amer) > 60.0 ml/min 08/15/18 04:40 BUN/Creatinine Ratio 21.7 08/15/18 04:40 Glucose 115 mg/dL (70-105) H 08/15/18 04:40 Whole Bld Lactic Acid 1.47 mmol/L (0.60-1.99) 07/31/18 07:40 Calcium 9.3 mg/dL (8.6-10.3) 08/15/18 04:40 Total Bilirubin 0.3 mg/dL (0.3-1.0) 08/14/18 04:45 AST 15 U/L (13-39) 08/14/18 04:45 ALT 16 U/L (7-52) 08/14/18 04:45 Alkaline Phosphatase 65 U/L (34-104) 08/14/18 04:45 Total Protein 7.2 gm/dL (6.0-8.3) 08/14/18 04:45 Albumin 3.5 gm/dL (4.2-5.5) L 08/14/18 04:45 Globulin 3.7 gm/dL 08/14/18 04:45 Albumin/Globulin Ratio 1.0 (1.0-1.8) 08/14/18 04:45 Urine Source CATH 07/30/18 19:20 Urine Color YELLOW 07/30/18 19:20 Urine Clarity HAZY (CLEAR) 07/30/18 19:20 Urine pH 7.0 (4.6 - 8.0) 07/30/18 19:20 Ur Specific [place] 1.010 (1.005-1.030) 07/30/18 19:20 Urine Protein 30 mg/dL (NEGATIVE) H 07/30/18 19:20 Urine Glucose (UA) NEGATIVE mg/dL (NEGATIVE) 07/30/18 19:20 Urine Ketones NEGATIVE mg/dL (NEGATIVE) 07/30/18 19:20 Urine Blood LARGE (NEGATIVE) H 07/30/18 19:20 Urine Nitrate POSITIVE (NEGATIVE) H 07/30/18 19:20 Urine Bilirubin NEGATIVE (NEGATIVE) 07/30/18 19:20 Urine Urobilinogen 0.2 E.U./dL (0.2 - 1.0) 07/30/18 19:20 Ur Leukocyte Esterase LARGE (NEGATIVE) H 07/30/18 19:20 Urine RBC 5-10 /hpf (0-5) H 07/30/18 19:20 Urine WBC 25-50 /hpf (0-5) H 07/30/18 19:20 Ur Epithelial Cells FEW /lpf (FEW) 07/30/18 19:20 Urine Bacteria 4+ /hpf (NONE SEEN) H 07/30/18 19:20 Amikacin Peak 25.8 ug/mL (20.0-30.0) 08/07/18 18:18 Amikacin Trough 0.8 ug/mL (1.0-8.0) L 08/09/18 18:00 Random Amikacin 0.8 ug/ml (1.0-30.0) L 08/04/18 12:00 Gentamicin 4.1 ug/mL (0.5-10.0) 08/13/18 16:15 Gentamicin Trough 4.3 ug/ml (0.2-2.0) H 08/11/18 04:15 Vancomycin Trough 21.3 ug/mL (5-10) H 08/01/18 21:26 - Physical Exam Vitals and I&O: Vital Signs Temp 100.2 F 08/15/18 13:00 Pulse 85 08/15/18 13:50 Resp 16 08/15/18 13:00 BP 106/72 08/15/18 13:00 Pulse Ox 100 08/15/18 13:50 Intake & Output 08/14/18 08/15/18 08/15/18 18:59 06:59 18:59 Intake Total 2030 106 900 Output Total 1275 950 Balance 755 106 -50 Weight (lbs) 54.295 kg 54.068 kg Intake: Intake, IV Amount 106 Gentamicin 240 mg In 106 Sodium Chloride 0.9% 100 ml @ 100 mls/hr IV Q36H [facility] Rx#:[id number] Oral 0 Tube Feeding 1310 500 Other 720 400 Output: Urine 1275 950 Other: # Bowel Movements 1 0 Stool Characteristics Soft Soft Soft Brown Brown Brown Weight Source Bedscale Bedscale Active Medications: Current Medications Acetaminophen (Tylenol) 650 mg GT Q4H PRN PRN Reason: Fever > 101 Stop: 09/29/18 06:32 Last Admin: 08/15/18 03:00 Dose: 650 mg Ascorbic Acid (Vitamin C) 500 mg GT DAILY [facility] Stop: 09/30/18 08:59 Last Admin: 08/15/18 09:57 Dose: 500 mg Bisacodyl (Dulcolax 10 Mg Supp) 10 mg RC DAILY PRN PRN Reason: Constipation Stop: 09/29/18 15:21 Calamine/Phenol (Calmoseptine) 1 appl TP PRN PRN PRN Reason: Rash Stop: 10/14/18 07:19 Last Admin: 08/15/18 08:48 Dose: 1 appl Chlorhexidine Gluconate (Peridex) 15 ml MM 0800,1999 [facility] Stop: 09/28/18 19:59 Last Admin: 08/15/18 08:48 Dose: 15 ml Famotidine (Pepcid) 20 mg PO BID [facility] Stop: 09/29/18 20:59 Last Admin: 08/15/18 09:57 Dose: 20 mg Norepinephrine Bitartrate 4 mg (/ Dextrose) 254 mls @ 0 mls/hr IV TITR PRN; Protocol PRN Reason: BP MAINTENANCE (PER PROTOCOL) Stop: 09/29/18 00:37 Last Titration: 08/05/18 00:15 Dose: 0 mcg/min, 0 mls/hr Sodium Chloride (Nacl 0.9%) 1,000 mls @ 50 mls/hr IV .Q20H [facility] Stop: 10/02/18 11:59 Last Admin: 08/13/18 14:45 Dose: 50 mls/hr Gentamicin Sulfate 280 mg/ (Sodium Chloride) 107 mls @ 100 mls/hr IV Q36H [facility] Stop: 10/15/18 09:59 Lactobacillus Rhamnosus (Culturelle 15b) 1 each PO DAILY [facility] Stop: 09/30/18 11:59 Last Admin: 08/15/18 09:57 Dose: 1 each Levetiracetam (Keppra) 500 mg GT BID [facility] Stop: 09/30/18 08:59 Last Admin: 08/15/18 09:57 Dose: 500 mg Lorazepam (Ativan) 1 mg IVP Q4HR PRN; Protocol PRN Reason: Seizure Stop: 10/01/18 11:24 Last Admin: 08/14/18 20:38 Dose: 1 mg Magnesium Hydroxide (Milk Of Magnesia) 30 ml GT HS PRN PRN Reason: Constipation Stop: 09/29/18 17:49 Miscellaneous (Probiotic Screen) 1 ea MC PRN PRN PRN Reason: PROTOCOL Stop: 09/30/18 09:02 Miscellaneous (Gentamicin Iv Per Pharmacy) 1 ea MC PRN PRN PRN Reason: PROTOCOL Stop: 10/08/18 02:47 Morphine Sulfate (Morphine) 1 mg IVP Q4HR PRN PRN Reason: Pain (Mild) Stop: 09/30/18 14:04 Last Admin: 08/14/18 23:26 Dose: 1 mg Multivitamins/Vitamin C (Theragran) 1 tab GT BID [facility] Stop: 09/30/18 08:59 Last Admin: 08/15/18 09:57 Dose: 1 tab Nystatin (Nystop) 100 units TP DAILY PRN PRN Reason: Rash Stop: 10/14/18 07:20 Last Admin: 08/15/18 08:48 Dose: 100 units Potassium Chloride (Potassium Chloride Elixir) 40 meq GT DAILY [facility] Stop: 10/04/18 08:59 Last Admin: 08/15/18 09:57 Dose: 40 meq Thiamine HCl (Vitamin B1) 100 mg GT DAILY [facility] Stop: 09/30/18 08:59 Last Admin: 08/15/18 09:57 Dose: 100 mg Wound Care/Dressing Products (Therahoney) 1 appl TP DAILY [facility] Stop: 09/30/18 08:59 Last Admin: 08/15/18 08:48 Dose: 1 appl Zinc Sulfate (Zinc Sulfate) 220 mg GT DAILY [facility] Stop: 09/30/18 08:59 Last Admin: 08/15/18 09:57 Dose: 220 mg General: no acute distress, cachectic HEENT: PERRLA, other (absent right sided scalp) Neck: supple, no thyromegaly Cardiovascular: S1S2, regular Lungs: clear to auscultation bilaterally, clear to percussion Abdomen: soft, no tender, no distended Extremities: no cyanosis, no clubbing, no edema Neurological: awake, alert - Procedures Procedures: Procedures Procedure Code Date REPAIR HEAD, EXTERNAL APPROACH [id number] 07/30/18 RESPIRATORY VENTILATION, GREATER THAN 96 CONSECUTIVE HOURS [id number] 07/30/18 Infectious Disease Assmt/Plan - Assessment Assessment: 1. Sepsis. Pseudomonas aeruginosa. 2. Urinary tract infection and pyelonephritis. 3. Vent-dependent respiratory failure. 4. History of subarachnoid hemorrhage. 5. Status post craniotomy on the right side. 6. Hypokalemia. - Plan Plan: Continue gentamicin ( End date 08/18/2018). Nutritional Asmnt/Malnutr-PDOC - Dietary Evaluation Malnutrition Findings (Please click <Entered> for more info): Nutritional Asmnt/Malnutrition Start: 07/31/18 14: 50 Text: Status: Complete Freq: Protocol: Document 07/31/18 14:50 HENG (Rec: 07/31/18 15:09 [facility] [email or web address]) Nutritional Asmnt/Malnutrition Patient General Information Nutritional Screening High Risk Diagnosis urosepis Pertinent Medical Hx/Surgical Hx seizures, anemia, resp failure , SAH, trach, Gtube, foleu, vent depression Subjective Information Pt seen resting in bed, trach to vent. Visiablly verified TF was running at goal rate of 70ml/hr at this time. Current Diet Order/ Nutrition Support Jevity 1.2 at 70ml/hr x 20hr. Pertinent Medications nacl 0.9%, vancomycin Pertinent Labs 5/2 Na 135, alb 3.7 Nutritional Hx/Data Height 1.73 m Height (Calculated Centimeters) 172.7 Current Weight (lbs) 55.338 kg Weight (Calculated Kilograms) 55.3 Weight (Calculated Grams) 12173.3 [place] Body Weight 154 Body Mass Index (BMI) 18.5 Weight Status Approriate GI Symptoms GI Symptoms None Last BM 5/2 Difficult in: None Skin Integrity/Comment: scar to head and right anterior ear, abrasion to left ankle, rash to left posterior and right axilla, decubitus ulcer to sacrum. Sal 12. Estimated Nutritional Goals Calories/Kcals/Kg 23-27 based on IBW 70kg Kcals Calculated 9604-1375 Protein g/k-1.2 Protein Calculated 70-84 Fluid: ml 1610-1890ml (1ml/kcal) Nutritional Problem No current Nutrition Prob Problem N/A Malnutrition Alert Is there a minimum of two criteria No selected? Query Text:Check all the applicable criteria. A minimum of two criteria are recommended for diagnosis of either severe or non-severe malnutrition. Malnutrition Related to Morbid Obesity Malnutrition related to morbid obesity No Intervention/Recommendation Comments 1. Continue with current TF regimen Jevity 1.2 at 70ml/hr x 20hr. It provides 1680kcal, 78g protein, 1130ml free water , meeting 100% of nutritional needs 2. Monitor TF rate, tolerance, wt, skin integrity and labs 3. F/U as moderate risk Expected Outcomes/Goals Expected Outcomes/Goals 1. Pt to meet at least 90% of nutritional needs via nutrition support with tolerance 2. Wt stability, skin to remain intact, labs to approach WNL.
--- NOTE | 2018-08-15 17:12 | Progress Notes ---
DATE: 08/14/2018 SURGICAL PROGRESS NOTE TIME: 8:44 p.m. SUBJECTIVE: The patient earlier today had significant bleeding from the right preauricular area. They called me, but I was unfortunately involved with surgery this morning, was tied up, and was unable to attend. Dr. Rangel, the ER physician responded there was significant amount of projectile bleeding from that site and several sutures were placed and bleeding was ultimately controlled. The pressure dressing on there currently with a very tight Ac wrap for pressure dressing. There is no active bleeding at this time. PHYSICAL EXAMINATION: GENERAL: The patient is afebrile. VITAL SIGNS: Otherwise stable. HEENT AND NECK: The dressing is intact with no active bleeding and no significant blood staining of the dressings. NEUROLOGIC: Intact. CHEST: Clear to auscultation bilaterally. CARDIAC: Regular rate, trach on vent. ABDOMEN: Soft, nontender, nondistended. NEUROVASCULAR AND EXTREMITIES: Otherwise normal. No CVA, flank, or paraspinal tenderness. The white blood cell count 11.1, H and H is 9 and 27, platelet count is 33. No coagulopathy. PT is 10. INR is 1.0. Chem-7 is otherwise unremarkable. The patient is not on any anticoagulants at this time. IMPRESSION/PLAN: The patient with earlier bleeding from the right preauricular area. Additional sutures were placed by the ER physician, Dr. Rangel. Pressure dressing with Ac wrap tightly applied, has controlled the bleeding. There is no active bleeding or blood staining of the dressing, which is intact at this time. The patient is hemodynamically stable. As I have mentioned earlier, I strongly recommend that this patient will be transferred for definitive care and management of this right preauricular area. There is a pulsatile arterial vessel and the risk of further bleeding is fairly significant and high. JOB# [id number]
--- NOTE | 2018-08-16 02:25 | Progress Notes ---
DATE: 08/15/2018 SURGICAL PROGRESS NOTE TIME: 1:01 p.m. OBJECTIVE: VITAL SIGNS: The patient is afebrile at this time. Vital signs stable. GENERAL: He is encephalopathic. Resting in bed comfortably, in no acute distress. HEENT: He has a craniectomy defect of the right skull. He has a trach. There is no active bleeding or blood soaking of the dressings of the right preauricular area. CHEST: Clear to auscultation bilaterally. CARDIAC: Regular in rate. ABDOMEN: Soft, nontender, nondistended. NEUROVASCULAR AND EXTREMITIES: Otherwise normal. LABORATORY AND DIAGNOSTIC DATA: White blood cell count 10.2, H and H is 8 and 24, platelet count 504. Sodium is 132, chloride is 96, creatinine 0.6, glucose 115. The patient is on no anticoagulants at this time. The patient had a CT of the head done this morning, which reveals severe concave deformity of the right frontal, parietal and temporal regions of skull and brain related to extensive surgical changes with removal of overlying bone, extraaxial membrane and mild heterogeneous extraaxial density along the surgical site. No acute intracerebral abnormalities, cerebral atrophy and chronic changes, evidence of fluid within the mastoid air cells consistent with inflammatory change. IMPRESSION AND PLAN: No active bleeding from the right preauricular area. Again, the patient is at significant risk of significant bleeding from this site. Efforts should be made to transfer the patient back to the original facility where surgery was performed or at a large [facility] hospital or tertiary care facility. Should this patient have any further bleeding, it would be very difficult to control the bleeding and the patient may hemorrhage, possibility to . Administration and nursing staff have been made aware of this. Dressing changes with caution. JOB# [id number]
[2018-08-16] MEDS: NYSTATIN 100000 UNITS/GM POWD TP PRN (05:00)
[2018-08-16] MEDS: Menthol/Zinc Oxide Oint 113gm Tube TP PRN (05:00)
[2018-08-16 05:14] LABS: % EOSINOPHILS 3.1 % (0.0-5.0); % LYMPHOCYTES 30.3 % (20.0-50.0); % MONOCYTES 4.1 % (2.0-10.0); % NEUTROPHILS 62.5 % (40.0-80.0); EOSINOPHILE ABSOLUTE 0.2 Th/cmm (0.1-0.4); LYMPHOCYTE ABSOLUTE 1.8 Th/cmm (1.5-3.0); MEAN CELL VOLUME 87.7 fl (80-99); MEAN CORPUSCULAR HEMOGLOBIN 28.7 pg (26.0-30.0); MEAN CORPUSCULAR HGB CONC 32.8 pg (28.0-36.0); MEAN PLATELET VOLUME 7.9 fl; MONOCYTE ABSOLUTE 0.2 Th/cmm (0.3-1.0); NEUTROPHILE ABSOLUTE 3.8 Th/cmm (1.8-8.0); PLATELET COUNT 416 Th/cmm (150-400); RED BLOOD COUNT 2.45 Mil/cmm (4.30-5.70)
[2018-08-16 05:17] LABS: ALB/GLOB RATIO 1.1 (1.0-1.8); ALBUMIN 3.3 gm/dL (4.2-5.5); ALKALINE PHOSPHATASE 60 U/L (34-104); ANION GAP 11.1 (7.0-16.0); BILIRUBIN,TOTAL 0.3 mg/dL (0.3-1.0); BUN - UREA NITROGEN 14 mg/dL (7-25); CALCIUM SERUM 9.1 mg/dL (8.6-10.3); CARBON DIOXIDE 28.8 mEq/L (21.0-31.0); CHLORIDE 98 mEq/L (98-107); CREATININE - SERUM 0.6 mg/dL (0.7-1.3); GFR AFRICAN-AMERICAN > 60.0 ml/min (>90); GFR NON AFRICAN-AMERICAN > 60.0 ml/min; GLUCOSE 95 mg/dL (70-105); POTASSIUM SERUM 3.9 mEq/L (3.5-5.1); SGOT 15 U/L (13-39); SGPT/ALT 13 U/L (7-52); SODIUM SERUM 134 mEq/L (136-145); TOTAL PROTEIN,SERUM 6.4 gm/dL (6.0-8.3)
--- NOTE | 2018-08-16 05:17 | Progress Notes ---
DATE: 08/15/2018 PULMONARY PROGRESS NOTE SUBJECTIVE: The patient appears to be doing okay, no distress. OBJECTIVE: VITAL SIGNS: Temperature 100.0, pulse 76, respirations 12, blood pressure 112/74, saturation 100%. CHEST: Good breath sounds. No wheezing, no crackles. HEART: Regular rate and rhythm. ABDOMEN: Soft. EXTREMITIES: No edema. LABORATORY DATA: WBC is 10.2, hemoglobin 8.0, hematocrit 24.3. Sodium is 132, potassium 3.8, BUN 30, creatinine 0.6. IMPRESSION: 1. Respiratory failure. 2. Sepsis. 3. urinary tract infection. 4. Intracranial hemorrhage, status post craniotomy. PLAN: Continue supportive care, ventilator support, antibiotics and pulmonary toilet. JOB# [id number]
[2018-08-16 05:31] LABS: HEMATOCRIT 21.5 % (41.0-60); HEMOGLOBIN 7.1 gm/dL (12-16)
[2018-08-16] MEDS: Morphine Sulfate 2 mg/mL 1mL Syr IVP PRN (08:34)
[2018-08-16] MEDS: Potassium Chloride Elixir 20 mEq /15 mL UDC GT SCH (09:18)
[2018-08-16] MEDS: Levetiracetam 500 mg/5mL 5mL UDSyr *for ORAL USE ONLY GT SCH ×2 (09:19→18:21)
[2018-08-16] MEDS: Multivitamin Tab GT SCH ×2 (09:19→18:21)
[2018-08-16] MEDS: Lactobacillus Rhamnosus GG 15 Billion CFU CAP.SPRINK PO SCH (09:19)
[2018-08-16] MEDS: Therahoney Gel 42.5gm Tube TP SCH (09:23)
[2018-08-16] MEDS: Chlorhexidine Gluconate 0.12% 15mL Mouthwash MM SCH ×2 (09:23→20:37)
[2018-08-16] MEDS: Sodium Chloride 0.9% 1,000 ML IV SCH ×2 (09:24)
[2018-08-16] MEDS: Gentamicin 280 MG in Sodium Chloride 0.9% 100 ML IV SCH (09:24)
--- NOTE | 2018-08-16 11:11 | Internal Medicine Prog Note ---
Internal Medicine Subjective - Subjective Service Date: 08/16/18 Patient seen and examined:: with staff Patient is:: asleep, non-verbal, other (pt in no distress, on pulmonary support. ) Patient Complaints of:: other (resp. failure on vent.) Per staff patient has:: no adverse event, no episodes of fall Internal Medicine Objective - Results Result Diagrams: 08/16/18 04:35 08/16/18 04:35 Recent Labs: Laboratory Last Values WBC 6.0 Th/cmm (4.8-10.8) 08/16/18 04:35 RBC 2.45 Mil/cmm (4.30-5.70) L 08/16/18 04:35 Hgb 7.1 gm/dL (12-16) L* 08/16/18 04:35 Hct 21.5 % (41.0-60) L 08/16/18 04:35 MCV 87.7 fl (80-99) 08/16/18 04:35 MCH 28.7 pg (26.0-30.0) 08/16/18 04:35 MCHC Differential 32.8 pg (28.0-36.0) 08/16/18 04:35 RDW 15.0 % (11.5-20.0) 08/16/18 04:35 Plt Count 416 Th/cmm (150-400) H 08/16/18 04:35 MPV 7.9 fl 08/16/18 04:35 Add Manual Diff YES 08/05/18 04:05 Neutrophils % 62.5 % (40.0-80.0) 08/16/18 04:35 Band Neutrophils % 0 % (0-10) 08/05/18 04:05 Lymphocytes % 30.3 % (20.0-50.0) 08/16/18 04:35 Monocytes % 4.1 % (2.0-10.0) 08/16/18 04:35 Eosinophils % 3.1 % (0.0-5.0) 08/16/18 04:35 Basophils % 0.0 % (0.0-2.0) 08/16/18 04:35 Neutrophils (Manual) 72 % (40-80) 08/05/18 04:05 Lymphocytes 14 % (20-50) L 08/05/18 04:05 Monocytes 10 % (2-10) 08/05/18 04:05 Eosinophils 4 % (0-5) 08/05/18 04:05 Basophils 0 % (0-3) 08/05/18 04:05 Platelet Estimate ADEQUATE (NORMAL) 08/01/18 05:00 PT 10.4 SECONDS (9.5-11.5) 08/14/18 07:25 INR 1.00 (0.5-1.4) 08/14/18 07:25 PTT (Actin FS) 24.2 SECONDS (26.0-38.0) L 08/14/18 07:25 Sodium 134 mEq/L (136-145) L 08/16/18 04:35 Potassium 3.9 mEq/L (3.5-5.1) 08/16/18 04:35 Chloride 98 mEq/L (98-107) 08/16/18 04:35 Carbon Dioxide 28.8 mEq/L (21.0-31.0) 08/16/18 04:35 Anion Gap 11.1 (7.0-16.0) 08/16/18 04:35 BUN 14 mg/dL (7-25) 08/16/18 04:35 Creatinine 0.6 mg/dL (0.7-1.3) L 08/16/18 04:35 Est GFR ( Amer) > 60.0 ml/min (>90) 08/16/18 04:35 Est GFR (Non-Af Amer) > 60.0 ml/min 08/16/18 04:35 BUN/Creatinine Ratio 23.3 08/16/18 04:35 Glucose 95 mg/dL (70-105) 08/16/18 04:35 Whole Bld Lactic Acid 1.47 mmol/L (0.60-1.99) 07/31/18 07:40 Calcium 9.1 mg/dL (8.6-10.3) 08/16/18 04:35 Total Bilirubin 0.3 mg/dL (0.3-1.0) 08/16/18 04:35 AST 15 U/L (13-39) 08/16/18 04:35 ALT 13 U/L (7-52) 08/16/18 04:35 Alkaline Phosphatase 60 U/L (34-104) 08/16/18 04:35 Total Protein 6.4 gm/dL (6.0-8.3) 08/16/18 04:35 Albumin 3.3 gm/dL (4.2-5.5) L 08/16/18 04:35 Globulin 3.1 gm/dL 08/16/18 04:35 Albumin/Globulin Ratio 1.1 (1.0-1.8) 08/16/18 04:35 Urine Source CATH 07/30/18 19:20 Urine Color YELLOW 07/30/18 19:20 Urine Clarity HAZY (CLEAR) 07/30/18 19:20 Urine pH 7.0 (4.6 - 8.0) 07/30/18 19:20 Ur Specific [place] 1.010 (1.005-1.030) 07/30/18 19:20 Urine Protein 30 mg/dL (NEGATIVE) H 07/30/18 19:20 Urine Glucose (UA) NEGATIVE mg/dL (NEGATIVE) 07/30/18 19:20 Urine Ketones NEGATIVE mg/dL (NEGATIVE) 07/30/18 19:20 Urine Blood LARGE (NEGATIVE) H 07/30/18 19:20 Urine Nitrate POSITIVE (NEGATIVE) H 07/30/18 19:20 Urine Bilirubin NEGATIVE (NEGATIVE) 07/30/18 19:20 Urine Urobilinogen 0.2 E.U./dL (0.2 - 1.0) 07/30/18 19:20 Ur Leukocyte Esterase LARGE (NEGATIVE) H 07/30/18 19:20 Urine RBC 5-10 /hpf (0-5) H 07/30/18 19:20 Urine WBC 25-50 /hpf (0-5) H 07/30/18 19:20 Ur Epithelial Cells FEW /lpf (FEW) 07/30/18 19:20 Urine Bacteria 4+ /hpf (NONE SEEN) H 07/30/18 19:20 Amikacin Peak 25.8 ug/mL (20.0-30.0) 08/07/18 18:18 Amikacin Trough 0.8 ug/mL (1.0-8.0) L 08/09/18 18:00 Random Amikacin 0.8 ug/ml (1.0-30.0) L 08/04/18 12:00 Gentamicin 4.1 ug/mL (0.5-10.0) 08/13/18 16:15 Gentamicin Trough 4.3 ug/ml (0.2-2.0) H 08/11/18 04:15 Vancomycin Trough 21.3 ug/mL (5-10) H 08/01/18 21:26 Blood Type A POSITIVE 08/16/18 07:59 Antibody Screen NEGATIVE 08/16/18 07:59 Crossmatch See Detail 08/16/18 07:59 - Physical Exam Vitals and I&O: Vital Signs Temp 98.5 F 08/16/18 04:00 Pulse 73 08/16/18 09:12 Resp 14 08/16/18 06:00 BP 99/49 08/16/18 06:00 Pulse Ox 100 08/16/18 10:00 Intake & Output 08/15/18 08/16/18 08/16/18 18:59 06:59 18:59 Intake Total 1975 1840 170 Output Total 1375 850 Balance 600 990 170 Weight (lbs) 54.068 kg 53.977 kg Intake: Intake, IV Amount 1300 170 Sodium Chloride 0.9% 1, 1300 170 000 ml @ 50 mls/hr IV . Q20H [facility] Rx#:[id number] Oral 0 0 Tube Feeding 1125 490 Other 850 50 Output: Urine 1375 850 Other: # Bowel Movements 1 0 Stool Characteristics Soft Soft Soft Brown Brown Brown Weight Source Bedscale Bedscale Active Medications: Current Medications Acetaminophen (Tylenol) 650 mg GT Q4H PRN PRN Reason: Fever > 101 Stop: 09/29/18 06:32 Last Admin: 08/15/18 14:44 Dose: 650 mg Ascorbic Acid (Vitamin C) 500 mg GT DAILY [facility] Stop: 09/30/18 08:59 Last Admin: 08/16/18 09:19 Dose: 500 mg Bisacodyl (Dulcolax 10 Mg Supp) 10 mg RC DAILY PRN PRN Reason: Constipation Stop: 09/29/18 15:21 Calamine/Phenol (Calmoseptine) 1 appl TP PRN PRN PRN Reason: Rash Stop: 10/14/18 07:19 Last Admin: 08/16/18 05:00 Dose: 1 appl Chlorhexidine Gluconate (Peridex) 15 ml MM 0800,2000 [facility] Stop: 09/28/18 19:59 Last Admin: 08/16/18 09:23 Dose: 15 ml Famotidine (Pepcid) 20 mg PO BID [facility] Stop: 09/29/18 20:59 Last Admin: 08/16/18 09:19 Dose: 20 mg Norepinephrine Bitartrate 4 mg (/ Dextrose) 254 mls @ 0 mls/hr IV TITR PRN; Protocol PRN Reason: BP MAINTENANCE (PER PROTOCOL) Stop: 09/29/18 00:37 Last Titration: 08/05/18 00:15 Dose: 0 mcg/min, 0 mls/hr Sodium Chloride (Nacl 0.9%) 1,000 mls @ 50 mls/hr IV .Q20H [facility] Stop: 10/02/18 11:59 Last Admin: 08/16/18 09:24 Dose: 50 mls/hr Gentamicin Sulfate 280 mg/ (Sodium Chloride) 107 mls @ 100 mls/hr IV Q36H [facility] Stop: 10/15/18 09:59 Last Admin: 08/16/18 09:24 Dose: 100 mls/hr Lactobacillus Rhamnosus (Culturelle 15b) 1 each PO DAILY [facility] Stop: 09/30/18 11:59 Last Admin: 08/16/18 09:19 Dose: 1 each Levetiracetam (Keppra) 500 mg GT BID [facility] Stop: 09/30/18 08:59 Last Admin: 08/16/18 09:19 Dose: 500 mg Lorazepam (Ativan) 1 mg IVP Q4HR PRN; Protocol PRN Reason: Seizure Stop: 10/01/18 11:24 Last Admin: 08/14/18 20:38 Dose: 1 mg Magnesium Hydroxide (Milk Of Magnesia) 30 ml GT HS PRN PRN Reason: Constipation Stop: 09/29/18 17:49 Miscellaneous (Probiotic Screen) 1 ea MC PRN PRN PRN Reason: PROTOCOL Stop: 09/30/18 09:02 Miscellaneous (Gentamicin Iv Per Pharmacy) 1 ea MC PRN PRN PRN Reason: PROTOCOL Stop: 10/08/18 02:47 Morphine Sulfate (Morphine) 1 mg IVP Q4HR PRN PRN Reason: Pain (Mild) Stop: 09/30/18 14:04 Last Admin: 08/16/18 08:34 Dose: 1 mg Multivitamins/Vitamin C (Theragran) 1 tab GT BID [facility] Stop: 09/30/18 08:59 Last Admin: 08/16/18 09:19 Dose: 1 tab Nystatin (Nystop) 100 units TP DAILY PRN PRN Reason: Rash Stop: 10/14/18 07:20 Last Admin: 08/16/18 05:00 Dose: 100 units Potassium Chloride (Potassium Chloride Elixir) 40 meq GT DAILY [facility] Stop: 10/04/18 08:59 Last Admin: 08/16/18 09:18 Dose: 40 meq Thiamine HCl (Vitamin B1) 100 mg GT DAILY [facility] Stop: 09/30/18 08:59 Last Admin: 08/16/18 09:19 Dose: 100 mg Wound Care/Dressing Products (Therahoney) 1 appl TP DAILY [facility] Stop: 09/30/18 08:59 Last Admin: 08/16/18 09:23 Dose: 1 appl Zinc Sulfate (Zinc Sulfate) 220 mg GT DAILY [facility] Stop: 09/30/18 08:59 Last Admin: 08/16/18 09:19 Dose: 220 mg Physical Exam: 58 y/o male patient has hx of resp. failure on Ventilator support, no new events. General: weak HEENT: NC/AT, PERRLA Neck: Supple, No JVD Lungs: wheezing, ronchi Cardiovascular: RRR, Normal S1 Abdomen: non-tender Extremities: clear Neurological: no change - Procedures Procedures: Procedures Procedure Code Date REPAIR HEAD, EXTERNAL APPROACH [id number] 07/30/18 RESPIRATORY VENTILATION, GREATER THAN 96 CONSECUTIVE HOURS [id number] 07/30/18 Internal Medicine Assmt/Plan - Assessment Assessment: Dysphagia. Weakness. Intracranial Hemmorhage s/p craniotomy. Respiratory failure, On ventilator support. UTI. Sepsis. Hx of Cerebrovascular Disease. - Plan Plan: Continuation of care. Monitor Vitals and Labs. Continue present meds as directed. Monitor Diet/Nutritional support. Respiratory treatments and Pulmonary support. Supplemental Oxygen. Aspiration precaution. Deep suctioning prn. Monitor Diet/Nutritional support. Pain Management. Safety precaution. Supportive care. Fall precaution. Will Monitor patient and continue current treatment plan as ordered. Nutritional Asmnt/Malnutr-PDOC - Dietary Evaluation Malnutrition Findings (Please click <Entered> for more info): Nutritional Asmnt/Malnutrition Start: 07/31/18 14: 50 Text: Status: Complete Freq: Protocol: Document 07/31/18 14:50 LCHENG (Rec: 07/31/18 15:09 [email or web address]) Nutritional Asmnt/Malnutrition Patient General Information Nutritional Screening High Risk Diagnosis urosepis Pertinent Medical Hx/Surgical Hx seizures, anemia, resp failure , SAH, trach, Gtube, foleu, vent depression Subjective Information Pt seen resting in bed, trach to vent. Visiablly verified TF was running at goal rate of 70ml/hr at this time. Current Diet Order/ Nutrition Support Jevity 1.2 at 70ml/hr x 20hr. Pertinent Medications nacl 0.9%, vancomycin Pertinent Labs 5/2 Na 135, alb 3.7 Nutritional Hx/Data Height 1.73 m Height (Calculated Centimeters) 172.7 Current Weight (lbs) 55.338 kg Weight (Calculated Kilograms) 55.3 Weight (Calculated Grams) 86697.3 [place] Body Weight 154 Body Mass Index (BMI) 18.5 Weight Status Approriate GI Symptoms GI Symptoms None Last BM 5/2 Difficult in: None Skin Integrity/Comment: scar to head and right anterior ear, abrasion to left ankle, rash to left posterior and right axilla, decubitus ulcer to sacrum. Sal 12. Estimated Nutritional Goals Calories/Kcals/Kg 23-27 based on IBW 70kg Kcals Calculated 8005-6876 Protein g/k-1.2 Protein Calculated 70-84 Fluid: ml 1610-1890ml (1ml/kcal) Nutritional Problem No current Nutrition Prob Problem N/A Malnutrition Alert Is there a minimum of two criteria No selected? Query Text:Check all the applicable criteria. A minimum of two criteria are recommended for diagnosis of either severe or non-severe malnutrition. Malnutrition Related to Morbid Obesity Malnutrition related to morbid obesity No Intervention/Recommendation Comments 1. Continue with current TF regimen Jevity 1.2 at 70ml/hr x 20hr. It provides 1680kcal, 78g protein, 1130ml free water , meeting 100% of nutritional needs 2. Monitor TF rate, tolerance, wt, skin integrity and labs 3. F/U as moderate risk Expected Outcomes/Goals Expected Outcomes/Goals 1. Pt to meet at least 90% of nutritional needs via nutrition support with tolerance 2. Wt stability, skin to remain intact, labs to approach WNL.
--- NOTE | 2018-08-16 14:58 | Infectious Disease Prog Note ---
Infectious Disease Subjective - Review of Systems Service Date: 08/16/18 Events since last encounter: Patient was noted to have erythema and some wound dehiscence of the scalp wound with redness of the right ear. Subjective: Afebrile. on the ventilator support. Infectious Disease Objective - Results Result Diagrams: 08/19/18 04:09 08/19/18 04:09 Recent Labs: Laboratory Last Values WBC 6.0 Th/cmm (4.8-10.8) 08/16/18 04:35 RBC 2.45 Mil/cmm (4.30-5.70) L 08/16/18 04:35 Hgb 7.1 gm/dL (12-16) L* 08/16/18 04:35 Hct 21.5 % (41.0-60) L 08/16/18 04:35 MCV 87.7 fl (80-99) 08/16/18 04:35 MCH 28.7 pg (26.0-30.0) 08/16/18 04:35 MCHC Differential 32.8 pg (28.0-36.0) 08/16/18 04:35 RDW 15.0 % (11.5-20.0) 08/16/18 04:35 Plt Count 416 Th/cmm (150-400) H 08/16/18 04:35 MPV 7.9 fl 08/16/18 04:35 Add Manual Diff YES 08/05/18 04:05 Neutrophils % 62.5 % (40.0-80.0) 08/16/18 04:35 Band Neutrophils % 0 % (0-10) 08/05/18 04:05 Lymphocytes % 30.3 % (20.0-50.0) 08/16/18 04:35 Monocytes % 4.1 % (2.0-10.0) 08/16/18 04:35 Eosinophils % 3.1 % (0.0-5.0) 08/16/18 04:35 Basophils % 0.0 % (0.0-2.0) 08/16/18 04:35 Neutrophils (Manual) 72 % (40-80) 08/05/18 04:05 Lymphocytes 14 % (20-50) L 08/05/18 04:05 Monocytes 10 % (2-10) 08/05/18 04:05 Eosinophils 4 % (0-5) 08/05/18 04:05 Basophils 0 % (0-3) 08/05/18 04:05 Platelet Estimate ADEQUATE (NORMAL) 08/01/18 05:00 PT 10.4 SECONDS (9.5-11.5) 08/14/18 07:25 INR 1.00 (0.5-1.4) 08/14/18 07:25 PTT (Actin FS) 24.2 SECONDS (26.0-38.0) L 08/14/18 07:25 Sodium 134 mEq/L (136-145) L 08/16/18 04:35 Potassium 3.9 mEq/L (3.5-5.1) 08/16/18 04:35 Chloride 98 mEq/L (98-107) 08/16/18 04:35 Carbon Dioxide 28.8 mEq/L (21.0-31.0) 08/16/18 04:35 Anion Gap 11.1 (7.0-16.0) 08/16/18 04:35 BUN 14 mg/dL (7-25) 08/16/18 04:35 Creatinine 0.6 mg/dL (0.7-1.3) L 08/16/18 04:35 Est GFR ( Amer) > 60.0 ml/min (>90) 08/16/18 04:35 Est GFR (Non-Af Amer) > 60.0 ml/min 08/16/18 04:35 BUN/Creatinine Ratio 23.3 08/16/18 04:35 Glucose 95 mg/dL (70-105) 08/16/18 04:35 Whole Bld Lactic Acid 1.47 mmol/L (0.60-1.99) 07/31/18 07:40 Calcium 9.1 mg/dL (8.6-10.3) 08/16/18 04:35 Total Bilirubin 0.3 mg/dL (0.3-1.0) 08/16/18 04:35 AST 15 U/L (13-39) 08/16/18 04:35 ALT 13 U/L (7-52) 08/16/18 04:35 Alkaline Phosphatase 60 U/L (34-104) 08/16/18 04:35 Total Protein 6.4 gm/dL (6.0-8.3) 08/16/18 04:35 Albumin 3.3 gm/dL (4.2-5.5) L 08/16/18 04:35 Globulin 3.1 gm/dL 08/16/18 04:35 Albumin/Globulin Ratio 1.1 (1.0-1.8) 08/16/18 04:35 Urine Source CATH 07/30/18 19:20 Urine Color YELLOW 07/30/18 19:20 Urine Clarity HAZY (CLEAR) 07/30/18 19:20 Urine pH 7.0 (4.6 - 8.0) 07/30/18 19:20 Ur Specific [place] 1.010 (1.005-1.030) 07/30/18 19:20 Urine Protein 30 mg/dL (NEGATIVE) H 07/30/18 19:20 Urine Glucose (UA) NEGATIVE mg/dL (NEGATIVE) 07/30/18 19: Urine Ketones NEGATIVE mg/dL (NEGATIVE) 07/30/18 19:20 Urine Blood LARGE (NEGATIVE) H 07/30/18 19:20 Urine Nitrate POSITIVE (NEGATIVE) H 07/30/18 19:20 Urine Bilirubin NEGATIVE (NEGATIVE) 07/30/18 19:20 Urine Urobilinogen 0.2 E.U./dL (0.2 - 1.0) 07/30/18 19:20 Ur Leukocyte Esterase LARGE (NEGATIVE) H 07/30/18 19:20 Urine RBC 5-10 /hpf (0-5) H 07/30/18 19:20 Urine WBC 25-50 /hpf (0-5) H 07/30/18 19:20 Ur Epithelial Cells FEW /lpf (FEW) 07/30/18 19:20 Urine Bacteria 4+ /hpf (NONE SEEN) H 07/30/18 19:20 Amikacin Peak 25.8 ug/mL (20.0-30.0) 08/07/18 18:18 Amikacin Trough 0.8 ug/mL (1.0-8.0) L 08/09/18 18:00 Random Amikacin 0.8 ug/ml (1.0-30.0) L 08/04/18 12:00 Gentamicin 4.1 ug/mL (0.5-10.0) 08/13/18 16:15 Gentamicin Trough 4.3 ug/ml (0.2-2.0) H 08/11/18 04:15 Vancomycin Trough 21.3 ug/mL (5-10) H 08/01/18 21:26 Blood Type A POSITIVE 08/16/18 07:59 Antibody Screen NEGATIVE 08/16/18 07:59 Crossmatch See Detail 08/16/18 07:59 - Physical Exam Vitals and I&O: Vital Signs Temp 99.2 F 08/16/18 08:00 Pulse 60 08/16/18 13:41 Resp 14 08/16/18 11:00 BP 120/76 08/16/18 11:00 Pulse Ox 100 08/16/18 13:41 Intake & Output 08/15/18 08/16/18 08/16/18 18:59 06:59 18:59 Intake Total 1975 1840 277 Output Total 1375 850 Balance 600 990 277 Weight (lbs) 54.068 kg 53.977 kg Intake: Intake, IV Amount 1300 277 Gentamicin 280 mg In 107 Sodium Chloride 0.9% 100 ml @ 100 mls/hr IV Q36H [facility] Rx#:[id number] Sodium Chloride 0.9% 1, 1300 170 000 ml @ 50 mls/hr IV . Q20H [facility] Rx#:[id number] Oral 0 0 Tube Feeding 1125 490 Other 850 50 Output: Urine 1375 850 Other: # Bowel Movements 1 0 Stool Characteristics Soft Soft Soft Brown Brown Brown Weight Source Bedscale Bedscale Active Medications: Current Medications Acetaminophen (Tylenol) 650 mg GT Q4H PRN PRN Reason: Fever > 101 Stop: 09/29/18 06:32 Last Admin: 08/16/18 11:21 Dose: 650 mg Ascorbic Acid (Vitamin C) 500 mg GT DAILY [facility] Stop: 09/30/18 08:59 Last Admin: 08/16/18 09:19 Dose: 500 mg Bisacodyl (Dulcolax 10 Mg Supp) 10 mg RC DAILY PRN PRN Reason: Constipation Stop: 09/29/18 15:21 Calamine/Phenol (Calmoseptine) 1 appl TP PRN PRN PRN Reason: Rash Stop: 10/14/18 07:19 Last Admin: 08/16/18 05:00 Dose: 1 appl Chlorhexidine Gluconate (Peridex) 15 ml MM 0800,1999 [facility] Stop: 09/28/18 19:59 Last Admin: 08/16/18 09:23 Dose: 15 ml Famotidine (Pepcid) 20 mg PO BID [facility] Stop: 09/29/18 20:59 Last Admin: 08/16/18 09:19 Dose: 20 mg Norepinephrine Bitartrate 4 mg (/ Dextrose) 254 mls @ 0 mls/hr IV TITR PRN; Protocol PRN Reason: BP MAINTENANCE (PER PROTOCOL) Stop: 09/29/18 00:37 Last Titration: 08/05/18 00:15 Dose: 0 mcg/min, 0 mls/hr Sodium Chloride (Nacl 0.9%) 1,000 mls @ 50 mls/hr IV .Q20H [facility] Stop: 10/02/18 11:59 Last Admin: 08/16/18 09:24 Dose: 50 mls/hr Gentamicin Sulfate 280 mg/ (Sodium Chloride) 107 mls @ 100 mls/hr IV Q36H [facility] Stop: 08/18/18 23:59 Last Infusion: 08/16/18 10:30 Dose: Infused Lactobacillus Rhamnosus (Culturelle 15b) 1 each PO DAILY [facility] Stop: 09/30/18 11:59 Last Admin: 08/16/18 09:19 Dose: 1 each Levetiracetam (Keppra) 500 mg GT BID [facility] Stop: 09/30/18 08:59 Last Admin: 08/16/18 09:19 Dose: 500 mg Lorazepam (Ativan) 1 mg IVP Q4HR PRN; Protocol PRN Reason: Seizure Stop: 10/01/18 11:24 Last Admin: 08/14/18 20:38 Dose: 1 mg Magnesium Hydroxide (Milk Of Magnesia) 30 ml GT HS PRN PRN Reason: Constipation Stop: 09/29/18 17:49 Miscellaneous (Probiotic Screen) 1 ea MC PRN PRN PRN Reason: PROTOCOL Stop: 09/30/18 09:02 Morphine Sulfate (Morphine) 1 mg IVP Q4HR PRN PRN Reason: Pain (Mild) Stop: 09/30/18 14:04 Last Admin: 08/16/18 08:34 Dose: 1 mg Multivitamins/Vitamin C (Theragran) 1 tab GT BID [facility] Stop: 09/30/18 08:59 Last Admin: 08/16/18 09:19 Dose: 1 tab Nystatin (Nystop) 100 units TP DAILY PRN PRN Reason: Rash Stop: 10/14/18 07:20 Last Admin: 08/16/18 05:00 Dose: 100 units Potassium Chloride (Potassium Chloride Elixir) 40 meq GT DAILY [facility] Stop: 10/04/18 08:59 Last Admin: 08/16/18 09:18 Dose: 40 meq Thiamine HCl (Vitamin B1) 100 mg GT DAILY [facility] Stop: 09/30/18 08:59 Last Admin: 08/16/18 09:19 Dose: 100 mg Wound Care/Dressing Products (Therahoney) 1 appl TP DAILY [facility] Stop: 09/30/18 08:59 Last Admin: 08/16/18 09:23 Dose: 1 appl Zinc Sulfate (Zinc Sulfate) 220 mg GT DAILY [facility] Stop: 09/30/18 08:59 Last Admin: 08/16/18 09:19 Dose: 220 mg General: no acute distress, cachectic HEENT: PERRLA, EOMI, moist mucous membrane, other (the surgical incision is open little bit with erythema adjacent to the incision on the scalp.) Neck: supple, tracheostomy Cardiovascular: S1S2, regular Lungs: clear to auscultation bilaterally, clear to percussion Abdomen: soft, other (g tube), no tender, no distended Extremities: no cyanosis, no clubbing, no edema Neurological: awake, alert - Procedures Procedures: Procedures Procedure Code Date REPAIR HEAD, EXTERNAL APPROACH [id number] 07/30/18 RESPIRATORY VENTILATION, GREATER THAN 96 CONSECUTIVE HOURS [id number] 07/30/18 Infectious Disease Assmt/Plan - Assessment Assessment: 1. Sepsis. Pseudomonas aeruginosa. 2. Urinary tract infection and pyelonephritis. 3. Vent-dependent respiratory failure. 4. History of subarachnoid hemorrhage. 5. Status post craniotomy on the right side. 6. Scalp cellulitis, ear cellulitis 7. wound dehiscence. - Plan Plan: Continue gentamicin ( End date 08/18/2018). Wound culture. Blood cultures. Continue Vanco IV. waiting for transfer tot higher level of care. Nutritional Asmnt/Malnutr-PDOC - Dietary Evaluation Malnutrition Findings (Please click <Entered> for more info): Nutritional Asmnt/Malnutrition Start: 07/31/18 14: 50 Text: Status: Complete Freq: Protocol: Document 07/31/18 14:50 LCRASG (Rec: 07/31/18 15:09 [email or web address]) Nutritional Asmnt/Malnutrition Patient General Information Nutritional Screening High Risk Diagnosis urosepis Pertinent Medical Hx/Surgical Hx seizures, anemia, resp failure , SAH, trach, Gtube, foleu, vent depression Subjective Information Pt seen resting in bed, trach to vent. Visiablly verified TF was running at goal rate of 70ml/hr at this time. Current Diet Order/ Nutrition Support Jevity 1.2 at 70ml/hr x 20hr. Pertinent Medications nacl 0.9%, vancomycin Pertinent Labs 5/2 Na 135, alb 3.7 Nutritional Hx/Data Height 1.73 m Height (Calculated Centimeters) 172.7 Current Weight (lbs) 55.338 kg Weight (Calculated Kilograms) 55.3 Weight (Calculated Grams) 56507.3 [place] Body Weight 154 Body Mass Index (BMI) 18.5 Weight Status Approriate GI Symptoms GI Symptoms None Last BM 5/2 Difficult in: None Skin Integrity/Comment: scar to head and right anterior ear, abrasion to left ankle, rash to left posterior and right axilla, decubitus ulcer to sacrum. Sal 12. Estimated Nutritional Goals Calories/Kcals/Kg 23-27 based on IBW 70kg Kcals Calculated 9749-5511 Protein g/k-1.2 Protein Calculated 70-84 Fluid: ml 1610-1890ml (1ml/kcal) Nutritional Problem No current Nutrition Prob Problem N/A Malnutrition Alert Is there a minimum of two criteria No selected? Query Text:Check all the applicable criteria. A minimum of two criteria are recommended for diagnosis of either severe or non-severe malnutrition. Malnutrition Related to Morbid Obesity Malnutrition related to morbid obesity No Intervention/Recommendation Comments 1. Continue with current TF regimen Jevity 1.2 at 70ml/hr x 20hr. It provides 1680kcal, 78g protein, 1130ml free water , meeting 100% of nutritional needs 2. Monitor TF rate, tolerance, wt, skin integrity and labs 3. F/U as moderate risk Expected Outcomes/Goals Expected Outcomes/Goals 1. Pt to meet at least 90% of nutritional needs via nutrition support with tolerance 2. Wt stability, skin to remain intact, labs to approach WNL.
[2018-08-17] MEDS: Morphine Sulfate 2 mg/mL 1mL Syr IVP PRN (03:00)
[2018-08-17 05:06] LABS: % BASOPHILS 0.4 % (0.0-2.0); % EOSINOPHILS 2.9 % (0.0-5.0); % LYMPHOCYTES 31.2 % (20.0-50.0); % MONOCYTES 1.5 % (2.0-10.0); EOSINOPHILE ABSOLUTE 0.2 Th/cmm (0.1-0.4); HEMATOCRIT 26.7 % (41.0-60); HEMOGLOBIN 8.8 gm/dL (12-16); LYMPHOCYTE ABSOLUTE 1.8 Th/cmm (1.5-3.0); MEAN CELL VOLUME 87.9 fl (80-99); MEAN CORPUSCULAR HEMOGLOBIN 28.9 pg (26.0-30.0); MEAN CORPUSCULAR HGB CONC 32.9 pg (28.0-36.0); MEAN PLATELET VOLUME 7.4 fl; MONOCYTE ABSOLUTE 0.1 Th/cmm (0.3-1.0); NEUTROPHILE ABSOLUTE 3.6 Th/cmm (1.8-8.0); PLATELET COUNT 418 Th/cmm (150-400); RED BLOOD COUNT 3.04 Mil/cmm (4.30-5.70); RED CELL DISTRIBUTION WIDTH 14.5 % (11.5-20.0); WHITE BLOOD COUNT 5.7 Th/cmm (4.8-10.8)
[2018-08-17 05:38] LABS: BUN - UREA NITROGEN 14 mg/dL (7-25); CALCIUM SERUM 9.1 mg/dL (8.6-10.3); CARBON DIOXIDE 27.8 mEq/L (21.0-31.0); CHLORIDE 100 mEq/L (98-107); CREATININE - SERUM 0.6 mg/dL (0.7-1.3); GFR AFRICAN-AMERICAN > 60.0 ml/min (>90); GFR NON AFRICAN-AMERICAN > 60.0 ml/min; GLUCOSE 85 mg/dL (70-105); POTASSIUM SERUM 3.8 mEq/L (3.5-5.1); SODIUM SERUM 134 mEq/L (136-145)
--- NOTE | 2018-08-17 07:56 | Progress Notes ---
DATE: 08/16/2018 PULMONARY PROGRESS NOTE SUBJECTIVE: The patient appears to be doing okay. No distress. PHYSICAL EXAMINATION: VITAL SIGNS: Temperature 99.2, pulse 72, respirations 18, blood pressure is 120/76, and saturation 100%. CHEST: Good breath sounds. No wheezing or crackles. HEART: Regular rate and rhythm. ABDOMEN: Soft. EXTREMITIES: No edema. LABORATORY DATA: WBC 6.0, hemoglobin 7.2, hematocrit 21.5, and platelets 468. Sodium is 134, potassium 3.7, BUN 14, creatinine 0.6. IMPRESSION: 1. Respiratory failure. 2. Anemia. 3. History of intracranial bleed, status post craniotomy, oozing from surgical site. PLAN: Awaiting transfer to [facility] for evaluation of that area where the craniotomy site is. Continue ventilator support and supportive care. Blood transfusion as needed. JOB# [id number]
[2018-08-17] MEDS: Vancomycin HCl 500 MG in Sodium Chloride 0.9% 100 ML IV SCH ×3 (08:41→20:12)
[2018-08-17] MEDS: Potassium Chloride Elixir 20 mEq /15 mL UDC GT SCH (08:42)
[2018-08-17] MEDS: Lactobacillus Rhamnosus GG 15 Billion CFU CAP.SPRINK PO SCH (08:43)
[2018-08-17] MEDS: Multivitamin Tab GT SCH ×2 (08:43→16:30)
[2018-08-17] MEDS: Levetiracetam 500 mg/5mL 5mL UDSyr *for ORAL USE ONLY GT SCH ×2 (08:43→16:30)
[2018-08-17] MEDS: Chlorhexidine Gluconate 0.12% 15mL Mouthwash MM SCH ×2 (08:44→20:12)
--- NOTE | 2018-08-17 11:13 | Progress Notes ---
DATE: 08/16/2018 TIME: 4:26 p.m. The patient is afebrile. Vital signs otherwise stable. The patient is resting in bed comfortably, in no acute distress. The dressings on the right preauricular area had been loosened. There is just some Yanet wrap around the site. There is no significant hematoma or active bleeding at this time. There is some pressure ulceration of the periareolar area. OBJECTIVE: CHEST: Clear to auscultation bilaterally. HEART: Regular rate. ABDOMEN: Otherwise, soft, nontender, nondistended. NEUROVASCULAR AND EXTREMITIES: Otherwise normal. LABORATORY DATA: White blood cell count 6, H and H 7 and 21.5, platelet count 416. Chem-7 is otherwise unremarkable. He is not on any anticoagulants. IMPRESSION AND PLAN: Stable right preauricular area. The Ac wrap has been loosened as there is some deep tissue injury and pressure ulceration noted. Obviously with a pressure dressing removed, there is a risk of bleeding from the right preauricular area. Ongoing efforts are being made to transfer the patient to a tertiary care facility or large community hospital setting. for risk of bleeding as there is a pulsatile underlying vessel that intermittently bleeding. For now, continue local wound care. The patient is tolerating nutritional support with enteral feedings. Consider blood transfusion. JOB# [id number]
[2018-08-17] MEDS: Therahoney Gel 42.5gm Tube TP SCH (16:31)
--- NOTE | 2018-08-17 21:17 | Infectious Disease Prog Note ---
Infectious Disease Subjective - Review of Systems Service Date: 08/17/18 Subjective: Afebrile. on the ventilator support. Infectious Disease Objective - Results Result Diagrams: 08/17/18 05:00 08/17/18 05:00 Recent Labs: Laboratory Last Values WBC 5.7 Th/cmm (4.8-10.8) 08/17/18 05:00 RBC 3.04 Mil/cmm (4.30-5.70) L 08/17/18 05:00 Hgb 8.8 gm/dL (12-16) L 08/17/18 05:00 Hct 26.7 % (41.0-60) L 08/17/18 05:00 MCV 87.9 fl (80-99) 08/17/18 05:00 MCH 28.9 pg (26.0-30.0) 08/17/18 05:00 MCHC Differential 32.9 pg (28.0-36.0) 08/17/18 05:00 RDW 14.5 % (11.5-20.0) 08/17/18 05:00 Plt Count 418 Th/cmm (150-400) H 08/17/18 05:00 MPV 7.4 fl 08/17/18 05:00 Add Manual Diff YES 08/05/18 04:05 Neutrophils % 64.0 % (40.0-80.0) 08/17/18 05:00 Band Neutrophils % 0 % (0-10) 08/05/18 04:05 Lymphocytes % 31.2 % (20.0-50.0) 08/17/18 05:00 Monocytes % 1.5 % (2.0-10.0) L 08/17/18 05:00 Eosinophils % 2.9 % (0.0-5.0) 08/17/18 05:00 Basophils % 0.4 % (0.0-2.0) 08/17/18 05:00 Neutrophils (Manual) 72 % (40-80) 08/05/18 04:05 Lymphocytes 14 % (20-50) L 08/05/18 04:05 Monocytes 10 % (2-10) 08/05/18 04:05 Eosinophils 4 % (0-5) 08/05/18 04:05 Basophils 0 % (0-3) 08/05/18 04:05 Platelet Estimate ADEQUATE (NORMAL) 08/01/18 05:00 PT 10.4 SECONDS (9.5-11.5) 08/14/18 07:25 INR 1.00 (0.5-1.4) 08/14/18 07:25 PTT (Actin FS) 24.2 SECONDS (26.0-38.0) L 08/14/18 07:25 Sodium 134 mEq/L (136-145) L 08/17/18 05:00 Potassium 3.8 mEq/L (3.5-5.1) 08/17/18 05:00 Chloride 100 mEq/L (98-107) 08/17/18 05:00 Carbon Dioxide 27.8 mEq/L (21.0-31.0) 08/17/18 05:00 Anion Gap 10.0 (7.0-16.0) 08/17/18 05:00 BUN 14 mg/dL (7-25) 08/17/18 05:00 Creatinine 0.6 mg/dL (0.7-1.3) L 08/17/18 05:00 Est GFR ( Amer) > 60.0 ml/min (>90) 08/17/18 05:00 Est GFR (Non-Af Amer) > 60.0 ml/min 08/17/18 05:00 BUN/Creatinine Ratio 23.3 08/17/18 05:00 Glucose 85 mg/dL (70-105) 08/17/18 05:00 Whole Bld Lactic Acid 1.47 mmol/L (0.60-1.99) 07/31/18 07:40 Calcium 9.1 mg/dL (8.6-10.3) 08/17/18 05:00 Total Bilirubin 0.3 mg/dL (0.3-1.0) 08/16/18 04:35 AST 15 U/L (13-39) 08/16/18 04:35 ALT 13 U/L (7-52) 08/16/18 04:35 Alkaline Phosphatase 60 U/L (34-104) 08/16/18 04:35 Total Protein 6.4 gm/dL (6.0-8.3) 08/16/18 04:35 Albumin 3.3 gm/dL (4.2-5.5) L 08/16/18 04:35 Globulin 3.1 gm/dL 08/16/18 04:35 Albumin/Globulin Ratio 1.1 (1.0-1.8) 08/16/18 04:35 Urine Source CATH 07/30/18 19:20 Urine Color YELLOW 07/30/18 19:20 Urine Clarity HAZY (CLEAR) 07/30/18 19:20 Urine pH 7.0 (4.6 - 8.0) 07/30/18 19:20 Ur Specific [place] 1.010 (1.005-1.030) 07/30/18 19:20 Urine Protein 30 mg/dL (NEGATIVE) H 07/30/18 19:20 Urine Glucose (UA) NEGATIVE mg/dL (NEGATIVE) 07/30/18 19:20 Urine Ketones NEGATIVE mg/dL (NEGATIVE) 07/30/18 19:20 Urine Blood LARGE (NEGATIVE) H 07/30/18 19:20 Urine Nitrate POSITIVE (NEGATIVE) H 07/30/18 19:20 Urine Bilirubin NEGATIVE (NEGATIVE) 07/30/18 19:20 Urine Urobilinogen 0.2 E.U./dL (0.2 - 1.0) 07/30/18 19:20 Ur Leukocyte Esterase LARGE (NEGATIVE) H 07/30/18 19:20 Urine RBC 5-10 /hpf (0-5) H 07/30/18 19:20 Urine WBC 25-50 /hpf (0-5) H 07/30/18 19:20 Ur Epithelial Cells FEW /lpf (FEW) 07/30/18 19:20 Urine Bacteria 4+ /hpf (NONE SEEN) H 07/30/18 19:20 Amikacin Peak 25.8 ug/mL (20.0-30.0) 08/07/18 18:18 Amikacin Trough 0.8 ug/mL (1.0-8.0) L 08/09/18 18:00 Random Amikacin 0.8 ug/ml (1.0-30.0) L 08/04/18 12:00 Gentamicin 5.3 ug/mL (0.5-10.0) 08/16/18 16:05 Gentamicin Trough 4.3 ug/ml (0.2-2.0) H 08/11/18 04:15 Vancomycin Trough 21.3 ug/mL (5-10) H 08/01/18 21:26 Blood Type A POSITIVE 08/16/18 07:59 Antibody Screen NEGATIVE 08/16/18 07:59 Crossmatch See Detail 08/16/18 07:59 - Physical Exam Vitals and I&O: Vital Signs Temp 99.2 F 08/17/18 20:00 Pulse 73 08/17/18 20:00 Resp 13 08/17/18 20:00 BP 137/78 08/17/18 20:00 Pulse Ox 100 08/17/18 20:00 Intake & Output 08/17/18 08/17/18 08/18/18 06:59 18:59 06:59 Intake Total 800 1540 Output Total 1650 1600 Balance -850 -60 Weight (lbs) 54.023 kg 55.338 kg Intake: Intake, IV Amount 200 Vancomycin HCl 500 mg In 200 Sodium Chloride 0.9% 100 ml @ 100 mls/hr IV Q8HR COUNT INCLUDES THE [facility] Rx#:[id number] Tube Feeding 500 840 Other 300 500 Output: Urine 1650 1600 Other: # Bowel Movements 1 1 Weight Source Bedscale Bedscale Active Medications: Current Medications Acetaminophen (Tylenol) 650 mg GT Q4H PRN PRN Reason: Fever > 101 Stop: 09/29/18 06:32 Last Admin: 08/16/18 11:21 Dose: 650 mg Ascorbic Acid (Vitamin C) 500 mg GT DAILY COUNT INCLUDES THE [facility] Stop: 09/30/18 08:59 Last Admin: 08/17/18 08:43 Dose: 500 mg Bisacodyl (Dulcolax 10 Mg Supp) 10 mg RC DAILY PRN PRN Reason: Constipation Stop: 09/29/18 15:21 Calamine/Phenol (Calmoseptine) 1 appl TP PRN PRN PRN Reason: Rash Stop: 10/14/18 07:19 Last Admin: 08/16/18 05:00 Dose: 1 appl Chlorhexidine Gluconate (Peridex) 15 ml MM 0800,2000 COUNT INCLUDES THE [facility] Stop: 09/28/18 19:59 Last Admin: 08/17/18 20:12 Dose: 15 ml Famotidine (Pepcid) 20 mg PO BID COUNT INCLUDES THE [facility] Stop: 09/29/18 20:59 Last Admin: 08/17/18 16:30 Dose: 20 mg Norepinephrine Bitartrate 4 mg (/ Dextrose) 254 mls @ 0 mls/hr IV TITR PRN; Protocol PRN Reason: BP MAINTENANCE (PER PROTOCOL) Stop: 09/29/18 00:37 Last Titration: 08/05/18 00:15 Dose: 0 mcg/min, 0 mls/hr Sodium Chloride (Nacl 0.9%) 1,000 mls @ 50 mls/hr IV .Q20H COUNT INCLUDES THE [facility] Stop: 10/02/18 11:59 Last Admin: 08/16/18 09:24 Dose: 50 mls/hr Gentamicin Sulfate 280 mg/ (Sodium Chloride) 107 mls @ 100 mls/hr IV Q36H [facility]CY Stop: 08/18/18 23:59 Last Infusion: 08/16/18 10:30 Dose: Infused Vancomycin HCl 500 mg/ Sodium (Chloride) 100 mls @ 100 mls/hr IV Q8HR COUNT INCLUDES THE [facility] Stop: 10/16/18 07:44 Last Admin: 08/17/18 20:12 Dose: 100 mls/hr Lactobacillus Rhamnosus (Culturelle 15b) 1 each PO DAILY COUNT INCLUDES THE [facility] Stop: 09/30/18 11:59 Last Admin: 08/17/18 08:43 Dose: 1 each Levetiracetam (Keppra) 500 mg GT BID COUNT INCLUDES THE [facility] Stop: 09/30/18 08:59 Last Admin: 08/17/18 16:30 Dose: 500 mg Lorazepam (Ativan) 1 mg IVP Q4HR PRN; Protocol PRN Reason: Seizure Stop: 10/01/18 11:24 Last Admin: 08/14/18 20:38 Dose: 1 mg Magnesium Hydroxide (Milk Of Magnesia) 30 ml GT HS PRN PRN Reason: Constipation Stop: 09/29/18 17:49 Miscellaneous (Probiotic Screen) 1 ea MC PRN PRN PRN Reason: PROTOCOL Stop: 09/30/18 09:02 Miscellaneous (Vancomycin Iv Per Pharmacy) 1 ea MC PRN PRN PRN Reason: PROTOCOL Stop: 10/15/18 17:16 Morphine Sulfate (Morphine) 1 mg IVP Q4HR PRN PRN Reason: Pain (Mild) Stop: 09/30/18 14:04 Last Admin: 08/17/18 03:00 Dose: 1 mg Multivitamins/Vitamin C (Theragran) 1 tab GT BID COUNT INCLUDES THE [facility] Stop: 09/30/18 08:59 Last Admin: 08/17/18 16:30 Dose: 1 tab Nystatin (Nystop) 100 units TP DAILY PRN PRN Reason: Rash Stop: 10/14/18 07:20 Last Admin: 08/16/18 05:00 Dose: 100 units Potassium Chloride (Potassium Chloride Elixir) 40 meq GT DAILY COUNT INCLUDES THE [facility] Stop: 10/04/18 08:59 Last Admin: 08/17/18 08:42 Dose: 40 meq Thiamine HCl (Vitamin B1) 100 mg GT DAILY COUNT INCLUDES THE [facility] Stop: 09/30/18 08:59 Last Admin: 08/17/18 08:43 Dose: 100 mg Wound Care/Dressing Products (Therahoney) 1 appl TP DAILY COUNT INCLUDES THE [facility] Stop: 09/30/18 08:59 Last Admin: 08/17/18 16:31 Dose: 1 appl Zinc Sulfate (Zinc Sulfate) 220 mg GT DAILY COUNT INCLUDES THE [facility] Stop: 09/30/18 08:59 Last Admin: 08/17/18 08:43 Dose: 220 mg General: no acute distress, cachectic HEENT: PERRLA, EOMI, other (absent scalp on the right. There is erythema and some wound dehiscence of the scalp wound with redness of the right ear.) Neck: supple, tracheostomy, no thyromegaly, no lymphadenopathy Cardiovascular: S1S2, regular Lungs: clear to auscultation bilaterally, clear to percussion Abdomen: soft, other (G tube), no tender Extremities: lines (right arm), no cyanosis, no clubbing, no edema Neurological: awake, alert - Procedures Procedures: Procedures Procedure Code Date REPAIR HEAD, EXTERNAL APPROACH [id number] 07/30/18 RESPIRATORY VENTILATION, GREATER THAN 96 CONSECUTIVE HOURS [id number] 07/30/18 Infectious Disease Assmt/Plan - Assessment Assessment: 1. Sepsis. Pseudomonas aeruginosa. 2. Urinary tract infection and pyelonephritis. 3. Vent-dependent respiratory failure. 4. History of subarachnoid hemorrhage. 5. Status post craniotomy on the right side. 6. Scalp cellulitis, ear cellulitis 7. wound dehiscence. 8. G tube. 9. Picc line right arm. - Plan Plan: Continue gentamicin ( End date 08/18/2018). Wound culture. Blood cultures. Continue Vanco IV. Transfer to the higher level of care. Nutritional Asmnt/Malnutr-PDOC - Dietary Evaluation Malnutrition Findings (Please click <Entered> for more info): Nutritional Asmnt/Malnutrition Start: 07/31/18 14: 50 Text: Status: Complete Freq: Protocol: Document 07/31/18 14:50 CHAPIN (Rec: 07/31/18 15:09 CHAPIN [email or web address]) Nutritional Asmnt/Malnutrition Patient General Information Nutritional Screening High Risk Diagnosis urosepis Pertinent Medical Hx/Surgical Hx seizures, anemia, resp failure , SAH, trach, Gtube, foleu, vent depression Subjective Information Pt seen resting in bed, trach to vent. Visiablly verified TF was running at goal rate of 70ml/hr at this time. Current Diet Order/ Nutrition Support Jevity 1.2 at 70ml/hr x 20hr. Pertinent Medications nacl 0.9%, vancomycin Pertinent Labs 5/2 Na 135, alb 3.7 Nutritional Hx/Data Height 1.73 m Height (Calculated Centimeters) 172.7 Current Weight (lbs) 55.338 kg Weight (Calculated Kilograms) 55.3 Weight (Calculated Grams) 35767.3 Powell Body Weight 154 Body Mass Index (BMI) 18.5 Weight Status Approriate GI Symptoms GI Symptoms None Last BM 5/2 Difficult in: None Skin Integrity/Comment: scar to head and right anterior ear, abrasion to left ankle, rash to left posterior and right axilla, decubitus ulcer to sacrum. Sal 12. Estimated Nutritional Goals Calories/Kcals/Kg 23-27 based on IBW 70kg Kcals Calculated 3383-7315 Protein g/k-1.2 Protein Calculated 70-84 Fluid: ml 1610-1890ml (1ml/kcal) Nutritional Problem No current Nutrition Prob Problem N/A Malnutrition Alert Is there a minimum of two criteria No selected? Query Text:Check all the applicable criteria. A minimum of two criteria are recommended for diagnosis of either severe or non-severe malnutrition. Malnutrition Related to Morbid Obesity Malnutrition related to morbid obesity No Intervention/Recommendation Comments 1. Continue with current TF regimen Jevity 1.2 at 70ml/hr x 20hr. It provides 1680kcal, 78g protein, 1130ml free water , meeting 100% of nutritional needs 2. Monitor TF rate, tolerance, wt, skin integrity and labs 3. F/U as moderate risk Expected Outcomes/Goals Expected Outcomes/Goals 1. Pt to meet at least 90% of nutritional needs via nutrition support with tolerance 2. Wt stability, skin to remain intact, labs to approach WNL.
[2018-08-17] MEDS: Gentamicin 280 MG in Sodium Chloride 0.9% 100 ML IV SCH (21:55)
[2018-08-18] MEDS: Morphine Sulfate 2 mg/mL 1mL Syr IVP PRN (01:45)
--- NOTE | 2018-08-18 02:16 | Progress Notes ---
DATE: 08/17/2018 SURGICAL NOTE TIME: 1:15 p.m. OBJECTIVE: The patient is afebrile. Vital signs otherwise stable. HEENT AND NECK: Craniectomy defect. The right preauricular area shows no evidence of active bleeding. There is no blood soaking of the dressings overlying the wound. There is no hematoma or ecchymosis noted. HEENT and neck otherwise within normal limits. CHEST: Clear to auscultation bilaterally. HEART: Regular rate and rhythm. He has a trach. LABORATORY DATA: His white blood cell count 5.7, H and H is 8.8/26.7, platelet count 418. Chem-7 is otherwise unremarkable. IMPRESSION AND PLAN: Otherwise stable from a right preauricular wounds standpoint, there is no active bleeding. There is no hematoma or signs of infection at the site. The pressure dressing has been removed as there was some deep tissue injury and concern for ulceration of the wound because of the pressure dressing. Will follow closely. Nurses are asked to contact me if there are any further bleeding that is noted as usual. As mentioned earlier, would be prudent to transfer this patient to a higher level of care with either Vascular or Neurosurgery services as there is a pulsatile vessel that is underlying right preauricular area and the patient is high risk for further bleeding from this site. JOB# [id number]
--- NOTE | 2018-08-18 03:19 | Progress Notes ---
DATE: 08/17/2018 PULMONARY PROGRESS NOTE SUBJECTIVE: The patient appears to be doing okay. OBJECTIVE: VITAL SIGNS: Temperature is 98.7, pulse is 73, respirations 15, blood pressure is 110/60, saturation 100%. CHEST: Good breath sounds. No wheezing. Few rhonchi. HEART: Regular rate and rhythm. ABDOMEN: Soft. No tenderness. EXTREMITIES: No edema. LABORATORY AND DIAGNOSTIC DATA: WBC is 5.7, hemoglobin 8.8, hematocrit 26.7, platelets 418. Sodium is 134, potassium 3.8, BUN 14, creatinine 0.6. IMPRESSION: 1. Respiratory failure. 2. Pneumonia. 3. Dysphagia. 4. Weakness. 5. Intracranial hemorrhage. PLAN: Continue supportive care, ventilator support, antibiotic support, and awaiting transfer to [facility]. JOB# [id number]
[2018-08-18] MEDS: Vancomycin HCl 500 MG in Sodium Chloride 0.9% 100 ML IV SCH ×3 (05:16→20:48)
[2018-08-18] MEDS: Potassium Chloride Elixir 20 mEq /15 mL UDC GT SCH (08:30)
[2018-08-18] MEDS: Therahoney Gel 42.5gm Tube TP SCH (08:30)
[2018-08-18] MEDS: Levetiracetam 500 mg/5mL 5mL UDSyr *for ORAL USE ONLY GT SCH ×2 (08:30→16:49)
[2018-08-18] MEDS: Multivitamin Tab GT SCH ×2 (08:30→16:49)
[2018-08-18] MEDS: Lactobacillus Rhamnosus GG 15 Billion CFU CAP.SPRINK PO SCH (08:30)
[2018-08-18] MEDS: Chlorhexidine Gluconate 0.12% 15mL Mouthwash MM SCH ×2 (08:30→20:48)
--- NOTE | 2018-08-19 01:12 | Progress Notes ---
DATE: 08/18/2018 SUBJECTIVE: The patient appears to be doing okay. No distress. OBJECTIVE: VITAL SIGNS: Temperature 98.0, pulse 88, respirations 17, blood pressure 107/72, saturation 100%. CHEST: Good breath sounds, no wheezing, no crackles. HEART: Regular rate and rhythm. ABDOMEN: Soft, no tenderness. EXTREMITIES: No edema. LABORATORY DATA: WBC is 5.7, hemoglobin 8.8, platelets 418. Sodium is 134, potassium 3.8, BUN 14, creatinine 0.6. IMPRESSION: 1. Respiratory failure. 2. Intracranial hemorrhage, status post craniotomy. 3. Urinary tract infection, status post sepsis. PLAN: 1. Follow up chest x-ray. 2. Continue ventilator support. 3. Awaiting transfer to tertiary center for evaluation of the craniotomy site. JOB# [id number]
[2018-08-19] MEDS: Vancomycin HCl 500 MG in Sodium Chloride 0.9% 100 ML IV SCH ×3 (04:00→20:22)
[2018-08-19 04:44] LABS: % BASOPHILS 0.6 % (0.0-2.0); % EOSINOPHILS 2.9 % (0.0-5.0); % LYMPHOCYTES 18.8 % (20.0-50.0); % MONOCYTES 8.5 % (2.0-10.0); % NEUTROPHILS 69.2 % (40.0-80.0); EOSINOPHILE ABSOLUTE 0.2 Th/cmm (0.1-0.4); HEMATOCRIT 26.5 % (41.0-60); HEMOGLOBIN 8.7 gm/dL (12-16); LYMPHOCYTE ABSOLUTE 1.3 Th/cmm (1.5-3.0); MEAN CELL VOLUME 88.7 fl (80-99); MEAN CORPUSCULAR HGB CONC 32.8 pg (28.0-36.0); MEAN PLATELET VOLUME 8.2 fl; MONOCYTE ABSOLUTE 0.6 Th/cmm (0.3-1.0); NEUTROPHILE ABSOLUTE 4.6 Th/cmm (1.8-8.0); PLATELET COUNT 427 Th/cmm (150-400); RED BLOOD COUNT 2.99 Mil/cmm (4.30-5.70); RED CELL DISTRIBUTION WIDTH 14.5 % (11.5-20.0); WHITE BLOOD COUNT 6.7 Th/cmm (4.8-10.8)
[2018-08-19 05:13] LABS: ALB/GLOB RATIO 1.1 (1.0-1.8); ALBUMIN 3.4 gm/dL (4.2-5.5); ALKALINE PHOSPHATASE 59 U/L (34-104); ANION GAP 12.3 (7.0-16.0); BILIRUBIN,TOTAL 0.2 mg/dL (0.3-1.0); BUN - UREA NITROGEN 14 mg/dL (7-25); CALCIUM SERUM 9.1 mg/dL (8.6-10.3); CARBON DIOXIDE 27.7 mEq/L (21.0-31.0); CHLORIDE 100 mEq/L (98-107); CREATININE - SERUM 0.6 mg/dL (0.7-1.3); GFR AFRICAN-AMERICAN > 60.0 ml/min (>90); GFR NON AFRICAN-AMERICAN > 60.0 ml/min; GLUCOSE 117 mg/dL (70-105); SGOT 15 U/L (13-39); SGPT/ALT 12 U/L (7-52); SODIUM SERUM 136 mEq/L (136-145); TOTAL PROTEIN,SERUM 6.4 gm/dL (6.0-8.3)
[2018-08-19] MEDS: Lactobacillus Rhamnosus GG 15 Billion CFU CAP.SPRINK PO SCH (08:38)
[2018-08-19] MEDS: Levetiracetam 500 mg/5mL 5mL UDSyr *for ORAL USE ONLY GT SCH ×2 (08:38→16:33)
[2018-08-19] MEDS: Multivitamin Tab GT SCH ×2 (08:38→16:33)
[2018-08-19] MEDS: Chlorhexidine Gluconate 0.12% 15mL Mouthwash MM SCH ×2 (08:39→20:16)
[2018-08-19] MEDS: Potassium Chloride Elixir 20 mEq /15 mL UDC GT SCH (08:39)
--- NOTE | 2018-08-19 09:12 | Diagnostic Imaging Report ---
CHEST X-RAY: AP view INDICATION: Shortness of breath COMPARISON: 08/07/2018 FINDINGS: Support devices are stable. No focal consolidation or effusions. Increased right basal lung markings are noted. Heart size is normal. Osseous structures are intact. IMPRESSION: Increased right basal lung markings probably due to atelectasis or scarring. No focal consolidation identified.
[2018-08-19] MEDS: Therahoney Gel 42.5gm Tube TP SCH (11:00)
--- NOTE | 2018-08-19 12:03 | Infectious Disease Prog Note ---
Infectious Disease Subjective - Review of Systems Service Date: 08/19/18 Subjective: Afebrile. on the ventilator support. Infectious Disease Objective - Results Result Diagrams: 08/21/18 04:55 08/21/18 04:55 Recent Labs: Laboratory Last Values WBC 6.7 Th/cmm (4.8-10.8) 08/19/18 04:09 RBC 2.99 Mil/cmm (4.30-5.70) L 08/19/18 04:09 Hgb 8.7 gm/dL (12-16) L 08/19/18 04:09 Hct 26.5 % (41.0-60) L 08/19/18 04:09 MCV 88.7 fl (80-99) 08/19/18 04:09 MCH 29.0 pg (26.0-30.0) 08/19/18 04:09 MCHC Differential 32.8 pg (28.0-36.0) 08/19/18 04:09 RDW 14.5 % (11.5-20.0) 08/19/18 04:09 Plt Count 427 Th/cmm (150-400) H 08/19/18 04:09 MPV 8.2 fl 08/19/18 04:09 Add Manual Diff YES 08/05/18 04:05 Neutrophils % 69.2 % (40.0-80.0) 08/19/18 04:09 Band Neutrophils % 0 % (0-10) 08/05/18 04:05 Lymphocytes % 18.8 % (20.0-50.0) L 08/19/18 04:09 Monocytes % 8.5 % (2.0-10.0) 08/19/18 04:09 Eosinophils % 2.9 % (0.0-5.0) 08/19/18 04:09 Basophils % 0.6 % (0.0-2.0) 08/19/18 04:09 Neutrophils (Manual) 72 % (40-80) 08/05/18 04:05 Lymphocytes 14 % (20-50) L 08/05/18 04:05 Monocytes 10 % (2-10) 08/05/18 04:05 Eosinophils 4 % (0-5) 08/05/18 04:05 Basophils 0 % (0-3) 08/05/18 04:05 Platelet Estimate ADEQUATE (NORMAL) 08/01/18 05:00 PT 10.4 SECONDS (9.5-11.5) 08/14/18 07:25 INR 1.00 (0.5-1.4) 08/14/18 07:25 PTT (Actin FS) 24.2 SECONDS (26.0-38.0) L 08/14/18 07:25 Sodium 136 mEq/L (136-145) 08/19/18 04:09 Potassium 4.0 mEq/L (3.5-5.1) 08/19/18 04:09 Chloride 100 mEq/L (98-107) 08/19/18 04:09 Carbon Dioxide 27.7 mEq/L (21.0-31.0) 08/19/18 04:09 Anion Gap 12.3 (7.0-16.0) 08/19/18 04:09 BUN 14 mg/dL (7-25) 08/19/18 04:09 Creatinine 0.6 mg/dL (0.7-1.3) L 08/19/18 04:09 Est GFR ( Amer) > 60.0 ml/min (>90) 08/19/18 04:09 Est GFR (Non-Af Amer) > 60.0 ml/min 08/19/18 04:09 BUN/Creatinine Ratio 23.3 08/19/18 04:09 Glucose 117 mg/dL (70-105) H 08/19/18 04:09 Whole Bld Lactic Acid 1.47 mmol/L (0.60-1.99) 07/31/18 07:40 Calcium 9.1 mg/dL (8.6-10.3) 08/19/18 04:09 Total Bilirubin 0.2 mg/dL (0.3-1.0) L 08/19/18 04:09 AST 15 U/L (13-39) 08/19/18 04:09 ALT 12 U/L (7-52) 08/19/18 04:09 Alkaline Phosphatase 59 U/L (34-104) 08/19/18 04:09 Total Protein 6.4 gm/dL (6.0-8.3) 08/19/18 04:09 Albumin 3.4 gm/dL (4.2-5.5) L 08/19/18 04:09 Globulin 3.0 gm/dL 08/19/18 04:09 Albumin/Globulin Ratio 1.1 (1.0-1.8) 08/19/18 04:09 Urine Source CATH 07/30/18 19:20 Urine Color YELLOW 07/30/18 19:20 Urine Clarity HAZY (CLEAR) 07/30/18 19:20 Urine pH 7.0 (4.6 - 8.0) 07/30/18 19:20 Ur Specific [place] 1.010 (1.005-1.030) 07/30/18 19:20 Urine Protein 30 mg/dL (NEGATIVE) H 07/30/18 19:20 Urine Glucose (UA) NEGATIVE mg/dL (NEGATIVE) 07/30/18 19: Urine Ketones NEGATIVE mg/dL (NEGATIVE) 07/30/18 19:20 Urine Blood LARGE (NEGATIVE) H 07/30/18 19:20 Urine Nitrate POSITIVE (NEGATIVE) H 07/30/18 19:20 Urine Bilirubin NEGATIVE (NEGATIVE) 07/30/18 19:20 Urine Urobilinogen 0.2 E.U./dL (0.2 - 1.0) 07/30/18 19:20 Ur Leukocyte Esterase LARGE (NEGATIVE) H 07/30/18 19:20 Urine RBC 5-10 /hpf (0-5) H 07/30/18 19:20 Urine WBC 25-50 /hpf (0-5) H 07/30/18 19:20 Ur Epithelial Cells FEW /lpf (FEW) 07/30/18 19:20 Urine Bacteria 4+ /hpf (NONE SEEN) H 07/30/18 19:20 Amikacin Peak 25.8 ug/mL (20.0-30.0) 08/07/18 18:18 Amikacin Trough 0.8 ug/mL (1.0-8.0) L 08/09/18 18:00 Random Amikacin 0.8 ug/ml (1.0-30.0) L 08/04/18 12:00 Gentamicin 5.3 ug/mL (0.5-10.0) 08/16/18 16:05 Gentamicin Trough 4.3 ug/ml (0.2-2.0) H 08/11/18 04:15 Vancomycin Trough 12.9 ug/mL (5-10) H 08/18/18 04:09 Blood Type A POSITIVE 08/16/18 07:59 Antibody Screen NEGATIVE 08/16/18 07:59 Crossmatch See Detail 08/16/18 07:59 - Physical Exam Vitals and I&O: Vital Signs Temp 99.4 F 08/19/18 08:00 Pulse 77 08/19/18 11:05 Resp 14 08/19/18 09:00 BP 143/77 08/19/18 09:00 Pulse Ox 100 08/19/18 11:05 Intake & Output 08/18/18 08/19/18 08/19/18 18:59 06:59 18:59 Intake Total 1240 1288.333 1.667 Output Total 950 1050 Balance 290 238.333 1.667 Weight (lbs) 55.338 kg 56.501 kg Intake: Intake, IV Amount 100 198.333 1.667 Vancomycin HCl 500 mg In 100 198.333 1.667 Sodium Chloride 0.9% 100 ml @ 100 mls/hr IV Q8HR [facility] Rx#:[id number] Tube Feeding 840 840 Other 300 250 Output: Urine 950 1050 Other: # Bowel Movements 0 1 Stool Characteristics Soft Soft Formed Formed Brown Brown Weight Source Bedscale Bedscale Active Medications: Current Medications Acetaminophen (Tylenol) 650 mg GT Q4H PRN PRN Reason: Fever > 101 Stop: 09/29/18 06:32 Last Admin: 08/19/18 03:56 Dose: 650 mg Ascorbic Acid (Vitamin C) 500 mg GT DAILY [facility] Stop: 09/30/18 08:59 Last Admin: 08/19/18 08:38 Dose: 500 mg Bisacodyl (Dulcolax 10 Mg Supp) 10 mg RC DAILY PRN PRN Reason: Constipation Stop: 09/29/18 15:21 Calamine/Phenol (Calmoseptine) 1 appl TP PRN PRN PRN Reason: Rash Stop: 10/14/18 07:19 Last Admin: 08/16/18 05:00 Dose: 1 appl Chlorhexidine Gluconate (Peridex) 15 ml MM 08,1999 [facility] Stop: 09/28/18 19:59 Last Admin: 08/19/18 08:39 Dose: 15 ml Famotidine (Pepcid) 20 mg PO BID [facility] Stop: 09/29/18 20:59 Last Admin: 08/19/18 08:38 Dose: 20 mg Norepinephrine Bitartrate 4 mg (/ Dextrose) 254 mls @ 0 mls/hr IV TITR PRN; Protocol PRN Reason: BP MAINTENANCE (PER PROTOCOL) Stop: 09/29/18 00:37 Last Titration: 08/05/18 00:15 Dose: 0 mcg/min, 0 mls/hr Sodium Chloride (Nacl 0.9%) 1,000 mls @ 50 mls/hr IV .Q20H [facility] Stop: 10/02/18 11:59 Last Admin: 08/16/18 09:24 Dose: 50 mls/hr Vancomycin HCl 500 mg/ Sodium (Chloride) 100 mls @ 100 mls/hr IV Q8HR [facility] Stop: 10/16/18 07:44 Last Infusion: 08/19/18 09:53 Dose: Infused Lactobacillus Rhamnosus (Culturelle 15b) 1 each PO DAILY [facility] Stop: 09/30/18 11:59 Last Admin: 08/19/18 08:38 Dose: 1 each Levetiracetam (Keppra) 500 mg GT BID [facility] Stop: 09/30/18 08:59 Last Admin: 08/19/18 08:38 Dose: 500 mg Lorazepam (Ativan) 1 mg IVP Q4HR PRN; Protocol PRN Reason: Seizure Stop: 10/01/18 11:24 Last Admin: 08/19/18 09:34 Dose: 1 mg Magnesium Hydroxide (Milk Of Magnesia) 30 ml GT HS PRN PRN Reason: Constipation Stop: 09/29/18 17:49 Miscellaneous (Probiotic Screen) 1 ea MC PRN PRN PRN Reason: PROTOCOL Stop: 09/30/18 09:02 Miscellaneous (Vancomycin Iv Per Pharmacy) 1 ea MC PRN PRN PRN Reason: PROTOCOL Stop: 10/15/18 17:16 Morphine Sulfate (Morphine) 1 mg IVP Q4HR PRN PRN Reason: Pain (Mild) Stop: 09/30/18 14:04 Last Admin: 08/18/18 01:45 Dose: 1 mg Multivitamins/Vitamin C (Theragran) 1 tab GT BID [facility] Stop: 09/30/18 08:59 Last Admin: 08/19/18 08:38 Dose: 1 tab Nystatin (Nystop) 100 units TP DAILY PRN PRN Reason: Rash Stop: 10/14/18 07:20 Last Admin: 08/16/18 05:00 Dose: 100 units Potassium Chloride (Potassium Chloride Elixir) 40 meq GT DAILY [facility] Stop: 10/04/18 08:59 Last Admin: 08/19/18 08:39 Dose: 40 meq Thiamine HCl (Vitamin B1) 100 mg GT DAILY [facility] Stop: 09/30/18 08:59 Last Admin: 08/19/18 08:38 Dose: 100 mg Wound Care/Dressing Products (Therahoney) 1 appl TP DAILY [facility] Stop: 09/30/18 08:59 Last Admin: 08/18/18 08:30 Dose: 1 appl Zinc Sulfate (Zinc Sulfate) 220 mg GT DAILY [facility] Stop: 09/30/18 08:59 Last Admin: 08/19/18 08:38 Dose: 220 mg General: no acute distress, cachectic HEENT: PERRLA, EOMI, moist mucous membrane, other (the surgical incision is open little bit with erythema adjacent to the incision on the scalp.) Neck: supple, tracheostomy, no thyromegaly Cardiovascular: S1S2, regular Lungs: clear to auscultation bilaterally, clear to percussion Abdomen: soft, bowel sounds, other (G tube ok.), no tender, no distended, no guarding Extremities: lines (Picc line right arm), no cyanosis, no clubbing, no edema Neurological: awake, alert - Procedures Procedures: Procedures Procedure Code Date REPAIR HEAD, EXTERNAL APPROACH [id number] 07/30/18 RESPIRATORY VENTILATION, GREATER THAN 96 CONSECUTIVE HOURS [id number] 07/30/18 Infectious Disease Assmt/Plan - Assessment Assessment: 1. Sepsis. Pseudomonas aeruginosa. 2. Urinary tract infection and pyelonephritis. 3. Vent-dependent respiratory failure. 4. History of subarachnoid hemorrhage. 5. Status post craniotomy on the right side. 6. Scalp cellulitis, ear cellulitis 7. wound dehiscence. - Plan Plan: Wound culture. Blood cultures. Continue Vanco IV. waiting for transfer to the higher level of care. Nutritional Asmnt/Malnutr-PDOC - Dietary Evaluation Malnutrition Findings (Please click <Entered> for more info): Nutritional Asmnt/Malnutrition Start: 07/31/18 14: 50 Text: Status: Complete Freq: Protocol: Document 07/31/18 14:50 LCHENG (Rec: 07/31/18 15:09 [facility] PETAR-[email or web address]) Nutritional Asmnt/Malnutrition Patient General Information Nutritional Screening High Risk Diagnosis urosepis Pertinent Medical Hx/Surgical Hx seizures, anemia, resp failure , SAH, trach, Gtube, foleu, vent depression Subjective Information Pt seen resting in bed, trach to vent. Visiablly verified TF was running at goal rate of 70ml/hr at this time. Current Diet Order/ Nutrition Support Jevity 1.2 at 70ml/hr x 20hr. Pertinent Medications nacl 0.9%, vancomycin Pertinent Labs 5/2 Na 135, alb 3.7 Nutritional Hx/Data Height 1.73 m Height (Calculated Centimeters) 172.7 Current Weight (lbs) 55.338 kg Weight (Calculated Kilograms) 55.3 Weight (Calculated Grams) 29698.3 [place] Body Weight 154 Body Mass Index (BMI) 18.5 Weight Status Approriate GI Symptoms GI Symptoms None Last BM 5/2 Difficult in: None Skin Integrity/Comment: scar to head and right anterior ear, abrasion to left ankle, rash to left posterior and right axilla, decubitus ulcer to sacrum. Sal 12. Estimated Nutritional Goals Calories/Kcals/Kg 23-27 based on IBW 70kg Kcals Calculated 0201-0029 Protein g/k-1.2 Protein Calculated 70-84 Fluid: ml 1610-1890ml (1ml/kcal) Nutritional Problem No current Nutrition Prob Problem N/A Malnutrition Alert Is there a minimum of two criteria No selected? Query Text:Check all the applicable criteria. A minimum of two criteria are recommended for diagnosis of either severe or non-severe malnutrition. Malnutrition Related to Morbid Obesity Malnutrition related to morbid obesity No Intervention/Recommendation Comments 1. Continue with current TF regimen Jevity 1.2 at 70ml/hr x 20hr. It provides 1680kcal, 78g protein, 1130ml free water , meeting 100% of nutritional needs 2. Monitor TF rate, tolerance, wt, skin integrity and labs 3. F/U as moderate risk Expected Outcomes/Goals Expected Outcomes/Goals 1. Pt to meet at least 90% of nutritional needs via nutrition support with tolerance 2. Wt stability, skin to remain intact, labs to approach WNL.
[2018-08-19] MEDS: Sodium Chloride 0.9% 1,000 ML IV SCH (20:19)
--- NOTE | 2018-08-20 01:55 | Progress Notes ---
DATE: 08/19/2018 PULMONARY PROGRESS NOTE SUBJECTIVE: The patient is awake, in no distress, on the ventilator. No new events since last night. OBJECTIVE: VITAL SIGNS: Temperature 98.1, T-max 100.5, pulse 73, respirations 14, blood pressure 142/70, saturation 100%. CHEST: Good breath sounds, no wheezing. Few rhonchi. HEART: Regular rate and rhythm. ABDOMEN: Soft, no tenderness. EXTREMITIES: No edema. LABORATORY DATA: WBC 6.7, hemoglobin 8.7, hematocrit 26.5, platelets 427. Sodium is 136, potassium is 4.0, BUN is 14, creatinine is 0.6. IMPRESSION: 1. Chronic respiratory failure. 2. Intracranial hemorrhage, status post craniotomy next week. 3. Status post sepsis. 4. Status post urinary tract infection. PLAN: 1. Continue ventilator support. 2. Pulmonary toilet, supportive care, and awaiting transfer to tertiary center to evaluate the surgical site. JOB# [id number]
[2018-08-20 05:01] LABS: % BASOPHILS 2.3 % (0.0-2.0); % EOSINOPHILS 2.8 % (0.0-5.0); % MONOCYTES 2.4 % (2.0-10.0); % NEUTROPHILS 68.5 % (40.0-80.0); BASOPHILE ABSOLUTE 0.2 Th/cumm (0-0.2); EOSINOPHILE ABSOLUTE 0.2 Th/cmm (0.1-0.4); HEMATOCRIT 28.9 % (41.0-60); HEMOGLOBIN 9.4 gm/dL (12-16); MEAN CELL VOLUME 88.7 fl (80-99); MEAN CORPUSCULAR HEMOGLOBIN 28.9 pg (26.0-30.0); MEAN CORPUSCULAR HGB CONC 32.6 pg (28.0-36.0); MONOCYTE ABSOLUTE 0.2 Th/cmm (0.3-1.0); NEUTROPHILE ABSOLUTE 5.6 Th/cmm (1.8-8.0); PLATELET COUNT 380 Th/cmm (150-400); RED BLOOD COUNT 3.26 Mil/cmm (4.30-5.70); RED CELL DISTRIBUTION WIDTH 14.7 % (11.5-20.0); WHITE BLOOD COUNT 8.2 Th/cmm (4.8-10.8)
[2018-08-20] MEDS: Vancomycin HCl 500 MG in Sodium Chloride 0.9% 100 ML IV SCH ×3 (05:10→20:25)
[2018-08-20 05:39] LABS: ANION GAP 12.1 (7.0-16.0); BUN - UREA NITROGEN 13 mg/dL (7-25); CALCIUM SERUM 9.6 mg/dL (8.6-10.3); CHLORIDE 99 mEq/L (98-107); CREATININE - SERUM 0.6 mg/dL (0.7-1.3); GFR AFRICAN-AMERICAN > 60.0 ml/min (>90); GFR NON AFRICAN-AMERICAN > 60.0 ml/min; GLUCOSE 93 mg/dL (70-105); POTASSIUM SERUM 4.1 mEq/L (3.5-5.1); SODIUM SERUM 133 mEq/L (136-145)
[2018-08-20] MEDS: Multivitamin Tab GT SCH ×2 (08:38→16:38)
[2018-08-20] MEDS: Levetiracetam 500 mg/5mL 5mL UDSyr *for ORAL USE ONLY GT SCH ×2 (08:38→16:38)
[2018-08-20] MEDS: Chlorhexidine Gluconate 0.12% 15mL Mouthwash MM SCH ×2 (08:38→20:25)
[2018-08-20] MEDS: Lactobacillus Rhamnosus GG 15 Billion CFU CAP.SPRINK PO SCH (08:39)
[2018-08-20] MEDS: Potassium Chloride Elixir 20 mEq /15 mL UDC GT SCH (08:39)
[2018-08-20] MEDS: Therahoney Gel 42.5gm Tube TP SCH (08:40)
--- NOTE | 2018-08-20 11:09 | Internal Medicine Prog Note ---
Internal Medicine Subjective - Subjective Service Date: 08/20/18 Patient seen and examined:: with staff Patient is:: asleep, non-verbal, other (pt in no distress, on pulmonary support. ) Patient Complaints of:: other (Chronic resp. failure, on vent.) Per staff patient has:: no adverse event, no episodes of fall Internal Medicine Objective - Results Result Diagrams: 08/20/18 04:50 08/20/18 04:50 Recent Labs: Laboratory Last Values WBC 8.2 Th/cmm (4.8-10.8) 08/20/18 04:50 RBC 3.26 Mil/cmm (4.30-5.70) L 08/20/18 04:50 Hgb 9.4 gm/dL (12-16) L 08/20/18 04:50 Hct 28.9 % (41.0-60) L 08/20/18 04:50 MCV 88.7 fl (80-99) 08/20/18 04:50 MCH 28.9 pg (26.0-30.0) 08/20/18 04:50 MCHC Differential 32.6 pg (28.0-36.0) 08/20/18 04:50 RDW 14.7 % (11.5-20.0) 08/20/18 04:50 Plt Count 380 Th/cmm (150-400) 08/20/18 04:50 MPV 8.0 fl 08/20/18 04:50 Add Manual Diff YES 08/05/18 04:05 Neutrophils % 68.5 % (40.0-80.0) 08/20/18 04:50 Band Neutrophils % 0 % (0-10) 08/05/18 04:05 Lymphocytes % 24.0 % (20.0-50.0) 08/20/18 04:50 Monocytes % 2.4 % (2.0-10.0) 08/20/18 04:50 Eosinophils % 2.8 % (0.0-5.0) 08/20/18 04:50 Basophils % 2.3 % (0.0-2.0) H 08/20/18 04:50 Neutrophils (Manual) 72 % (40-80) 08/05/18 04:05 Lymphocytes 14 % (20-50) L 08/05/18 04:05 Monocytes 10 % (2-10) 08/05/18 04:05 Eosinophils 4 % (0-5) 08/05/18 04:05 Basophils 0 % (0-3) 08/05/18 04:05 Platelet Estimate ADEQUATE (NORMAL) 08/01/18 05:00 PT 10.4 SECONDS (9.5-11.5) 08/14/18 07:25 INR 1.00 (0.5-1.4) 08/14/18 07:25 PTT (Actin FS) 24.2 SECONDS (26.0-38.0) L 08/14/18 07:25 Sodium 133 mEq/L (136-145) L 08/20/18 04:50 Potassium 4.1 mEq/L (3.5-5.1) 08/20/18 04:50 Chloride 99 mEq/L (98-107) 08/20/18 04:50 Carbon Dioxide 26.0 mEq/L (21.0-31.0) 08/20/18 04:50 Anion Gap 12.1 (7.0-16.0) 08/20/18 04:50 BUN 13 mg/dL (7-25) 08/20/18 04:50 Creatinine 0.6 mg/dL (0.7-1.3) L 08/20/18 04:50 Est GFR ( Amer) > 60.0 ml/min (>90) 08/20/18 04:50 Est GFR (Non-Af Amer) > 60.0 ml/min 08/20/18 04:50 BUN/Creatinine Ratio 21.7 08/20/18 04:50 Glucose 93 mg/dL (70-105) 08/20/18 04:50 Whole Bld Lactic Acid 1.47 mmol/L (0.60-1.99) 07/31/18 07:40 Calcium 9.6 mg/dL (8.6-10.3) 08/20/18 04:50 Total Bilirubin 0.2 mg/dL (0.3-1.0) L 08/19/18 04:09 AST 15 U/L (13-39) 08/19/18 04:09 ALT 12 U/L (7-52) 08/19/18 04:09 Alkaline Phosphatase 59 U/L (34-104) 08/19/18 04:09 Total Protein 6.4 gm/dL (6.0-8.3) 08/19/18 04:09 Albumin 3.4 gm/dL (4.2-5.5) L 08/19/18 04:09 Globulin 3.0 gm/dL 08/19/18 04:09 Albumin/Globulin Ratio 1.1 (1.0-1.8) 08/19/18 04:09 Urine Source CATH 07/30/18 19:20 Urine Color YELLOW 07/30/18 19:20 Urine Clarity HAZY (CLEAR) 07/30/18 19:20 Urine pH 7.0 (4.6 - 8.0) 07/30/18 19:20 Ur Specific [place] 1.010 (1.005-1.030) 07/30/18 19:20 Urine Protein 30 mg/dL (NEGATIVE) H 07/30/18 19:20 Urine Glucose (UA) NEGATIVE mg/dL (NEGATIVE) 07/30/18 19:20 Urine Ketones NEGATIVE mg/dL (NEGATIVE) 07/30/18 19:20 Urine Blood LARGE (NEGATIVE) H 07/30/18 19:20 Urine Nitrate POSITIVE (NEGATIVE) H 07/30/18 19:20 Urine Bilirubin NEGATIVE (NEGATIVE) 07/30/18 19:20 Urine Urobilinogen 0.2 E.U./dL (0.2 - 1.0) 07/30/18 19:20 Ur Leukocyte Esterase LARGE (NEGATIVE) H 07/30/18 19:20 Urine RBC 5-10 /hpf (0-5) H 07/30/18 19:20 Urine WBC 25-50 /hpf (0-5) H 07/30/18 19:20 Ur Epithelial Cells FEW /lpf (FEW) 07/30/18 19:20 Urine Bacteria 4+ /hpf (NONE SEEN) H 07/30/18 19:20 Amikacin Peak 25.8 ug/mL (20.0-30.0) 08/07/18 18:18 Amikacin Trough 0.8 ug/mL (1.0-8.0) L 08/09/18 18:00 Random Amikacin 0.8 ug/ml (1.0-30.0) L 08/04/18 12:00 Gentamicin 5.3 ug/mL (0.5-10.0) 08/16/18 16:05 Gentamicin Trough 4.3 ug/ml (0.2-2.0) H 08/11/18 04:15 Vancomycin Trough 12.9 ug/mL (5-10) H 08/18/18 04:09 Blood Type A POSITIVE 08/16/18 07:59 Antibody Screen NEGATIVE 08/16/18 07:59 Crossmatch See Detail 08/16/18 07:59 - Physical Exam Vitals and I&O: Vital Signs Temp 97.2 F 08/20/18 09:00 Pulse 75 08/20/18 09:00 Resp 13 08/20/18 09:00 BP 132/77 08/20/18 09:00 Pulse Ox 100 08/20/18 10:15 Intake & Output 08/19/18 08/20/18 08/20/18 18:59 06:59 18:59 Intake Total 1404.831 6192 Output Total 950 900 Balance 938.723 5460 Weight (lbs) 56.699 kg 57.294 kg Intake: Intake, IV Amount 928.526 3228 Sodium Chloride 0.9% 1, 1200 000 ml @ 50 mls/hr IV . Q20H [facility] Rx#:[id number] Vancomycin HCl 500 mg In 101.667 200 Sodium Chloride 0.9% 100 ml @ 100 mls/hr IV Q8HR [facility] Rx#:[id number] Tube Feeding 840 560 Other 300 200 Output: Urine 950 900 Other: # Bowel Movements 1 1 Stool Characteristics Soft Soft Soft Formed Formed Formed Brown Brown Brown Weight Source Bedscale Bedscale Active Medications: Current Medications Acetaminophen (Tylenol) 650 mg GT Q4H PRN PRN Reason: Fever > 101 Stop: 09/29/18 06:32 Last Admin: 08/19/18 03:56 Dose: 650 mg Ascorbic Acid (Vitamin C) 500 mg GT DAILY [facility] Stop: 09/30/18 08:59 Last Admin: 08/20/18 08:38 Dose: 500 mg Bisacodyl (Dulcolax 10 Mg Supp) 10 mg RC DAILY PRN PRN Reason: Constipation Stop: 09/29/18 15:21 Calamine/Phenol (Calmoseptine) 1 appl TP PRN PRN PRN Reason: Rash Stop: 10/14/18 07:19 Last Admin: 08/16/18 05:00 Dose: 1 appl Chlorhexidine Gluconate (Peridex) 15 ml MM 799,1999 [facility] Stop: 09/28/18 19:59 Last Admin: 08/20/18 08:38 Dose: 15 ml Famotidine (Pepcid) 20 mg PO BID [facility] Stop: 09/29/18 20:59 Last Admin: 08/20/18 08:38 Dose: 20 mg Norepinephrine Bitartrate 4 mg (/ Dextrose) 254 mls @ 0 mls/hr IV TITR PRN; Protocol PRN Reason: BP MAINTENANCE (PER PROTOCOL) Stop: 09/29/18 00:37 Last Titration: 08/05/18 00:15 Dose: 0 mcg/min, 0 mls/hr Sodium Chloride (Nacl 0.9%) 1,000 mls @ 50 mls/hr IV .Q20H [facility] Stop: 10/02/18 11:59 Last Infusion: 08/20/18 00:19 Dose: 50 mls/hr Vancomycin HCl 500 mg/ Sodium (Chloride) 100 mls @ 100 mls/hr IV Q8HR [facility] Stop: 10/16/18 07:44 Last Infusion: 08/20/18 06:10 Dose: Infused Lactobacillus Rhamnosus (Culturelle 15b) 1 each PO DAILY [facility] Stop: 09/30/18 11:59 Last Admin: 08/20/18 08:39 Dose: 1 each Levetiracetam (Keppra) 500 mg GT BID [facility] Stop: 09/30/18 08:59 Last Admin: 08/20/18 08:38 Dose: 500 mg Lorazepam (Ativan) 1 mg IVP Q4HR PRN; Protocol PRN Reason: Seizure Stop: 10/01/18 11:24 Last Admin: 08/19/18 21:53 Dose: 1 mg Magnesium Hydroxide (Milk Of Magnesia) 30 ml GT HS PRN PRN Reason: Constipation Stop: 09/29/18 17:49 Miscellaneous (Probiotic Screen) 1 ea MC PRN PRN PRN Reason: PROTOCOL Stop: 09/30/18 09:02 Miscellaneous (Vancomycin Iv Per Pharmacy) 1 ea MC PRN PRN PRN Reason: PROTOCOL Stop: 10/15/18 17:16 Morphine Sulfate (Morphine) 1 mg IVP Q4HR PRN PRN Reason: Pain (Mild) Stop: 09/30/18 14:04 Last Admin: 08/18/18 01:45 Dose: 1 mg Multivitamins/Vitamin C (Theragran) 1 tab GT BID [facility] Stop: 09/30/18 08:59 Last Admin: 08/20/18 08:38 Dose: 1 tab Nystatin (Nystop) 100 units TP DAILY PRN PRN Reason: Rash Stop: 10/14/18 07:20 Last Admin: 08/16/18 05:00 Dose: 100 units Potassium Chloride (Potassium Chloride Elixir) 40 meq GT DAILY [facility] Stop: 10/04/18 08:59 Last Admin: 08/20/18 08:39 Dose: 40 meq Thiamine HCl (Vitamin B1) 100 mg GT DAILY [facility] Stop: 09/30/18 08:59 Last Admin: 08/20/18 08:39 Dose: 100 mg Wound Care/Dressing Products (Therahoney) 1 appl TP DAILY [facility] Stop: 09/30/18 08:59 Last Admin: 08/20/18 08:40 Dose: 1 appl Zinc Sulfate (Zinc Sulfate) 220 mg GT DAILY [facility] Stop: 09/30/18 08:59 Last Admin: 08/20/18 08:38 Dose: 220 mg Physical Exam: 58 y/o male patient has hx of Chronic resp. failure on Ventilator support, no new events reported. General: weak HEENT: NC/AT, PERRLA Neck: Supple, No JVD Lungs: wheezing, ronchi Cardiovascular: RRR, Normal S1 Abdomen: non-tender Extremities: clear Neurological: no change - Procedures Procedures: Procedures Procedure Code Date REPAIR HEAD, EXTERNAL APPROACH [id number] 07/30/18 RESPIRATORY VENTILATION, GREATER THAN 96 CONSECUTIVE HOURS [id number] 07/30/18 Internal Medicine Assmt/Plan - Assessment Assessment: Dysphagia. Weakness. Intracranial Hemmorhage s/p craniotomy. Chronic Respiratory failure, On ventilator support. UTI. Sepsis. Hx of Cerebrovascular Disease. - Plan Plan: Continuation of care. Monitor Vitals and Labs. Continue present meds as directed. Monitor Diet/Nutritional support. Respiratory treatments and Pulmonary support. Supplemental Oxygen. Aspiration precaution. Deep suctioning prn. Monitor Diet/Nutritional support. Pain Management. Safety precaution. Supportive care. Fall precaution. Will Monitor patient and continue current treatment plan as ordered. Nutritional Asmnt/Malnutr-PDOC - Dietary Evaluation Malnutrition Findings (Please click <Entered> for more info): Nutritional Asmnt/Malnutrition Start: 07/31/18 14: 50 Text: Status: Complete Freq: Protocol: Document 07/31/18 14:50 CHAPIN (Rec: 07/31/18 15:09 [facility] [email or web address]) Nutritional Asmnt/Malnutrition Patient General Information Nutritional Screening High Risk Diagnosis urosepis Pertinent Medical Hx/Surgical Hx seizures, anemia, resp failure , SAH, trach, Gtube, foleu, vent depression Subjective Information Pt seen resting in bed, trach to vent. Visiablly verified TF was running at goal rate of 70ml/hr at this time. Current Diet Order/ Nutrition Support Jevity 1.2 at 70ml/hr x 20hr. Pertinent Medications nacl 0.9%, vancomycin Pertinent Labs 5/2 Na 135, alb 3.7 Nutritional Hx/Data Height 1.73 m Height (Calculated Centimeters) 172.7 Current Weight (lbs) 55.338 kg Weight (Calculated Kilograms) 55.3 Weight (Calculated Grams) 85142.3 [place] Body Weight 154 Body Mass Index (BMI) 18.5 Weight Status Approriate GI Symptoms GI Symptoms None Last BM 5/2 Difficult in: None Skin Integrity/Comment: scar to head and right anterior ear, abrasion to left ankle, rash to left posterior and right axilla, decubitus ulcer to sacrum. Sal 12. Estimated Nutritional Goals Calories/Kcals/Kg 23-27 based on IBW 70kg Kcals Calculated 8275-3728 Protein g/k-1.2 Protein Calculated 70-84 Fluid: ml 1610-1890ml (1ml/kcal) Nutritional Problem No current Nutrition Prob Problem N/A Malnutrition Alert Is there a minimum of two criteria No selected? Query Text:Check all the applicable criteria. A minimum of two criteria are recommended for diagnosis of either severe or non-severe malnutrition. Malnutrition Related to Morbid Obesity Malnutrition related to morbid obesity No Intervention/Recommendation Comments 1. Continue with current TF regimen Jevity 1.2 at 70ml/hr x 20hr. It provides 1680kcal, 78g protein, 1130ml free water , meeting 100% of nutritional needs 2. Monitor TF rate, tolerance, wt, skin integrity and labs 3. F/U as moderate risk Expected Outcomes/Goals Expected Outcomes/Goals 1. Pt to meet at least 90% of nutritional needs via nutrition support with tolerance 2. Wt stability, skin to remain intact, labs to approach WNL.
[2018-08-20] MEDS: Sodium Chloride 0.9% 1,000 ML IV SCH (20:23)
--- NOTE | 2018-08-21 00:29 | Progress Notes ---
DATE: 08/20/2018 SUBJECTIVE: The patient appears to be doing okay. OBJECTIVE: GENERAL: Awake, no distress. VITAL SIGNS: Temperature 97.5, pulse 73, respiration is 18, blood pressure is 107/70, saturation 100%. CHEST: Good breath sounds. No wheezes or crackles. HEART: Regular rate and rhythm. ABDOMEN: Soft, nontender. EXTREMITIES: No edema. LABORATORY AND DIAGNOSTIC DATA: WBC is 8.2, hemoglobin 9.4, platelets 280. Sodium 132, potassium 4.1, BUN 13, creatinine 0.6. IMPRESSION: 1. Respiratory failure. 2. Pneumonia. 3. Dysphagia. 4. Weakness. 5. Intracranial hemorrhage status post craniotomy. PLAN: 1. Continue ventilator support. 2. Antibiotics. 3. Pulmonary toilet. 4. Supportive care. 5. Awaiting transfer to tertiary center. JOB# [id number]
[2018-08-21] MEDS: Vancomycin HCl 500 MG in Sodium Chloride 0.9% 100 ML IV SCH (05:00)
[2018-08-21 06:34] LABS: % EOSINOPHILS 3.2 % (0.0-5.0); % LYMPHOCYTES 23.2 % (20.0-50.0); % MONOCYTES 5.1 % (2.0-10.0); % NEUTROPHILS 68.5 % (40.0-80.0); EOSINOPHILE ABSOLUTE 0.2 Th/cmm (0.1-0.4); HEMATOCRIT 32.1 % (41.0-60); HEMOGLOBIN 10.4 gm/dL (12-16); LYMPHOCYTE ABSOLUTE 1.6 Th/cmm (1.5-3.0); MEAN CELL VOLUME 89.1 fl (80-99); MEAN CORPUSCULAR HEMOGLOBIN 28.9 pg (26.0-30.0); MEAN CORPUSCULAR HGB CONC 32.5 pg (28.0-36.0); MEAN PLATELET VOLUME 8.1 fl; MONOCYTE ABSOLUTE 0.3 Th/cmm (0.3-1.0); NEUTROPHILE ABSOLUTE 4.6 Th/cmm (1.8-8.0); PLATELET COUNT 376 Th/cmm (150-400); RED CELL DISTRIBUTION WIDTH 14.3 % (11.5-20.0); WHITE BLOOD COUNT 6.7 Th/cmm (4.8-10.8)
[2018-08-21 07:09] LABS: ALB/GLOB RATIO 1.1 (1.0-1.8); ALBUMIN 3.8 gm/dL (4.2-5.5); ALKALINE PHOSPHATASE 70 U/L (34-104); ANION GAP 11.9 (7.0-16.0); BILIRUBIN,TOTAL 0.3 mg/dL (0.3-1.0); BUN - UREA NITROGEN 11 mg/dL (7-25); CALCIUM SERUM 9.9 mg/dL (8.6-10.3); CARBON DIOXIDE 28.1 mEq/L (21.0-31.0); CHLORIDE 98 mEq/L (98-107); CREATININE - SERUM 0.6 mg/dL (0.7-1.3); GFR AFRICAN-AMERICAN > 60.0 ml/min (>90); GFR NON AFRICAN-AMERICAN > 60.0 ml/min; GLUCOSE 96 mg/dL (70-105); SGOT 20 U/L (13-39); SGPT/ALT 16 U/L (7-52); SODIUM SERUM 134 mEq/L (136-145); TOTAL PROTEIN,SERUM 7.2 gm/dL (6.0-8.3)
[2018-08-21] MEDS: Chlorhexidine Gluconate 0.12% 15mL Mouthwash MM SCH ×2 (08:16→20:11)
[2018-08-21] MEDS: Potassium Chloride Elixir 20 mEq /15 mL UDC GT SCH (09:21)
[2018-08-21] MEDS: Levetiracetam 500 mg/5mL 5mL UDSyr *for ORAL USE ONLY GT SCH ×2 (09:21→16:39)
[2018-08-21] MEDS: Therahoney Gel 42.5gm Tube TP SCH (09:21)
[2018-08-21] MEDS: Multivitamin Tab GT SCH ×2 (09:21→16:39)
[2018-08-21] MEDS: Lactobacillus Rhamnosus GG 15 Billion CFU CAP.SPRINK PO SCH (09:21)
--- NOTE | 2018-08-21 11:14 | Infectious Disease Prog Note ---
Infectious Disease Subjective - Review of Systems Service Date: 08/21/18 Subjective: Afebrile. on the ventilator support. Infectious Disease Objective - Results Result Diagrams: 08/21/18 04:55 08/21/18 04:55 Recent Labs: Laboratory Last Values WBC 6.7 Th/cmm (4.8-10.8) 08/21/18 04:55 RBC 3.60 Mil/cmm (4.30-5.70) L 08/21/18 04:55 Hgb 10.4 gm/dL (12-16) L 08/21/18 04:55 Hct 32.1 % (41.0-60) L 08/21/18 04:55 MCV 89.1 fl (80-99) 08/21/18 04:55 MCH 28.9 pg (26.0-30.0) 08/21/18 04:55 MCHC Differential 32.5 pg (28.0-36.0) 08/21/18 04:55 RDW 14.3 % (11.5-20.0) 08/21/18 04:55 Plt Count 376 Th/cmm (150-400) 08/21/18 04:55 MPV 8.1 fl 08/21/18 04:55 Add Manual Diff YES 08/05/18 04:05 Neutrophils % 68.5 % (40.0-80.0) 08/21/18 04:55 Band Neutrophils % 0 % (0-10) 08/05/18 04:05 Lymphocytes % 23.2 % (20.0-50.0) 08/21/18 04:55 Monocytes % 5.1 % (2.0-10.0) 08/21/18 04:55 Eosinophils % 3.2 % (0.0-5.0) 08/21/18 04:55 Basophils % 0.0 % (0.0-2.0) 08/21/18 04:55 Neutrophils (Manual) 72 % (40-80) 08/05/18 04:05 Lymphocytes 14 % (20-50) L 08/05/18 04:05 Monocytes 10 % (2-10) 08/05/18 04:05 Eosinophils 4 % (0-5) 08/05/18 04:05 Basophils 0 % (0-3) 08/05/18 04:05 Platelet Estimate ADEQUATE (NORMAL) 08/01/18 05:00 PT 10.4 SECONDS (9.5-11.5) 08/14/18 07:25 INR 1.00 (0.5-1.4) 08/14/18 07:25 PTT (Actin FS) 24.2 SECONDS (26.0-38.0) L 08/14/18 07:25 Sodium 134 mEq/L (136-145) L 08/21/18 04:55 Potassium 4.0 mEq/L (3.5-5.1) 08/21/18 04:55 Chloride 98 mEq/L (98-107) 08/21/18 04:55 Carbon Dioxide 28.1 mEq/L (21.0-31.0) 08/21/18 04:55 Anion Gap 11.9 (7.0-16.0) 08/21/18 04:55 BUN 11 mg/dL (7-25) 08/21/18 04:55 Creatinine 0.6 mg/dL (0.7-1.3) L 08/21/18 04:55 Est GFR ( Amer) > 60.0 ml/min (>90) 08/21/18 04:55 Est GFR (Non-Af Amer) > 60.0 ml/min 08/21/18 04:55 BUN/Creatinine Ratio 18.3 08/21/18 04:55 Glucose 96 mg/dL (70-105) 08/21/18 04:55 Whole Bld Lactic Acid 1.47 mmol/L (0.60-1.99) 07/31/18 07:40 Calcium 9.9 mg/dL (8.6-10.3) 08/21/18 04:55 Total Bilirubin 0.3 mg/dL (0.3-1.0) 08/21/18 04:55 AST 20 U/L (13-39) 08/21/18 04:55 ALT 16 U/L (7-52) 08/21/18 04:55 Alkaline Phosphatase 70 U/L (34-104) 08/21/18 04:55 Total Protein 7.2 gm/dL (6.0-8.3) 08/21/18 04:55 Albumin 3.8 gm/dL (4.2-5.5) L 08/21/18 04:55 Globulin 3.4 gm/dL 08/21/18 04:55 Albumin/Globulin Ratio 1.1 (1.0-1.8) 08/21/18 04:55 Urine Source CATH 07/30/18 19:20 Urine Color YELLOW 07/30/18 19:20 Urine Clarity HAZY (CLEAR) 07/30/18 19:20 Urine pH 7.0 (4.6 - 8.0) 07/30/18 19:20 Ur Specific [place] 1.010 (1.005-1.030) 07/30/18 19:20 Urine Protein 30 mg/dL (NEGATIVE) H 07/30/18 19:20 Urine Glucose (UA) NEGATIVE mg/dL (NEGATIVE) 07/30/18 19: Urine Ketones NEGATIVE mg/dL (NEGATIVE) 07/30/18 19:20 Urine Blood LARGE (NEGATIVE) H 07/30/18 19:20 Urine Nitrate POSITIVE (NEGATIVE) H 07/30/18 19:20 Urine Bilirubin NEGATIVE (NEGATIVE) 07/30/18 19:20 Urine Urobilinogen 0.2 E.U./dL (0.2 - 1.0) 07/30/18 19:20 Ur Leukocyte Esterase LARGE (NEGATIVE) H 07/30/18 19:20 Urine RBC 5-10 /hpf (0-5) H 07/30/18 19:20 Urine WBC 25-50 /hpf (0-5) H 07/30/18 19:20 Ur Epithelial Cells FEW /lpf (FEW) 07/30/18 19:20 Urine Bacteria 4+ /hpf (NONE SEEN) H 07/30/18 19:20 Amikacin Peak 25.8 ug/mL (20.0-30.0) 08/07/18 18:18 Amikacin Trough 0.8 ug/mL (1.0-8.0) L 08/09/18 18:00 Random Amikacin 0.8 ug/ml (1.0-30.0) L 08/04/18 12:00 Gentamicin 5.3 ug/mL (0.5-10.0) 08/16/18 16:05 Gentamicin Trough 4.3 ug/ml (0.2-2.0) H 08/11/18 04:15 Vancomycin Trough 12.9 ug/mL (5-10) H 08/18/18 04:09 Blood Type A POSITIVE 08/16/18 07:59 Antibody Screen NEGATIVE 08/16/18 07:59 Crossmatch See Detail 08/16/18 07:59 - Physical Exam Vitals and I&O: Vital Signs Temp 99.1 F 08/21/18 08:00 Pulse 77 08/21/18 11:00 Resp 12 08/21/18 11:00 BP 152/82 08/21/18 11:00 Pulse Ox 100 08/21/18 11:00 Intake & Output 08/20/18 08/21/18 08/21/18 18:59 06:59 18:59 Intake Total 800 2180.833 Output Total 1500 1200 0 Balance -700 980.833 0 Weight (lbs) 57.153 kg 56.699 kg 56.699 kg Intake: Intake, IV Amount 100 1480.833 Sodium Chloride 0.9% 1, 1280.833 000 ml @ 50 mls/hr IV . Q20H [facility] Rx#:[id number] Vancomycin HCl 500 mg In 100 200 Sodium Chloride 0.9% 100 ml @ 100 mls/hr IV Q8HR [facility] Rx#:[id number] Tube Feeding 700 700 Output: Urine 1500 1200 Stool 0 Other: # Bowel Movements 1 Stool Characteristics Soft Soft Soft Formed Formed Formed Brown Brown Brown Weight Source Bedscale Bedscale Bedscale Active Medications: Current Medications Acetaminophen (Tylenol) 650 mg GT Q4H PRN PRN Reason: Fever > 101 Stop: 09/29/18 06:32 Last Admin: 08/19/18 03:56 Dose: 650 mg Ascorbic Acid (Vitamin C) 500 mg GT DAILY [facility] Stop: 09/30/18 08:59 Last Admin: 08/21/18 09:21 Dose: 500 mg Bisacodyl (Dulcolax 10 Mg Supp) 10 mg RC DAILY PRN PRN Reason: Constipation Stop: 09/29/18 15:21 Calamine/Phenol (Calmoseptine) 1 appl TP PRN PRN PRN Reason: Rash Stop: 10/14/18 07:19 Last Admin: 08/16/18 05:00 Dose: 1 appl Chlorhexidine Gluconate (Peridex) 15 ml MM 0800,2000 [facility] Stop: 09/28/18 19:59 Last Admin: 08/21/18 08:16 Dose: 15 ml Famotidine (Pepcid) 20 mg PO BID [facility] Stop: 09/29/18 20:59 Last Admin: 08/21/18 09:21 Dose: 20 mg Norepinephrine Bitartrate 4 mg (/ Dextrose) 254 mls @ 0 mls/hr IV TITR PRN; Protocol PRN Reason: BP MAINTENANCE (PER PROTOCOL) Stop: 09/29/18 00:37 Last Titration: 08/05/18 00:15 Dose: 0 mcg/min, 0 mls/hr Sodium Chloride (Nacl 0.9%) 1,000 mls @ 50 mls/hr IV .Q20H [facility] Stop: 10/02/18 11:59 Last Infusion: 08/21/18 06:00 Dose: 50 mls/hr Vancomycin HCl 500 mg/ Sodium (Chloride) 100 mls @ 100 mls/hr IV Q8HR [facility] Stop: 10/16/18 07:44 Last Infusion: 08/21/18 06:00 Dose: Infused Lactobacillus Rhamnosus (Culturelle 15b) 1 each PO DAILY [facility] Stop: 09/30/18 11:59 Last Admin: 08/21/18 09:21 Dose: 1 each Levetiracetam (Keppra) 500 mg GT BID [facility] Stop: 09/30/18 08:59 Last Admin: 08/21/18 09:21 Dose: 500 mg Lorazepam (Ativan) 1 mg IVP Q4HR PRN; Protocol PRN Reason: Seizure Stop: 10/01/18 11:24 Last Admin: 08/20/18 22:43 Dose: 1 mg Magnesium Hydroxide (Milk Of Magnesia) 30 ml GT HS PRN PRN Reason: Constipation Stop: 09/29/18 17:49 Miscellaneous (Probiotic Screen) 1 ea MC PRN PRN PRN Reason: PROTOCOL Stop: 09/30/18 09:02 Miscellaneous (Vancomycin Iv Per Pharmacy) 1 ea MC PRN PRN PRN Reason: PROTOCOL Stop: 10/15/18 17:16 Morphine Sulfate (Morphine) 1 mg IVP Q4HR PRN PRN Reason: Pain (Mild) Stop: 09/30/18 14:04 Last Admin: 08/18/18 01:45 Dose: 1 mg Multivitamins/Vitamin C (Theragran) 1 tab GT BID [facility] Stop: 09/30/18 08:59 Last Admin: 08/21/18 09:21 Dose: 1 tab Nystatin (Nystop) 100 units TP DAILY PRN PRN Reason: Rash Stop: 10/14/18 07:20 Last Admin: 08/16/18 05:00 Dose: 100 units Potassium Chloride (Potassium Chloride Elixir) 40 meq GT DAILY [facility] Stop: 10/04/18 08:59 Last Admin: 08/21/18 09:21 Dose: 40 meq Thiamine HCl (Vitamin B1) 100 mg GT DAILY [facility] Stop: 09/30/18 08:59 Last Admin: 08/21/18 09:21 Dose: 100 mg Wound Care/Dressing Products (Therahoney) 1 appl TP DAILY [facility] Stop: 09/30/18 08:59 Last Admin: 08/21/18 09:21 Dose: 1 appl Zinc Sulfate (Zinc Sulfate) 220 mg GT DAILY [facility] Stop: 09/30/18 08:59 Last Admin: 08/21/18 09:22 Dose: 220 mg General: no acute distress, cachectic HEENT: other (NO scalp bone on the right. The incision has some surrounding erythema.) Neck: supple, tracheostomy, no thyromegaly Cardiovascular: S1S2, regular Lungs: clear to auscultation bilaterally, clear to percussion Abdomen: soft, other (g tube), no tender, no distended, no mass, no rebound Extremities: lines (PICC line Right upper extremities.), no cyanosis, no clubbing Neurological: awake, alert - Procedures Procedures: Procedures Procedure Code Date REPAIR HEAD, EXTERNAL APPROACH [id number] 07/30/18 RESPIRATORY VENTILATION, GREATER THAN 96 CONSECUTIVE HOURS [id number] 07/30/18 Infectious Disease Assmt/Plan - Assessment Assessment: 1. Sepsis. Pseudomonas aeruginosa. 2. Urinary tract infection and pyelonephritis. 3. Vent-dependent respiratory failure. 4. History of subarachnoid hemorrhage. 5. Status post craniotomy on the right side. 6. Scalp cellulitis, ear cellulitis 7. wound dehiscence. - Plan Plan: Change vanco IV to zyvox. waiting for transfer to the higher level of care. Nutritional Asmnt/Malnutr-PDOC - Dietary Evaluation Malnutrition Findings (Please click <Entered> for more info): Nutritional Asmnt/Malnutrition Start: 07/31/18 14: 50 Text: Status: Complete Freq: Protocol: Document 07/31/18 14:50 LCHENG (Rec: 07/31/18 15:09 [facility] [email or web address]) Nutritional Asmnt/Malnutrition Patient General Information Nutritional Screening High Risk Diagnosis urosepis Pertinent Medical Hx/Surgical Hx seizures, anemia, resp failure , SAH, trach, Gtube, foleu, vent depression Subjective Information Pt seen resting in bed, trach to vent. Visiablly verified TF was running at goal rate of 70ml/hr at this time. Current Diet Order/ Nutrition Support Jevity 1.2 at 70ml/hr x 20hr. Pertinent Medications nacl 0.9%, vancomycin Pertinent Labs 5/2 Na 135, alb 3.7 Nutritional Hx/Data Height 1.73 m Height (Calculated Centimeters) 172.7 Current Weight (lbs) 55.338 kg Weight (Calculated Kilograms) 55.3 Weight (Calculated Grams) 48886.3 [place] Body Weight 154 Body Mass Index (BMI) 18.5 Weight Status Approriate GI Symptoms GI Symptoms None Last BM 5/2 Difficult in: None Skin Integrity/Comment: scar to head and right anterior ear, abrasion to left ankle, rash to left posterior and right axilla, decubitus ulcer to sacrum. Sal 12. Estimated Nutritional Goals Calories/Kcals/Kg 23-27 based on IBW 70kg Kcals Calculated 5418-7857 Protein g/k-1.2 Protein Calculated 70-84 Fluid: ml 1610-1890ml (1ml/kcal) Nutritional Problem No current Nutrition Prob Problem N/A Malnutrition Alert Is there a minimum of two criteria No selected? Query Text:Check all the applicable criteria. A minimum of two criteria are recommended for diagnosis of either severe or non-severe malnutrition. Malnutrition Related to Morbid Obesity Malnutrition related to morbid obesity No Intervention/Recommendation Comments 1. Continue with current TF regimen Jevity 1.2 at 70ml/hr x 20hr. It provides 1680kcal, 78g protein, 1130ml free water , meeting 100% of nutritional needs 2. Monitor TF rate, tolerance, wt, skin integrity and labs 3. F/U as moderate risk Expected Outcomes/Goals Expected Outcomes/Goals 1. Pt to meet at least 90% of nutritional needs via nutrition support with tolerance 2. Wt stability, skin to remain intact, labs to approach WNL.
[2018-08-21] MEDS: Sodium Chloride 0.9% 1,000 ML IV SCH (16:24)
--- NOTE | 2018-08-21 18:25 | Internal Medicine Prog Note ---
Internal Medicine Subjective - Subjective Service Date: 08/21/18 Patient is:: asleep, non-verbal Per staff patient has:: no adverse event, no episodes of fall Internal Medicine Objective - Results Result Diagrams: 08/21/18 04:55 08/21/18 04:55 Recent Labs: Laboratory Last Values WBC 6.7 Th/cmm (4.8-10.8) 08/21/18 04:55 RBC 3.60 Mil/cmm (4.30-5.70) L 08/21/18 04:55 Hgb 10.4 gm/dL (12-16) L 08/21/18 04:55 Hct 32.1 % (41.0-60) L 08/21/18 04:55 MCV 89.1 fl (80-99) 08/21/18 04:55 MCH 28.9 pg (26.0-30.0) 08/21/18 04:55 MCHC Differential 32.5 pg (28.0-36.0) 08/21/18 04:55 RDW 14.3 % (11.5-20.0) 08/21/18 04:55 Plt Count 376 Th/cmm (150-400) 08/21/18 04:55 MPV 8.1 fl 08/21/18 04:55 Add Manual Diff YES 08/05/18 04:05 Neutrophils % 68.5 % (40.0-80.0) 08/21/18 04:55 Band Neutrophils % 0 % (0-10) 08/05/18 04:05 Lymphocytes % 23.2 % (20.0-50.0) 08/21/18 04:55 Monocytes % 5.1 % (2.0-10.0) 08/21/18 04:55 Eosinophils % 3.2 % (0.0-5.0) 08/21/18 04:55 Basophils % 0.0 % (0.0-2.0) 08/21/18 04:55 Neutrophils (Manual) 72 % (40-80) 08/05/18 04:05 Lymphocytes 14 % (20-50) L 08/05/18 04:05 Monocytes 10 % (2-10) 08/05/18 04:05 Eosinophils 4 % (0-5) 08/05/18 04:05 Basophils 0 % (0-3) 08/05/18 04:05 Platelet Estimate ADEQUATE (NORMAL) 08/01/18 05:00 PT 10.4 SECONDS (9.5-11.5) 08/14/18 07:25 INR 1.00 (0.5-1.4) 08/14/18 07:25 PTT (Actin FS) 24.2 SECONDS (26.0-38.0) L 08/14/18 07:25 Sodium 134 mEq/L (136-145) L 08/21/18 04:55 Potassium 4.0 mEq/L (3.5-5.1) 08/21/18 04:55 Chloride 98 mEq/L (98-107) 08/21/18 04:55 Carbon Dioxide 28.1 mEq/L (21.0-31.0) 08/21/18 04:55 Anion Gap 11.9 (7.0-16.0) 08/21/18 04:55 BUN 11 mg/dL (7-25) 08/21/18 04:55 Creatinine 0.6 mg/dL (0.7-1.3) L 08/21/18 04:55 Est GFR ( Amer) > 60.0 ml/min (>90) 08/21/18 04:55 Est GFR (Non-Af Amer) > 60.0 ml/min 08/21/18 04:55 BUN/Creatinine Ratio 18.3 08/21/18 04:55 Glucose 96 mg/dL (70-105) 08/21/18 04:55 Whole Bld Lactic Acid 1.47 mmol/L (0.60-1.99) 07/31/18 07:40 Calcium 9.9 mg/dL (8.6-10.3) 08/21/18 04:55 Total Bilirubin 0.3 mg/dL (0.3-1.0) 08/21/18 04:55 AST 20 U/L (13-39) 08/21/18 04:55 ALT 16 U/L (7-52) 08/21/18 04:55 Alkaline Phosphatase 70 U/L (34-104) 08/21/18 04:55 Total Protein 7.2 gm/dL (6.0-8.3) 08/21/18 04:55 Albumin 3.8 gm/dL (4.2-5.5) L 08/21/18 04:55 Globulin 3.4 gm/dL 08/21/18 04:55 Albumin/Globulin Ratio 1.1 (1.0-1.8) 08/21/18 04:55 Urine Source CATH 07/30/18 19:20 Urine Color YELLOW 07/30/18 19:20 Urine Clarity HAZY (CLEAR) 07/30/18 19:20 Urine pH 7.0 (4.6 - 8.0) 07/30/18 19:20 Ur Specific [place] 1.010 (1.005-1.030) 07/30/18 19:20 Urine Protein 30 mg/dL (NEGATIVE) H 07/30/18 19:20 Urine Glucose (UA) NEGATIVE mg/dL (NEGATIVE) 07/30/18 19: Urine Ketones NEGATIVE mg/dL (NEGATIVE) 07/30/18 19:20 Urine Blood LARGE (NEGATIVE) H 07/30/18 19:20 Urine Nitrate POSITIVE (NEGATIVE) H 07/30/18 19:20 Urine Bilirubin NEGATIVE (NEGATIVE) 07/30/18 19:20 Urine Urobilinogen 0.2 E.U./dL (0.2 - 1.0) 07/30/18 19:20 Ur Leukocyte Esterase LARGE (NEGATIVE) H 07/30/18 19:20 Urine RBC 5-10 /hpf (0-5) H 07/30/18 19:20 Urine WBC 25-50 /hpf (0-5) H 07/30/18 19:20 Ur Epithelial Cells FEW /lpf (FEW) 07/30/18 19:20 Urine Bacteria 4+ /hpf (NONE SEEN) H 07/30/18 19:20 Amikacin Peak 25.8 ug/mL (20.0-30.0) 08/07/18 18:18 Amikacin Trough 0.8 ug/mL (1.0-8.0) L 08/09/18 18:00 Random Amikacin 0.8 ug/ml (1.0-30.0) L 08/04/18 12:00 Gentamicin 5.3 ug/mL (0.5-10.0) 08/16/18 16:05 Gentamicin Trough 4.3 ug/ml (0.2-2.0) H 08/11/18 04:15 Vancomycin Trough 12.9 ug/mL (5-10) H 08/18/18 04:09 Blood Type A POSITIVE 08/16/18 07:59 Antibody Screen NEGATIVE 08/16/18 07:59 Crossmatch See Detail 08/16/18 07:59 - Physical Exam Vitals and I&O: Vital Signs Temp 98.8 F 08/21/18 16:00 Pulse 78 08/21/18 18:00 Resp 15 08/21/18 18:00 BP 153/72 08/21/18 18:00 Pulse Ox 100 08/21/18 18:00 Intake & Output 08/20/18 08/21/18 08/21/18 18:59 06:59 18:59 Intake Total 800 2180.833 1509.167 Output Total 1500 1200 1500 Balance -700 980.833 9.167 Weight (lbs) 126 lb 125 lb 131 lb 8 oz Intake: Intake, IV Amount 100 1480.833 519.167 Sodium Chloride 0.9% 1, 1280.833 519.167 000 ml @ 50 mls/hr IV . Q20H [facility] Rx#:[id number] Vancomycin HCl 500 mg In 100 200 Sodium Chloride 0.9% 100 ml @ 100 mls/hr IV Q8HR [facility] Rx#:[id number] Tube Feeding 700 700 840 Other 150 Output: Urine 1500 1200 1500 Stool 0 Other: # Bowel Movements 1 1 Stool Characteristics Soft Soft Soft Formed Formed Formed Brown Brown Brown Weight Source Bedscale Bedscale Bedscale Active Medications: Current Medications Acetaminophen (Tylenol) 650 mg GT Q4H PRN PRN Reason: Fever > 101 Stop: 09/29/18 06:32 Last Admin: 08/19/18 03:56 Dose: 650 mg Ascorbic Acid (Vitamin C) 500 mg GT DAILY [facility] Stop: 09/30/18 08:59 Last Admin: 08/21/18 09:21 Dose: 500 mg Bisacodyl (Dulcolax 10 Mg Supp) 10 mg RC DAILY PRN PRN Reason: Constipation Stop: 09/29/18 15:21 Calamine/Phenol (Calmoseptine) 1 appl TP PRN PRN PRN Reason: Rash Stop: 10/14/18 07:19 Last Admin: 08/16/18 05:00 Dose: 1 appl Chlorhexidine Gluconate (Peridex) 15 ml MM 0800,1999 [facility] Stop: 09/28/18 19:59 Last Admin: 08/21/18 08:16 Dose: 15 ml Famotidine (Pepcid) 20 mg PO BID [facility] Stop: 09/29/18 20:59 Last Admin: 08/21/18 16:39 Dose: 20 mg Norepinephrine Bitartrate 4 mg (/ Dextrose) 254 mls @ 0 mls/hr IV TITR PRN; Protocol PRN Reason: BP MAINTENANCE (PER PROTOCOL) Stop: 09/29/18 00:37 Last Titration: 08/05/18 00:15 Dose: 0 mcg/min, 0 mls/hr Sodium Chloride (Nacl 0.9%) 1,000 mls @ 50 mls/hr IV .Q20H [facility] Stop: 10/02/18 11:59 Last Admin: 08/21/18 16:24 Dose: 50 mls/hr Linezolid (Zyvox) 600 mg in 300 mls @ 300 mls/hr IV Q12HR [facility] Stop: 10/20/18 20:59 Lactobacillus Rhamnosus (Culturelle 15b) 1 each PO DAILY [facility] Stop: 09/30/18 11:59 Last Admin: 08/21/18 09:21 Dose: 1 each Levetiracetam (Keppra) 500 mg GT BID [facility] Stop: 09/30/18 08:59 Last Admin: 08/21/18 16:39 Dose: 500 mg Lorazepam (Ativan) 1 mg IVP Q4HR PRN; Protocol PRN Reason: Seizure Stop: 10/01/18 11:24 Last Admin: 08/20/18 22:43 Dose: 1 mg Magnesium Hydroxide (Milk Of Magnesia) 30 ml GT HS PRN PRN Reason: Constipation Stop: 09/29/18 17:49 Miscellaneous (Probiotic Screen) 1 ea MC PRN PRN PRN Reason: PROTOCOL Stop: 09/30/18 09:02 Morphine Sulfate (Morphine) 1 mg IVP Q4HR PRN PRN Reason: Pain (Mild) Stop: 09/30/18 14:04 Last Admin: 08/18/18 01:45 Dose: 1 mg Multivitamins/Vitamin C (Theragran) 1 tab GT BID [facility] Stop: 09/30/18 08:59 Last Admin: 08/21/18 16:39 Dose: 1 tab Nystatin (Nystop) 100 units TP DAILY PRN PRN Reason: Rash Stop: 10/14/18 07:20 Last Admin: 08/16/18 05:00 Dose: 100 units Potassium Chloride (Potassium Chloride Elixir) 40 meq GT DAILY [facility] Stop: 10/04/18 08:59 Last Admin: 08/21/18 09:21 Dose: 40 meq Thiamine HCl (Vitamin B1) 100 mg GT DAILY [facility] Stop: 09/30/18 08:59 Last Admin: 08/21/18 09:21 Dose: 100 mg Wound Care/Dressing Products (Therahoney) 1 appl TP DAILY [facility] Stop: 09/30/18 08:59 Last Admin: 08/21/18 09:21 Dose: 1 appl Zinc Sulfate (Zinc Sulfate) 220 mg GT DAILY [facility] Stop: 09/30/18 08:59 Last Admin: 08/21/18 09:22 Dose: 220 mg General: weak HEENT: NC/AT, PERRLA Neck: Supple, No JVD Lungs: wheezing, ronchi Cardiovascular: RRR, Normal S1 Abdomen: non-tender Extremities: clear Neurological: no change - Procedures Procedures: Procedures Procedure Code Date REPAIR HEAD, EXTERNAL APPROACH [id number] 07/30/18 RESPIRATORY VENTILATION, GREATER THAN 96 CONSECUTIVE HOURS [id number] 07/30/18 Internal Medicine Assmt/Plan - Assessment Assessment: Pseumonas pneumonia ACUTE UTI VDRF HX subarachnoid hemorrhage. S/P RIGHT SIDE craniotomy on the right side. - Plan Plan: continue ivabx as per id continue vent support am labs continue current plan of care Nutritional Asmnt/Malnutr-PDOC - Dietary Evaluation Malnutrition Findings (Please click <Entered> for more info): Nutritional Asmnt/Malnutrition Start: 07/31/18 14: 50 Text: Status: Complete Freq: Protocol: Document 07/31/18 14:50 LCHENG (Rec: 07/31/18 15:09 [email or web address]) Nutritional Asmnt/Malnutrition Patient General Information Nutritional Screening High Risk Diagnosis urosepis Pertinent Medical Hx/Surgical Hx seizures, anemia, resp failure , SAH, trach, Gtube, foleu, vent depression Subjective Information Pt seen resting in bed, trach to vent. Visiablly verified TF was running at goal rate of 70ml/hr at this time. Current Diet Order/ Nutrition Support Jevity 1.2 at 70ml/hr x 20hr. Pertinent Medications nacl 0.9%, vancomycin Pertinent Labs 5/2 Na 135, alb 3.7 Nutritional Hx/Data Height 5 ft 8 in Height (Calculated Centimeters) 172.7 Current Weight (lbs) 122 lb Weight (Calculated Kilograms) 55.3 Weight (Calculated Grams) 36150.3 [place] Body Weight 154 Body Mass Index (BMI) 18.5 Weight Status Approriate GI Symptoms GI Symptoms None Last BM 5/2 Difficult in: None Skin Integrity/Comment: scar to head and right anterior ear, abrasion to left ankle, rash to left posterior and right axilla, decubitus ulcer to sacrum. Sal 12. Estimated Nutritional Goals Calories/Kcals/Kg 23-27 based on IBW 70kg Kcals Calculated 1807-9476 Protein g/k-1.2 Protein Calculated 70-84 Fluid: ml 1610-1890ml (1ml/kcal) Nutritional Problem No current Nutrition Prob Problem N/A Malnutrition Alert Is there a minimum of two criteria No selected? Query Text:Check all the applicable criteria. A minimum of two criteria are recommended for diagnosis of either severe or non-severe malnutrition. Malnutrition Related to Morbid Obesity Malnutrition related to morbid obesity No Intervention/Recommendation Comments 1. Continue with current TF regimen Jevity 1.2 at 70ml/hr x 20hr. It provides 1680kcal, 78g protein, 1130ml free water , meeting 100% of nutritional needs 2. Monitor TF rate, tolerance, wt, skin integrity and labs 3. F/U as moderate risk Expected Outcomes/Goals Expected Outcomes/Goals 1. Pt to meet at least 90% of nutritional needs via nutrition support with tolerance 2. Wt stability, skin to remain intact, labs to approach WNL.
[2018-08-21] MEDS: Linezolid 600mg/300mL 600 MG/300 ML BAG IV SCH (20:10)
--- NOTE | 2018-08-21 23:46 | Progress Notes ---
DATE: PULMONARY PROGRESS NOTE SUBJECTIVE: The patient appears to be doing okay, still in ICU. OBJECTIVE: GENERAL: Awake, in no distress, on the ventilator. VITAL SIGNS: Temperature is 99.0, pulse is 81, respirations 14, blood pressure 97/66, saturation 100% on 30% oxygen. CHEST: Good breath sounds, no wheezing, few rhonchi. HEART: Regular rate and rhythm. No murmurs. ABDOMEN: Soft. No tenderness. EXTREMITIES: No edema. LABORATORY AND DIAGNOSTIC DATA: WBC 6.7, hemoglobin 10.4, hematocrit 32.1, platelets 376. Sodium 134, potassium 4.0, BUN 11, creatinine 0.6. IMPRESSION: 1. Respiratory failure. 2. Sepsis. 3. Urinary tract infection. 4. Intracranial hemorrhage, status post craniotomy. PLAN: Continue ventilator support, supportive care, awaiting transfer to tertiary center, antibiotics. JOB# [id number]
[2018-08-22 05:12] LABS: % EOSINOPHILS 4.6 % (0.0-5.0); % LYMPHOCYTES 22.5 % (20.0-50.0); % MONOCYTES 7.3 % (2.0-10.0); % NEUTROPHILS 65.6 % (40.0-80.0); EOSINOPHILE ABSOLUTE 0.2 Th/cmm (0.1-0.4); HEMATOCRIT 29.8 % (41.0-60); HEMOGLOBIN 9.9 gm/dL (12-16); LYMPHOCYTE ABSOLUTE 1.1 Th/cmm (1.5-3.0); MEAN CELL VOLUME 88.7 fl (80-99); MEAN CORPUSCULAR HEMOGLOBIN 29.4 pg (26.0-30.0); MEAN CORPUSCULAR HGB CONC 33.1 pg (28.0-36.0); MEAN PLATELET VOLUME 8.3 fl; MONOCYTE ABSOLUTE 0.4 Th/cmm (0.3-1.0); NEUTROPHILE ABSOLUTE 3.1 Th/cmm (1.8-8.0); PLATELET COUNT 329 Th/cmm (150-400); RED BLOOD COUNT 3.36 Mil/cmm (4.30-5.70); RED CELL DISTRIBUTION WIDTH 14.5 % (11.5-20.0); WHITE BLOOD COUNT 4.8 Th/cmm (4.8-10.8)
[2018-08-22 05:22] LABS: ANION GAP 11.9 (7.0-16.0); BUN - UREA NITROGEN 13 mg/dL (7-25); CALCIUM SERUM 9.4 mg/dL (8.6-10.3); CARBON DIOXIDE 27.2 mEq/L (21.0-31.0); CHLORIDE 99 mEq/L (98-107); CREATININE - SERUM 0.7 mg/dL (0.7-1.3); GFR AFRICAN-AMERICAN > 60.0 ml/min (>90); GFR NON AFRICAN-AMERICAN > 60.0 ml/min; GLUCOSE 95 mg/dL (70-105); POTASSIUM SERUM 4.1 mEq/L (3.5-5.1); SODIUM SERUM 134 mEq/L (136-145)
[2018-08-22] MEDS: Linezolid 600mg/300mL 600 MG/300 ML BAG IV SCH ×2 (07:59→20:20)
[2018-08-22] MEDS: Levetiracetam 500 mg/5mL 5mL UDSyr *for ORAL USE ONLY GT SCH ×2 (08:02→17:00)
[2018-08-22] MEDS: Potassium Chloride Elixir 20 mEq /15 mL UDC GT SCH (08:05)
[2018-08-22] MEDS: Lactobacillus Rhamnosus GG 15 Billion CFU CAP.SPRINK PO SCH (08:05)
[2018-08-22] MEDS: Multivitamin Tab GT SCH ×2 (08:05→17:00)
[2018-08-22] MEDS: Therahoney Gel 42.5gm Tube TP SCH (08:06)
[2018-08-22] MEDS: Chlorhexidine Gluconate 0.12% 15mL Mouthwash MM SCH ×2 (08:06→19:52)
--- NOTE | 2018-08-22 11:05 | Internal Medicine Prog Note ---
Internal Medicine Subjective - Subjective Service Date: 08/22/18 Patient seen and examined:: with staff, chart reviewed Patient is:: asleep, non-verbal Patient Complaints of:: other (Chronic resp. failure, on vent.) Per staff patient has:: no adverse event, no episodes of fall Internal Medicine Objective - Results Result Diagrams: 08/22/18 04:30 08/22/18 04:30 Recent Labs: Laboratory Last Values WBC 4.8 Th/cmm (4.8-10.8) 08/22/18 04:30 RBC 3.36 Mil/cmm (4.30-5.70) L 08/22/18 04:30 Hgb 9.9 gm/dL (12-16) L 08/22/18 04:30 Hct 29.8 % (41.0-60) L 08/22/18 04:30 MCV 88.7 fl (80-99) 08/22/18 04:30 MCH 29.4 pg (26.0-30.0) 08/22/18 04:30 MCHC Differential 33.1 pg (28.0-36.0) 08/22/18 04:30 RDW 14.5 % (11.5-20.0) 08/22/18 04:30 Plt Count 329 Th/cmm (150-400) 08/22/18 04:30 MPV 8.3 fl 08/22/18 04:30 Add Manual Diff YES 08/05/18 04:05 Neutrophils % 65.6 % (40.0-80.0) 08/22/18 04:30 Band Neutrophils % 0 % (0-10) 08/05/18 04:05 Lymphocytes % 22.5 % (20.0-50.0) 08/22/18 04:30 Monocytes % 7.3 % (2.0-10.0) 08/22/18 04:30 Eosinophils % 4.6 % (0.0-5.0) 08/22/18 04:30 Basophils % 0.0 % (0.0-2.0) 08/22/18 04:30 Neutrophils (Manual) 72 % (40-80) 08/05/18 04:05 Lymphocytes 14 % (20-50) L 08/05/18 04:05 Monocytes 10 % (2-10) 08/05/18 04:05 Eosinophils 4 % (0-5) 08/05/18 04:05 Basophils 0 % (0-3) 08/05/18 04:05 Platelet Estimate ADEQUATE (NORMAL) 08/01/18 05:00 PT 10.4 SECONDS (9.5-11.5) 08/14/18 07:25 INR 1.00 (0.5-1.4) 08/14/18 07:25 PTT (Actin FS) 24.2 SECONDS (26.0-38.0) L 08/14/18 07:25 Sodium 134 mEq/L (136-145) L 08/22/18 04:30 Potassium 4.1 mEq/L (3.5-5.1) 08/22/18 04:30 Chloride 99 mEq/L (98-107) 08/22/18 04:30 Carbon Dioxide 27.2 mEq/L (21.0-31.0) 08/22/18 04:30 Anion Gap 11.9 (7.0-16.0) 08/22/18 04:30 BUN 13 mg/dL (7-25) 08/22/18 04:30 Creatinine 0.7 mg/dL (0.7-1.3) 08/22/18 04:30 Est GFR ( Amer) > 60.0 ml/min (>90) 08/22/18 04:30 Est GFR (Non-Af Amer) > 60.0 ml/min 08/22/18 04:30 BUN/Creatinine Ratio 18.6 08/22/18 04:30 Glucose 95 mg/dL (70-105) 08/22/18 04:30 Whole Bld Lactic Acid 1.47 mmol/L (0.60-1.99) 07/31/18 07:40 Calcium 9.4 mg/dL (8.6-10.3) 08/22/18 04:30 Total Bilirubin 0.3 mg/dL (0.3-1.0) 08/21/18 04:55 AST 20 U/L (13-39) 08/21/18 04:55 ALT 16 U/L (7-52) 08/21/18 04:55 Alkaline Phosphatase 70 U/L (34-104) 08/21/18 04:55 Total Protein 7.2 gm/dL (6.0-8.3) 08/21/18 04:55 Albumin 3.8 gm/dL (4.2-5.5) L 08/21/18 04:55 Globulin 3.4 gm/dL 08/21/18 04:55 Albumin/Globulin Ratio 1.1 (1.0-1.8) 08/21/18 04:55 Urine Source CATH 07/30/18 19:20 Urine Color YELLOW 07/30/18 19:20 Urine Clarity HAZY (CLEAR) 07/30/18 19:20 Urine pH 7.0 (4.6 - 8.0) 07/30/18 19:20 Ur Specific [place] 1.010 (1.005-1.030) 07/30/18 19:20 Urine Protein 30 mg/dL (NEGATIVE) H 07/30/18 19:20 Urine Glucose (UA) NEGATIVE mg/dL (NEGATIVE) 07/30/18 19:20 Urine Ketones NEGATIVE mg/dL (NEGATIVE) 07/30/18 19:20 Urine Blood LARGE (NEGATIVE) H 07/30/18 19:20 Urine Nitrate POSITIVE (NEGATIVE) H 07/30/18 19:20 Urine Bilirubin NEGATIVE (NEGATIVE) 07/30/18 19:20 Urine Urobilinogen 0.2 E.U./dL (0.2 - 1.0) 07/30/18 19:20 Ur Leukocyte Esterase LARGE (NEGATIVE) H 07/30/18 19:20 Urine RBC 5-10 /hpf (0-5) H 07/30/18 19:20 Urine WBC 25-50 /hpf (0-5) H 07/30/18 19:20 Ur Epithelial Cells FEW /lpf (FEW) 07/30/18 19:20 Urine Bacteria 4+ /hpf (NONE SEEN) H 07/30/18 19:20 Amikacin Peak 25.8 ug/mL (20.0-30.0) 08/07/18 18:18 Amikacin Trough 0.8 ug/mL (1.0-8.0) L 08/09/18 18:00 Random Amikacin 0.8 ug/ml (1.0-30.0) L 08/04/18 12:00 Gentamicin 5.3 ug/mL (0.5-10.0) 08/16/18 16:05 Gentamicin Trough 4.3 ug/ml (0.2-2.0) H 08/11/18 04:15 Vancomycin Trough 7.1 ug/mL (5-10) 08/22/18 04:00 Blood Type A POSITIVE 08/16/18 07:59 Antibody Screen NEGATIVE 08/16/18 07:59 Crossmatch See Detail 08/16/18 07:59 - Physical Exam Vitals and I&O: Vital Signs Temp 97.2 F 08/22/18 07:56 Pulse 74 08/22/18 09:11 Resp 15 08/22/18 07:56 BP 121/57 08/22/18 07:56 Pulse Ox 100 08/22/18 09:11 Intake & Output 08/21/18 08/22/18 08/22/18 18:59 06:59 18:59 Intake Total 8656.068 9118 Output Total 1500 1050 Balance 9.167 10 Weight (lbs) 59.647 kg 52.787 kg Intake: Intake, IV Amount 519.167 300 Linezolid 600mg/300mL 600 300 mg In 300 ml @ 300 mls/ hr IV Q12HR [facility] Rx#: [id number] Sodium Chloride 0.9% 1, 519.167 000 ml @ 50 mls/hr IV . Q20H [facility] Rx#:[id number] Tube Feeding 840 560 Other 150 200 Output: Urine 1500 1050 Stool 0 Other: # Bowel Movements 1 0 Stool Characteristics Soft Formed Brown Weight Source Bedscale Bedscale Active Medications: Current Medications Acetaminophen (Tylenol) 650 mg GT Q4H PRN PRN Reason: Fever > 101 Stop: 09/29/18 06:32 Last Admin: 08/19/18 03:56 Dose: 650 mg Ascorbic Acid (Vitamin C) 500 mg GT DAILY [facility] Stop: 09/30/18 08:59 Last Admin: 08/22/18 08:05 Dose: 500 mg Bisacodyl (Dulcolax 10 Mg Supp) 10 mg RC DAILY PRN PRN Reason: Constipation Stop: 09/29/18 15:21 Calamine/Phenol (Calmoseptine) 1 appl TP PRN PRN PRN Reason: Rash Stop: 10/14/18 07:19 Last Admin: 08/16/18 05:00 Dose: 1 appl Chlorhexidine Gluconate (Peridex) 15 ml MM 0800,1999 [facility] Stop: 09/28/18 19:59 Last Admin: 08/22/18 08:06 Dose: 15 ml Famotidine (Pepcid) 20 mg PO BID [facility] Stop: 09/29/18 20:59 Last Admin: 08/22/18 08:05 Dose: 20 mg Norepinephrine Bitartrate 4 mg (/ Dextrose) 254 mls @ 0 mls/hr IV TITR PRN; Protocol PRN Reason: BP MAINTENANCE (PER PROTOCOL) Stop: 09/29/18 00:37 Last Titration: 08/05/18 00:15 Dose: 0 mcg/min, 0 mls/hr Sodium Chloride (Nacl 0.9%) 1,000 mls @ 50 mls/hr IV .Q20H [facility] Stop: 10/02/18 11:59 Last Admin: 08/21/18 16:24 Dose: 50 mls/hr Linezolid (Zyvox) 600 mg in 300 mls @ 300 mls/hr IV Q12HR [facility] Stop: 10/20/18 20:59 Last Admin: 08/22/18 07:59 Dose: 300 mls/hr Lactobacillus Rhamnosus (Culturelle 15b) 1 each PO DAILY [facility] Stop: 09/30/18 11:59 Last Admin: 08/22/18 08:05 Dose: 1 each Levetiracetam (Keppra) 500 mg GT BID [facility] Stop: 09/30/18 08:59 Last Admin: 08/22/18 08:02 Dose: 500 mg Lorazepam (Ativan) 1 mg IVP Q4HR PRN; Protocol PRN Reason: Seizure Stop: 10/01/18 11:24 Last Admin: 08/21/18 20:05 Dose: 1 mg Magnesium Hydroxide (Milk Of Magnesia) 30 ml GT HS PRN PRN Reason: Constipation Stop: 09/29/18 17:49 Miscellaneous (Probiotic Screen) 1 ea MC PRN PRN PRN Reason: PROTOCOL Stop: 09/30/18 09:02 Morphine Sulfate (Morphine) 1 mg IVP Q4HR PRN PRN Reason: Pain (Mild) Stop: 09/30/18 14:04 Last Admin: 08/18/18 01:45 Dose: 1 mg Multivitamins/Vitamin C (Theragran) 1 tab GT BID [facility] Stop: 09/30/18 08:59 Last Admin: 08/22/18 08:05 Dose: 1 tab Nystatin (Nystop) 100 units TP DAILY PRN PRN Reason: Rash Stop: 10/14/18 07:20 Last Admin: 08/16/18 05:00 Dose: 100 units Potassium Chloride (Potassium Chloride Elixir) 40 meq GT DAILY [facility] Stop: 10/04/18 08:59 Last Admin: 08/22/18 08:05 Dose: 40 meq Thiamine HCl (Vitamin B1) 100 mg GT DAILY [facility] Stop: 09/30/18 08:59 Last Admin: 08/22/18 08:05 Dose: 100 mg Wound Care/Dressing Products (Therahoney) 1 appl TP DAILY [facility] Stop: 09/30/18 08:59 Last Admin: 08/22/18 08:06 Dose: 1 appl Zinc Sulfate (Zinc Sulfate) 220 mg GT DAILY [facility] Stop: 09/30/18 08:59 Last Admin: 08/22/18 08:04 Dose: 220 mg Physical Exam: 58 y/o male patient has hx of Chronic resp. failure on Ventilator support, patient was also diagnosed with Pneumonia and Acute UTI. Patient is being treated and monitored. General: weak HEENT: NC/AT, PERRLA Neck: Supple, No JVD Lungs: wheezing, ronchi Cardiovascular: RRR, Normal S1 Abdomen: non-tender Extremities: clear Neurological: no change - Procedures Procedures: Procedures Procedure Code Date REPAIR HEAD, EXTERNAL APPROACH [id number] 07/30/18 RESPIRATORY VENTILATION, GREATER THAN 96 CONSECUTIVE HOURS [id number] 07/30/18 Internal Medicine Assmt/Plan - Assessment Assessment: Pneumonia. Dysphagia. Weakness. Intracranial Hemmorhage s/p craniotomy. Chronic Respiratory failure, On ventilator support. Acute UTI. Sepsis. Hx of Cerebrovascular Disease. - Plan Plan: Continuation of care. Monitor Vitals and Labs. Continue present meds as directed. Monitor Diet/Nutritional support. Respiratory treatments and Pulmonary support. Supplemental Oxygen. Aspiration precaution. Deep suctioning prn. Monitor Diet/Nutritional support. Pain Management. Safety precaution. Supportive care. Fall precaution. Will Monitor patient and continue current treatment plan as ordered. Nutritional Asmnt/Malnutr-PDOC - Dietary Evaluation Malnutrition Findings (Please click <Entered> for more info): Nutritional Asmnt/Malnutrition Start: 07/31/18 14: 50 Text: Status: Complete Freq: Protocol: Document 07/31/18 14:50 [facility] (Rec: 07/31/18 15:09 [facility] PETAR-[email or web address]) Nutritional Asmnt/Malnutrition Patient General Information Nutritional Screening High Risk Diagnosis urosepis Pertinent Medical Hx/Surgical Hx seizures, anemia, resp failure , SAH, trach, Gtube, foleu, vent depression Subjective Information Pt seen resting in bed, trach to vent. Visiablly verified TF was running at goal rate of 70ml/hr at this time. Current Diet Order/ Nutrition Support Jevity 1.2 at 70ml/hr x 20hr. Pertinent Medications nacl 0.9%, vancomycin Pertinent Labs 5/2 Na 135, alb 3.7 Nutritional Hx/Data Height 1.73 m Height (Calculated Centimeters) 172.7 Current Weight (lbs) 55.338 kg Weight (Calculated Kilograms) 55.3 Weight (Calculated Grams) 37852.3 [place] Body Weight 154 Body Mass Index (BMI) 18.5 Weight Status Approriate GI Symptoms GI Symptoms None Last BM 5/2 Difficult in: None Skin Integrity/Comment: scar to head and right anterior ear, abrasion to left ankle, rash to left posterior and right axilla, decubitus ulcer to sacrum. Sal 12. Estimated Nutritional Goals Calories/Kcals/Kg 23-27 based on IBW 70kg Kcals Calculated 4486-6526 Protein g/k-1.2 Protein Calculated 70-84 Fluid: ml 1610-1890ml (1ml/kcal) Nutritional Problem No current Nutrition Prob Problem N/A Malnutrition Alert Is there a minimum of two criteria No selected? Query Text:Check all the applicable criteria. A minimum of two criteria are recommended for diagnosis of either severe or non-severe malnutrition. Malnutrition Related to Morbid Obesity Malnutrition related to morbid obesity No Intervention/Recommendation Comments 1. Continue with current TF regimen Jevity 1.2 at 70ml/hr x 20hr. It provides 1680kcal, 78g protein, 1130ml free water , meeting 100% of nutritional needs 2. Monitor TF rate, tolerance, wt, skin integrity and labs 3. F/U as moderate risk Expected Outcomes/Goals Expected Outcomes/Goals 1. Pt to meet at least 90% of nutritional needs via nutrition support with tolerance 2. Wt stability, skin to remain intact, labs to approach WNL.
[2018-08-22] MEDS: Sodium Chloride 0.9% 1,000 ML IV SCH ×2 (15:00→16:00)
--- NOTE | 2018-08-22 21:04 | Progress Notes ---
DATE: 08/22/2018 PULMONARY PROGRESS NOTE SUBJECTIVE: The patient is on a vent, awake, no distress. Minimal oozing from the right side of the craniotomy. PHYSICAL EXAMINATION: VITAL SIGNS: Temperature is 97.0, pulse is 82, respirations 13, blood pressure , saturating 100%. CHEST: Good breath sounds. No wheezing or crackles. HEART: Regular rate and rhythm. ABDOMEN: Soft. EXTREMITIES: No edema. LABORATORY DATA: The WBC is 4.8, hemoglobin 9.9, hematocrit 29.8, platelets 329. Sodium is 134, potassium 4.1, BUN 13, creatinine 0.7. IMPRESSION: 1. Respiratory failure. 2. Cerebrovascular accident, intracranial hemorrhage status post craniotomy. 3. Status post sepsis. 4. Status post urinary tract infection. PLAN: Continue vent support, supportive care, awaiting transfer. We can have evaluation on an elective basis relatively inpatient transfer. JOB# [id number]
[2018-08-23 05:11] LABS: % BASOPHILS 0.3 % (0.0-2.0); % LYMPHOCYTES 26.2 % (20.0-50.0); % MONOCYTES 10.5 % (2.0-10.0); EOSINOPHILE ABSOLUTE 0.2 Th/cmm (0.1-0.4); HEMATOCRIT 30.6 % (41.0-60); HEMOGLOBIN 10.2 gm/dL (12-16); LYMPHOCYTE ABSOLUTE 1.6 Th/cmm (1.5-3.0); MEAN CELL VOLUME 89.3 fl (80-99); MEAN CORPUSCULAR HEMOGLOBIN 29.7 pg (26.0-30.0); MEAN CORPUSCULAR HGB CONC 33.2 pg (28.0-36.0); MONOCYTE ABSOLUTE 0.7 Th/cmm (0.3-1.0); NEUTROPHILE ABSOLUTE 3.7 Th/cmm (1.8-8.0); PLATELET COUNT 346 Th/cmm (150-400); RED BLOOD COUNT 3.43 Mil/cmm (4.30-5.70); RED CELL DISTRIBUTION WIDTH 14.7 % (11.5-20.0); WHITE BLOOD COUNT 6.2 Th/cmm (4.8-10.8)
[2018-08-23 05:31] LABS: ANION GAP 12.7 (7.0-16.0); BUN - UREA NITROGEN 12 mg/dL (7-25); CALCIUM SERUM 9.5 mg/dL (8.6-10.3); CARBON DIOXIDE 26.4 mEq/L (21.0-31.0); CHLORIDE 98 mEq/L (98-107); CREATININE - SERUM 0.6 mg/dL (0.7-1.3); GFR AFRICAN-AMERICAN > 60.0 ml/min (>90); GFR NON AFRICAN-AMERICAN > 60.0 ml/min; GLUCOSE 96 mg/dL (70-105); POTASSIUM SERUM 4.1 mEq/L (3.5-5.1); SODIUM SERUM 133 mEq/L (136-145)
--- NOTE | 2018-08-23 08:32 | Progress Notes ---
DATE: 08/23/2018 DATE OF SERVICE: 08/23/2018 SUBJECTIVE: The patient was seen in ICU. The patient is a poor historian due to medical condition. The patient appears to be guarded. Currently in no acute distress. The patient is still pending for transfer to [facility], but currently the patient has no bed assignment going to [facility]. Otherwise, the patient appears to be in no acute distress. OBJECTIVE: VITAL SIGNS: Temperature 98.6, heart rate 79, blood pressure 145/83, respirations 14, 100% saturation via ventilator. HEENT: Head is atraumatic and normocephalic. EYES: Bilateral conjunctivae are clear. Bilateral pupils are equally round and reactive. NECK: Supple. No JVD. The patient has a tracheostomy connected to ventilator. CARDIOVASCULAR: S1 and S2, without murmurs. Sinus rhythm on the monitor. PULMONARY: Fine scattered rhonchi noted. GASTROINTESTINAL: Soft and nontender without guarding. Positive bowel sounds. MUSCULOSKELETAL: No clubbing. No cyanosis. Positive muscle weakness. ASSESSMENT: 1. Sepsis. 2. Cerebrovascular accident. 3. Intracranial hemorrhage, status post craniotomy. 4. Urinary tract infection. 5. Respiratory failure. PLAN: We will continue current treatment. We will continue current antibiotics. We will continue to provide pulmonary support for the patient on aspiration precaution. At this point, the patient is pending transfer [facility] with kept bed hold with accepting doctor. According to staff nurse, the patient is pending pickup time. We will follow up with the case coordinator. Treatment plans were discussed with the patient's nurse. Treatment plans were discussed with Dr. Pedro. JOB# [id number]
[2018-08-23] MEDS: Linezolid 600mg/300mL 600 MG/300 ML BAG IV SCH (08:46)
[2018-08-23] MEDS: Chlorhexidine Gluconate 0.12% 15mL Mouthwash MM SCH (08:47)
[2018-08-23] MEDS: Levetiracetam 500 mg/5mL 5mL UDSyr *for ORAL USE ONLY GT SCH (08:47)
[2018-08-23] MEDS: Potassium Chloride Elixir 20 mEq /15 mL UDC GT SCH (08:47)
[2018-08-23] MEDS: Therahoney Gel 42.5gm Tube TP SCH (08:48)
[2018-08-23] MEDS: Lactobacillus Rhamnosus GG 15 Billion CFU CAP.SPRINK PO SCH (08:48)
[2018-08-23] MEDS: Multivitamin Tab GT SCH (08:48)
== END 2018-08-23 12:21 | disposition short-term general hospital (02) | DRG 710 ==
LOC: ER 19:05 → ICU 21:05
PROVIDERS: ADMIT Internal Medicine; ATTEND Internal Medicine
PROC: 5A1955Z Respiratory Ventilation, Greater than 96 Consecutive Hours (ICD-10-PCS; principal; 2018-07-30)
PROC: 09Q0XZZ Repair Right External Ear, External Approach (ICD-10-PCS; 2018-08-01)
PROC: 0W3 Anatomical Regions, General, Control (ICD-10-PCS; 2018-08-14)
PROC: 02HV33Z Insertion of Infusion Device into Superior Vena Cava, Percutaneous Approach (ICD-10-PCS; 2018-08-15)
PROC: 30233N1 Transfusion of Nonautologous Red Blood Cells into Peripheral Vein, Percutaneous Approach (ICD-10-PCS; 2018-08-16)
DX: A41.52 Sepsis due to Pseudomonas (principal); J96.20 Acute and chronic respiratory failure, unspecified whether with hypoxia or hypercapnia; Z99.11 Dependence on respirator [ventilator] status; J15.1 Pneumonia due to Pseudomonas; R56.9 Unspecified convulsions; E44.0 Moderate protein-calorie malnutrition; Z93.0 Tracheostomy status; T81.31XA Disruption of external operation (surgical) wound, not elsewhere classified, initial encounter; L76.22 Postprocedural hemorrhage of skin and subcutaneous tissue following other procedure; D64.9 Anemia, unspecified; Z93.1 Gastrostomy status; Z68.1 Body mass index [BMI] 19.9 or less, adult; E87.6 Hypokalemia; L03.811 Cellulitis of head [any part, except face]; H60.10 Cellulitis of external ear, unspecified ear; Z66 Do not resuscitate; R13.10 Dysphagia, unspecified; N12 Tubulo-interstitial nephritis, not specified as acute or chronic; Y83.8 Other surgical procedures as the cause of abnormal reaction of the patient, or of later complication, without mention of misadventure at the time of the procedure; Y92.89 Other specified places as the place of occurrence of the external cause
CPT/HCPCS: 36415-UA; 70450-TC; 71045-TC; 76770-TC; 80048-TC; 80053-TC; 80150-TC; 80170-TC; 80202-TC; 81001-TC; 83605; 84132-TC; 85007-TC; 85014-TC; 85018-TC; 85025-TC; 85610-TC; 85730-TC; 86850-TC; 86900-TC; 86901-TC; 86922-TC; 87070; 87070-90; 87086-90; 93005; 94002; 94003; 94760; A4217; J0278; J0692; J0696; J1580; J2001; J2020; J2060; J2270; J2543; J3370; J3480; J7030; J7040; J7042; P9016; P9046; X6452; X7704; Z7610